=== PATIENT | female | born 1935 | race Caucasian/White ===

== ENCOUNTER → 2017-09-29 09:21 | Outpatient (CLI) | payer OTHER, SELFPAY ==
[2017-09-29 10:24] LABS: Alanine Aminotransferase 29 IU/L (9-52); Albumin Globulin Ratio 1.8 (1.0-2.8); Alkaline Phosphatase 73 U/L (38-126); Aspartate Aminotransferase 24 IU/L (14-36); Bilirubin Total 0.6 mg/dL (0.2-1.3); Blood Urea Nitrogen 20 mg/dL (7-17); Calcium 10.3 mg/dL (8.4-10.2); Carbon Dioxide 31 mmol/L (22-32); Chloride 104 mmol/L (98-107); Estimated Glomerular Filt Rate 53.1 mL/min (>60); Globulin 2.2 g/dL (1.7-4.1); Glucose 95 mg/dL (80-110); HEMOLYSIS < 15 (0-50); Potassium 5.3 mmol/L (3.4-5.1); Sodium 143 mmol/L (137-145); Total Protein 6.2 g/dL (6.3-8.2)
== END ==
PROVIDERS: PCP Family Medicine; Visit Provider Family Medicine
DX: N18.9 Chronic kidney disease, unspecified (principal)
CPT/HCPCS: 36415; 80053

== ENCOUNTER 2017-12-23 09:00 | Oncology outpatient (ONC) | payer OTHER, SELFPAY ==
--- NOTE | 2017-09-24 08:25 | P.PNONC_ITS ---
Assessment and Plan (1) Chronic lymphocytic leukemia of B-cell type not having achieved remission Status: Acute PN -Subjective Interval history: Marietta is a 82 year old female who carries a diagnosis of CLL in clinical remissions currently on maintenance rituximab. She presents today for 3 month clinical eval as well as rituximab infusion. Past Medical History The patient's past medical history is significant for: 1. CLL, normal CLL FISH panel Diagnosis: 11/18/2004. Peripheral flow cytometry. Abnormal B-cell population identified on representing 69% of the total white cells. Positive expression for CD45, CD19, low level CDXX, CD5, and CD23. Low level Of surface light chain restriction. Negative for [facility] 7 or CD10. [place] 70 at 2.8%. CD38 at 0.4%. 10/12/2007. Bone marrow biopsy with aspiration. Microscopically reporting hypercellular at 75%. Numerous mature-appearing lymphocytes scattered diffusely. No increased blasts seen. Moderate 1+ reticulin fibrosis seen. Flow cytometry from the aspirate identifying a mature B-cell population with similar immunophenotype and consistent with CLL/SLL. Abnormal cells represent 83% the total white cells. CLL FISH panel was normal. Karyotype was normal at 46 XX. First-line Treatment: 2007 and 2010. Rituxan Second line therapy: 08/09/2015-10/30/2015. Rituxan bendamustine x 4 cycles. Indication to treat: Increased symptoms of fatigue as well as increasing white cell count . Baseline white blood cell count on 08/01/2015 at 97,000. Absolute lymphocyte count 92,000. Baseline peripheral flow cytometry and 08/06/2015 reporting a abnormal B-cell population representing 87% of the total white blood cell count. Restaging flow cytometry on 11/20/2015 (a reflection of 4 cycles of bendamustine and Rituxan) reporting an abnormal B-cell population representing 0.4% of the total white cells. Clinical staging workup, post Rituxan bendamustine therapy: 03/04/2016. CT abdomen with pelvis. A reflection of 4 cycles of bendamustine rituximab. No adenopathy. Spleen normal in size. Maintenance: 11/13/2015-present. Rituxan. Treatment plan: Rituxan 3 25 mg/m? every 3 months for a total of 3 years. Surveillance: 02/19/2016. Peripheral flow cytometry. Abnormal mature B-cell population low level Of surface light chain restriction. Immunophenotype consistent with the L. Represent 1% of the total lymphocytes and 0.15% of the total viable leukocytes. 2. Depression. 3. Seizures Results - Imaging Additional studies: Procedures Colonoscopy (07/19/13) Esophagogastroduodenoscopy [EGD] with closed biopsy (07/19/13) OTHER APPENDECTOMY (10/18/09) Home Medications and Allergies Home Medications Medication Instructions Recorded Confirmed Type acetaminophen [Tylenol Extra 1,000 mg PO PRN #0 04/15/12 History Strength] omeprazole magnesium [Prilosec OTC] 20 mg PO DAILY #0 04/15/12 History levetiracetam [Keppra] 500 mg PO HS #0 09/25/16 History [LEG CRAMP MED] PRN #0 06/03/17 History levetiracetam [Keppra] 250 mg PO QDAY #0 06/03/17 History prednisolone [Millipred DP] PO BID #0 06/23/17 History Allergies Allergy/AdvReac Type Severity Reaction Status Date / Time albuterol [ALBUTEROL] AdvReac Severe SHAKEY Unverified 07/29/17 12:53 LEGS, JERKY allopurinol [ALLOPURINOL] AdvReac Severe NAUSEA AND Unverified 07/29/17 12:53 GI UPSET Sulfa (Sulfonamide AdvReac Severe HEADACHES Unverified 07/29/17 12:53 Antibiotics) [SULFA (SULFONAMIDE ANTIBIOTICS)] JESSICA Inhibitors AdvReac Mild COUGH Unverified 07/29/17 12:53 [JESSICA INHIBITORS]
[2017-10-01 08:50] LABS: Add Manual Diff / Slide Review NO; Basophils Percent Auto 1.3 % (0-2); Eosinophils Percent Auto 3.5 % (2-4); Hematocrit 38.2 % (36-46); Hemoglobin 12.9 g/dL (12.0-16.0); Lymphocytes Percent Auto 17.7 % (25-40); Mean Corpuscular HGB Conc 33.9 % (30-36); Mean Corpuscular Hemoglobin 29.6 PG (26-34); Mean Corpuscular Volume 87.3 fL (80-100); Monocytes Percent Auto 15.6 % (3-14); Neutrophils Absolute Auto 2800 /uL (3000-5900); Neutrophils Percent Auto 61.9 % (50-75); Platelet Count 207 X10^3/uL (150-400); Red Blood Cell Count 4.37 X10^6/uL (4.0-5.2); Red Cell Distribution Width 14.8 % (11.6-14.8); White Blood Cell Count 4.5 X10^3/uL (4.5-11.0)
[2017-10-01 08:56] LABS: Alanine Aminotransferase 25 IU/L (9-52); Albumin 3.9 g/dL (3.5-5.0); Albumin Globulin Ratio 1.6 (1.0-2.8); Alkaline Phosphatase 66 U/L (38-126); Aspartate Aminotransferase 23 IU/L (14-36); Bilirubin Total 0.5 mg/dL (0.2-1.3); Blood Urea Nitrogen 19 mg/dL (7-17); Calcium 9.7 mg/dL (8.4-10.2); Carbon Dioxide 30 mmol/L (22-32); Chloride 104 mmol/L (98-107); Estimated Glomerular Filt Rate 53.1 mL/min (>60); Globulin 2.5 g/dL (1.7-4.1); Glucose 88 mg/dL (80-110); HEMOLYSIS < 15 (0-50); Potassium 4.3 mmol/L (3.4-5.1); Sodium 145 mmol/L (137-145); Total Protein 6.4 g/dL (6.3-8.2)
--- NOTE | 2017-10-01 08:59 | ONC.APRN.PN ---
Assessment and Plan (1) Chronic lymphocytic leukemia of B-cell type not having achieved remission Current visit: No Status: Acute 10/01/17 09:00 Marietta is a 82 year old female who is being seen in the clinic 10/01/2017 for a dx of CLL in clinical remission, currently on maintenance rituximab Q 3 months which she is tolerating quite well without adverse effects. Marietta looks good on exam today, exam is unremarkable specifically no splenomegaly, lymphadenopathy. CBC and CMP remained unremarkable. She did have CT of abdomen pelvis in May 2017 through the emergency department at which time she was diagnosed with diverticulitis. Reassuringly there was no hepatosplenomegaly or other concerning findings on imaging. We will continue with every 3 month maintenance rituximab. Return to clinic in 3 months for provider visit, CBC, CMP, rituximab. The patient did receive a note from her insurance which is [employer] informing her oncology referral is about to . I have notified the front end java developer who will follow-up. I will check NCCN guidelines to confirm how long she should be on maint rituximab. 10/01/17 09:29 10/01/17 09:34 - Time Spent with Patient 35 mins PN -Subjective Interval history: aMrietta is a 82 year old female who carries a diagnosis of CLL in clinical remissions currently on maintenance rituximab. She presents today for 3 month clinical eval as well as rituximab infusion. On exam today she has no new complaints overall she is feeling quite well. No fatigue. No night sweats. She did have acute diverticulitis in May for which she went to emergency department. This resolved. She is following a low residue diet. No other recent illnesses or infections. No change in appetite specifically no early satiety. Weight is stable. Bladder and bowel habits are stable. She did suffer a right retinal detachment for which she had surgery a few weeks ago. Is recovering quite nicely, vision is improving almost every day. Past Medical History The patient's past medical history is significant for: 1. CLL, normal CLL FISH panel Diagnosis: 11/18/2004. Peripheral flow cytometry. Abnormal B-cell population identified on representing 69% of the total white cells. Positive expression for CD45, CD19, low level CDXX, CD5, and CD23. Low level Of surface light chain restriction. Negative for [facility] 7 or CD10. [place] 70 at 2.8%. CD38 at 0.4%. 10/12/2007. Bone marrow biopsy with aspiration. Microscopically reporting hypercellular at 75%. Numerous mature-appearing lymphocytes scattered diffusely. No increased blasts seen. Moderate 1+ reticulin fibrosis seen. Flow cytometry from the aspirate identifying a mature B-cell population with similar immunophenotype and consistent with CLL/SLL. Abnormal cells represent 83% the total white cells. CLL FISH panel was normal. Karyotype was normal at 46 XX. First-line Treatment: 2007 and 2010. Rituxan Second line therapy: 08/09/2015-10/30/2015. Rituxan bendamustine x 4 cycles. Indication to treat: Increased symptoms of fatigue as well as increasing white cell count . Baseline white blood cell count on 08/01/2015 at 97,000. Absolute lymphocyte count 92,000. Baseline peripheral flow cytometry and 08/06/2015 reporting a abnormal B-cell population representing 87% of the total white blood cell count. Restaging flow cytometry on 11/20/2015 (a reflection of 4 cycles of bendamustine and Rituxan) reporting an abnormal B-cell population representing 0.4% of the total white cells. Clinical staging workup, post Rituxan bendamustine therapy: 03/04/2016. CT abdomen with pelvis. A reflection of 4 cycles of bendamustine rituximab. No adenopathy. Spleen normal in size. Maintenance: 11/13/2015-present. Rituxan. Treatment plan: Rituxan 3 25 mg/m? every 3 months for a total of 3 years. Surveillance: 02/19/2016. Peripheral flow cytometry. Abnormal mature B-cell population low level Of surface light chain restriction. Immunophenotype consistent with the L. Represent 1% of the total lymphocytes and 0.15% of the total viable leukocytes. 2. Depression. 3. Seizures Results - Labs 10/01/17 08:27 10/01/17 08:27 Laboratory Last Values WBC 4.5 X10^3/uL (4.5-11.0) 10/01/17 08:27 RBC 4.37 X10^6/uL (4.0-5.2) 10/01/17 08:27 Hgb 12.9 g/dL (12.0-16.0) 10/01/17 08:27 Hct 38.2 % (36-46) 10/01/17 08:27 MCV 87.3 fL (80-100) 10/01/17 08:27 MCH 29.6 PG (26-34) 10/01/17 08:27 MCHC 33.9 % (30-36) 10/01/17 08:27 RDW 14.8 % (11.6-14.8) 10/01/17 08:27 Plt Count 207 X10^3/uL (150-400) 10/01/17 08:27 Neut % (Auto) 61.9 % (50-75) 10/01/17 08:27 Lymph % (Auto) 17.7 % (25-40) L 10/01/17 08:27 [place] % (Auto) 15.6 % (3-14) H 10/01/17 08:27 Eos % (Auto) 3.5 % (2-4) 10/01/17 08:27 Baso % (Auto) 1.3 % (0-2) 10/01/17 08:27 Neut # (Auto) 2800 /uL (5511-6041) L 10/01/17 08:27 Sodium 145 mmol/L (137-145) 10/01/17 08:27 Potassium 4.3 mmol/L (3.4-5.1) 10/01/17 08:27 Chloride 104 mmol/L (98-107) 10/01/17 08:27 Carbon Dioxide 30 mmol/L (22-32) 10/01/17 08:27 BUN 19 mg/dL (7-17) H 10/01/17 08:27 Creatinine 1.00 mg/dL (0.52-1.04) 10/01/17 08:27 Estimated GFR 53.1 mL/min (>60) L 10/01/17 08:27 BUN/Creatinine Ratio 19.0 (6-22) 10/01/17 08:27 Glucose 88 mg/dL (80-110) 10/01/17 08:27 Calcium 9.7 mg/dL (8.4-10.2) 10/01/17 08:27 Total Bilirubin 0.5 mg/dL (0.2-1.3) 10/01/17 08:27 AST 23 IU/L (14-36) 10/01/17 08:27 ALT 25 IU/L (9-52) 10/01/17 08:27 Alkaline Phosphatase 66 U/L (38-126) 10/01/17 08:27 Total Protein 6.4 g/dL (6.3-8.2) 10/01/17 08:27 Albumin 3.9 g/dL (3.5-5.0) 10/01/17 08:27 Globulin 2.5 g/dL (1.7-4.1) 10/01/17 08:27 Albumin/Globulin Ratio 1.6 (1.0-2.8) 10/01/17 08:27 - Imaging Additional studies: Procedures Colonoscopy (07/19/13) Esophagogastroduodenoscopy [EGD] with closed biopsy (07/19/13) OTHER APPENDECTOMY (10/18/09) Home Medications and Allergies Home Medications Medication Instructions Recorded Confirmed Type acetaminophen [Tylenol Extra 1,000 mg PO PRN #0 04/15/12 09/30/17 History Strength] levetiracetam [Keppra] 500 mg PO HS #0 09/25/16 09/30/17 History [LEG CRAMP MED] PRN #0 06/03/17 History prednisolone [Millipred DP] PO BID #0 06/23/17 09/30/17 History levetiracetam 500 mg tablet See Label Instructions PO .COMPLEX 09/30/17 09/30/17 History ranitidine 300 mg capsule 300 mg PO BEDTIME #30 cap 09/30/17 Rx cholecalciferol (vitamin D3) 2,000 unit PO DAILY 10/01/17 10/01/17 History [Vitamin D3] felodipine 5 mg PO DAILY 10/01/17 10/01/17 History Allergies Allergy/AdvReac Type Severity Reaction Status Date / Time albuterol [ALBUTEROL] AdvReac Severe SHAKEY Verified 09/30/17 15:32 LEGS, JERKY allopurinol [ALLOPURINOL] AdvReac Severe NAUSEA AND Verified 09/30/17 15:32 GI UPSET Sulfa (Sulfonamide AdvReac Severe HEADACHES Verified 09/30/17 15:32 Antibiotics) [SULFA (SULFONAMIDE ANTIBIOTICS)] JESSICA Inhibitors AdvReac Mild COUGH Verified 09/30/17 15:32 [JESSICA INHIBITORS] Exam Narrative: well appearing - Constitutional positive no acute distress - Routine HEENT Exam Head: Present: normocephalic, atraumatic ENT: Present: mucous membranes moist - Routine Neck Exam Present: supple. Absent: lymphadenopathy - Routine Chest/Breast/Axilla Exam Axillae: Absent: lymphadenopathy, mass, tenderness - Routine Respiratory Exam Present: Clear to auscultation bilaterally - Routine Cardiovascular Exam Present: RRR, S1, S2 - Routine Abdominal Exam Present: soft, normoactive bowel sounds. Absent: tenderness, distended, organomegaly, mass Palpation/Percussion: Absent: splenomegaly - Routine Extremities Exam Absent: edema, calf tenderness - Routine Skin Exam Present: intact, normal turgor. Absent: petechiae, rash - Routine Neurological Exam Present: alert, oriented X3 - Routine Psychiatric Exam Present: normal affect
[2017-10-01 09:00] VITALS: BP 137/63; PULSE 71; RESP 18; TEMP 36.8; O2SAT 97
[2017-10-01] MEDS: diphenhydrAMINE 25 MG TABLET PO (10:21)
[2017-10-01] MEDS: ACETAMINOPHEN 325 MG TABLET 650 MG PO (10:22)
[2017-10-01] MEDS: SODIUM CHLORIDE 0.9% 100 ML 21 ML IV (10:22)
[2017-10-01] MEDS: RITUXIMAB IV (10:41)
[2017-10-01] MEDS: NORMAL SALINE IV (10:41)
--- NOTE | 2017-12-23 06:43 | ONC.APRN.PN ---
Assessment and Plan (1) Chronic lymphocytic leukemia of B-cell type not having achieved remission Current visit: No Status: Acute 12/23/17 06:43 Marietta is a 82 year old female who is being seen in the clinic 12/23/2017 for a dx of CLL in clinical remission, currently on maintenance rituximab Q 3 months which she is tolerating quite well without adverse effects. Plan is to continue for a total of 3 years, her final infusion will be October 2018. Marietta looks good on exam today, exam is unremarkable specifically no splenomegaly, lymphadenopathy. CBC and CMP remain unremarkable. She did have CT of abdomen pelvis in May 2017 through the emergency department at which time she was diagnosed with diverticulitis. Reassuringly there was no hepatosplenomegaly or other concerning findings on imaging. We will continue with every 3 month maintenance rituximab. Return to clinic in 3 months for provider visit, CBC, CMP, LDH rituximab. 12/23/17 09:33 - Time Spent with Patient 25 mins PN -Subjective Interval history: Marietta is a 82 year old female who carries a diagnosis of CLL in clinical remissions currently on maintenance rituximab. She presents today for 3 month clinical eval as well as rituximab infusion. First infusion was October 2015 per NCCN guidelines a total of 3 years mait rituximab is the current recommendation. On exam today she has no new complaints overall she is feeling quite well. No fatigue. No night sweats. She did have acute diverticulitis in May for which she went to emergency department. This resolved. She is following a low residue diet. No other recent illnesses or infections. No change in appetite specifically no early satiety. Weight is stable. Bladder and bowel habits are stable. She did suffer a left retinal detachment for which she had surgery a few weeks ago. Slowly recovering, vision out of left eye still skewed, reading is a challenge. Marietta and her will be celebrating their 62nd wedding anniversary later this month. Past Medical History The patient's past medical history is significant for: 1. CLL, normal CLL FISH panel Diagnosis: 11/18/2004. Peripheral flow cytometry. Abnormal B-cell population identified on representing 69% of the total white cells. Positive expression for CD45, CD19, low level CDXX, CD5, and CD23. Low level Of surface light chain restriction. Negative for [facility] 7 or CD10. [place] 70 at 2.8%. CD38 at 0.4%. 10/12/2007. Bone marrow biopsy with aspiration. Microscopically reporting hypercellular at 75%. Numerous mature-appearing lymphocytes scattered diffusely. No increased blasts seen. Moderate 1+ reticulin fibrosis seen. Flow cytometry from the aspirate identifying a mature B-cell population with similar immunophenotype and consistent with CLL/SLL. Abnormal cells represent 83% the total white cells. CLL FISH panel was normal. Karyotype was normal at 46 XX. First-line Treatment: 2007 and 2010. Rituxan Second line therapy: 08/09/2015-10/30/2015. Rituxan bendamustine x 4 cycles. Indication to treat: Increased symptoms of fatigue as well as increasing white cell count . Baseline white blood cell count on 08/01/2015 at 97,000. Absolute lymphocyte count 92,000. Baseline peripheral flow cytometry and 08/06/2015 reporting a abnormal B-cell population representing 87% of the total white blood cell count. Restaging flow cytometry on 11/20/2015 (a reflection of 4 cycles of bendamustine and Rituxan) reporting an abnormal B-cell population representing 0.4% of the total white cells. Clinical staging workup, post Rituxan bendamustine therapy: 03/04/2016. CT abdomen with pelvis. A reflection of 4 cycles of bendamustine rituximab. No adenopathy. Spleen normal in size. Maintenance: 11/13/2015-present. Rituxan. Treatment plan: Rituxan 3 25 mg/m? every 3 months for a total of 3 years. Surveillance: 02/19/2016. Peripheral flow cytometry. Abnormal mature B-cell population low level Of surface light chain restriction. Immunophenotype consistent with the L. Represent 1% of the total lymphocytes and 0.15% of the total viable leukocytes. 2. Depression. 3. Seizures Results - Labs Laboratory Last Values WBC 4.5 X10^3/uL (4.5-11.0) 10/01/17 08:27 RBC 4.37 X10^6/uL (4.0-5.2) 10/01/17 08:27 Hgb 12.9 g/dL (12.0-16.0) 10/01/17 08:27 Hct 38.2 % (36-46) 10/01/17 08:27 MCV 87.3 fL (80-100) 10/01/17 08:27 MCH 29.6 PG (26-34) 10/01/17 08:27 MCHC 33.9 % (30-36) 10/01/17 08:27 RDW 14.8 % (11.6-14.8) 10/01/17 08:27 Plt Count 207 X10^3/uL (150-400) 10/01/17 08:27 Neut % (Auto) 61.9 % (50-75) 10/01/17 08:27 Lymph % (Auto) 17.7 % (25-40) L 10/01/17 08:27 [place] % (Auto) 15.6 % (3-14) H 10/01/17 08:27 Eos % (Auto) 3.5 % (2-4) 10/01/17 08:27 Baso % (Auto) 1.3 % (0-2) 10/01/17 08:27 Neut # (Auto) 2800 /uL (2494-0485) L 10/01/17 08:27 Sodium 145 mmol/L (137-145) 10/01/17 08:27 Potassium 4.3 mmol/L (3.4-5.1) 10/01/17 08:27 Chloride 104 mmol/L (98-107) 10/01/17 08:27 Carbon Dioxide 30 mmol/L (22-32) 10/01/17 08:27 BUN 19 mg/dL (7-17) H 10/01/17 08:27 Creatinine 1.00 mg/dL (0.52-1.04) 10/01/17 08:27 Estimated GFR 53.1 mL/min (>60) L 10/01/17 08:27 BUN/Creatinine Ratio 19.0 (6-22) 10/01/17 08:27 Glucose 88 mg/dL (80-110) 10/01/17 08:27 Calcium 9.7 mg/dL (8.4-10.2) 10/01/17 08:27 Total Bilirubin 0.5 mg/dL (0.2-1.3) 10/01/17 08:27 AST 23 IU/L (14-36) 10/01/17 08:27 ALT 25 IU/L (9-52) 10/01/17 08:27 Alkaline Phosphatase 66 U/L (38-126) 10/01/17 08:27 Total Protein 6.4 g/dL (6.3-8.2) 10/01/17 08:27 Albumin 3.9 g/dL (3.5-5.0) 10/01/17 08:27 Globulin 2.5 g/dL (1.7-4.1) 10/01/17 08:27 Albumin/Globulin Ratio 1.6 (1.0-2.8) 10/01/17 08:27 - Imaging Additional studies: Procedures Colonoscopy (07/19/13) Esophagogastroduodenoscopy [EGD] with closed biopsy (07/19/13) Home Medications and Allergies Home Medications Medication Instructions Recorded Confirmed Type acetaminophen [Tylenol Extra 1,000 mg PO PRN #0 04/15/12 11/13/17 History Strength] levetiracetam [Keppra] 500 mg PO HS #0 09/25/16 11/13/17 History [LEG CRAMP MED] PRN #0 06/03/17 11/13/17 History levetiracetam 500 mg tablet See Label Instructions PO .COMPLEX 09/30/17 11/13/17 History cholecalciferol (vitamin D3) 2,000 unit PO DAILY 10/01/17 11/13/17 History [Vitamin D3] omeprazole 20 mg capsule,delayed 20 mg PO DAILY 11/13/17 11/13/17 History release felodipine ER 5 mg tablet,extended 5 mg PO DAILY #90 tab 12/22/17 Rx release 24 hr Allergies Allergy/AdvReac Type Severity Reaction Status Date / Time albuterol [ALBUTEROL] AdvReac Severe SHAKEY Verified 11/13/17 12:46 LEGS, JERKY allopurinol [ALLOPURINOL] AdvReac Severe NAUSEA AND Verified 11/13/17 12:46 GI UPSET Sulfa (Sulfonamide AdvReac Severe HEADACHES Verified 11/13/17 12:46 Antibiotics) [SULFA (SULFONAMIDE ANTIBIOTICS)] JESSICA Inhibitors AdvReac Mild COUGH Verified 11/13/17 12:46 [JESSICA INHIBITORS] Exam Vital signs: Last Vital Signs Temp 98.2 F 10/01/17 09:00 Pulse 71 10/01/17 09:00 Resp 18 10/01/17 09:00 BP 137/63 H 10/01/17 09:00 Pulse Ox 97 06/14/18 09:00 - Constitutional positive no acute distress, positive average body habitus - Routine HEENT Exam Eye: Present: conjunctivae pink. Absent: conjunctival icterus, scleral injection ENT: Present: mucous membranes moist, oropharynx clear - Routine Neck Exam Present: supple. Absent: lymphadenopathy - Routine Chest/Breast/Axilla Exam Axillae: Absent: lymphadenopathy, mass, tenderness - Routine Respiratory Exam Present: Clear to auscultation bilaterally. Absent: rales, rhonchi, wheezes - Routine Cardiovascular Exam Present: RRR, S1, S2. Absent: murmur, gallop, rubs, JVD - Routine Abdominal Exam Present: soft, normoactive bowel sounds. Absent: tenderness, distended, organomegaly, mass - Routine Extremities Exam Absent: edema, calf tenderness - Routine Skin Exam Present: intact, normal turgor. Absent: petechiae, rash - Routine Neurological Exam Present: alert, oriented X3 - Routine Psychiatric Exam Present: normal affect
[2017-12-23 08:48] LABS: Add Manual Diff / Slide Review NO; Basophils Percent Auto 0.9 % (0-2); Eosinophils Percent Auto 2.7 % (2-4); Hematocrit 37.8 % (36-46); Hemoglobin 12.7 g/dL (12.0-16.0); Lymphocytes Percent Auto 18.2 % (25-40); Mean Corpuscular HGB Conc 33.6 % (30-36); Mean Corpuscular Hemoglobin 29.9 PG (26-34); Mean Corpuscular Volume 88.8 fL (80-100); Monocytes Percent Auto 13.7 % (3-14); Neutrophils Absolute Auto 3300 /uL (3000-5900); Neutrophils Percent Auto 64.5 % (50-75); Platelet Count 213 X10^3/uL (150-400); Red Blood Cell Count 4.26 X10^6/uL (4.0-5.2); Red Cell Distribution Width 14.3 % (11.6-14.8); White Blood Cell Count 5.1 X10^3/uL (4.5-11.0)
[2017-12-23 08:59] LABS: Alanine Aminotransferase 23 IU/L (9-52); Albumin 3.8 g/dL (3.5-5.0); Albumin Globulin Ratio 1.7 (1.0-2.8); Alkaline Phosphatase 64 U/L (38-126); Aspartate Aminotransferase 19 IU/L (14-36); Bilirubin Total 0.4 mg/dL (0.2-1.3); Blood Urea Nitrogen 16 mg/dL (7-17); Calcium 9.8 mg/dL (8.4-10.2); Carbon Dioxide 31 mmol/L (22-32); Chloride 107 mmol/L (98-107); Estimated Glomerular Filt Rate 53.1 mL/min (>60); Globulin 2.2 g/dL (1.7-4.1); Glucose 90 mg/dL (80-110); HEMOLYSIS < 15 (0-50); Potassium 4.3 mmol/L (3.4-5.1); Sodium 144 mmol/L (137-145)
[2017-12-23 09:00] VITALS: BP 138/81; PULSE 71; RESP 18; TEMP 36.8; O2SAT 96
[2017-12-23] MEDS: diphenhydrAMINE 25 MG TABLET PO (09:57)
[2017-12-23] MEDS: ACETAMINOPHEN 325 MG TABLET 650 MG PO (09:57)
[2017-12-23] MEDS: SODIUM CHLORIDE 0.9% 100 ML 21 ML IV (09:58)
[2017-12-23] MEDS: RITUXIMAB IV (10:29)
[2017-12-23] MEDS: NORMAL SALINE IV (10:29)
--- NOTE | 2017-12-24 09:37 | ONC.NAV ---
*Sent patient her Last Chemo Card.
== END 2017-12-24 14:53 | disposition home or self-care (01) ==
PROVIDERS: Family Provider Family Medicine; PCP Family Medicine; Visit Provider Nurse Practitioner Gerontology
DX: Z51.11 Encounter for antineoplastic chemotherapy (principal); C91.10 Chronic lymphocytic leukemia of B-cell type not having achieved remission
CPT/HCPCS: 36415; 36592; 80053; 85025; 96413; 96415; 99214

== ENCOUNTER → 2018-01-11 13:08 | Outpatient (CLI) | payer OTHER, SELFPAY ==
[2018-01-11 13:29] LABS: Add Manual Diff / Slide Review NO; Basophils Percent Auto 1.1 % (0-2); Eosinophils Percent Auto 2.3 % (2-4); Hematocrit 38.5 % (36-46); Hemoglobin 13.1 g/dL (12.0-16.0); Lymphocytes Percent Auto 17.4 % (25-40); Mean Corpuscular Hemoglobin 30.1 PG (26-34); Mean Corpuscular Volume 88.5 fL (80-100); Monocytes Percent Auto 12.1 % (3-14); Neutrophils Absolute Auto 3600 /uL (3000-5900); Neutrophils Percent Auto 67.1 % (50-75); Platelet Count 211 X10^3/uL (150-400); Red Blood Cell Count 4.35 X10^6/uL (4.0-5.2); Red Cell Distribution Width 14.2 % (11.6-14.8); White Blood Cell Count 5.4 X10^3/uL (4.5-11.0)
[2018-01-11 13:59] LABS: Alanine Aminotransferase 24 IU/L (9-52); Albumin 4.2 g/dL (3.5-5.0); Albumin Globulin Ratio 1.8 (1.0-2.8); Alkaline Phosphatase 71 U/L (38-126); Aspartate Aminotransferase 26 IU/L (14-36); BUN Creatinine Ratio 22.2 (6-22); Bilirubin Total 0.7 mg/dL (0.2-1.3); Blood Urea Nitrogen 20 mg/dL (7-17); Calcium 9.9 mg/dL (8.4-10.2); Carbon Dioxide 30 mmol/L (22-32); Chloride 105 mmol/L (98-107); Estimated Glomerular Filt Rate 59.9 mL/min (>60); Globulin 2.3 g/dL (1.7-4.1); Glucose 89 mg/dL (80-110); HEMOLYSIS 17 (0-50); Lactate Dehydrogenase 456 U/L (313-618); Lipase 50 U/L (23-300); Potassium 4.5 mmol/L (3.4-5.1); Sodium 143 mmol/L (137-145); Total Protein 6.5 g/dL (6.3-8.2)
[2018-01-11 14:30] LABS: Thyroid Stimulating Hormone 1.93 uIU/mL (0.47-4.68)
== END ==
PROVIDERS: Family Provider Family Medicine; PCP Family Medicine; Visit Provider Family Medicine
DX: Z51.81 Encounter for therapeutic drug level monitoring (principal)
CPT/HCPCS: 80053; 83615; 83690; 84443; 85025

== ENCOUNTER 2018-03-05 11:58 | Emergency (ER) | payer OTHER, SELFPAY ==
[2018-03-05 12:14] VITALS: BP 156/100; PULSE 85; RESP 16; TEMP 36.4; O2SAT 98
--- NOTE | 2018-03-05 12:54 | DI.CT.S_ITS ---
PROCEDURE: CT HEAD/BRAIN WO CON INDICATIONS: difficulty speaking now resolved hx of aneurysm clip TECHNIQUE: Noncontrast 4.5 mm thick angled axial sections acquired from the foramen magnum to the vertex, with coronal and sagittal reformats. For radiation dose reduction, the following was used: automated exposure control, adjustment of mA and/or kV according to patient size. COMPARISON: [facility], CT, HEAD WITHOUT CONTRAST, 09/25/2016, 12:31. FINDINGS: Image quality: Excellent. CSF spaces: Basal cisterns are patent. No extra-axial fluid collections. The ventricles are symmetric in size and shape. Left frontal interventricular catheter is stable compared to prior examination. Brain: No intracranial bleeds or masses. There is cerebral volume loss for age, with resultant ventricular and sulcal prominence. Left frontal encephalomalacia is stable compared to prior examination. There are periventricular and deep white matter chronic small vessel ischemic changes. 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 There is intracranial internal carotid artery and vertebral artery atherosclerosis. Skull and face: Postsurgical changes compatible with prior left frontal-temporal craniotomy are stable. The visualized facial bones appear intact, without suspicious lesions. Sinuses: Visualized sinuses and mastoids are clear. IMPRESSION: No acute intracranial disease process. If there is continued clinical concern for intracranial pathology, then MRI of the brain should be considered for further evaluation. Dictated by: Rachael Ontiveros MD, PhD on 03/05/2018 at 13:30 Approved by: Rachael Ontiveros MD, PhD on 03/05/2018 at 13:34
[2018-03-05 13:00] VITALS: BP 129/60; PULSE 71; RESP 14; O2SAT 97
[2018-03-05 13:04] LABS: Add Manual Diff / Slide Review NO; Basophils Percent Auto 0.7 % (0-2); Eosinophils Percent Auto 1.7 % (2-4); Hematocrit 38.7 % (36-46); Hemoglobin 13.4 g/dL (12.0-16.0); INR 1.1 (0.9-1.3); Lymphocytes Percent Auto 17.7 % (25-40); Mean Corpuscular HGB Conc 34.6 % (30-36); Mean Corpuscular Hemoglobin 30.2 PG (26-34); Mean Corpuscular Volume 87.3 fL (80-100); Monocytes Percent Auto 12.4 % (3-14); Neutrophils Absolute Auto 4600 /uL (3000-5900); Neutrophils Percent Auto 67.5 % (50-75); Platelet Count 217 X10^3/uL (150-400); Prothrombin Time 11.5 SECONDS (10.1-12.7); Red Blood Cell Count 4.43 X10^6/uL (4.0-5.2); White Blood Cell Count 6.8 X10^3/uL (4.5-11.0)
[2018-03-05 13:07] LABS: PTT Partial Thromboplastin Tim 31 SECONDS (26.4-36.2)
[2018-03-05 13:08] LABS: Alanine Aminotransferase 24 IU/L (9-52); Albumin 4.1 g/dL (3.5-5.0); Albumin Globulin Ratio 1.8 (1.0-2.8); Alkaline Phosphatase 72 U/L (38-126); Aspartate Aminotransferase 23 IU/L (14-36); BUN Creatinine Ratio 22.2 (6-22); Bilirubin Total 0.4 mg/dL (0.2-1.3); Blood Urea Nitrogen 20 mg/dL (7-17); Calcium 9.7 mg/dL (8.4-10.2); Carbon Dioxide 28 mmol/L (22-32); Estimated Glomerular Filt Rate 59.9 mL/min (>60); Globulin 2.3 g/dL (1.7-4.1); Glucose 90 mg/dL (80-110); HEMOLYSIS < 15 (0-50); Total Protein 6.4 g/dL (6.3-8.2)
[2018-03-05 13:12] LABS: Chloride 104 mmol/L (98-107); Potassium 4.3 mmol/L (3.4-5.1); Sodium 141 mmol/L (137-145)
--- NOTE | 2018-03-05 13:28 | ED.NEUROSD ---
HPI - Neuro Symptoms/Deficit General Chief Complaint: Neuro Symptoms/Deficit Stated Complaint: Thinks had mini stroke yesterday Time Seen by Provider: 03/05/18 12:15 Source: patient Mode of arrival: ambulatory Limitations: no limitations History of Present Illness HPI Narrative: Patient is a saurabh 82-year-old female who presents with speech difficulty yesterday. She said she had about 5-10 minutes for she knew she wanted to say but could not get the words out. She and her thought nothing of it now realized that she may have had a TIA. At that time she did not have any facial drooping no extremity weakness. She has never had a TIA in the past. She has had an aneurysm with a clip. She now is feeling better. \she was instructed to come to the emergency department for further evaluation. On Anticoagulants: No Related Data Home Medications Medication Instructions Recorded Confirmed acetaminophen [Tylenol Extra 1,000 mg PO PRN #0 04/15/12 02/09/18 Strength] levetiracetam [Keppra] 500 mg PO HS #0 09/25/16 02/09/18 levetiracetam 500 mg tablet See Label Instructions PO .COMPLEX 09/30/17 02/09/18 cholecalciferol (vitamin D3) 2,000 unit PO DAILY 10/01/17 02/09/18 [Vitamin D3] omeprazole 20 mg capsule,delayed 20 mg PO DAILY 11/13/17 02/09/18 release Previous Rx's Medication Instructions Recorded felodipine ER 5 mg tablet,extended 5 mg PO DAILY #90 tab 12/30/17 release 24 hr Allergies Allergy/AdvReac Type Severity Reaction Status Date / Time albuterol [ALBUTEROL] AdvReac Severe SHAKEY Verified 02/09/18 09:02 LEGS, JERKY allopurinol [ALLOPURINOL] AdvReac Severe NAUSEA AND Verified 02/09/18 09:02 GI UPSET Sulfa (Sulfonamide AdvReac Severe HEADACHES Verified 02/09/18 09:02 Antibiotics) [SULFA (SULFONAMIDE ANTIBIOTICS)] JESSICA Inhibitors AdvReac Mild COUGH Verified 02/09/18 09:02 [JESSICA INHIBITORS] Review of Systems Review of Systems All systems reviewed & are unremarkable except as noted in HPI and below Constitutional Denies chills, Denies fever(s), Denies lethargy and Denies weakness Eyes Denies blurry vision, Denies change in vision, Denies eye discharge, Denies irritation and Denies loss of vision Cardiovascular Denies chest pain, Denies irregular heart rhythm, Denies lightheadedness, Denies palpitations, Denies dyspnea, Denies dyspnea on exertion and Denies orthopnea Respiratory Denies cough, Denies dyspnea, Denies dyspnea on exertion and Denies wheezing Gastrointestinal Gastrointestinal: Denies abdominal pain, Denies change in bowel habits, Denies diarrhea, Denies nausea and Denies vomiting Musculoskeletal Denies back pain, Denies muscle weakness, Denies numbness and Denies tingling Integumentary/Breasts Denies pruritus, Denies erythema, Denies rash and Denies wounds Neurologic Denies loss of vision, Denies numbness, Denies tingling and Denies weakness Endocrine Denies palpitations Allergic/Immunologic Denies wheezing [facility] Medical History Arthritis (Chronic Unknown) CLL (chronic lymphocytic leukemia) (Chronic Unknown) Depression (Chronic Unknown) GERD (gastroesophageal reflux disease) (Chronic Unknown) Hypertension (Chronic Unknown) Seizure disorder (Chronic Unknown) Spinal stenosis (Chronic Unknown) Cataracts, bilateral (Resolved Unknown) Gallbladder disease (Resolved Unknown) Subarachnoid hemorrhage (Resolved 2000) Surgical History History of bilateral cataract extraction (Resolved Unknown) 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 ) Exam Initial Vital Signs Initial Vital Signs: Vital Signs Temperature 97.5 F L 03/05/18 12:14 Pulse Rate 85 03/05/18 12:14 Respiratory Rate 16 03/05/18 12:14 Blood Pressure 156/100 H 03/05/18 12:14 Pulse Oximetry 98 03/05/18 12:14 GENERAL: Alert elderly female no acute distress HEENT: Head atraumatic,EOMI, pupils reactive, face symmetric, CARDIOVASCULAR: Regular rate and rhythm without murmurs, rubs or gallops. RESPIRATORY: Breath sounds equal bilaterally, no wheezes rales or rhonchi. ABDOMEN: Soft, nontender. Normoactive bowel sounds all 4 quadrants. No guarding or rebound. EXTREMITIES: Normal range of motion, no clubbing or edema. Neurovascularly intact NEUROLOGICAL: Alert and oriented x4.Normal gait and speech. Cranial nerves II through XII grossly intact. [Good spgasb-pf-rbbm, good smgy-fh-nxwb, strength equal bilaterally, no dysarthria or aphasia, sensation in tact to soft touch bilaterally, no visual changes, no facial droop] SKIN: Warm, dry, no laceration, no petechiae, no rashes or lesions. Scores ABCD2 Age >= 60 years: yes Initial BP. Either SBP >= 140 or DBP >= 90.: no Clinical features of the TIA: speech disturbance without weakness Duration of symptoms: < 10 minutes History of diabetes: no ABCD2 Score: 2 NIH Stroke Scale Level of Conciousness: Alert, keenly responsive Ask month/age: Answers both questions correctly. Open/close eyes, close hand: Performs both tasks correctly Best gaze horizontal: Normal Visual [place]: No visual loss Facial palsy: Normal symetrical movement Left arm drift: No drift for full 10 sec Right arm drift: No drift for full 10 sec Left leg drift: No drift for full 10 sec Right leg drift: No drift for full 10 sec Limb ataxia: Absent Sensory on face/arms/legs: Normal, no sensory loss Best language: No aphasia, normal Dysarthria: Normal Extinction or inattention: No abnormality Total NIH Stroke scale score: 0 Course Orders Ordered: ED Orders 03/05/18 12:24 Complete Blood Count AUTO DIFF Stat Comprehensive Metabolic Panel Stat Partial Thromboplastin Time Stat Prothrombin Time INR Stat 03/05/18 12:54 CT head/brain wo con Stat Discontinued Medications Aspirin (Aspirin Chew) 324 mg PO NOW ONE Stop: 03/05/18 13:45 Last Admin: 03/05/18 13:48 Dose: 81 mg Vital Signs - 8 hr 03/05/18 12:14 03/05/18 13:00 03/05/18 13:59 Temperature 97.5 F L 97.8 F Pulse Rate 85 71 70 Respiratory Rate 16 14 17 Blood Pressure 156/100 H 136/44 L Blood Pressure [Right Arm] 129/60 Pulse Oximetry 98 97 99 MDM - Neuro Symptoms/Deficit Lab Data Attestation: I reviewed the patient's lab results. Result diagrams: 03/05/18 12:24 03/05/18 12:24 Lab Results 03/05/18 03/05/18 03/05/18 Range/Units 12:24 12:24 12:24 WBC 6.8 (4.5-11.0) X10^3/uL RBC 4.43 (4.0-5.2) X10^6/uL Hgb 13.4 (12.0-16.0) g/dL Hct 38.7 (36-46) % MCV 87.3 (80-100) fL MCH 30.2 (26-34) PG MCHC 34.6 (30-36) % RDW 14.0 (11.6-14.8) % Plt Count 217 (150-400) X10^3/uL Neut % (Auto) 67.5 (50-75) % Lymph % (Auto) 17.7 L (25-40) % [place] % (Auto) 12.4 (3-14) % Eos % (Auto) 1.7 L (2-4) % Baso % (Auto) 0.7 (0-2) % Neut # (Auto) 4600 (8494-0337) /uL PT 11.5 (10.1-12.7) SECONDS INR 1.1 (0.9-1.3) APTT 31 (26.4-36.2) SECONDS Sodium 141 (137-145) mmol/L Potassium 4.3 (3.4-5.1) mmol/L Chloride 104 (98-107) mmol/L Carbon Dioxide 28 (22-32) mmol/L BUN 20 H (7-17) mg/dL Creatinine 0.90 (0.52-1.04) mg/dL Estimated GFR 59.9 L (>60) mL/min BUN/Creatinine Ratio 22.2 H (6-22) Glucose 90 (80-110) mg/dL Calcium 9.7 (8.4-10.2) mg/dL Total Bilirubin 0.4 (0.2-1.3) mg/dL AST 23 (14-36) IU/L ALT 24 (9-52) IU/L Alkaline Phosphatase 72 (38-126) U/L Total Protein 6.4 (6.3-8.2) g/dL Albumin 4.1 (3.5-5.0) g/dL Globulin 2.3 (1.7-4.1) g/dL Albumin/Globulin Ratio 1.8 (1.0-2.8) Urine Opiates Screen Ur Oxycodone Screen Urine Methadone Screen Ur Barbiturates Screen U Tricyclic Antidepress Ur Phencyclidine Scrn Ur Amphetamines Screen U Methamphetamines Scrn Ur MDMA Scrn (Ecstasy) U Benzodiazepines Scrn Urine Cocaine Screen U Marijuana (THC) Screen 03/05/18 Range/Units 12:24 WBC (4.5-11.0) X10^3/uL RBC (4.0-5.2) X10^6/uL Hgb (12.0-16.0) g/dL Hct (36-46) % MCV (80-100) fL MCH (26-34) PG MCHC (30-36) % RDW (11.6-14.8) % Plt Count (150-400) X10^3/uL Neut % (Auto) (50-75) % Lymph % (Auto) (25-40) % [place] % (Auto) (3-14) % Eos % (Auto) (2-4) % Baso % (Auto) (0-2) % Neut # (Auto) (7160-2874) /uL PT (10.1-12.7) SECONDS INR (0.9-1.3) APTT (26.4-36.2) SECONDS Sodium (137-145) mmol/L Potassium (3.4-5.1) mmol/L Chloride (98-107) mmol/L Carbon Dioxide (22-32) mmol/L BUN (7-17) mg/dL Creatinine (0.52-1.04) mg/dL Estimated GFR (>60) mL/min BUN/Creatinine Ratio (6-22) Glucose (80-110) mg/dL Calcium (8.4-10.2) mg/dL Total Bilirubin (0.2-1.3) mg/dL AST (14-36) IU/L ALT (9-52) IU/L Alkaline Phosphatase (38-126) U/L Total Protein (6.3-8.2) g/dL Albumin (3.5-5.0) g/dL Globulin (1.7-4.1) g/dL Albumin/Globulin Ratio (1.0-2.8) Urine Opiates Screen Cancelled Ur Oxycodone Screen Cancelled Urine Methadone Screen Cancelled Ur Barbiturates Screen Cancelled U Tricyclic Antidepress Cancelled Ur Phencyclidine Scrn Cancelled Ur Amphetamines Screen Cancelled U Methamphetamines Scrn Cancelled Ur MDMA Scrn (Ecstasy) Cancelled U Benzodiazepines Scrn Cancelled Urine Cocaine Screen Cancelled U Marijuana (THC) Screen Cancelled Urine Dip Bedside Urine Glucose Negative Bedside Urine Bilirubin - Negative Bedside Urine Ketone - Negative Urine Specific [place] 1.015 Bedside Urine Occult Blood - Negative Bedside Urine pH 6.0 Bedside Urine Protein - Negative Bedside Urine Urobilinogen - Negative Bedside Urine Nitrite - Negative Bedside Urine Leukocytes - Negative Esterase Imaging Data CT scan - head: Radiologist's impression: Patient: Marietta Fernandez MMR#: [id number] : 6Acct:[id number] Age/Sex: 82 / FDate of Service: 03/05/18 Loc: ED Accession Number: [id number] Procedure: CT head/brain wo con Ordering Provider: Kallie Cardozo D.O. PROCEDURE: CT HEAD/BRAIN WO CON INDICATIONS: difficulty speaking now resolved hx of aneurysm clip TECHNIQUE: Noncontrast 4.5 mm thick angled axial sections acquired from the foramen magnum to the vertex, with coronal and sagittal reformats. For radiation dose reduction, the following was used: automated exposure control, adjustment of mA and/or kV according to patient size. COMPARISON: [facility], CT, HEAD WITHOUT CONTRAST, 09/25/2016, 12:31. FINDINGS: Image quality: Excellent. CSF spaces: Basal cisterns are patent. No extra-axial fluid collections. The ventricles are symmetric in size and shape. Left frontal interventricular catheter is stable compared to prior examination. Brain: No intracranial bleeds or masses. There is cerebral volume loss for age, with resultant ventricular and sulcal prominence. Left frontal encephalomalacia is stable compared to prior examination. There are periventricular and deep white matter chronic small vessel ischemic changes. 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 There is intracranial internal carotid artery and vertebral artery atherosclerosis. Skull and face: Postsurgical changes compatible with prior left frontal-temporal craniotomy are stable. The visualized facial bones appear intact, without suspicious lesions. Sinuses: Visualized sinuses and mastoids are clear. IMPRESSION: No acute intracranial disease process. If there is continued clinical concern for intracranial pathology, then MRI of the brain should be considered for further evaluation. Dictated by: Rachael Ontiveros MD, PhD on 03/05/2018 at 13:30 ECG Data Attestation: I personally reviewed and interpreted this ECG as follows: Prior ECG tracings: available for review Interpretation: Normal sinus rhythm rate [address] changes TX interval 148 QRS 98 but similar to previous EKG in 2017 MDM Narrative Medical decision making narrative: I did discuss with both patient and symptoms are concerning for TIA if symptoms should return at they need to return to the ER immediately. I discussed with her about taking aspirin 81 mg daily. She said that she was taken off the aspirin some point has she had bleeding by her retina. We discussed risks versus benefits she agrees that she will take aspirin and discuss further if needed with her primary. I also discussed that she needs carotid Dopplers and echocardiogram. At this time she feels comfortable going home. Discharge Plan Departure Patient Disposition: Home Clinical Impression: Brain TIA Discharge Date/Time: 03/05/18 14:00 Interventions: ED Discharge Assessment Last Done: 03/05/18 13:59 Instructions: DI for Transient Ischemic Attack Activity Restrictions/Additional Instructions: *You have been diagnosed with TIA *What to do: You likely had a mini stroke yesterday. You will need further workup of echocardiogram and carotid Dopplers. Please discuss this with your primary care physician *Continue to take medications as directed Aspirin 81 mg daily *Follow up with your primary care provider in 2-3 days *Return to ER if you should have difficulty speaking, facial drooping, extremity weakness or any new, worsening or concerning symptoms Prescriptions: No Action levetiracetam [Keppra] 500 mg tablet See Patient Comments PO .COMPLEX RF: 0 omeprazole 20 mg capsule,delayed release(DR/EC) 20 mg PO DAILY RF: 0 acetaminophen [Tylenol Extra Strength] 500 MG tablet 1,000 mg PO PRN Qty: 0 RF: 0 levetiracetam [Keppra] 500 MG tablet 500 mg PO HS Qty: 0 RF: 0 felodipine 5 mg tablet extended release 24 hr 5 mg PO DAILY Qty: 90 RF: 1 cholecalciferol (vitamin D3) [Vitamin D3] 2,000 unit Capsule 2,000 unit PO DAILY RF: 0 Referrals: Yana Velásquez DO [Primary Care Provider] -
[2018-03-05] MEDS: ASPIRIN 81 MG TAB 324 MG PO (13:48)
[2018-03-05 13:59] VITALS: BP 136/44; PULSE 70; RESP 17; TEMP 36.6; O2SAT 99
--- NOTE | 2018-03-06 16:27 | PC.NURSE ---
call back, no answer
== END 2018-03-05 14:00 | disposition home or self-care (01) ==
PROVIDERS: Emergency Provider Emergency Medicine; Family Provider Family Medicine; PCP Family Medicine
DX: G45.9 Transient cerebral ischemic attack, unspecified (principal)
CPT/HCPCS: 36591; 70450; 80053; 81003; 85025; 85610; 85730; 93005; 99282; 99285; 99291

== ENCOUNTER → 2018-03-25 14:51 | Outpatient (CLI) | payer OTHER, SELFPAY ==
--- NOTE | 2018-03-25 14:53 | DI.US.S_ITS ---
PROCEDURE: US CAROTID DOPPLER BI INDICATIONS: Hx of aneurysm, TIA TECHNIQUE: Color and pulse Doppler interrogation was performed of both carotid systems, with image documentation and velocity measurements. COMPARISON: [facility], , CAROTID ARTERY DOPPLER BILAT, 02/02/2012, 9:45. FINDINGS: Stenosis calculations are based on SRU (Society of Radiologists in Ultrasound) criteria. Right side: Brachial blood pressure: 186/77 mm Hg. Common carotid artery peak systolic velocity: 74 cm/sec. Internal carotid artery peak systolic velocity: 68 cm/sec. Internal carotid artery end diastolic velocity: 19 cm/sec. External carotid artery peak systolic velocity: 243 cm/sec. ICA/CCA peak systolic ratio: 0.9. Alarcon scale imaging description: Moderate scattered plaque. Percent internal carotid artery stenosis: Less than 50% stenosis. Vertebral artery: Flow direction is antegrade. Left side: Brachial blood pressure: 166/78 mm Hg. Common carotid artery peak systolic velocity: 92 cm/sec. Internal carotid artery peak systolic velocity: 107 cm/sec. Internal carotid artery end diastolic velocity: 27 cm/sec. External carotid artery peak systolic velocity: 105 cm/sec. ICA/CCA peak systolic ratio: 1.2. Alarcon scale imaging description: Moderate scattered plaque Percent internal carotid artery stenosis: Less than 50% stenosis. Vertebral artery: Flow direction is antegrade. IMPRESSION: Less than 50% bilateral internal carotid artery stenosis unchanged from prior. Dictated by: Chester Angel [facility] Interpreted: Gonzalez Uriarte MD on 03/25/2018 at 17:04 Approved by: Gonzalez Uriarte M.D. on 03/26/2018 at 13:06
--- NOTE | 2018-03-25 14:53 | DI.ECHO.S_ITS ---
[facility]---------+ [facility] +---------+ : : [address] : : : : [id number] : : : : Phone: [phone] Echocardiogram Report + + :Name: ROJELIO FERGUSON Study Date: 03/25/2018 Height: 65 in : :[facility] Exam Location: IS Weight: 188 lb : : Gender: Female BSA: 1.9 m2 : :: 1935 Age: 82 yrs BP: 165/80 mmHg: :Reason For Study: TIA : : Performed By: Evan Beal : :Referring: ANGY LEWIS : + + Interpretation Summary The left ventricle is normal in size.The ejection fraction is estimated to be 65-70%. The right ventricle is normal in size and function. There is mild tricuspid regurgitation. The right ventricular systolic pressure is estimated to be at least 24 mmHg based on an estimated right atrial pressure of 3 mm Hg. Procedure: A two-dimensional transthoracic echocardiogram with color flow and Doppler was performed. The study quality was technically adequate. There is no prior echocardiogram noted for this patient. The patient was in normal sinus rhythm during the exam. Left Ventricle: The left ventricle is normal in size. There is no echo evidence for significant left ventricular outflow tract obstruction. Left ventricular wall thickness is mildly increased. Proximal septal thickening is noted. There is no thrombus. The ejection fraction is estimated to be 65-70%. There are no focal wall motion abnormalities. Diastolic parameters suggest a relaxation abnormality of the left ventricle, consistent with probable normal filling pressures. Right Ventricle: The right ventricle is normal in size and function. Atria: The left atrium is mildly dilated. Right atrial size is normal. A prominent eustachian valve is noted. The interatrial septum is intact with no evidence for an atrial septal defect. Mitral Valve: There is systolic anterior motion of the chordal apparatus. There is mild mitral annular calcification. The mitral valve leaflets are slightly calcified. There is trace mitral regurgitation. Aortic Valve: The aortic valve is trileaflet. The aortic valve opens well. There is mild aortic valve sclerosis. There is no aortic valve stenosis. No aortic regurgitation is present. Tricuspid Valve: The tricuspid valve is normal. There is mild tricuspid regurgitation. The right ventricular systolic pressure is estimated to be at least 24 mmHg based on an estimated right atrial pressure of 3 mm Hg. Pulmonic Valve: The pulmonic valve is not well seen, but is grossly normal. There is trace pulmonic regurgitation. Great Vessels: The aortic root is normal size. The dimensions of the ascending aorta are normal. The pulmonary artery is normal size. The IVC is of normal diameter and collapses greater than 50% with a sniff. This suggests a low right atrial pressure of 3 mm Hg. Pericardium/ Pleura There is no pericardial effusion. There is no pleural effusion. MMode/2D Measurements & Calculations LVIDd: 4.6 cm Ao root diam: 3.4 cm LVIDs: 2.6 cm Aortic Jxn: 3.1 cm FS: 43.1 % asc Aorta Diam: 2.9 cm EPSS: 0.34 cm IVSd: 1.1 cm LVPWd: 0.85 cm LV guan. diameter/BSA (cm/m^2): 2.4 LV sys. diameter/BSA (cm/m^2): 1.3 LA dimension: 3.0 cm RA long axis: 4.7 cm LA A2 area: 19.9 cm2 RA area: 17.7 cm2 LA A4 area: 20.5 cm2 RA vol: 56.9 ml LA length (vol): 5.3 cm RA : 29.5 ml/m2 LA vol: 65.8 ml IVC diam: 1.8 cm LA vol index: 34.2 ml/m2 Doppler Measurements & Calculations Ao V2 max: 138.6 cm/sec LVOT Max Santi: 108.5 cm/sec Ao V2 mean: 101.2 cm/sec LV V1 max P.7 mmHg Ao max P.7 mmHg LV V1 VTI: 27.4 cm Ao mean P.4 mmHg sev ratio: 0.89 Ao V2 VTI: 30.9 cm MV E max santi: 62.0 cm/sec TR max santi: 227.5 cm/sec MV A max santi: 101.6 cm/sec TR max P.7 mmHg MV E/A: 0.61 PA V2 max: 96.4 cm/sec Med Peak E' Santi: 4.7 cm/sec PA V2 mean: 65.3 cm/sec E/E' med: 13.1 PA mean P.0 mmHg Lat Peak E' Santi: 7.4 cm/sec PA pr(Accel): 21.6 mmHg E/E' lat: 8.3 PA Accel Time: 0.13 sec E/e' average: 10.7 MV dec time: 0.17 sec Pulm A Revs Santi: 33.8 cm/sec Reading Physician:FERNANDO
== END ==
PROVIDERS: Family Provider Family Medicine; PCP Family Medicine; Visit Provider Family Medicine
DX: I08.2 Rheumatic disorders of both aortic and tricuspid valves (principal); I65.23 Occlusion and stenosis of bilateral carotid arteries; G45.9 Transient cerebral ischemic attack, unspecified; T85.02XA Displacement of ventricular intracranial (communicating) shunt, initial encounter; R07.89 Other chest pain; Z86.79 Personal history of other diseases of the circulatory system
CPT/HCPCS: 93306; 93880

== ENCOUNTER → 2018-04-06 19:16 | Outpatient (CLI) | payer OTHER, SELFPAY | PROVIDERS: Family Provider Family Medicine; PCP Family Medicine; Visit Provider Physician Assistant | DX: N30.00 Acute cystitis without hematuria (principal) | CPT/HCPCS: 87077; 87086 ==

== ENCOUNTER → 2019-03-09 14:21 | Outpatient (CLI) | payer OTHER, SELFPAY ==
--- NOTE | 2019-03-09 14:24 | DI.RAD.S_ITS ---
PROCEDURE: XR CHEST 2V INDICATIONS: persistent cough, sob, recent abx use, r/o pneumonia TECHNIQUE: 2 views of the chest were acquired. COMPARISON: [facility], CT, ABDOMEN/PELVIS WITH CONTRAST, 06/03/2017, 8:27. [facility], CR, CHEST 2 VIEW, 09/25/2016, 12:20. FINDINGS: Surgical changes and devices: Partially visualized [employer] TRAINING SPECIALIST shunt is stable overlies compared to 09/25/2016. Lungs and pleura: Lungs are clear. No pleural effusions or pneumothorax. Mediastinum: Small retrocardiac hiatal hernia. Mediastinal contours are normal. Heart size is normal. Bones and chest wall: No suspicious bony abnormalities. Soft tissues appear unremarkable. IMPRESSION: No acute cardiopulmonary disease process. Dictated by: Rachael Ontiveros MD, PhD on 03/09/2019 at 15:48 Approved by: Rachael Ontiveros MD, PhD on 03/09/2019 at 15:50
== END ==
PROVIDERS: Family Provider Family Medicine; PCP Family Medicine; Visit Provider Physician Assistant
DX: R05 Cough (principal); R06.02 Shortness of breath; K44.9 Diaphragmatic hernia without obstruction or gangrene
CPT/HCPCS: 71046

== ENCOUNTER 2019-03-11 19:58 | Emergency (ER) | payer OTHER, SELFPAY ==
[2019-03-11 20:00] VITALS: BP 135/77; PULSE 83; RESP 16; TEMP 37; O2SAT 96; BMI 32.4
--- NOTE | 2019-03-11 21:06 | ED.URI ---
HPI - URI/Sore Throat General Chief Complaint: Upper Respiratory Symptoms Stated Complaint: Cough, SOB, vomiting Time Seen by Provider: 03/11/19 20:53 Source: patient Mode of arrival: Ambulatory Limitations: no limitations History of Present Illness HPI Narrative: 83-year-old female here for evaluation of approximately 10 days of sinus congestion, sore throat, cough, no fevers. States she is coughing so much that she is vomiting. Is currently on benzoate an steroids given to her by her last visit to the walk-in clinic 2 days ago. She had a chest x-ray at that time which was unremarkable. She was also seen in the walk-in clinic at the start of the symptoms. She was told there is a viral infection. Comes the emergency department today because now she is coughing so much she is vomiting. Related Data Home Medications Medication Instructions Recorded Confirmed acetaminophen [Tylenol Extra 1,000 mg PO PRN #0 04/15/12 03/09/19 Strength] levetiracetam 500 mg tablet See Rx Instructions PO .COMPLEX 09/30/17 03/09/19 cholecalciferol (vitamin D3) 2,000 unit PO DAILY 10/01/17 03/09/19 [Vitamin D3] omeprazole 20 mg capsule,delayed 20 mg PO DAILY 11/13/17 03/09/19 release ranitidine HCl [Zantac] 150 mg PO BEDTIME 09/07/18 03/09/19 Previous Rx's Medication Instructions Recorded citalopram 10 mg tablet 10 mg PO DAILY #90 tab 10/26/18 felodipine 5 mg tablet,extended See Rx Instructions .ROUTE 12/27/18 release 24 hr .COMPLEX #90 tablet tolterodine 4 mg capsule,extended See Rx Instructions .ROUTE 01/17/19 release 24 hr .COMPLEX #30 capsule benzonatate 100 mg capsule 100 mg PO BID PRN #14 cap 03/09/19 prednisone 20 mg tablet 20 mg PO DAILY #5 tab 03/09/19 azithromycin See Rx Instructions .ROUTE 03/11/19 .COMPLEX #6 tab Allergies Allergy/AdvReac Type Severity Reaction Status Date / Time albuterol [ALBUTEROL] AdvReac Severe SHAKEY Verified 03/11/19 20:04 LEGS, JERKY allopurinol [ALLOPURINOL] AdvReac Severe NAUSEA AND Verified 03/11/19 20:04 GI UPSET Sulfa (Sulfonamide AdvReac Severe HEADACHES Verified 03/11/19 20:04 Antibiotics) [SULFA (SULFONAMIDE ANTIBIOTICS)] JESSICA Inhibitors AdvReac Mild COUGH Verified 03/11/19 20:04 [JESSICA INHIBITORS] Review of Systems Constitutional Constitutional: Denies fever(s) Cardiovascular Cardiovascular: Denies chest pain and Denies dyspnea Respiratory Respiratory: Reports chest congestion, Reports cough and Denies dyspnea Gastrointestinal Gastrointestinal: Reports vomiting Integumentary/Breasts Skin/Breast: Denies rash Neurologic Neurologic: Denies behavioral changes Psychiatric Psychiatric: Denies behavioral changes Hematologic/Lymphatic Hematologic/Lymphatic: Denies easy bleeding and Denies easy bruising Patient History Medical History Arthritis (Chronic Unknown) Cataracts, bilateral (Resolved Unknown) CLL (chronic lymphocytic leukemia) (Chronic Unknown) Depression (Chronic Unknown) Gallbladder disease (Resolved Unknown) GERD (gastroesophageal reflux disease) (Chronic Unknown) Hypertension (Chronic Unknown) Seizure disorder (Chronic ) Spinal stenosis (Chronic Unknown) Subarachnoid hemorrhage (Resolved 2000) Social History Smoking Status: Former smoker alcohol intake: current (I have on occasion but don't lately because of the medication I take. ) alcohol intake frequency: 0-2 drinks per day Substance Use Type: does not use Exam Initial Vital Signs Initial Vital Signs: Vital Signs Temperature 98.6 F 03/11/19 20:00 Pulse Rate 83 03/11/19 20:00 Respiratory Rate 16 03/11/19 20:00 Blood Pressure 135/77 03/11/19 20:00 Pulse Oximetry 96 03/11/19 20:00 Const General: cooperative, comfortable and well developed Orientation: alert and awake HENMT Head: normal to inspection and normocephalic Ears: TM's normal bilaterally Throat: posterior oropharynx normal Resp Effort & Inspection: normal respiratory effort Auscultation: clear to auscultation bilaterally Cardio Rate: regular rate Rhythm: regular rhythm Skin Lesions: no lesions Rashes: no rashes Neuro General: alert, awake and oriented x3 Cognition: normal cognition Speech: speech normal Extrem General: normal to inspection and capillary refill normal Psych Appearance: grossly normal and well kempt Course Vital Signs Vital signs: Vital Signs - 8 hr 03/11/19 20:00 03/11/19 21:50 Temperature 98.6 F Pulse Rate 83 80 Respiratory Rate 16 18 Blood Pressure 135/77 140/80 Pulse Oximetry 96 98 MDM - URI/Sore Throat MDM Narrative Medical decision making narrative: Patient had a chest x-ray 2 days ago that was unremarkable. She is afebrile here. She has been on steroids for the past several days and also on Tessalon Perles which have not improved her symptoms. She has had symptoms for 10 days now. She is not on any other antihistamine/decongestants. She has a follow-up appoint with her primary doctor on Thursday. Patient has had symptoms long enough that we would start to consider other etiologies such as atypical pneumonias. Given the fact that she is coughing so much that she is vomiting it is not unreasonable to consider treating her with antibiotics. I talked with her about this. The plan will be is for her to take an antihistamine such as Claritin or Kimmie or Zyrtec for symptoms for the next couple days to see if her symptoms do not improve. She was given a prescription for antibiotics that she will fill if her symptoms do not improve during this time. She was instructed to keep her follow-up appointment on Thursday. She is given return precautions. She expressed understanding and agreement plan. Discharge Plan Departure Patient Disposition: Home Clinical Impression: Bronchitis Discharge Date/Time: 03/11/19 21:50 Instructions: DI for Bronchiolitis Activity Restrictions/Additional Instructions: I recommend you continue all of your medications to include the medications you were given just recently for your current symptoms. I also recommend that you start taking either Claritin or Kimmie or Zyrtec. You can buy 1 of these [id number]. The generic versions are okay. If your symptoms do not improve in the next day or so start taking the antibiotics as directed. Keep her scheduled appointment on Thursday. Return to the emergency department for any new or worsening symptoms Prescriptions: New azithromycin 250 mg tablet See Rx Instructions .ROUTE .COMPLEX Qty: 6 RF: 0 No Action levetiracetam [Keppra] 500 mg tablet See Rx Instructions PO .COMPLEX RF: 0 omeprazole 20 mg capsule,delayed release(DR/EC) 20 mg PO DAILY RF: 0 acetaminophen [Tylenol Extra Strength] 500 MG tablet 1,000 mg PO PRN Qty: 0 RF: 0 felodipine 5 mg tablet extended release 24 hr See Rx Instructions .ROUTE .COMPLEX Qty: 90 RF: 0 tolterodine 4 mg capsule,extended release 24hr See Rx Instructions .ROUTE .COMPLEX Qty: 30 RF: 2 benzonatate [Tessalon Perles] 100 mg capsule 100 mg PO BID PRN (Reason: cough) Qty: 14 RF: 0 prednisone 20 mg tablet 20 mg PO DAILY Qty: 5 RF: 0 citalopram [Celexa] 10 mg tablet 10 mg PO DAILY Qty: 90 RF: 1 cholecalciferol (vitamin D3) [Vitamin D3] 2,000 unit Capsule 2,000 unit PO DAILY RF: 0 ranitidine HCl [Zantac] 150 mg Tablet 150 mg PO BEDTIME RF: 0 Referrals: Yana Velásquez DO [Primary Care Provider] -
[2019-03-11 21:50] VITALS: BP 140/80; PULSE 80; RESP 18; O2SAT 98
== END 2019-03-11 21:50 | disposition home or self-care (01) ==
PROVIDERS: Emergency Provider Emergency Medicine; Family Provider Family Medicine; PCP Family Medicine
DX: J40 Bronchitis, not specified as acute or chronic (principal)
CPT/HCPCS: 99282; 99283

== ENCOUNTER → 2019-03-14 15:38 | Outpatient (CLI) | payer OTHER, SELFPAY | PROVIDERS: Family Provider Family Medicine; PCP Family Medicine; Visit Provider Family Medicine | DX: R05 Cough (principal); R49.0 Dysphonia | CPT/HCPCS: 87798 ==

== ENCOUNTER → 2019-12-23 08:37 | Outpatient (CLI) | payer OTHER, SELFPAY ==
[2019-12-28 16:29] LABS: Levetiracetam Keppra 21.2 ug/mL (10.0-40.0)
== END ==
PROVIDERS: Family Provider Family Medicine; PCP Family Medicine; Referring Provider Psychiatry & Neurology Neurology; Visit Provider Psychiatry & Neurology Neurology
DX: R56.9 Unspecified convulsions (principal)
CPT/HCPCS: 36415; 80177

== ENCOUNTER 2020-01-18 10:22 | Inpatient (IN) | payer OTHER, SELFPAY ==
[2020-01-18] VITALS (30 sets, daily range): BP systolic 99–213; BP diastolic 52–88; PULSE 52–93; RESP 8–33; TEMP 35.9–37.6; O2SAT 87–100; BMI 32.7
--- NOTE | 2020-01-18 10:38 | DI.CT.S_ITS ---
PROCEDURE: CT ANGIO CHEST ABDOMEN PELVIS INDICATIONS: abd pain TECHNIQUE: Precontrast 5 mm thick sections acquired from the lung apices to the iliac crests. After the administration of intravenous contrast, 2.5 mm thick sections again acquired from the lung apices to the iliac crests. Maximum intensity projection (MIP) oblique sagittal and coronal reformats were then acquired. For radiation dose reduction, the following was used: automated exposure control. COMPARISON: [facility], CT, ABDOMEN/PELVIS WITH CONTRAST, 06/03/2017, 8:27. FINDINGS: Image quality: Excellent. AORTA: No acute aortic syndrome. No dissection. No aneurysm. Great vessels are patent. Moderate atherosclerotic plaque at the brachiocephalic artery origin. Otherwise mild calcified atherosclerotic plaque. No central pulmonary embolism. CHEST: Lungs and pleura: No acute airspace opacities. No pleural effusions or pneumothorax. Central and peripheral airways are patent and normal in caliber. Accessory right azygos fissure. Accessory left minor fissure. A few pulmonary cysts. Mediastinum: Heart size is normal. No pericardial effusion. No mediastinal or hilar adenopathy by size criteria. Central pulmonary arteries are normal in size. Esophagus is normal in caliber. Moderate-sized hiatal hernias. Trace fluid in the hernia sac similar to the 2018 exam. Bones and chest wall: No axillary adenopathy by size criteria. Thyroid gland is unremarkable. No suspicious bony lesions. No vertebral body compression fractures. ABDOMEN: Vasculature: Celiac trunk and mesenteric arteries are patent. 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 Moderate plaque at the origin of the SMA. Renal arteries are also patent. No aortic aneurysm. Moderate plaque in the infrarenal abdominal aorta. Solid organs: Liver is normal in size and enhancement. Cyst in the right lobe of the liver measuring 4 cm, decreased in size compared to 2018 where it measured 5.5 cm. Gallbladder is surgically absent. Biliary system is non dilated. Pancreas enhances normally. Spleen is normal in size and enhancement. Longstanding right adrenal nodule measuring 1.9 x 1.8 cm, (), previously 1.9 x 1.7 cm in 2018. This measures less than 10 Hounsfield units on the noncontrast series and is most compatible with a benign adenoma. Both kidneys are normal in size and enhancement, without hydronephrosis. Peritoneum and bowel: Dilated loop of proximal jejunum measuring up to 2.7 cm in diameter. There is a caliber transition just distal to the ligament of Treitz as well as more inferiorly the proximal jejunum, (5/119). The loop of bowel has a twisted appearance. Question of closed loop small bowel obstruction. Sigmoid colon diverticulosis. No diverticulitis demonstrated. The appendix is partially visualized and appears normal caliber, (01/11). No free fluid. No pneumoperitoneum. Nodes and vessels: No retroperitoneal or mesenteric adenopathy by size criteria. Inferior vena cava is normal in morphology. Miscellaneous: No ventral hernias. PELVIS: Genitourinary: Bladder is mostly decompressed. Vertically oriented uterus. Small calcified ovarian fibroid. Miscellaneous: No inguinal hernias or adenopathy. No ventral hernias. Bones: No suspicious bony lesions. Moderate DDD. Mild thoracic spine scoliosis. No vertebral body compression fractures. IMPRESSION: 1. Dilated proximal jejunum with two transition points and a twisted appearance. Findings suspicious for close loop small bowel obstruction. No free fluid. No pneumoperitoneum. 2. No acute aortic syndrome. No aortic dissection or aneurysm. 3. Lungs are clear. Additional findings: Sigmoid colon diverticulosis without diverticulitis. Accessory pulmonary fissures. Interval decrease in the left hepatic cysts. Right adrenal adenoma. Comment: Findings were discussed with Estela Jauregui at the time of dictation. Dictated by: Petr Kaba M.D. on 01/18/2020 at 11:24 Approved by: Petr Kaba M.D. on 01/18/2020 at 11:46
[2020-01-18] MEDS: HYDROMORPHONE 0.5 MG INJ IV (10:43)
[2020-01-18] MEDS: ONDANSETRON 4 MG/2 ML INJ IV (10:44)
[2020-01-18 10:49] LABS: Add Manual Diff / Slide Review NO; Basophils Absolute Auto 100 /uL (0-100); Eosinophils Absolute Auto 100 /uL (0-450); Eosinophils Percent Auto 1.5 % (2-4); Hematocrit 42.7 % (36-46); Hemoglobin 14.3 g/dL (12.0-16.0); Lymphocytes Absolute Auto 1300 /uL (1100-4500); Lymphocytes Percent Auto 19.9 % (25-40); Mean Corpuscular HGB Conc 33.4 % (30-36); Mean Corpuscular Hemoglobin 30.1 PG (26-34); Mean Corpuscular Volume 89.9 fL (80-100); Monocytes Absolute Auto 700 /uL (0-900); Neutrophils Absolute Auto 4400 /uL (1500-7000); Neutrophils Percent Auto 67.6 % (50-75); Platelet Count 215 X10^3/uL (150-400); Red Blood Cell Count 4.75 X10^6/uL (4.0-5.2); Red Cell Distribution Width 13.9 % (11.6-14.8); White Blood Cell Count 6.5 X10^3/uL (4.5-11.0)
[2020-01-18 11:00] LABS: Lipase 44 U/L (23-300); Magnesium 2.1 mg/dL (1.6-2.3)
[2020-01-18 11:01] LABS: Alanine Aminotransferase 13 IU/L (<35); Albumin 4.2 g/dL (3.5-5.0); Albumin Globulin Ratio 1.7 (1.0-2.8); Alkaline Phosphatase 86 U/L (38-126); Aspartate Aminotransferase 24 IU/L (14-36); BUN Creatinine Ratio 20.4 (6-22); Bilirubin Total 0.7 mg/dL (0.2-1.3); Blood Urea Nitrogen 19 mg/dL (7-17); Calcium 9.9 mg/dL (8.4-10.2); Carbon Dioxide 31 mmol/L (22-32); Chloride 103 mmol/L (98-107); Estimated Glomerular Filt Rate 57.4 mL/min (>60); Globulin 2.5 g/dL (1.7-4.1); Glucose 113 mg/dL (80-110); HEMOLYSIS < 15 (0-50); Potassium 4.5 mmol/L (3.4-5.1); Sodium 137 mmol/L (137-145); Total Protein 6.7 g/dL (6.3-8.2)
[2020-01-18 11:02] LABS: Lactate (Lactic Acid) 0.9 mmol/L (0.7-2.1)
[2020-01-18 11:12] LABS: Troponin I < 0.012 ng/mL (0.01-0.034)
[2020-01-18 11:16] LABS: Procalcitonin < 0.05 ng/mL (<0.5)
--- NOTE | 2020-01-18 11:56 | ED.ABDPAIN ---
HPI - Abdominal Pain General Chief Complaint: Abdominal Pain Stated Complaint: abdominal pain Time Seen by Provider: 01/18/20 10:28 Source: patient Mode of arrival: Ambulatory Limitations: no limitations History of Present Illness HPI narrative: With a history of CLL presents with acute abdominal pain. Her pain started last night was not associated with fevers, chills, vomiting, diarrhea. She did have a normal bowel movement this morning that did not relieve her pain in any way. She states that she has not had any similar complaints. Only abdominal surgeries include a cholecystectomy. Related Data Home Medications Medication Instructions Recorded Confirmed acetaminophen [Tylenol Extra 1,000 mg PO PRN #0 04/15/12 12/30/19 Strength] cholecalciferol (vitamin D3) 2,000 unit PO DAILY 10/01/17 12/30/19 [Vitamin D3] omeprazole 20 mg capsule,delayed 20 mg PO DAILY 11/13/17 12/30/19 release Previous Rx's Medication Instructions Recorded felodipine 5 mg tablet,extended See Rx Instructions .ROUTE 08/22/19 release 24 hr .COMPLEX #90 tablet citalopram 10 mg tablet 10 mg PO DAILY #90 tab 09/16/19 levetiracetam 500 mg tablet See Rx Instructions PO .COMPLEX 09/16/19 #90 tab tolterodine 4 mg capsule,extended See Rx Instructions .ROUTE 01/06/20 release 24 hr .COMPLEX #30 capsule Allergies Allergy/AdvReac Type Severity Reaction Status Date / Time albuterol [ALBUTEROL] AdvReac Severe SHAKEY Verified 01/18/20 10:45 LEGS, JERKY allopurinol [ALLOPURINOL] AdvReac Severe NAUSEA AND Verified 01/18/20 10:45 GI UPSET Sulfa (Sulfonamide AdvReac Severe HEADACHES Verified 01/18/20 10:45 Antibiotics) [SULFA (SULFONAMIDE ANTIBIOTICS)] JESSICA Inhibitors AdvReac Mild COUGH Verified 01/18/20 10:45 [JESSICA INHIBITORS] Review of Systems Review of Systems Narrative: Pertinent positive and negative findings as per HPI Remainder of review of systems is otherwise unremarkable for Constitutional: Fevers, chills, weakness ENT: No sore throat, neck pain, ear pain CV: Chest pain, palpitations, dyspnea on exertion Respiratory: Cough, wheeze, dyspnea GI: Nausea, vomiting, diarrhea, change in bowel habits, black or bloody stools : Dysuria, hematuria, flank pain MS: Muscle weakness, numbness, joint swelling or warmth Skin: Rashes, nonhealing lesions Neuro: Syncope, dizziness, tingling Patient History Medical History Arthritis (Chronic Unknown) Cataracts, bilateral (Resolved Unknown) Cervical somatic dysfunction (Acute) Cervicothoracic somatic dysfunction (Acute) Chronic low back pain (Acute) Chronic thoracic back pain (Acute) CLL (chronic lymphocytic leukemia) (Chronic Unknown) Depression (Chronic Unknown) Gallbladder disease (Resolved Unknown) GERD (gastroesophageal reflux disease) (Chronic Unknown) Hypertension (Chronic Unknown) Lightheadedness (Acute) Lumbar region somatic dysfunction (Acute) Segmental and somatic dysfunction of abdomen and other regions (Acute) Segmental and somatic dysfunction of head region (Acute) Segmental and somatic dysfunction of pelvic region (Acute) Segmental and somatic dysfunction of sacral region (Acute) Segmental and somatic dysfunction of thoracic region (Acute) Seizure disorder (Chronic Unknown) Somatic dysfunction of abdominal region (Acute) Somatic dysfunction of sacral spine (Acute) Spinal stenosis (Chronic Unknown) Stiff neck (Acute) Subarachnoid hemorrhage (Resolved 2000) Visual hallucinations (Acute) Surgical History History of bilateral cataract extraction (Resolved Unknown) 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 ) Smoking Status: Former smoker alcohol intake frequency: 0-2 drinks per day Substance Use Type: does not use Exam Narrative Exam Narrative: General: Significant abdominal pain, she is able to cooperate with history and speak in full sentences HEENT: Moist mucous membranes, normal sclera with reactive pupils, Neck: No JVD, supple Respiratory: Lungs are clear to auscultation, no wheezing no rales no rhonchi. Full and symmetrical air movement Cardiac: Regular rate and rhythm no murmurs no bruits Abdomen: Soft, diffusely tender throughout with good bowel tones, no flank pain. Bedside ultrasound to look for expanding abdominal AA order free fluid is obstructive by bowel gas and body habitus. No obvious free fluid is appreciated. Skin: Warm and dry, no rashes Neurologic: Grossly neurologically intact with no obvious asymmetries or abnormalities Extremities: No trauma, well perfused Psych: Cooperative, appropriate insight and affect Initial Vital Signs Initial Vital Signs: Vital Signs Temperature 98.3 F 01/18/20 10:29 Pulse Rate 75 01/18/20 10:29 Respiratory Rate 16 01/18/20 10:29 Blood Pressure 213/88 H 01/18/20 10:29 Pulse Oximetry 99 01/18/20 10:29 Course Orders Ordered: ED Orders 01/18/20 10:38 CT angio chest abdomen pelvis Stat Urinalysis and Microscopic Stat 01/18/20 10:40 Complete Blood Count AUTO DIFF Stat Comprehensive Metabolic Panel Stat Lactate (Lactic Acid) Stat Lipase Stat Magnesium Stat Procalcitonin Stat Troponin I Stat Type and Screen Stat 01/18/20 10:58 EKG-12 Lead Stat 01/18/20 12:00 COVID19 -ED/INPAT/OR/L&D Stat 01/18/20 12:10 Blood Culture Stat Hydromorphone HCl (Dilaudid) 0.5 mg IV Q15MIN PRN PRN Reason: Pain, Last Admin: 01/18/20 10:43 Dose: 0.5 mg Documented by: THADDEUS Lactated Ringer's (Lactated Ringers) 1,000 mls @ 42 mls/hr IV CONT MEL Discontinued Medications Ondansetron HCl (Zofran) 4 mg IV NOW ONE Stop: 01/18/20 10:37 Last Admin: 01/18/20 10:44 Dose: 4 mg Documented by: THADDEUS Vital Signs Vital signs: Vital Signs - 8 hr 01/18/20 10:29 01/18/20 10:38 01/18/20 10:46 Temperature 98.3 F Pulse Rate 75 76 70 Respiratory Rate 16 15 15 Blood Pressure 213/88 H 151/67 H Pulse Oximetry 99 99 99 01/18/20 10:56 01/18/20 11:00 01/18/20 11:19 Temperature Pulse Rate 60 63 64 Respiratory Rate 19 15 14 Blood Pressure 123/56 L 138/61 117/81 Pulse Oximetry 98 97 94 01/18/20 11:30 01/18/20 11:45 01/18/20 12:00 Temperature Pulse Rate 63 60 59 L Respiratory Rate 8 L 15 17 Blood Pressure 122/61 115/58 L 127/60 Pulse Oximetry 87 L 98 100 MDM - Abdominal Pain Medical Records Attestation: I reviewed the patient's medical records. Lab Data Attestation: I reviewed the patient's lab results. Result diagrams: 01/18/20 10:40 01/18/20 10:40 Labs: Lab Results 01/18/20 01/18/20 01/18/20 Range/Units 10:40 10:40 10:40 WBC 6.5 (4.5-11.0) X10^3/uL RBC 4.75 (4.0-5.2) X10^6/uL Hgb 14.3 (12.0-16.0) g/dL Hct 42.7 (36-46) % MCV 89.9 (80-100) fL MCH 30.1 (26-34) PG MCHC 33.4 (30-36) % RDW 13.9 (11.6-14.8) % Plt Count 215 (150-400) X10^3/uL Neut % (Auto) 67.6 (50-75) % Lymph % (Auto) 19.9 L (25-40) % [place] % (Auto) 10.0 (3-14) % Eos % (Auto) 1.5 L (2-4) % Baso % (Auto) 1.0 (0-2) % Neut # (Auto) 4400 (8201-6656) /uL Lymph # (Auto) 1300 (5750-4317) /uL [place] # (Auto) 700 (0-900) /uL Eos # (Auto) 100 (0-450) /uL Baso # (Auto) 100 (0-100) /uL Sodium 137 (137-145) mmol/L Potassium 4.5 (3.4-5.1) mmol/L Chloride 103 (98-107) mmol/L Carbon Dioxide 31 (22-32) mmol/L BUN 19 H (7-17) mg/dL Creatinine 0.93 (0.52-1.04) mg/dL Estimated GFR 57.4 L (>60) mL/min BUN/Creatinine Ratio 20.4 (6-22) Glucose 113 H (80-110) mg/dL Lactate 0.9 (0.7-2.1) mmol/L Calcium 9.9 (8.4-10.2) mg/dL Magnesium (1.6-2.3) mg/dL Total Bilirubin 0.7 (0.2-1.3) mg/dL AST 24 (14-36) IU/L ALT 13 (<35) IU/L Alkaline Phosphatase 86 (38-126) U/L Troponin I (0.01-0.034) ng/mL Total Protein 6.7 (6.3-8.2) g/dL Albumin 4.2 (3.5-5.0) g/dL Globulin 2.5 (1.7-4.1) g/dL Albumin/Globulin Ratio 1.7 (1.0-2.8) Lipase (23-300) U/L Procalcitonin (<0.5) ng/mL COVID-19 PCR (Negative) Blood Type Antibody Screen 01/18/20 01/18/20 01/18/20 Range/Units 10:40 10:40 10:40 WBC (4.5-11.0) X10^3/uL RBC (4.0-5.2) X10^6/uL Hgb (12.0-16.0) g/dL Hct (36-46) % MCV (80-100) fL MCH (26-34) PG MCHC (30-36) % RDW (11.6-14.8) % Plt Count (150-400) X10^3/uL Neut % (Auto) (50-75) % Lymph % (Auto) (25-40) % [place] % (Auto) (3-14) % Eos % (Auto) (2-4) % Baso % (Auto) (0-2) % Neut # (Auto) (1337-0926) /uL Lymph # (Auto) (2045-5617) /uL [place] # (Auto) (0-900) /uL Eos # (Auto) (0-450) /uL Baso # (Auto) (0-100) /uL Sodium (137-145) mmol/L Potassium (3.4-5.1) mmol/L Chloride (98-107) mmol/L Carbon Dioxide (22-32) mmol/L BUN (7-17) mg/dL Creatinine (0.52-1.04) mg/dL Estimated GFR (>60) mL/min BUN/Creatinine Ratio (6-22) Glucose (80-110) mg/dL Lactate (0.7-2.1) mmol/L Calcium (8.4-10.2) mg/dL Magnesium 2.1 (1.6-2.3) mg/dL Total Bilirubin (0.2-1.3) mg/dL AST (14-36) IU/L ALT (<35) IU/L Alkaline Phosphatase (38-126) U/L Troponin I < 0.012 (0.01-0.034) ng/mL Total Protein (6.3-8.2) g/dL Albumin (3.5-5.0) g/dL Globulin (1.7-4.1) g/dL Albumin/Globulin Ratio (1.0-2.8) Lipase 44 (23-300) U/L Procalcitonin < 0.05 (<0.5) ng/mL COVID-19 PCR (Negative) Blood Type A Negative Antibody Screen Negative 01/18/20 Range/Units 12:00 WBC (4.5-11.0) X10^3/uL RBC (4.0-5.2) X10^6/uL Hgb (12.0-16.0) g/dL Hct (36-46) % MCV (80-100) fL MCH (26-34) PG MCHC (30-36) % RDW (11.6-14.8) % Plt Count (150-400) X10^3/uL Neut % (Auto) (50-75) % Lymph % (Auto) (25-40) % [place] % (Auto) (3-14) % Eos % (Auto) (2-4) % Baso % (Auto) (0-2) % Neut # (Auto) (8816-3889) /uL Lymph # (Auto) (3351-4205) /uL [place] # (Auto) (0-900) /uL Eos # (Auto) (0-450) /uL Baso # (Auto) (0-100) /uL Sodium (137-145) mmol/L Potassium (3.4-5.1) mmol/L Chloride (98-107) mmol/L Carbon Dioxide (22-32) mmol/L BUN (7-17) mg/dL Creatinine (0.52-1.04) mg/dL Estimated GFR (>60) mL/min BUN/Creatinine Ratio (6-22) Glucose (80-110) mg/dL Lactate (0.7-2.1) mmol/L Calcium (8.4-10.2) mg/dL Magnesium (1.6-2.3) mg/dL Total Bilirubin (0.2-1.3) mg/dL AST (14-36) IU/L ALT (<35) IU/L Alkaline Phosphatase (38-126) U/L Troponin I (0.01-0.034) ng/mL Total Protein (6.3-8.2) g/dL Albumin (3.5-5.0) g/dL Globulin (1.7-4.1) g/dL Albumin/Globulin Ratio (1.0-2.8) Lipase (23-300) U/L Procalcitonin (<0.5) ng/mL COVID-19 PCR Negative (Negative) Blood Type Antibody Screen Imaging Data CT scan - abdomen/pelvis: Radiologist's Impression: FINDINGS: Image quality: Excellent. AORTA: No acute aortic syndrome. No dissection. No aneurysm. Great vessels are patent. Moderate atherosclerotic plaque at the brachiocephalic artery origin. Otherwise mild calcified atherosclerotic plaque. No central pulmonary embolism. CHEST: Lungs and pleura: No acute airspace opacities. No pleural effusions or pneumothorax. Central and peripheral airways are patent and normal in caliber. Accessory right azygos fissure. Accessory left minor fissure. A few pulmonary cysts. Mediastinum: Heart size is normal. No pericardial effusion. No mediastinal or hilar adenopathy by size criteria. Central pulmonary arteries are normal in size. Esophagus is normal in caliber. Moderate-sized hiatal hernias. Trace fluid in the hernia sac similar to the 2018 exam. Bones and chest wall: No axillary adenopathy by size criteria. Thyroid gland is unremarkable. No suspicious bony lesions. No vertebral body compression fractures. ABDOMEN: Vasculature: Celiac trunk and mesenteric arteries are patent. 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 Moderate plaque at the origin of the SMA. Renal arteries are also patent. No aortic aneurysm. Moderate plaque in the infrarenal abdominal aorta. Solid organs: Liver is normal in size and enhancement. Cyst in the right lobe of the liver measuring 4 cm, decreased in size compared to 2018 where it measured 5.5 cm. Gallbladder is surgically absent. Biliary system is non dilated. Pancreas enhances normally. Spleen is normal in size and enhancement. Longstanding right adrenal nodule measuring 1.9 x 1.8 cm, (), previously 1.9 x 1.7 cm in 2018. This measures less than 10 Hounsfield units on the noncontrast series and is most compatible with a benign adenoma. Both kidneys are normal in size and enhancement, without hydronephrosis. Peritoneum and bowel: Dilated loop of proximal jejunum measuring up to 2.7 cm in diameter. There is a caliber transition just distal to the ligament of Treitz as well as more inferiorly the proximal jejunum, (). The loop of bowel has a twisted appearance. Question of closed loop small bowel obstruction. Sigmoid colon diverticulosis. No diverticulitis demonstrated. The appendix is partially visualized and appears normal caliber, (01/11). No free fluid. No pneumoperitoneum. Nodes and vessels: No retroperitoneal or mesenteric adenopathy by size criteria. Inferior vena cava is normal in morphology. Miscellaneous: No ventral hernias. PELVIS: Genitourinary: Bladder is mostly decompressed. Vertically oriented uterus. Small calcified ovarian fibroid. Miscellaneous: No inguinal hernias or adenopathy. No ventral hernias. Bones: No suspicious bony lesions. Moderate DDD. Mild thoracic spine scoliosis. No vertebral body compression fractures. IMPRESSION: 1. Dilated proximal jejunum with two transition points and a twisted appearance. Findings suspicious for close loop small bowel obstruction. No free fluid. No pneumoperitoneum. 2. No acute aortic syndrome. No aortic dissection or aneurysm. 3. Lungs are clear. Additional findings: Sigmoid colon diverticulosis without diverticulitis. Accessory pulmonary fissures. Interval decrease in the left hepatic cysts. Right adrenal adenoma. Comment: Findings were discussed with Estela Jauregui at the time of dictation. Dictated by: Petr Kaba M.D. on 01/18/2020 at 11:24 MDM Narrative Medical decision making narrative: 84-year-old woman with acute onset severe abdominal pain, no fevers no elevated white blood cell count CT scan suggests closed loop small-bowel obstruction. Surgical consultation has been obtained and Dr. Harrington will see her in the emergency department. Anticipate surgical intervention. Patient will be admitted to Dr. Harrington service for care postoperatively Discharge Plan Departure Patient Disposition: Admitted As Inpatient Clinical Impression: Bowel obstruction Qualifiers: Intestinal obstruction type: other intestinal obstruction Intestinal obstruction extent: complete Qualified Code(s): K56.691 - Other complete intestinal obstruction Admit Date/Time: 01/18/20 13:15 Admit Provider: Cisco Harrington
[2020-01-18 12:19] LABS: COVID19 -Nasal RAPID Negative (Negative)
--- NOTE | 2020-01-18 13:26 | PM.HP.1 ---
History of Present Illness History of Present Illness Date Patient Seen: 01/18/20 Time Patient Seen: 13:00 Chief complaint: abdominal pain Narrative: The patient is a woman here with abdominal pain that began through the night. She has not had this before. It was quite severe. She had water at about 8:09 a.m.. No food since yesterday. She has had a laparoscopic cholecystectomy and an appendectomy in the past. Those are her only abdominal operations. She also had a shunt placed from her brain probably ventricular to her abdomen. 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 She had a seizure disorder developed about a year and half ago and is on medication for same. Patient History Medical History Arthritis (Chronic Unknown) Cataracts, bilateral (Resolved Unknown) Cervical somatic dysfunction (Acute) Cervicothoracic somatic dysfunction (Acute) Chronic low back pain (Acute) Chronic thoracic back pain (Acute) CLL (chronic lymphocytic leukemia) (Chronic Unknown) Depression (Chronic Unknown) Gallbladder disease (Resolved Unknown) GERD (gastroesophageal reflux disease) (Chronic Unknown) Hypertension (Chronic Unknown) Lightheadedness (Acute) Lumbar region somatic dysfunction (Acute) Segmental and somatic dysfunction of abdomen and other regions (Acute) Segmental and somatic dysfunction of head region (Acute) Segmental and somatic dysfunction of pelvic region (Acute) Segmental and somatic dysfunction of sacral region (Acute) Segmental and somatic dysfunction of thoracic region (Acute) Seizure disorder (Chronic Unknown) Somatic dysfunction of abdominal region (Acute) Somatic dysfunction of sacral spine (Acute) Spinal stenosis (Chronic Unknown) Stiff neck (Acute) Subarachnoid hemorrhage (Resolved 2000) Visual hallucinations (Acute) Surgical History History of bilateral cataract extraction (Resolved Unknown) 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) Hx of appendectomy (Resolved Unknown) Hx of cholecystectomy (Resolved Unknown) Hx of detached retina repair (Resolved Unknown) Family & Social History Safety & Behavioral: Feels Safe in Current Yes Environment Been Physically Hurt or No Threatened By a Person Tobacco & Substance use: Smoking Status Former smoker alcohol intake current alcohol intake frequency 0-2 drinks per day Substance Use Type does not use Meds Home Medications and Allergies Home Medications Medication Instructions Recorded Confirmed Type acetaminophen [Tylenol Extra 1,000 mg PO PRN #0 04/15/12 12/30/19 History Strength] cholecalciferol (vitamin D3) 2,000 unit PO DAILY 10/01/17 12/30/19 History [Vitamin D3] omeprazole 20 mg capsule,delayed 20 mg PO DAILY 11/13/17 12/30/19 History release felodipine 5 mg tablet,extended See Rx Instructions .ROUTE 08/22/19 12/30/19 Rx release 24 hr .COMPLEX #90 tablet citalopram 10 mg tablet 10 mg PO DAILY #90 tab 09/16/19 12/30/19 Rx levetiracetam 500 mg tablet See Rx Instructions PO .COMPLEX 09/16/19 12/30/19 Rx #90 tab tolterodine 4 mg capsule,extended See Rx Instructions .ROUTE 01/06/20 Rx release 24 hr .COMPLEX #30 capsule Allergies Allergy/AdvReac Type Severity Reaction Status Date / Time albuterol [ALBUTEROL] AdvReac Severe SHAKEY Verified 01/18/20 10:45 LEGS, JERKY allopurinol [ALLOPURINOL] AdvReac Severe NAUSEA AND Verified 01/18/20 10:45 GI UPSET Sulfa (Sulfonamide AdvReac Severe HEADACHES Verified 01/18/20 10:45 Antibiotics) [SULFA (SULFONAMIDE ANTIBIOTICS)] JESSICA Inhibitors AdvReac Mild COUGH Verified 01/18/20 10:45 [JESSICA INHIBITORS] Review of Systems Review of Systems Narrative: Patient has had eye surgery and her left eye has decreased visual acuity as compared with the right. She sees well out of her right. She wears glasses. Last seizure was about a year and half ago. ROS: Yes All systems reviewed with the patient and are negative except as otherwise documented Exam Vital Signs (past 8 hours): - 01/18/20 10:29 01/18/20 10:38 01/18/20 10:46 Temperature 98.3 F Pulse Rate 75 76 70 Respiratory Rate 16 15 15 Blood Pressure 213/88 H 151/67 H Pulse Oximetry 99 99 99 01/18/20 10:56 01/18/20 11:00 01/18/20 11:19 Temperature Pulse Rate 60 63 64 Respiratory Rate 19 15 14 Blood Pressure 123/56 L 138/61 117/81 Pulse Oximetry 98 97 94 01/18/20 11:30 01/18/20 11:45 01/18/20 12:00 Temperature Pulse Rate 63 60 59 L Respiratory Rate 8 L 15 17 Blood Pressure 122/61 115/58 L 127/60 Pulse Oximetry 87 L 98 100 01/18/20 12:15 01/18/20 12:16 01/18/20 12:30 Temperature Pulse Rate 61 57 L 52 L Respiratory Rate 17 15 17 Blood Pressure 105/55 L 108/55 L Pulse Oximetry 100 100 100 01/18/20 12:45 01/18/20 13:00 01/18/20 13:01 Temperature Pulse Rate 55 L 63 65 Respiratory Rate 27 H 33 H 29 H Blood Pressure 99/54 L 121/62 Pulse Oximetry 100 100 100 01/18/20 13:15 Temperature Pulse Rate 70 Respiratory Rate 28 H Blood Pressure 123/61 Pulse Oximetry 100 Oxygen Delivery Method Nasal Cannula,Blow By Oxygen Flow Rate 2 Narrative Exam Narrative: Patient is cooperative and pleasant no apparent distress laying on the stretcher. Vital signs are noted. Eyes are nonicteric. Pupils equal round reactive to light ears without lesion nasal septum midline no polyps or mucosa is pink moist no open lesions lab no splits in her lips. There are no nodes in the neck or supraclavicular areas. Trachea is midline mobile. Thyroid isn't enlarged. No tenderness about the structures of her neck. Her lungs are clear to auscultation without rales or rhonchi. Equal percussion. Heart regular rate and rhythm no murmur gallop. No bruit in the neck. 2+ pedal dorsalis pedal pulses and. Some abdomen is protuberant soft. She has a right lower quadrant scar and scars from her laparoscopic cholecystectomy. She has tenderness in her lower abdomen. No ventral hernias are appreciated. She is somewhat obese. Patient is alert and oriented x3. Speech rate and content are appropriate. Affect is appropriate. Patient has no bony deformities of her extremities. No open lesions of her skin. No rashes appreciated. Objective Imaging CT scan - abdomen: My impression: Dilated isolated loops of small bowel with collapse and normal size above and below this area. Appears to be some thickening of the material as well in the loops of bowel suggesting a closed loop obstruction. Patient has a cyst on her liver. Gallbladder is absent. Labs Result Diagrams: 01/18/20 10:40 01/18/20 10:40 Labs: Laboratory Results - last 24 hr 01/18/20 01/18/20 01/18/20 10:40 10:40 10:40 WBC 6.5 RBC 4.75 Hgb 14.3 Hct 42.7 MCV 89.9 MCH 30.1 MCHC 33.4 RDW 13.9 Plt Count 215 Neut % (Auto) 67.6 Lymph % (Auto) 19.9 L [place] % (Auto) 10.0 Eos % (Auto) 1.5 L Baso % (Auto) 1.0 Neut # (Auto) 4400 Lymph # (Auto) 1300 [place] # (Auto) 700 Eos # (Auto) 100 Baso # (Auto) 100 Sodium 137 Potassium 4.5 Chloride 103 Carbon Dioxide 31 BUN 19 H Creatinine 0.93 Estimated GFR 57.4 L BUN/Creatinine Ratio 20.4 Glucose 113 H Lactate 0.9 Calcium 9.9 Magnesium Total Bilirubin 0.7 AST 24 ALT 13 Alkaline Phosphatase 86 Troponin I Total Protein 6.7 Albumin 4.2 Globulin 2.5 Albumin/Globulin Ratio 1.7 Lipase Procalcitonin COVID-19 PCR Blood Type Antibody Screen 01/18/20 01/18/20 01/18/20 10:40 10:40 10:40 WBC RBC Hgb Hct MCV MCH MCHC RDW Plt Count Neut % (Auto) Lymph % (Auto) [place] % (Auto) Eos % (Auto) Baso % (Auto) Neut # (Auto) Lymph # (Auto) [place] # (Auto) Eos # (Auto) Baso # (Auto) Sodium Potassium Chloride Carbon Dioxide BUN Creatinine Estimated GFR BUN/Creatinine Ratio Glucose Lactate Calcium Magnesium 2.1 Total Bilirubin AST ALT Alkaline Phosphatase Troponin I < 0.012 Total Protein Albumin Globulin Albumin/Globulin Ratio Lipase 44 Procalcitonin < 0.05 COVID-19 PCR Blood Type A Negative Antibody Screen Negative 01/18/20 12:00 WBC RBC Hgb Hct MCV MCH MCHC RDW Plt Count Neut % (Auto) Lymph % (Auto) [place] % (Auto) Eos % (Auto) Baso % (Auto) Neut # (Auto) Lymph # (Auto) [place] # (Auto) Eos # (Auto) Baso # (Auto) Sodium Potassium Chloride Carbon Dioxide BUN Creatinine Estimated GFR BUN/Creatinine Ratio Glucose Lactate Calcium Magnesium Total Bilirubin AST ALT Alkaline Phosphatase Troponin I Total Protein Albumin Globulin Albumin/Globulin Ratio Lipase Procalcitonin COVID-19 PCR Negative Blood Type Antibody Screen Assessment & Plan Assessment & Plan narrative: Patient is a woman with acute onset of pain last night who has a CT suggesting a closed loop obstruction. Observation is probably not warranted due to risk of ischemia and of the loop of intestine. I am especially concerned about possibly infecting her ventriculoperitoneal shunt. We used broad-spectrum antibiotics in case I need to resect intestine. I discussed the operation my concerns with the patient. Risks of bleeding infection hernia cardiac and pulmonary issues were all discussed with her. She appears to understand wishes to proceed.
[2020-01-18] MEDS: LACTATED RINGERS 1,000 ML 42 ML IV ×2 (13:28→15:05)
[2020-01-18] MEDS: PIPERACILLIN-TAZO 3.375 GM/50 ML FROZ.PIGGY IV (13:31)
--- NOTE | 2020-01-18 13:57 | SUR.OPER ---
Supine on padded OR bed, head on pillow, arms secured on padded arm boards at <90 degrees abduction, legs uncrossed, safety belt at thigh, tape over blanket over lower legs.
--- NOTE | 2020-01-18 15:41 | SUR.PHASEI ---
Report to Molly RN on the floor, will wait 15 minutes to transport pt upstairs for her to wake up a bit more otherwise completely stable
--- NOTE | 2020-01-18 15:45 | PM.OP.1 ---
Operative Date/Time/Diagnoses Date of procedure: 01/18/20 Time of procedure: 15:45 Pre-op diagnosis: small bowel obstructioon secondary to a closed loop Post-op diagnosis: same Procedure & Clinicians Procedure: Exploratory laparotomy Same procedure as scheduled: Yes Indications: Patient with abdominal pain acute onset with evidence on CT scan with closed loop obstruction. She was taken emergently to the operating room to avoid infection of the ANIMAL ATTENDANT shunt. Surgeon: Cisco Harrington Click Yes if Unassisted: Yes Anesthesia Type: General Operative Notes Findings: Patient had evidence of a proximal constricting process on the small bowel. With delivery of the small bowel into the wound it corrected. Closure Type: primary Specimen(s): none sent Prosthetic devices, grafts, tissues, transplants, or devices: None Estimated Blood Loss (mL): 20 Blood products transfused: none Procedure in detail: The patient was placed supine on the operating room table underwent general endotracheal anesthesia. A Osei and NG tube were placed. A vertical midline incision was made in the mid abdomen after prepping and draping the patient. Was carried down in the peritoneal cavity. The patient was noted to have a small umbilical defect/hernia which I decided to close at the time of incisional closure. The fluid within the abdomen is clear. I eviscerated the small bowel in doing so the proximal small bowel appeared to be significantly larger than the remainder and there were 2 points of what appeared to be compression that immediately dilated up when the intestine was delivered into the wound. I was just distal to the ligament Treitz and traced the small bowel to that. I could see no specific adhesions to the small bowel and returned it all to the abdomen after running it to the ileocecal valve. A took adhesions down of omentum to the anterior abdominal wall to make it more mobile. The abdomen was irrigated. There were no other findings. The fascia was closed with a running 1. PDS double stranded suture. Occasional interrupted [id number] 1. Vicryl sutures were placed. The subcu was closed in 2 layers with interrupted 3 0 Vicryl sutures. The umbilicus was tacked down to the fascia. The skin was closed a running 4 0 Vicryl subcuticular stitch in interrupted 4 nylon sutures. Steri-Strips were applied dressing was applied the patient was taken to the recovery room extubated in good condition. Complications: none Post-operative Condition: stable Disposition: PACU Plan for aftercare: Admit
[2020-01-18] MEDS: fentaNYL 100 MCG/2 ML INJ IV (15:50)
--- NOTE | 2020-01-18 16:25 | PC.NURSE ---
Addendum entered by Mabel Kerr R.N. 01/18/20 23:27: Up to commode with UPTWISTER TENDER for void. UA sent as per . HS meds with sips water. Now positioned in bed on right side. 02 on room air 90%. 02 2L per NC replaced. Ice to site. Medicated with 2 mg iv morphine for c/o abdominal/incisional pain 4/10. Pt reports pain is better postop than preop. Addendum entered by Mabel Kerr R.N. 01/18/20 19:15: Follows commands appropriately. Encouraged deep breaths for assessment and pt reports this activity increases surgical pain. Requests pain meds following this activity for pain /10. 2 mg iv morphine administered and will monitor for relief. Declines offer to assist with repositioning at this time. Addendum entered by Mabel Kerr R.N. 01/18/20 17:46: Dr. Harrington in to see patient and pt's spouse. Pt denies pain, admits to some discomfort to abdomen. Prefers left side lying position. Follow commands appropriately. Ice chips prn. Original Note: pt to room 206 from PACU drowsy, but rousable. Pt's spouse is present as pt arrives. 02 2L nc sats 95%. Abdominal dressing is dry and intact. Ice to site. BL calf scd's in place.
--- NOTE | 2020-01-18 16:31 | SUR.PHASEI ---
Pt transferred to room 206 in stable condition and stating pain tolerable. Handoff in room to saran Barnes
[2020-01-18] MEDS: SODIUM CHLORIDE 0.9% 1,000 ML 125 ML IV (16:39)
[2020-01-18] MEDS: MORPHINE 4 MG/ML INJ IV ×2 (18:56→23:16)
[2020-01-18] MEDS: SODIUM CHLORIDE 0.9% FLUSH 10 ML IV (19:03)
[2020-01-18 20:39] LABS: Bacteria Urine None Seen
[2020-01-18 20:40] LABS: Appearance Urine UA CLEAR; Bilirubin Urine UA NEGATIVE (NEGATIVE); Color Urine UA YELLOW; Glucose Urine UA NEGATIVE (Negative); Ketones Urine UA 1+ (NEGATIVE); Leukocyte Esterase Urine UA NEGATIVE (NEGATIVE); Nitrite Urine UA NEGATIVE (Negative); Occult Blood Urine UA 3+ (Negative); Protein Urine UA NEGATIVE (Negative); Specific Gravity Urine UA 1.015 (1.000-1.035); Urobilinogen Urine UA 0.2 E.U./dL (0.2)
[2020-01-18 20:53] LABS: Amorphous Sediment Urine 1+; Culture Indicated Urine Cult Not Indicated; RBC Urine 1-5/HPF (0-5/HPF); Squamous Epithelial Cell Urine 1-5 /HPF (0-5/HPF); Uric Acid Crystals Urine Few; WBC Urine 0-1/HPF (0-5/HPF)
[2020-01-18] MEDS: levETIRAcetam 250 MG TABLET 500 MG PO (21:21)
[2020-01-19] VITALS (10 sets, daily range): BP systolic 111–160; BP diastolic 49–75; PULSE 70–86; RESP 18–21; TEMP 36.9–37.3; O2SAT 91–96
[2020-01-19] MEDS: SODIUM CHLORIDE 0.9% 1,000 ML 125 ML IV ×3 (00:51→17:04)
--- NOTE | 2020-01-19 01:37 | PC.NURSE ---
Patient seen and assessed at 2351. Is alert and oriented. [place] with hearing aid only in right ear. Breath sounds CTA with oxygen at 2L/min (sats dropped when asleep per evening RN) and sat of 96%. HRR. Denies nausea. BT hypoactive; denies flatus. Abdomen is soft but tender. Abdominal dressing is intact with 2 small areas of serosanguinous drainage noted on left side of dressing. Denies dysuria, frequency or urgency with urination; is continent. Able to move herself in bed. Due to weakness/unsteadiness is assisted when getting out of bed and did use walker when going to bathroom. States incisional pain is currently 3/10; was given Morphine at shift change by evening RN and pain has improved. Ice pack applied to abdomen for comfort. Wearing bilateral calf SCD's. Fall risk score is moderate and bed alarm is activated.
[2020-01-19 06:05] LABS: Add Manual Diff / Slide Review NO; Basophils Absolute Auto 0 /uL (0-100); Basophils Percent Auto 0.2 % (0-2); Eosinophils Absolute Auto 0 /uL (0-450); Hematocrit 36.7 % (36-46); Hemoglobin 12.7 g/dL (12.0-16.0); Lymphocytes Absolute Auto 600 /uL (1100-4500); Lymphocytes Percent Auto 4.4 % (25-40); Mean Corpuscular HGB Conc 34.6 % (30-36); Mean Corpuscular Volume 89.7 fL (80-100); Monocytes Absolute Auto 1300 /uL (0-900); Neutrophils Absolute Auto 12000 /uL (1500-7000); Neutrophils Percent Auto 86.4 % (50-75); Platelet Count 205 X10^3/uL (150-400); Red Blood Cell Count 4.09 X10^6/uL (4.0-5.2); Red Cell Distribution Width 14.2 % (11.6-14.8); White Blood Cell Count 13.9 X10^3/uL (4.5-11.0)
[2020-01-19 06:13] LABS: Alanine Aminotransferase 14 IU/L (<35); Albumin 3.2 g/dL (3.5-5.0); Albumin Globulin Ratio 1.4 (1.0-2.8); Alkaline Phosphatase 55 U/L (38-126); Aspartate Aminotransferase 24 IU/L (14-36); BUN Creatinine Ratio 18.8 (6-22); Bilirubin Total 0.7 mg/dL (0.2-1.3); Blood Urea Nitrogen 18 mg/dL (7-17); Calcium 8.9 mg/dL (8.4-10.2); Carbon Dioxide 28 mmol/L (22-32); Chloride 105 mmol/L (98-107); Estimated Glomerular Filt Rate 55.4 mL/min (>60); Globulin 2.3 g/dL (1.7-4.1); Glucose 131 mg/dL (80-110); HEMOLYSIS < 15 (0-50); Potassium 4.7 mmol/L (3.4-5.1); Sodium 136 mmol/L (137-145); Total Protein 5.5 g/dL (6.3-8.2)
[2020-01-19] MEDS: PANTOPRAZOLE 40 MG VIAL IV (08:56)
[2020-01-19] MEDS: SODIUM CHLORIDE 0.9% FLUSH 10 ML IV ×3 (08:57→19:53)
[2020-01-19] MEDS: CITALOPRAM 10 MG TABLET PO (08:57)
[2020-01-19] MEDS: TOLTERODINE LA 4 MG PO (08:57)
[2020-01-19] MEDS: levETIRAcetam 250 MG TABLET 500 MG PO ×2 (08:57→19:49)
[2020-01-19] MEDS: ENOXAPARIN 40 MG/0.4 ML SYRINGE SUBCUT (08:57)
[2020-01-19] MEDS: OXYCODONE/ACETAMINOPHEN 5/325 TABLET 1 TAB PO ×3 (10:26→19:53)
--- NOTE | 2020-01-19 12:35 | P.PN_ITS ---
Subjective Subjective Date Patient Seen: 01/19/20 Time Patient Seen: 12:35 Interval history: Patient having pain. Has declined these of morphine. Which she is getting is in quite covering it. Exam Vital Signs (past 8 hours): - 01/19/20 07:50 01/19/20 08:15 01/19/20 08:27 Temperature 98.5 F Pulse Rate 77 70 Respiratory Rate 18 Blood Pressure 112/58 L Pulse Oximetry 95 94 93 01/19/20 11:33 Temperature Pulse Rate Respiratory Rate Blood Pressure Pulse Oximetry 94 Oxygen Delivery Method Room Air Oxygen Flow Rate 0 Narrative Exam Narrative: Lungs are clear to auscultation. Effort could be better. No rales or rhonchi heart regular rate and rhythm abdomen is protuberant soft. Dressing is dry and intact. Objective Labs Result Diagrams: 01/19/20 05:50 01/19/20 05:50 Labs: Laboratory Results - last 24 hr 01/18/20 01/19/20 01/19/20 20:37 05:50 05:50 WBC 13.9 H D RBC 4.09 Hgb 12.7 Hct 36.7 MCV 89.7 MCH 31.0 MCHC 34.6 RDW 14.2 Plt Count 205 Neut % (Auto) 86.4 H Lymph % (Auto) 4.4 L [place] % (Auto) 9.0 Eos % (Auto) 0.0 L Baso % (Auto) 0.2 Neut # (Auto) 91355 H Lymph # (Auto) 600 L [place] # (Auto) 1300 H Eos # (Auto) 0 Baso # (Auto) 0 Sodium 136 L Potassium 4.7 Chloride 105 Carbon Dioxide 28 BUN 18 H Creatinine 0.96 Estimated GFR 55.4 L BUN/Creatinine Ratio 18.8 Glucose 131 H Calcium 8.9 Total Bilirubin 0.7 AST 24 ALT 14 Alkaline Phosphatase 55 Total Protein 5.5 L Albumin 3.2 L Globulin 2.3 Albumin/Globulin Ratio 1.4 Urine Color Yellow Urine Appearance Clear Urine pH 5.0 Ur Specific [place] 1.015 Urine Protein Negative Urine Glucose (UA) Negative Urine Ketones 1+ H Urine Occult Blood 3+ H Urine Nitrate Negative Urine Bilirubin Negative Urine Urobilinogen 0.2 Ur Leukocyte Esterase Negative Urine RBC 1-5/hpf Urine WBC 0-1/hpf Ur Squamous Epith Cells 1-5 /hpf Uric Acid Crystals Few H Amorphous Sediment 1+ Urine Bacteria None seen Ur Culture Indicated? Cult not indicated Assessment & Plan Post-op Postoperative Procedures: Procedures Operation Date: 01/18/20 13:00 Actual Procedures Side Surgeon p Exploratory Laparotomy GEN Cisco Harrington MD Postoperative status narrative: Doing okay. Work on her breathing. Postoperative plan narrative: Continue IV fluids. Encourage mobility and deep breathing.
--- NOTE | 2020-01-19 13:07 | CM.DANOTE ---
DCP: Case received, EMR reviewed and met with patient. , Reji, was at bedside. Introduced self and role. Was able to obtain information regarding patient's baseline activity prior to hospitalization. DCP assessment completed with information currently available. Patient is an 84 year old female who admitted yesterday afternoon to the care of the hospitalist/surgical team. PCP: Dr. Gee. Payer: confirmed: [facility]. Patient came to the hospital via private vehicle secondary to having abdominal pain. She was diagnosed with small bowel obstruction, and had exploratory laparotomy yesterday. Met with patient. at bedside. She is alert and oriented. She resides here in [place] with her . She is independent at baseline. P: DCP to continue to follow. Patient should be able to go home when medically stable and is able to tolerate diet. Sonia Rodriguez RN/Commercial Relief Driver
--- NOTE | 2020-01-19 16:28 | PT.IIE ---
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) Hx of appendectomy (Resolved Unknown) Hx of cholecystectomy (Resolved Unknown) Hx of detached retina repair (Resolved Unknown) Medical History (Last Reviewed 01/18/20 @ 13:28 by Cisco Harrington MD) Arthritis (Chronic Unknown) Cataracts, bilateral (Resolved Unknown) Cervical somatic dysfunction (Acute) Cervicothoracic somatic dysfunction (Acute) Chronic low back pain (Acute) Chronic thoracic back pain (Acute) CLL (chronic lymphocytic leukemia) (Chronic Unknown) Depression (Chronic Unknown) Gallbladder disease (Resolved Unknown) GERD (gastroesophageal reflux disease) (Chronic Unknown) Hypertension (Chronic Unknown) Lightheadedness (Acute) Lumbar region somatic dysfunction (Acute) Segmental and somatic dysfunction of abdomen and other regions (Acute) Segmental and somatic dysfunction of head region (Acute) Segmental and somatic dysfunction of pelvic region (Acute) Segmental and somatic dysfunction of sacral region (Acute) Segmental and somatic dysfunction of thoracic region (Acute) Seizure disorder (Chronic Unknown) Somatic dysfunction of abdominal region (Acute) Somatic dysfunction of sacral spine (Acute) Spinal stenosis (Chronic Unknown) Stiff neck (Acute) Subarachnoid hemorrhage (Resolved 2000) Visual hallucinations (Acute) Physical Therapy Inpatient Evaluation/Re-Eval M1 PT/OT-IP Prior Functional Status Start: 01/19/20 13:26 Freq: NEEDED Status: Active Protocol: Document 01/19/20 16:07 AW (Rec: 01/19/20 16:28 AW [email or web address]) Medical Review Prior Functional Status Medical History Reviewed Yes Communication WNL. No known deficits. Mobility and Gait Pt is independent without assistive device for all mobility. She has no fall history in the last two years. Activities of Daily Living and IADL's Indpependent with I/ADL's Prior Functional Level (Other details) Pt does not drive. She wears bifocals at all times. Social History Household Members spouse Living Arrangements House Number of Floors (Floors) Two Floors Number of Stairs To Enter/Railing? Level entry to main level with [employer] laundry, living room, dining room, and study. There are thirteen steps (5 + sharp 90-degree turn + 8) with unilateral rail to access second floor with bedroom and bathroom. Home Environment Standard Height Toilet,Walk in Shower Home Equipment Straight Cane,Shower Seat without Backrest Employment Status Retired Additional Social History Comment Pt lives with her spouse, Reji , who will be available and able to assist as needed at discharge. M2 PT-IP Current Condition Start: 01/19/20 13:26 Freq: NEEDED Status: Active Protocol: Document 01/19/20 16:07 AW (Rec: 01/19/20 16:28 AW [email or web address]) Physical Therapy Current Condition Current Condition Evaluation Date 01/19/20 Treatment Diagnosis SBO s/p laparotomy; difficulty in walking Onset Date 01/18/20 Precautions Abdominal Surgery Precautions Log Roll,Lifting Restrictions, Gait Belt above Incisional Area M3 PT-IP Subjective Start: 01/19/20 13:26 Freq: NEEDED Status: Active Protocol: Document 01/19/20 16:07 AW (Rec: 01/19/20 16:28 AW [email or web address]) Subjective Physical Therapy Visit Type Type Initial Evaluation Visit Start Time 15:03 Visit Stop Time 15:41 Total Visit Minutes 38 Number of BAGGAGE SMASHER Visits 0 Physical Therapy Visit Comments Patient Comments Pt is willing to participate with PT Therapy Pain Assessment Pain When Pain Assessed During Mobility Pain Present Pain Present Pain Reported Location abd Scale Used 5/10 at rest; unchanged with mobility Pain Management Techniques Re-positioning,Timing of Activity with Medications M4 PT-IP Mobility and Gait Start: 01/19/20 13:26 Freq: NEEDED Status: Active Protocol: Document 01/19/20 16:07 AW (Rec: 01/19/20 16:28 AW [email or web address]) PT-Bed Mobility Assessment Rolling Type of Rolling Log Rolling,Roll to Left Level of Assist Minimal Assistance,1 Person Assistance Supine to Sit Supine to Sit Minimal Assistance,1 Person Assistance Scooting Scooting to Edge of Bed Standby Assistance PT-Transfer Assessment Sit to and From Stand Sit to and from Stand Contact Guard Assistance Equipment Transfer Assistive Device Gait Belt,Front Wheeled Walker Orthotic/Prosthetic Devices or Brace: No Transfers Transfer Destination Chair Transfer Ability Level of Assist Contact Guard Assistance,1 Person Assistance,Use of Upper Extremities Comments Mobility Comments Pt was sitting up in the bed as PT arrived. With HOB flat, pt required min A x 1 and sequencing cues to complete log roll to her left side and SL to sit transition. Pt was able to sit EOB without complaint SBA. She completed sit to stand CGA and was able to shift weight and march in place with FWW. She ambulated to the sink where she stood to perform hygiene with good standing balance SBA. She ambulated to the chair CGA with FWW and transferred CGA with cues to reach for the chair arms to control descent. Pt was positioned on the chair and agreed to sit up as long as she could tolerate. Call light and all needs were placed within reach and pt agreed to call for all mobility needs. Gait Assessment Gait Gait Assistance Required: Contact Guard Assist Distance (Feet) 10 Assistive Devices Assistive Device Gait Belt,Front Wheeled Walker Gait Deviations General Gait Pattern Antalgic,Decreased Stride Length,Decreased Feet Clearance,Flexed Trunk Factors Limiting Gait Function Factors Limiting Gait Function Decreased Activity Tolerance, Decreased Strength,Pain,Poor Balance,Poor Safety Awareness Comments Gait Comments See mobility comments for details. Stair Climbing Assessment Comments Stair Climbing Comments Not assessed due to decreased activity tolerance. PT-Balance Assessment Sitting Balance and Reactions Static Sitting Balance Ability Good Dynamic Sitting Balance Ability Good Standing Balance and Reactions Static Standing Balance Ability Good Dynamic Standing Balance Ability Fair Device Used FWW M5 PT-IP Objective Assessments Start: 01/19/20 13:26 Freq: NEEDED Status: Active Protocol: Document 01/19/20 16:07 AW (Rec: 01/19/20 16:28 AW [email or web address]) Orientation Orientation/Cognition Level of Alertness Alert Orientation Name,Day of Week,Place, Situation Language Function Ability No Deficits Noted Safety Awareness Decreased Safety Awareness Memory Description No Deficits Noted Gross Range of Motion Lower Extremity ROM Assessment Within Functional Limits Strength Lower Extremity Strength Assessment Bilaterally Impaired Hip 4-/5 Knee 4+/5 Ankle 4+/5 Coordination Assessment Gross Coordination Gross Coordination WNL Sensation Assessment Sensation Gross Sensation WNL Muscle Tone Muscle Tone WNL Yes M6 PT-IP Treatment Start: 01/19/20 13:26 Freq: NEEDED Status: Active Protocol: Document 01/19/20 16:07 AW (Rec: 01/19/20 16:28 AW [email or web address]) Physical Therapy Treatment Education Education Provided Precautions,Safety Other Treatments Other Treatment Performed Provided education on role of PT, plan of care, log roll for bed mobility, and importance of continued mobility and deep breathing exercises M7 PT-IP Assessment and Plan Start: 01/19/20 13:26 Freq: NEEDED Status: Active Protocol: Document 01/19/20 16:07 AW (Rec: 01/19/20 16:28 AW [email or web address]) PT Summary Assessment and Plan Potential Rehabilitation Potential Good Status of Condition at Evaluation Evolving Summary Impairments Pain,Strength,Balance,Bed Mobility,Transfers,Gait, Activity Tolerance Assessment Summary [place] is an 84 yo woman seen for PT evaluation on POD1 following laparotomy for small bowel obstruction. She is independent at baseline but does not drive. On evaluation, pt presents with decreased activity tolerance, requiring CGA to min assist for all mobility with FWW. Pt and her state they may be able to use the downstairs study as a bedroom if pt is unable to manage stairs. PT anticipates this pt will likely be safe to discharge home with assist once medically cleared. She may benefit from home health PT to progress her strength and independence with mobility. Goals Bed Mobility Goal Standby Assistance Transfer Goal Standby Assistance,Front Wheeled Walker Gait Goal Standby Assistance,Front Wheel Walker Gait Distance 150 Other Goals - up/down 13 steps with unilateral rail SBA Days to Meet Goals 5 Frequency of Treatment Frequency Of Treatment Once a Day Treatment Plan Physical Therapy Treatment Plan Bed Mobility Training,Transfer Training,Gait Training, Therapeutic Exercise,Balance Retraining,Post Op Education, Discharge Planning,Hot or Cold Pack Other Recommendations and Next Treatment progress gait distance with Focus FWW; transfers; stairs when able if pt is determined to sleep upstairs at home. Recommendations To Nursing Amount of Assist Needed 1 Person Assist Discharge Recommendations PT Discharge Recommendations Home with Assistance,Home Health Equipment Needed for Home Before FWW Discharge Transportation Needs at Discharge Private Vehicle
--- NOTE | 2020-01-19 17:32 | PC.NURSE ---
Addendum entered by Mabel Kerr R.N. 01/19/20 20:51: Attempting OOB independently. Staff intercedes and reorients pt to call light and requests for pt to use this to summon staff for assistance. One assist OOB to ambulate with walker to bathroom. Reports abdominal/incisional pain with activity. Agreeable to pain med for abdominal/incisional pain 5/10. HS meds with sips water. Bed alarm in place and call light in pt's hand. No change in dressing to surgical site. Ice to abdomen. Addendum entered by Mabel Kerr R.N. 01/19/20 19:14: Refuses offer for pain meds. Taught to splint abdomen to perform I.S. Able to perform to 1000. Educated pt and pt's spouse on rationale and use of this device. Original Note: Pt OOB to recliner @ beginning of shift with P.T. Spouse is present. Pt toileted by INFORMATICS NURSE SPECIALIST and returned to bed after being up for > 1 hour. Denies nausea. Admits to abdominal surgical pain 4/10 after movement. BL knees supported with pillows while in bed and ice to surgical site to abdomen placed over pt's gown. Pt does report good pain relief with ice. Very scant scattered drainage to surgical dressing to abdomen. Bowel tones are quiet. Soft abdomen. Pt denies passage of flatus. BL scd's in place while in bed. Easily drifts to sleep with eyes closed without signs of distress or discomfort.
[2020-01-20] VITALS (10 sets, daily range): BP systolic 134–151; BP diastolic 59–65; PULSE 74–90; RESP 16–19; TEMP 36.5–37; O2SAT 91–97
[2020-01-20] MEDS: SODIUM CHLORIDE 0.9% 1,000 ML 125 ML IV ×3 (00:59→16:43)
--- NOTE | 2020-01-20 02:54 | PC.NURSE ---
Patient is alert and oriented but has short term memory loss and forgetful. Audible expiratory wheezing heard when attempting to get out of bed but breath sounds CTA. Seemed SOB with activity, but when asked states I don't know, I could be. Oximetry checked after being up to bathroom and is 94% on RA. HRR. BP intermittently elevated with last reading of 146/60. Denies nausea. No BT auscultated tonight although patient states she has passed flatus. Abdomen is distended, soft and tender to palpation. Abdominal dressing intact with no new drainage noted. Denies dysuria, frequency or urgency with urination. Able to move self in bed. Due to LE weakness is using walker and 1 assist when up to bathroom. States abdominal pain is currently 3/10 and declines pain medication; ice pack applied for comfort. Remains NPO except for sips/chips. Wearing bilateral calf SCD's. Fall risk score is high and bed alarm is activated.
[2020-01-20] MEDS: OXYCODONE/ACETAMINOPHEN 5/325 TABLET 1 TAB PO ×4 (03:49→20:36)
--- NOTE | 2020-01-20 03:55 | PC.NURSE ---
Patient moaning, reports pain 6/10 all over. Medicated with Percocet 1 tab. Assist with repositioning.
[2020-01-20] MEDS: PANTOPRAZOLE 40 MG VIAL IV (09:04)
[2020-01-20] MEDS: TOLTERODINE LA 4 MG PO (09:04)
[2020-01-20] MEDS: SODIUM CHLORIDE 0.9% FLUSH 10 ML IV ×2 (09:04→20:36)
[2020-01-20] MEDS: ENOXAPARIN 40 MG/0.4 ML SYRINGE SUBCUT (09:04)
[2020-01-20] MEDS: CITALOPRAM 10 MG TABLET PO (09:04)
[2020-01-20] MEDS: levETIRAcetam 250 MG TABLET 500 MG PO ×2 (09:04→20:36)
--- NOTE | 2020-01-20 10:35 | PT.IPTN ---
Current Diagnoses Unspecified intestinal obstruction, unspecified as to partial versus complete obstruction (01/18/20) Surgery Performed Operation Date: 01/18/20 13:00 Actual Procedures p Exploratory Laparotomy GEN Sarah Harrington MD Physical Therapy Treatment Note M2 PT-IP Current Condition Start: 01/19/20 13:26 Freq: NEEDED Status: Active Protocol: Document 01/19/20 16:07 AW (Rec: 01/19/20 16:28 AW [email or web address]) Physical Therapy Current Condition Current Condition Evaluation Date 01/19/20 Treatment Diagnosis SBO s/p laparotomy; difficulty in walking Onset Date 01/18/20 Precautions Abdominal Surgery Precautions Log Roll,Lifting Restrictions, Gait Belt above Incisional Area M3 PT-IP Subjective Start: 01/19/20 13:26 Freq: NEEDED Status: Active Protocol: Document 01/20/20 10:35 AB (Rec: 01/20/20 12:13 AB [email or web address]) Subjective Physical Therapy Visit Type Type Treatment Note Visit Start Time 10:35 Visit Stop Time 10:54 Total Visit Minutes 19 Number of GENERAL PRACTITIONER Visits 0 Physical Therapy Visit Comments Patient Comments pt is agreeable to do PT M4 PT-IP Mobility and Gait Start: 01/19/20 13:26 Freq: NEEDED Status: Active Protocol: Document 01/20/20 10:35 AB (Rec: 01/20/20 12:13 AB [email or web address]) PT-Bed Mobility Assessment Sit to Supine Sit to Supine Maximum Assistance,1 Person Assistance PT-Transfer Assessment Sit to and From Stand Sit to and from Stand Moderate Assistance,Maximum Assistance,1 Person Assistance ,Use of Upper Extremities Equipment Transfer Assistive Device Gait Belt,Front Wheeled Walker Orthotic/Prosthetic Devices or Brace: No Transfers Transfer Destination Bed Transfer Technique ambulated using FWW Transfer Ability Level of Assist Moderate Assistance,Maximum Assistance,1 Person Assistance ,Use of Upper Extremities Comments Mobility Comments pt is lethargic but requires constant cues to participate. completed sit to stand from chair mod to max A and max cues. ambulated in room using FWW mod to max A ~ 25 ft. pt requested to go back to bed and refused furthr ambulation afterwards. pt completed sit to supine max A and max cues. required max A for positioning in bed. call light and table placed within reach. Gait Assessment Gait Gait Assistance Required: Moderate Assistance,Maximum Assistance Distance (Feet) 25 Able to Maintain Weight Bearing Status Yes During Gait Assistive Devices Assistive Device Gait Belt,Front Wheeled Walker Orthotic/Prosthetic Devices or Brace: No Gait Deviations General Gait Pattern Antalgic,Decreased Stride Length,Decreased Feet Clearance,Flexed Trunk,Lateral Trunk Lean,Step-to Gait Factors Limiting Gait Function Factors Limiting Gait Function Decreased Activity Tolerance, Decreased Strength,Difficulty Following Directions,Pain,Poor Balance,Poor Safety Awareness Comments Gait Comments pls refer to mobility section for details M5 PT-IP Objective Assessments Start: 01/19/20 13:26 Freq: NEEDED Status: Active Protocol: Document 01/19/20 16:07 AW (Rec: 01/19/20 16:28 AW [email or web address]) Orientation Orientation/Cognition Level of Alertness Alert Orientation Name,Day of Week,Place, Situation Language Function Ability No Deficits Noted Safety Awareness Decreased Safety Awareness Memory Description No Deficits Noted Gross Range of Motion Lower Extremity ROM Assessment Within Functional Limits Strength Lower Extremity Strength Assessment Bilaterally Impaired Hip 4-/5 Knee 4+/5 Ankle 4+/5 Coordination Assessment Gross Coordination Gross Coordination WNL Sensation Assessment Sensation Gross Sensation WNL Muscle Tone Muscle Tone WNL Yes M6 PT-IP Treatment Start: 01/19/20 13:26 Freq: NEEDED Status: Active Protocol: Document 01/20/20 10:35 AB (Rec: 01/20/20 12:13 AB [email or web address]) Physical Therapy Treatment Education Education Provided Precautions,Safety Other Treatments Other Treatment Performed educated on abdominal precautions and log roll bed mobility M7 PT-IP Assessment and Plan Start: 01/19/20 13:26 Freq: NEEDED Status: Active Protocol: Document 01/20/20 10:35 AB (Rec: 01/20/20 12:13 AB [email or web address]) PT Summary Assessment and Plan Potential Rehabilitation Potential Good Summary Impairments Pain,ROM,Strength,Balance, Coordination,Sensation,Tone, Cognition,Bed Mobility, Transfers,Gait,Activity Tolerance Progress Towards Goals Slow Progress due to Pain,Slow Progress due to Activity Tolerance Assessment Summary pt requiring mod to max A for mobility and has decrease activity tolerance. d/c plan depending on progress but at this time will require SNF rehab. If pt goes home, she will have her spouse to assist her but ryan require caregiver training when appropriate. will continue to assess progress. Goals Bed Mobility Goal Standby Assistance Transfer Goal Standby Assistance,Front Wheeled Walker Gait Goal Standby Assistance,Front Wheel Walker Gait Distance 150 Other Goals - up/down 13 steps with unilateral rail SBA Days to Meet Goals 5 Frequency of Treatment Frequency Of Treatment Once a Day Treatment Plan Physical Therapy Treatment Plan Bed Mobility Training,Transfer Training,Gait Training, Therapeutic Exercise,Balance Retraining,Post Op Education, Discharge Planning,Hot or Cold Pack Other Recommendations and Next Treatment ambulation, caregiver training Focus Recommendations To Nursing Amount of Assist Needed 1 Person Assist Discharge Recommendations PT Discharge Recommendations SNF Rehab Equipment Needed for Home Before FWW if pt goes home Discharge Transportation Needs at Discharge Private Vehicle
--- NOTE | 2020-01-20 13:03 | CM.DPC ---
DCP: continued: case received and discussed in Team Rounds. OT order is obtained after discussion with the PT rep in the meeting. Note that pt has exploratory laparotomy,urgent to treat small bowel closed loop obstruction in setting of pt with chronic medical comorbidities and a ventricular peritoneal shunt. PT today is recommending snf vs home with spouse and caregiver training. Do anticipate that pt will continue to progress as she recovers from the surgery and will not discuss this with her today. Will await OT eval and hope to also have a sense from Dr. Harrington of how long pt will likely need recovery in the acute care setting. Payer: [employer]. Will follow as POC unfolds and expect to check in with pt tomorrow as more is known. (DCP assessment completed by colleague yesterday stated that pt was independent at baseline and hoped to d/c home when stable for same.)
--- NOTE | 2020-01-20 13:06 | PC.NURSE ---
Day Shift- Pt OOB this AM to recliner chair around 0915 with 1PA and walker. Pt has difficulty transferring OOB to a sitting position, needs prompting and hands on assist. Upon resting in bed, pt reported 2/10 aching to abd incision. After movement OOb to chair, pt instructed to use incentive spirometer, deep breath and cough and had a coughing and clearing throat episode. Moaning, abd pain increased. PRn Percocet given at that time. Pain settled once pt settled in recliner chair. Pt remains NPO, ice chips given for comfort. Pt took her pills with water without issue. Abd BSX4 hypoactive, pt denies passing any flatus after surgery. Denies nausea. Abd slightly distended, soft, tender around incision. Abd midline incision covered with telfa and tegaderm, serous drainage noted to mid left of dressing. Pt back to bed with PT assist at 1050. Pt's Reji visiting in room throughout shift. Dr. Spencer in to see pt after lunch, verbal order rec'd for pt to have clear liquid diet. Pt and her aware to intake slowly and have small sips, bites. Foods offered, pt given, coffee, water, juice, and jello.
--- NOTE | 2020-01-20 14:00 | PM.PN.1 ---
Subjective Subjective Date Patient Seen: 01/20/20 Time Patient Seen: 12:30 Interval history: No acute events overnight. The patient denies nausea/vomiting. She is not sure she has passed any gas or not. Exam Vital Signs (past 8 hours): - 01/20/20 07:55 01/20/20 09:36 01/20/20 12:05 Temperature 98.2 F 98.5 F Pulse Rate 89 79 Respiratory Rate 16 16 Blood Pressure 151/59 H 135/65 Pulse Oximetry 91 92 92 01/20/20 12:56 Temperature Pulse Rate Respiratory Rate Blood Pressure Pulse Oximetry 92 Oxygen Delivery Method Room Air Oxygen Flow Rate 0 Narrative Exam Narrative: GENERAL: Alert, comfortable. Appears stated age. Answers questions promptly and appropriately. Vital signs noted. HENT: Normocephalic, atraumatic. Hearing intact. EYES: Conjunctiva pink, sclera white, no periorbital swelling. CARDIOVASCULAR: Regular rate. No pedal edema. RESPIRATORY: Non-tachypneic, breathing comfortably on room air. GASTROINTESTINAL: Abdomen soft; appropriately tender to palpation for postop day 2, incision intact with bloody drainage on the Steri-Strips. Dressing changed during exam MUSCULOSKELETAL: Equal tone and mass bilaterally. SKIN: Warm, dry, soft, appropriate color for ethnicity. No other lesions, rashes, or wounds. NEURO: Alert and Oriented X 3. No gross sensory deficits, or cognitive issues. PSYCH: Appropriate affect and mood. Objective Labs Result Diagrams: 01/19/20 05:50 01/19/20 05:50 Assessment & Plan Assessment and plan (1) Bowel obstruction: Qualifiers: Intestinal obstruction extent: complete Intestinal obstruction type: other intestinal obstruction Qualified Code(s): K56.691 - Other complete intestinal obstruction Status: Acute Assessment & Plan narrative: This is an 84-year-old woman who is postop day 2 from laparotomy and un torsed thing of her small bowel. She has been tolerating well without an NG tube. She is not sure she is passing gas or stool. She has been attempting to ambulate. Plan: Advanced to clear Continue IV fluids until tolerating clear liquid diet Pain med as needed Home meds Daily labs Replete electrolytes COVID-19 COVID-19 status: Negative Result date/Date tested (Pos, Neg/Pending): 01/25/20 Time Spent With Patient Time with patient: 25 - 35 minutes
--- NOTE | 2020-01-20 14:18 | OT.IP.EVAL ---
Current Diagnoses Unspecified intestinal obstruction, unspecified as to partial versus complete obstruction (01/18/20) Surgery Performed Operation Date: 01/18/20 13:00 Actual Procedures p Exploratory Laparotomy GEN - Cisco Harrington MD Past Medical History (Last Reviewed 01/18/20 @ 13:28 by Cisco Harrington MD) Arthritis (Chronic Unknown) Cataracts, bilateral (Resolved Unknown) Cervical somatic dysfunction (Acute) Cervicothoracic somatic dysfunction (Acute) Chronic low back pain (Acute) Chronic thoracic back pain (Acute) CLL (chronic lymphocytic leukemia) (Chronic Unknown) Depression (Chronic Unknown) Gallbladder disease (Resolved Unknown) GERD (gastroesophageal reflux disease) (Chronic Unknown) Hypertension (Chronic Unknown) Lightheadedness (Acute) Lumbar region somatic dysfunction (Acute) Segmental and somatic dysfunction of abdomen and other regions (Acute) Segmental and somatic dysfunction of head region (Acute) Segmental and somatic dysfunction of pelvic region (Acute) Segmental and somatic dysfunction of sacral region (Acute) Segmental and somatic dysfunction of thoracic region (Acute) Seizure disorder (Chronic Unknown) Somatic dysfunction of abdominal region (Acute) Somatic dysfunction of sacral spine (Acute) Spinal stenosis (Chronic Unknown) Stiff neck (Acute) Subarachnoid hemorrhage (Resolved 2000) Visual hallucinations (Acute) Surgical History (Last Reviewed 01/18/20 @ 13:28 by Cisco Harrington MD) History of bilateral cataract extraction (Resolved Unknown) 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) Hx of appendectomy (Resolved Unknown) Hx of cholecystectomy (Resolved Unknown) Hx of detached retina repair (Resolved Unknown) Occupational Therapy Inpatient Evaluation/Re-Eval M1 PT/OT-IP Prior Functional Status Start: 01/19/20 13:26 Freq: NEEDED Status: Active Protocol: Document 01/20/20 14:38 CGR (Rec: 01/20/20 14:48 CGR [email or web address]) Medical Review Prior Functional Status Medical History Reviewed Yes Communication WNL. No known deficits. Mobility and Gait Pt is independent without assistive device for all mobility. She has no fall history in the last two years. Activities of Daily Living and IADL's Indpependent with I/ADL's Prior Functional Level (Other details) Pt does not drive. She wears bifocals at all times. Social History Household Members spouse Living Arrangements House Number of Floors (Floors) Two Floors Number of Stairs To Enter/Railing? Level entry to main level with [employer] laundry, living room, dining room, and study. There are thirteen steps (5 + sharp 90-degree turn + 8) with unilateral rail to access second floor with bedroom and bathroom. Home Environment Standard Height Toilet,Walk in Shower Home Equipment Straight Cane,Shower Seat without Backrest Employment Status Retired Additional Social History Comment Pt lives with her spouse, Reji , who will be available and able to assist as needed at discharge. M2 OT-IP Current Condition Start: 01/20/20 14:38 Freq: Status: Active Protocol: Document 01/20/20 14:38 CGR (Rec: 01/20/20 14:48 CGR [email or web address]) Occupational Therapy Current Condition Current Condition Evaluation Date 01/20/20 Treatment Diagnosis 01/17 ex lap for SBO Diagnosis Onset Date 01/18/20 Post Operative Precautions Abdominal Surgery Precautions Log Roll,Lifting Restrictions, Gait Belt above Incisional Area M3 OT- IP Subjective and Pain Start: 01/20/20 14:38 Freq: Status: Active Protocol: Document 01/20/20 14:38 CGR (Rec: 01/20/20 14:48 CGR [email or web address]) OT- Subjective Occupational Therapy Visit Type Type Initial Evaluation Visit Start Time 13:50 Visit Stop Time 14:18 Total Visit Minutes 28 Notes Pt's Reji present throughout session. OT Pain Assessment Pain When Pain Assessed At Rest Pain Present Pain Present Denied Pain M4 OT- IP ADL's Start: 01/20/20 14:38 Freq: Status: Active Protocol: Document 01/20/20 14:38 CGR (Rec: 01/20/20 14:48 CGR [email or web address]) OT OCG-Ptze-Ykzvpvs General Evaluation Self-Feeding Ability Independent Comments OT Self-Feeding Comments for drinking coffee OT ADL-Grooming General Evaluation Grooming Ability Standby Assistance Areas Needing Assistance Retrieving/Set-up of Grooming Items,Face Washing Comments OT Grooming Comments standing at sink OT ADL-Oral Care General Eval Oral Care Ability Standby Assistance Areas of Assistance Brushing Teeth Comments Oral Care Comments standing at sink OT ADL-Dressing Comments OT Dressing Comments not performed but pt is interested in learning LB dressing equipment tomorrow. OT ADL-Toileting General Evaluation Toileting Ability Standby Assistance Devices Toileting Assistive Devices Grab Bars Comments OT Toileting Comments urinated seated on toilet OT ADL-Bathing Comments OT Bathing Comments not performed, requested that nurse get an ok to shower order from MD. [place] OT- IP IADL's Start: 01/20/20 14:38 Freq: Status: Active Protocol: Document 01/20/20 14:38 CGR (Rec: 01/20/20 14:48 CGR [email or web address]) OT-Instrumental Activities of Daily Living Deficits IADL Deficits Identified No Deficits Home Safety Awareness Awareness of Need for Assistance at Home Good Awareness Ability to Problem Solve Emergency Able to Problem Solve Situations Medication Management Medication Management No Deficits Identified Money Management Money Management No Deficits Identified Meal Preparation Meal Preparation Caregiver Provides Assist Home Care Companion Home Care Companion Caregiver Provides Assist Driving Driving Caregiver Provides Assist M6 OT- IP Functional Cognition Start: 01/20/20 14:38 Freq: Status: Active Protocol: Document 01/20/20 14:38 CGR (Rec: 01/20/20 14:48 CGR [email or web address]) Cognitive Factors Limiting Selfcare Function Cognitive Ability Level of Alertness Alert Patient Orientation Name,Age,Birthday,Month,Date, Year,Day of Week,Place, Situation Attention Span Ability Capable of Focused Attention, Capable of Sustained Attention Memory Description Immediate Impaired,Short Term Impaired,Working Intact Safety Awareness No Deficits Noted Problem Solving Ability No deficits Noted Cognitive Comments Cognitive Assessment Comments Noted small memory deficits, forgetful of leaving items during session. OT- Vision and Hearing OT- Hearing Assessment OT- Hearing Assessment Use of Hearing Aids OT- Vision Assessment Visual Acuity Glasses All The Time Visual Attentiveness WFL Occular Pursuits WFL Visual Convergence WFL M7 OT- IP Mobility and Balance Start: 01/20/20 14:38 Freq: Status: Active Protocol: Document 01/20/20 14:38 CGR (Rec: 01/20/20 14:48 CGR [email or web address]) OT- Bed Mobility Assessment Rolling Type of Rolling Log Rolling,Roll to Left Level of Assistance Minimal Assistance Supine to Sit Supine to Sit Assist Minimal Assistance Scooting Scooting to Edge of Bed Standby Assistance OT-Transfer Assessment Sit to and From Stand Sit to and from Stand Standby Assistance Transfers Transfer Ability Standby Assistance Technique Transfer Destination Bed,Chair,Toilet Transfer Technique Stand Step Pivot Devices Transfer Assistive Devices Gait Belt,Front Wheeled Walker Comments Mobility Comments mobility around the room. OT- Gait Assessment Gait Gait Assistance Required: Standby Assistance Assistive Devices Assistive Device Gait Belt,Front Wheeled Walker OT- Balance Assessment Sitting Balance and Reactions Static Sitting Balance Ability Good Dynamic Sitting Balance Ability Fair M8 OT- IP Objective Assessments Start: 01/20/20 14:38 Freq: Status: Active Protocol: Document 01/20/20 14:38 CGR (Rec: 01/20/20 14:48 CGR [email or web address]) OT Gross Range of Motion Upper Extremity Range of Motion Assessment Within Functional Limits OT Strength Upper Extremity Strength Assessment Within Functional Limits OT- Coordination Assessment Upper Extremity Finger to Nose Test Within Functional Limits Finger Tapping Test Within Functional Limits OT-Muscle Tone Assessment Muscle Tone WNL Yes OT Sensation Assessment Edema Edema Absent M9 OT- IP Assessment and Plan Start: 01/20/20 14:38 Freq: Status: Active Protocol: Document 01/20/20 14:38 CGR (Rec: 01/20/20 14:48 CGR [email or web address]) OT Summary Assessment and Plan Potential Rehabilitation Potential Excellent Analytic Complexity at Evaluation Low Summary OT Impairments Functional Cognition, Functional Mobility,Grooming, Dressing,Toileting,Bathing, Toilet Transfers,Shower Transfers,Activity Tolerance Progress Towards Goals Progressing Toward Goals Assessment Summary Pt presents as a low complexity evaluation s/p SBO with 01/18/20 ex lap. Pt is progressing well and will benefit from LB dressing training and shower training. Pt is likely to progress for safe d/c to home with her . Goals Grooming Goal Independent Dressing Goal Independent,[employer] Net Developer,Sock Aid Toileting Goal Independent Bathing Goal Independent Toilet Transfer Goal Independent Shower Transfer Goal Independent Days to Meet Goals 5 Frequency of Treatment Frequency Of Treatment Once a Day Treatment Plan OT Treatment Plan ADL Training,Functional Mobility,Patient/Family Education,Discharge Planning Discharge Recommendations OT Discharge Recommendations Home with Assistance Home Equipment Needs TBD Transportation Needs at Discharge Private Vehicle
--- NOTE | 2020-01-20 16:13 | PC.NURSE ---
Addendum entered by Mabel Kerr R.N. 01/20/20 23:25: Reports headache resolved. No further complaints verbalized. Addendum entered by Mabel Kerr R.N. 01/20/20 22:46: C/o posterior headache pain and was provided with cool washcloth to back of head as pt requests. Addendum entered by Mabel Kerr R.N. 01/20/20 22:33: Has demonstrated appropriate use of call light this evening shift. Denies surgical pain @ rest and c/o pain with movement only. States using I.S. to 1000. Ice to abdominal surgical site as pt desires. Currently off. BL calf scd's in place. Percocet for pain associated with activity/coughing. Slight dyspnea noted with activity and pt reports this does occur @ home. States has cough r/t specific home med. No change in surgical dressing this evening shift. Original Note: Pt awake, alert sitting upright in recliner. Spouse is present in pt's room. Pt admits to abdominal pain 4/10 and has ice to site. Dressing to central abdomen is gauze with paper tape and is dry and intact. Pt states size of abdomen is at baseline. Soft and puffy. Admits to passing small amounts of flatus and belching. Chair alarm in place and encouraged to call for needs. Taking oral fluids well.
[2020-01-21] VITALS (7 sets, daily range): BP systolic 143–183; BP diastolic 63–85; PULSE 77–92; RESP 16–19; TEMP 36.9–37.3; O2SAT 95–97
--- NOTE | 2020-01-21 01:12 | PC.NURSE ---
Pt became restless and walked into room to find pt had removed IV thinking it was a bandaid that itched. RN informed.
--- NOTE | 2020-01-21 02:16 | PC.NURSE ---
Addendum entered by Sabrina Braswell R.N. 01/21/20 03:52: States abdominal pain is 4/10 with movement; medicated with Percocet. Assisted to chair with alarm on. Original Note: 0045 heard noises from patient's room and found patient trying to crawl out of bed and had already pulled IV out. Assisted to bathroom with walker and 1 assist and then back to bed. Is alert and oriented but very forgetful. Breath sounds with late expiratory wheezes in bilateral middle lobes; RA sat 95%. HRR. BP elevated at 156/63 and runs consistently high. Denies nausea. BT hypoactive; patient thinks she has passed flatus. Dressing to abdomen is CDI. Is able to move self in bed. Wearing bilateral calf SCD's. Denies pain. Fall risk score is high and bed alarm is activated.
[2020-01-21] MEDS: OXYCODONE/ACETAMINOPHEN 5/325 TABLET 1 TAB PO (03:50)
[2020-01-21] MEDS: SODIUM CHLORIDE 0.9% 1,000 ML 80 ML IV (05:08)
[2020-01-21 05:44] LABS: Add Manual Diff / Slide Review NO; Basophils Absolute Auto 100 /uL (0-100); Basophils Percent Auto 0.8 % (0-2); Eosinophils Absolute Auto 200 /uL (0-450); Eosinophils Percent Auto 3.2 % (2-4); Hematocrit 34.2 % (36-46); Hemoglobin 11.7 g/dL (12.0-16.0); Lymphocytes Absolute Auto 500 /uL (1100-4500); Lymphocytes Percent Auto 7.7 % (25-40); Mean Corpuscular HGB Conc 34.2 % (30-36); Mean Corpuscular Hemoglobin 30.7 PG (26-34); Mean Corpuscular Volume 89.7 fL (80-100); Monocytes Absolute Auto 900 /uL (0-900); Monocytes Percent Auto 12.6 % (3-14); Neutrophils Absolute Auto 5400 /uL (1500-7000); Neutrophils Percent Auto 75.7 % (50-75); Platelet Count 167 X10^3/uL (150-400); Red Blood Cell Count 3.81 X10^6/uL (4.0-5.2); Red Cell Distribution Width 14.1 % (11.6-14.8); White Blood Cell Count 7.1 X10^3/uL (4.5-11.0)
[2020-01-21 05:57] LABS: BUN Creatinine Ratio 12.8 (6-22); Blood Urea Nitrogen 10 mg/dL (7-17); Calcium 8.7 mg/dL (8.4-10.2); Carbon Dioxide 27 mmol/L (22-32); Chloride 108 mmol/L (98-107); Estimated Glomerular Filt Rate > 60.0 mL/min (>60); Glucose 97 mg/dL (80-110); HEMOLYSIS < 15 (0-50); Magnesium 1.6 mg/dL (1.6-2.3); Potassium 3.7 mmol/L (3.4-5.1); Sodium 137 mmol/L (137-145)
[2020-01-21] MEDS: MAGNESIUM SULFATE 2 GM/50 ML PIGGYBACK IV (08:32)
[2020-01-21] MEDS: SODIUM CHLORIDE 0.9% FLUSH 10 ML IV ×2 (08:36→20:37)
[2020-01-21] MEDS: PANTOPRAZOLE 40 MG VIAL IV (08:36)
[2020-01-21] MEDS: levETIRAcetam 250 MG TABLET 500 MG PO ×2 (08:41→20:35)
[2020-01-21] MEDS: ENOXAPARIN 40 MG/0.4 ML SYRINGE SUBCUT (08:41)
[2020-01-21] MEDS: CITALOPRAM 10 MG TABLET PO (08:41)
[2020-01-21] MEDS: TOLTERODINE LA 4 MG PO (08:41)
--- NOTE | 2020-01-21 09:57 | PC.NURSE ---
Day Shift- pt sleeping in recliner chair at bedside during shift change. Pt Alert for breakfast, oriented to her full name. This sign writer letterer or painter had to ask pt her birthday 3 times asking in different ways. Pt then able to state her birthday. Unsure why she is here, stating I wasn't feeling well. When this sign writer letterer or painter asked then what happened, anything major. Pt was unsure. When this sign writer letterer or painter stated she had abd surgery, pt appeared surprised oh i did?. When asked where pt was, she stated [place], no this can't be [facility]...[place], is this [place]. 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 Then this sign writer letterer or painter asked what type of building she was in and pt said she was unsure, after a few minutes, pt stated a hospital. Pt denies any abd pain with rest, stating her abd hurts 3/10 with movement. Abd dressing of folded gauze and paper tape CDI. BSX4, pt unsure if she is passing flatus. States she feels like she has to have a bowel movement. No burping or belching noted, pt denies nausea. Pt's [place] in to visit with pt. Chair alarm on.
[2020-01-21] MEDS: POTASSIUM PHOSPHATE 15 MMOL in DEXTROSE 5% IN WATER 250 ML 63.75 ML IV (10:10)
--- NOTE | 2020-01-21 12:12 | PM.PNPO.1 ---
Subjective Subjective Date Patient Seen: 01/21/20 Time Patient Seen: 12:12 Interval history: Episodes of confusion overnight. Unsure whether she has had any flatus or bowel movement. She is tolerating the liquids without nausea or vomiting. Exam Vital Signs (past 8 hours): - 01/21/20 08:05 01/21/20 08:10 Temperature 98.4 F Pulse Rate 77 Respiratory Rate 19 Blood Pressure 143/85 H Pulse Oximetry 96 96 Oxygen Delivery Method Room Air Oxygen Flow Rate 0 Narrative Exam Narrative: General adult female alert currently oriented Abdomen mildly distended incision clean dry intact appropriately tender to palpation Objective Labs Result Diagrams: 01/21/20 05:27 01/21/20 05:27 Labs: Laboratory Results - last 24 hr 01/21/20 01/21/20 05:27 05:27 WBC 7.1 RBC 3.81 L Hgb 11.7 L Hct 34.2 L MCV 89.7 MCH 30.7 MCHC 34.2 RDW 14.1 Plt Count 167 Neut % (Auto) 75.7 H Lymph % (Auto) 7.7 L [place] % (Auto) 12.6 Eos % (Auto) 3.2 Baso % (Auto) 0.8 Neut # (Auto) 5400 Lymph # (Auto) 500 L [place] # (Auto) 900 Eos # (Auto) 200 Baso # (Auto) 100 Sodium 137 Potassium 3.7 Chloride 108 H Carbon Dioxide 27 BUN 10 Creatinine 0.78 Estimated GFR > 60.0 BUN/Creatinine Ratio 12.8 Glucose 97 Calcium 8.7 Phosphorus 2.0 L Magnesium 1.6 Assessment & Plan Post-op Postoperative Procedures: Procedures Operation Date: 01/18/20 13:00 Actual Procedures Side Surgeon p Exploratory Laparotomy GEN Cisco Harrington MD Postoperative plan narrative: 84-year-old female postoperative day 3 following an exploratory laparotomy for a small-bowel obstruction. She is recovering from the operation. Plan -continue clear liquid diet until return of bowel function -DC IV fluids -VT prophylaxis Out of bed physical therapy
--- NOTE | 2020-01-21 12:19 | CM.DPC ---
DCP: continued: case discussed in Team Rounds and EMR reviewed. DRAKE Akbar will see pt today and OT note from CJ, yesterday afternoon shows that pt is progressing will for home with Reji's supportive assist. Dr. Nagy was here today for the [facility]. He does not indicate how much longer pt might need to be in the hospital but noted she is recovering appropriately and that therapy would continue. Will check in with pt and Reji and follow accordingly.
--- NOTE | 2020-01-21 12:20 | PT.IPTN ---
Current Diagnoses Unspecified intestinal obstruction, unspecified as to partial versus complete obstruction (01/18/20) Other complete intestinal obstruction (01/18/20) Surgery Performed Operation Date: 01/18/20 13:00 Actual Procedures p Exploratory Laparotomy GEN Sarah Harrington MD Physical Therapy Treatment Note M2 PT-IP Current Condition Start: 01/19/20 13:26 Freq: NEEDED Status: Active Protocol: Document 01/19/20 16:07 AW (Rec: 01/19/20 16:28 AW [email or web address]) Physical Therapy Current Condition Current Condition Evaluation Date 01/19/20 Treatment Diagnosis SBO s/p laparotomy; difficulty in walking Onset Date 01/18/20 Precautions Abdominal Surgery Precautions Log Roll,Lifting Restrictions, Gait Belt above Incisional Area M3 PT-IP Subjective Start: 01/19/20 13:26 Freq: NEEDED Status: Active Protocol: Document 01/21/20 12:08 KS (Rec: 01/21/20 14:09 KS [email or web address]) Subjective Physical Therapy Visit Type Type Treatment Note Visit Start Time 12:08 Visit Stop Time 12:20 Total Visit Minutes 12 Number of PLASTIC TECHNICIAN Visits 1 Physical Therapy Visit Comments Patient Comments pt is agreeable to do PT Therapy Pain Assessment Pain When Pain Assessed At Rest Pain Present Pain Present Pain Reported Location abd Scale Used 5/10 at rest; unchanged with mobility Pain Management Techniques Modification of Treatment,Re- positioning,Timing of Activity with Medications M4 PT-IP Mobility and Gait Start: 01/19/20 13:26 Freq: NEEDED Status: Active Protocol: Document 01/21/20 12:08 KS (Rec: 01/21/20 14:09 KS [id number]) PT-Bed Mobility Assessment Scooting Scooting to Edge of Bed Contact Guard Assistance PT-Transfer Assessment Sit to and From Stand Sit to and from Stand Moderate Assistance,Maximum Assistance,1 Person Assistance ,Use of Upper Extremities Equipment Transfer Assistive Device Gait Belt,Front Wheeled Walker Orthotic/Prosthetic Devices or Brace: No Transfers Transfer Destination Chair Transfer Ability Level of Assist Moderate Assistance,Maximum Assistance,1 Person Assistance ,Use of Upper Extremities Comments Mobility Comments Pt in chair upon arrival from therapy and reported some abdominal pain. Pt CGA for scooting to EOC, Mod to Max and cues for hand placement and sequencing for sit<>stand w/ FWW. Pt completed [address] followed by 2 min weight shifting and then requested to sit down d/t slight dizziness. Min A for stand<>sit. Unable to get BP reading, nursing notified and pt left in room w/ all needs in reach. Gait Assessment Comments Gait Comments Unable d/t fatigue and dizzness. Stair Climbing Assessment Comments Stair Climbing Comments Not assessed due to decreased activity tolerance. PT-Balance Assessment Sitting Balance and Reactions Static Sitting Balance Ability Good Dynamic Sitting Balance Ability Good Standing Balance and Reactions Static Standing Balance Ability Good Dynamic Standing Balance Ability Fair Device Used FWW M5 PT-IP Objective Assessments Start: 01/19/20 13:26 Freq: NEEDED Status: Active Protocol: Document 01/19/20 16:07 AW (Rec: 01/19/20 16:28 AW [email or web address]) Orientation Orientation/Cognition Level of Alertness Alert Orientation Name,Day of Week,Place, Situation Language Function Ability No Deficits Noted Safety Awareness Decreased Safety Awareness Memory Description No Deficits Noted Gross Range of Motion Lower Extremity ROM Assessment Within Functional Limits Strength Lower Extremity Strength Assessment Bilaterally Impaired Hip 4-/5 Knee 4+/5 Ankle 4+/5 Coordination Assessment Gross Coordination Gross Coordination WNL Sensation Assessment Sensation Gross Sensation WNL Muscle Tone Muscle Tone WNL Yes M6 PT-IP Treatment Start: 01/19/20 13:26 Freq: NEEDED Status: Active Protocol: Document 01/21/20 12:08 KS (Rec: 01/21/20 14:09 KS [id number]) Physical Therapy Treatment Education Education Provided Precautions,Safety M7 PT-IP Assessment and Plan Start: 01/19/20 13:26 Freq: NEEDED Status: Active Protocol: Document 01/21/20 12:08 KS (Rec: 01/21/20 14:09 KS [id number]) PT Summary Assessment and Plan Potential Rehabilitation Potential Good Summary Impairments Pain,ROM,Strength,Balance, Coordination,Sensation,Tone, Cognition,Bed Mobility, Transfers,Gait,Activity Tolerance Progress Towards Goals Slow Progress due to Pain,Slow Progress due to Activity Tolerance Assessment Summary Pt was limited by pain, weakness, and slight dizziness today. CGA for scooting, Mod to Max A and cues for sit<> stand w/ FWW. Pt able to tolerate marching in place and weight shifting but unable to tolerate ambulation today and requested to sit after >5min standing. Pt is far from baseline and will benefit from SNF to improve frunctional mobility and tolerance for activity. Goals Bed Mobility Goal Standby Assistance Transfer Goal Standby Assistance,Front Wheeled Walker Gait Goal Standby Assistance,Front Wheel Walker Gait Distance 150 Other Goals - up/down 13 steps with unilateral rail SBA Days to Meet Goals 5 Frequency of Treatment Frequency Of Treatment Once a Day Treatment Plan Physical Therapy Treatment Plan Bed Mobility Training,Transfer Training,Gait Training, Therapeutic Exercise,Balance Retraining,Post Op Education, Discharge Planning,Hot or Cold Pack Other Recommendations and Next Treatment ambulation, caregiver training Focus Recommendations To Nursing Amount of Assist Needed 1 Person Assist Discharge Recommendations PT Discharge Recommendations SNF Rehab Equipment Needed for Home Before FWW if pt goes home Discharge Transportation Needs at Discharge Private Vehicle,Wheelchair/ Cabulance
--- NOTE | 2020-01-21 14:35 | OT.IP.TRT ---
Current Diagnoses Unspecified intestinal obstruction, unspecified as to partial versus complete obstruction (01/18/20) Other complete intestinal obstruction (01/18/20) Surgery Performed Operation Date: 01/18/20 13:00 Actual Procedures p Exploratory Laparotomy GEN Sarah Harrington MD Occupational Therapy Treatment Note M2 OT-IP Current Condition Start: 01/20/20 14:38 Freq: Status: Active Protocol: Document 01/20/20 14:38 CGR (Rec: 01/20/20 14:48 CGR [email or web address]) Occupational Therapy Current Condition Current Condition Evaluation Date 01/20/20 Treatment Diagnosis 01/17 ex lap for SBO Diagnosis Onset Date 01/18/20 Post Operative Precautions Abdominal Surgery Precautions Log Roll,Lifting Restrictions, Gait Belt above Incisional Area M3 OT- IP Subjective and Pain Start: 01/20/20 14:38 Freq: Status: Active Protocol: Document 01/21/20 14:39 CGR (Rec: 01/21/20 14:49 CGR [email or web address]) OT- Subjective Occupational Therapy Visit Type Type Progress Note Visit Start Time 14:05 Visit Stop Time 14:35 Total Visit Minutes 30 Notes Pt requesting shower. Nursing got ok from surgeon for shower . OT Pain Assessment Pain When Pain Assessed During Mobility Pain Present Pain Present Denied Pain M4 OT- IP ADL's Start: 01/20/20 14:38 Freq: Status: Active Protocol: Document 01/21/20 14:39 CGR (Rec: 01/21/20 14:49 CGR [email or web address]) OT [id number] Comments OT Self-Feeding Comments Not meal time OT ADL-Grooming General Evaluation Grooming Ability Standby Assistance Areas Needing Assistance Combing/Brushing Hair,Face Washing Comments OT Grooming Comments set up seated in chair after shower OT ADL-Oral Care Comments Oral Care Comments not performed OT ADL-Dressing General Eval Upper Body Dressing Ability Standby Assistance Lower Body Dressing Ability Total Assistance Areas Needing Assistance Underpants/Brief,Socks Comments OT Dressing Comments Pt donned hospital gown with SBA but pt's assisted with socks and brief. Pt declined LB DME training d/t fatigue. OT ADL-Toileting Comments OT Toileting Comments not performed OT ADL-Bathing Bathing Type Bathing Type Shower General Evaluation Bathing Ability Minimal Assistance Areas Needing Assistance Retrieving/Setting Up Items, Wash/Dry Back Devices Bathing Equipment Hand Held Shower Sprayer, Shower Chair with Arms,Grab Bars Comments OT Bathing Comments Pt assisted with use of sprayer throughout shower but otherwise was able to wash her hair and body without assist. M5 OT- IP IADL's Start: 01/20/20 14:38 Freq: Status: Active Protocol: Document 01/21/20 14:39 CGR (Rec: 01/21/20 14:49 CGR [email or web address]) OT-Instrumental Activities of Daily Living Deficits IADL Deficits Identified No Deficits Home Safety Awareness Awareness of Need for Assistance at Home Good Awareness Ability to Problem Solve Emergency Able to Problem Solve Situations Medication Management Medication Management Caregiver Administers Money Management Money Management Caregiver Provides Assistance Meal Preparation Meal Preparation Caregiver Provides Assist Acoustical Material Worker Acoustical Material Worker Caregiver Provides Assist Driving Driving Caregiver Provides Assist M6 OT- IP Functional Cognition Start: 01/20/20 14:38 Freq: Status: Active Protocol: Document 01/20/20 14:38 CGR (Rec: 01/20/20 14:48 CGR [email or web address]) Cognitive Factors Limiting Selfcare Function Cognitive Ability Level of Alertness Alert Patient Orientation Name,Age,Birthday,Month,Date, Year,Day of Week,Place, Situation Attention Span Ability Capable of Focused Attention, Capable of Sustained Attention Memory Description Immediate Impaired,Short Term Impaired,Working Intact Safety Awareness No Deficits Noted Problem Solving Ability No deficits Noted Cognitive Comments Cognitive Assessment Comments Noted small memory deficits, forgetful of leaving items during session. OT- Vision and Hearing OT- Hearing Assessment OT- Hearing Assessment Use of Hearing Aids OT- Vision Assessment Visual Acuity Glasses All The Time Visual Attentiveness WFL Occular Pursuits WFL Visual Convergence WFL M7 OT- IP Mobility and Balance Start: 01/20/20 14:38 Freq: Status: Active Protocol: Document 01/21/20 14:39 CGR (Rec: 01/21/20 14:49 CGR [email or web address]) OT-Transfer Assessment Sit to and From Stand Sit to and from Stand Standby Assistance Transfers Transfer Ability Standby Assistance Technique Transfer Destination Bedside Commode,Chair Transfer Technique Stand Step Pivot Devices Transfer Assistive Devices Gait Belt,Front Wheeled Walker Comments Mobility Comments mobility around room and into bathroom. OT- Balance Assessment Sitting Balance and Reactions Static Sitting Balance Ability Good Dynamic Sitting Balance Ability Good M8 OT- IP Objective Assessments Start: 01/20/20 14:38 Freq: Status: Active Protocol: Document 01/20/20 14:38 CGR (Rec: 01/20/20 14:48 CGR [email or web address]) OT Gross Range of Motion Upper Extremity Range of Motion Assessment Within Functional Limits OT Strength Upper Extremity Strength Assessment Within Functional Limits OT- Coordination Assessment Upper Extremity Finger to Nose Test Within Functional Limits Finger Tapping Test Within Functional Limits OT-Muscle Tone Assessment Muscle Tone WNL Yes OT Sensation Assessment Edema Edema Absent M9 OT- IP Assessment and Plan Start: 01/20/20 14:38 Freq: Status: Active Protocol: Document 01/21/20 14:39 CGR (Rec: 01/21/20 14:49 CGR [email or web address]) OT Summary Assessment and Plan Potential Rehabilitation Potential Excellent Analytic Complexity at Evaluation Low Summary OT Impairments Functional Cognition, Functional Mobility,Grooming, Dressing,Toileting,Bathing, Toilet Transfers,Shower Transfers,Activity Tolerance Progress Towards Goals Progressing Toward Goals Assessment Summary Pt presents as a low complexity evaluation s/p SBO with 01/18/20 ex lap. Pt is progressing well and will benefit from LB dressing although pt was too fatigued to perform today. Pt's assisted pt with dressing. Pt appears fatigued with moderate SOB with activity but states that she feels good at the end of the session. Goals Grooming Goal Independent Dressing Goal Independent,Wide Piece Goods Inspector,Sock Aid Toileting Goal Independent Bathing Goal Independent Toilet Transfer Goal Independent Shower Transfer Goal Independent Days to Meet Goals 4 Frequency of Treatment Frequency Of Treatment Once a Day Treatment Plan OT Treatment Plan ADL Training,Functional Mobility,Patient/Family Education,Discharge Planning Discharge Recommendations OT Discharge Recommendations Home with Assistance Other Discharge Recommendations Home health OT Home Equipment Needs TBD Transportation Needs at Discharge Private Vehicle
[2020-01-22] VITALS (9 sets, daily range): BP systolic 118–177; BP diastolic 67–88; PULSE 78–92; RESP 14–19; TEMP 36.6–37.3; O2SAT 93–98
--- NOTE | 2020-01-22 00:27 | PC.NURSE ---
Patient is alert and oriented but tends to be forgetful and impulsive with increased confusion during night time. Audible expiratory wheezes with activity and seems to get SOB. Breath sounds with expiratory wheezes in bilateral upper/middle lobes; RA sat 94%. HRR. BP trending high and currently is 177/74; noted patient is not on her normal med of Felodipine so will have day RN check with MD regarding restarting. Denies nausea. BT hypoactive but patient states she is passing flatus. Has not had BM x 4 days following abdominal surgery. Abdomen is soft, tender with mild distention. Dressing to abdomen is CDI. Able to move self in bed and gets up with walker and SBA; denies feeling weak and seems steady on feet. Denies pain at present time. Agreeable to having bilateral calf SCD's put on. Fall risk score is high and bed alarm is activated.
[2020-01-22 05:37] LABS: Add Manual Diff / Slide Review NO; Basophils Absolute Auto 0 /uL (0-100); Basophils Percent Auto 0.5 % (0-2); Eosinophils Absolute Auto 200 /uL (0-450); Eosinophils Percent Auto 3.6 % (2-4); Hematocrit 35.6 % (36-46); Hemoglobin 12.1 g/dL (12.0-16.0); Lymphocytes Absolute Auto 700 /uL (1100-4500); Lymphocytes Percent Auto 10.9 % (25-40); Mean Corpuscular Hemoglobin 30.2 PG (26-34); Mean Corpuscular Volume 88.7 fL (80-100); Monocytes Absolute Auto 800 /uL (0-900); Neutrophils Absolute Auto 4300 /uL (1500-7000); Platelet Count 191 X10^3/uL (150-400); Red Blood Cell Count 4.01 X10^6/uL (4.0-5.2); Red Cell Distribution Width 13.8 % (11.6-14.8); White Blood Cell Count 6.1 X10^3/uL (4.5-11.0)
[2020-01-22 05:45] LABS: BUN Creatinine Ratio 8.6 (6-22); Blood Urea Nitrogen 6 mg/dL (7-17); Carbon Dioxide 30 mmol/L (22-32); Chloride 105 mmol/L (98-107); Estimated Glomerular Filt Rate > 60.0 mL/min (>60); Glucose 110 mg/dL (80-110); HEMOLYSIS < 15 (0-50); Magnesium 1.8 mg/dL (1.6-2.3); Phosphorous 2.6 mg/dL (2.8-4.1); Potassium 3.5 mmol/L (3.4-5.1); Sodium 136 mmol/L (137-145)
[2020-01-22] MEDS: TOLTERODINE LA 4 MG PO (08:09)
[2020-01-22] MEDS: levETIRAcetam 250 MG TABLET 500 MG PO ×2 (08:09→22:35)
[2020-01-22] MEDS: ENOXAPARIN 40 MG/0.4 ML SYRINGE SUBCUT (08:09)
[2020-01-22] MEDS: SODIUM CHLORIDE 0.9% FLUSH 10 ML IV ×2 (08:09→11:32)
[2020-01-22] MEDS: CITALOPRAM 10 MG TABLET PO (08:09)
--- NOTE | 2020-01-22 08:54 | PC.NURSE ---
Day Shift- Pt A&OX4 today, pt stated sleeping well, the best sleep since she has been here. Denies pain to abd with rest, states tenderness to upper abd with palpation, pain increases to mid and upper abd with movement then decreases with rest. No PRN med at this time. Denies nausea. BSX4 hypoactive, and faintly tympanic upon auscultation pt states she is passing flatus, I know I'm passing gas today. Abd slightly distended. Encouraged abd splinting. Pt tolerating her clear liquid diet without issue. No BM post op yet. OOB with SBA using walker to recliner chair just prior to shift change this morning. Pt's Reji now visiting in pt's room. No further voiced concerns, call light within reach.
--- NOTE | 2020-01-22 10:34 | P.PN_ITS ---
Subjective Subjective Date Patient Seen: 01/22/20 Time Patient Seen: 10:34 Interval history: Feeling much better than yesterday slept no longer confused. Passing flatus no nausea no vomiting. Exam Vital Signs (past 8 hours): - 01/22/20 03:15 01/22/20 07:05 Temperature 98.7 F 98.2 F Pulse Rate 92 H 78 Respiratory Rate 16 19 Blood Pressure 162/75 H 167/79 H Pulse Oximetry 98 93 Oxygen Delivery Method Room Air Oxygen Flow Rate 0 Narrative Exam Narrative: General elderly female alert oriented no acute distress Abdomen soft appropriately tender to palpation midline incision clean dry intact small amount of bruising around the midline incision Steri-Strips in place Objective Labs Result Diagrams: 01/22/20 05:20 01/22/20 05:20 Labs: Laboratory Results - last 24 hr 01/22/20 01/22/20 05:20 05:20 WBC 6.1 RBC 4.01 Hgb 12.1 Hct 35.6 L MCV 88.7 MCH 30.2 MCHC 34.0 RDW 13.8 Plt Count 191 Neut % (Auto) 71.0 Lymph % (Auto) 10.9 L [place] % (Auto) 14.0 Eos % (Auto) 3.6 Baso % (Auto) 0.5 Neut # (Auto) 4300 Lymph # (Auto) 700 L [place] # (Auto) 800 Eos # (Auto) 200 Baso # (Auto) 0 Sodium 136 L Potassium 3.5 Chloride 105 Carbon Dioxide 30 BUN 6 L Creatinine 0.70 Estimated GFR > 60.0 BUN/Creatinine Ratio 8.6 Glucose 110 Calcium 9.0 Phosphorus 2.6 L Magnesium 1.8 Assessment & Plan Post-op Postoperative Procedures: Procedures Operation Date: 01/18/20 13:00 Actual Procedures Side Surgeon p Exploratory Laparotomy GEN Cisco Harrington MD Postoperative plan narrative: 84-year-old female postoperative day 4 after a exploratory laparotomy for a small-bowel obstruction. She is doing well and progressing. Plan -advanced to regular diet -resume all home medications -VT prophylaxis -anticipate discharge home tomorrow
--- NOTE | 2020-01-22 11:14 | PT.IPTN ---
Current Diagnoses Unspecified intestinal obstruction, unspecified as to partial versus complete obstruction (01/18/20) Other complete intestinal obstruction (01/18/20) Surgery Performed Operation Date: 01/18/20 13:00 Actual Procedures p Exploratory Laparotomy GEN Sarah Harrington MD Physical Therapy Treatment Note M2 PT-IP Current Condition Start: 01/19/20 13:26 Freq: NEEDED Status: Active Protocol: Document 01/19/20 16:07 AW (Rec: 01/19/20 16:28 AW [email or web address]) Physical Therapy Current Condition Current Condition Evaluation Date 01/19/20 Treatment Diagnosis SBO s/p laparotomy; difficulty in walking Onset Date 01/18/20 Precautions Abdominal Surgery Precautions Log Roll,Lifting Restrictions, Gait Belt above Incisional Area M3 PT-IP Subjective Start: 01/19/20 13:26 Freq: NEEDED Status: Active Protocol: Document 01/22/20 10:57 AW (Rec: 01/22/20 11:14 AW [id number]) Subjective Physical Therapy Visit Type Type Treatment Note Visit Start Time 09:53 Visit Stop Time 10:12 Total Visit Minutes 19 Notes Pt's arrives at end of treatment Number of ELECTRIC REFRIGERATOR SERVICER Visits 0 Physical Therapy Visit Comments Patient Comments pt is agreeable to do PT Therapy Pain Assessment Pain When Pain Assessed During Mobility Pain Present Pain Present Denied Pain Location abd Scale Used 3/10 at rest; unchanged with mobility Pain Management Techniques Modification of Treatment,Re- positioning,Timing of Activity with Medications M4 PT-IP Mobility and Gait Start: 01/19/20 13:26 Freq: NEEDED Status: Active Protocol: Document 01/22/20 10:57 AW (Rec: 01/22/20 11:14 AW [id number]) PT-Bed Mobility Assessment Scooting Scooting to Edge of Bed Standby Assistance PT-Transfer Assessment Sit to and From Stand Sit to and from Stand Standby Assistance,1 Person Assistance,Use of Upper Extremities Equipment Transfer Assistive Device Gait Belt,Front Wheeled Walker Orthotic/Prosthetic Devices or Brace: No Transfers Transfer Destination Chair Transfer Technique pt ambulated using FWW Transfer Ability Level of Assist Standby Assistance,Contact Guard Assistance,1 Person Assistance,Use of Upper Extremities Comments Mobility Comments Pt was sitting in chair as PT arrived. BP was 136/77 and HR 77. She agreed to walk and trial stairs today. She scooted to EOC and stood using hands on the chair arms SBA. Standing balance was good and pt had minimal pain compaint. She ambulated with FWW SBA in the halls for a total of 230 feet. Mechanics with the walker were good as pt was able to maintain appropriate distance from trunk to walker frame. Pt returned to the room and transferred to the chair CGA due to slight increase in fatigue. Call light and all needs were placed within reach . Gait Assessment Gait Gait Assistance Required: Standby Assistance Distance (Feet) 230 Assistive Devices Assistive Device Gait Belt,Front Wheeled Walker Orthotic/Prosthetic Devices or Brace: No Gait Deviations General Gait Pattern Antalgic,Decreased Stride Length,Decreased Feet Clearance,Flexed Trunk,Lateral Trunk Lean Factors Limiting Gait Function Factors Limiting Gait Function Decreased Activity Tolerance, Decreased Strength, Incoordination,Pain,Poor Balance,Poor Safety Awareness Comments Gait Comments Pt required multiple cues to counteract tendency to veer toward her left side in gait. Pt states this is a typical pattern for her. Stair Climbing Assessment Evaluation Level of Assist On Stairs Contact Guard Assistance,1 Person Assistance Devices Stair Climbing Assistive Devices Left Railing,Right Railing Technique/Endurance Stair Climbing Direction Ascend and Descend Stair Climbing Technique Step to Step Number of Steps Climbed 3 Stair Climbing Set # Repetitions (reps) 2 Comments Stair Climbing Comments Pt climbed one set with L rail and one set with R rail requiring SBA to CGA. PT-Balance Assessment Sitting Balance and Reactions Static Sitting Balance Ability Good Dynamic Sitting Balance Ability Good Standing Balance and Reactions Static Standing Balance Ability Good Dynamic Standing Balance Ability Good Device Used FWW M5 PT-IP Objective Assessments Start: 01/19/20 13:26 Freq: NEEDED Status: Active Protocol: Document 01/19/20 16:07 AW (Rec: 01/19/20 16:28 AW [email or web address]) Orientation Orientation/Cognition Level of Alertness Alert Orientation Name,Day of Week,Place, Situation Language Function Ability No Deficits Noted Safety Awareness Decreased Safety Awareness Memory Description No Deficits Noted Gross Range of Motion Lower Extremity ROM Assessment Within Functional Limits Strength Lower Extremity Strength Assessment Bilaterally Impaired Hip 4-/5 Knee 4+/5 Ankle 4+/5 Coordination Assessment Gross Coordination Gross Coordination WNL Sensation Assessment Sensation Gross Sensation WNL Muscle Tone Muscle Tone WNL Yes M6 PT-IP Treatment Start: 01/19/20 13:26 Freq: NEEDED Status: Active Protocol: Document 01/22/20 10:57 AW (Rec: 01/22/20 11:14 AW [id number]) Physical Therapy Treatment Education Education Provided Precautions,Safety Other Treatments Other Treatment Performed Educated on need for assistive device M7 PT-IP Assessment and Plan Start: 01/19/20 13:26 Freq: NEEDED Status: Active Protocol: Document 01/22/20 10:57 AW (Rec: 01/22/20 11:14 AW [id number]) PT Summary Assessment and Plan Potential Rehabilitation Potential Good Summary Impairments Pain,ROM,Strength,Balance, Coordination,Sensation,Tone, Cognition,Bed Mobility, Transfers,Gait,Activity Tolerance Progress Towards Goals Progressing Toward Goals Assessment Summary Pt is asymptomatic today other than 3/10 pain and shows improved activity tolerance requiring less assist for mobility. Pt's states they are converting the downstairs study into a bedroom today in preparation for pt to discharge home and stay on the medical equipment sales where she will not need to manage stairs until ready. PT anticipates pt will be safe to discharge home with recommendation for FWW and PT. Goals Bed Mobility Goal Standby Assistance Transfer Goal Standby Assistance,Front Wheeled Walker Gait Goal Standby Assistance,Front Wheel Walker Gait Distance 150 Other Goals - up/down 13 steps with unilateral rail SBA Days to Meet Goals 4 Frequency of Treatment Frequency Of Treatment Once a Day Treatment Plan Physical Therapy Treatment Plan Bed Mobility Training,Transfer Training,Gait Training, Therapeutic Exercise,Balance Retraining,Post Op Education, Discharge Planning,Hot or Cold Pack Other Recommendations and Next Treatment ambulation, caregiver training Focus Recommendations To Nursing Amount of Assist Needed Standby Assistance Discharge Recommendations PT Discharge Recommendations Home with Assistance,Home with 24/ Assist,Home Health Equipment Needed for Home Before FWW if pt goes home Discharge Transportation Needs at Discharge Private Vehicle
--- NOTE | 2020-01-22 11:19 | CM.DPC ---
Addendum entered by Alessandra Douglas LPN 01/22/20 11:25: FWW order obtained and left with PT Eloise for issue to pt on day of d/c. Original Note: DCP: continued: Spoke with PT Eloise who worked with pt today and confirmed she did very well and was cleared for home with and FWW when medically stable for same. Dr. Nagy was here this morning, advanced her diet to regular and anticipates she will be ready for d/c home tomorrow. Met now with pt and her to check in. They are found sitting in the room, chatting. Pt reports she feels great and in part due to a phone/face time conversation with her daughter and family. Discussed FWW recommended by PT and ability to obain this from the [facility] with billing to her insuranance. Both readily agrees this would be very helpful, one less thing for us to worry about and are pleased that PT will make sure it is set for her specific ht etc when they issue it to her. P: home tomorrow. Clinic followup.
[2020-01-22] MEDS: PANTOPRAZOLE 40 MG TABLET PO (11:32)
[2020-01-22] MEDS: FELODIPINE ER 5 MG TAB PO ×2 (11:32→11:42)
[2020-01-22] MEDS: POTASSIUM PHOSPHATE 15 MMOL in DEXTROSE 5% IN WATER 250 ML 63.75 ML IV (11:32)
[2020-01-23 00:02] VITALS: O2SAT 97
[2020-01-23 04:18] VITALS: O2SAT 99
[2020-01-23 06:02] VITALS: BP 143/69; PULSE 84; RESP 16; TEMP 36.4; O2SAT 94
[2020-01-23] MEDS: PANTOPRAZOLE 40 MG TABLET PO (06:16)
[2020-01-23 06:21] LABS: Add Manual Diff / Slide Review NO; Basophils Absolute Auto 0 /uL (0-100); Basophils Percent Auto 0.8 % (0-2); Eosinophils Absolute Auto 200 /uL (0-450); Eosinophils Percent Auto 4.2 % (2-4); Hematocrit 33.9 % (36-46); Hemoglobin 11.7 g/dL (12.0-16.0); Lymphocytes Absolute Auto 800 /uL (1100-4500); Mean Corpuscular HGB Conc 34.3 % (30-36); Mean Corpuscular Hemoglobin 30.6 PG (26-34); Mean Corpuscular Volume 89.2 fL (80-100); Monocytes Absolute Auto 900 /uL (0-900); Monocytes Percent Auto 15.4 % (3-14); Neutrophils Absolute Auto 3900 /uL (1500-7000); Neutrophils Percent Auto 66.6 % (50-75); Platelet Count 194 X10^3/uL (150-400); Red Cell Distribution Width 13.9 % (11.6-14.8); White Blood Cell Count 5.8 X10^3/uL (4.5-11.0)
[2020-01-23 06:27] LABS: Blood Urea Nitrogen 6 mg/dL (7-17); Carbon Dioxide 30 mmol/L (22-32); Chloride 104 mmol/L (98-107); Estimated Glomerular Filt Rate > 60.0 mL/min (>60); Glucose 119 mg/dL (80-110); HEMOLYSIS < 15 (0-50); Magnesium 1.7 mg/dL (1.6-2.3); Phosphorous 3.1 mg/dL (2.8-4.1); Potassium 3.5 mmol/L (3.4-5.1); Sodium 137 mmol/L (137-145)
[2020-01-23] MEDS: levETIRAcetam 250 MG TABLET 500 MG PO (08:38)
[2020-01-23 08:39] VITALS: BP 141/87; PULSE 87; RESP 18; TEMP 36.7; O2SAT 93
[2020-01-23] MEDS: ENOXAPARIN 40 MG/0.4 ML SYRINGE SUBCUT (08:39)
[2020-01-23] MEDS: FELODIPINE ER 5 MG TAB PO (08:39)
[2020-01-23] MEDS: TOLTERODINE LA 4 MG PO (08:39)
[2020-01-23] MEDS: CITALOPRAM 10 MG TABLET PO (08:39)
--- NOTE | 2020-01-23 10:07 | PC.NURSE ---
Addendum entered by Shama Be R.N. 01/23/20 13:39: Discharge: IV dc'd earlier in her stay. Reviewed d/c info thoroughly with patient and . Instructed re: no swimming/tubs, ok to shower, lifting restrictions, walking only for activity (issued FWW at d/c). Informed of f/u appt 02/08 w/ Dr Harrington at 1 pm. Reviewed s/sx of concern that would warrant a call to MD, given info re: answering service for concerns/issues after clinic hours. Encouraged to call clinic should any questions arise prior to f/u. Patient and verbalized understanding of d/c instructions and stated no further questions. All personal belongings sent with patient at discharge. Wheeled out to private vehicle by nursing staff. Original Note: Shift summary: Awake and alert, oriented X3. Tolerating general diet without N/V or abd pain/discomfort. Reports feeling full quickly w/ PO intake, but is trying her best to eat. Reports abd discomfort, but denies pain. Denied need for pain meds. Abdomen soft, tender to palpation. Flatus+, BT+ X4 quadrants. Had her first BM (large, formed) since surgery this morning. No IV access (ok per MD order). Lungs CTA, HRR. VSS. Able to make needs known and has been calling appropriately. Sitting up in chair with alarm on. Call light and belongings within reach.
--- NOTE | 2020-01-23 10:56 | PT.IPTN ---
Current Diagnoses Unspecified intestinal obstruction, unspecified as to partial versus complete obstruction (01/18/20) Other complete intestinal obstruction (01/18/20) Surgery Performed Operation Date: 01/18/20 13:00 Actual Procedures p Exploratory Laparotomy GEN Sarah Harrington MD Physical Therapy Treatment Note M2 PT-IP Current Condition Start: 01/19/20 13:26 Freq: NEEDED Status: Active Protocol: Document 01/19/20 16:07 AW (Rec: 01/19/20 16:28 AW [email or web address]) Physical Therapy Current Condition Current Condition Evaluation Date 01/19/20 Treatment Diagnosis SBO s/p laparotomy; difficulty in walking Onset Date 01/18/20 Precautions Abdominal Surgery Precautions Log Roll,Lifting Restrictions, Gait Belt above Incisional Area M3 PT-IP Subjective Start: 01/19/20 13:26 Freq: NEEDED Status: Active Protocol: Document 01/23/20 10:34 CLB (Rec: 01/23/20 11:23 CLB [id number]) Subjective Physical Therapy Visit Type Type Treatment Note Visit Start Time 10:34 Visit Stop Time 10:56 Total Visit Minutes 22 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 Physical Therapy Visit Comments Patient Comments pt is agreeable to do PT Therapy Pain Assessment Pain When Pain Assessed During Mobility Pain Present Pain Present Denied Pain M4 PT-IP Mobility and Gait Start: 01/19/20 13:26 Freq: NEEDED Status: Active Protocol: Document 01/23/20 10:34 CLB (Rec: 01/23/20 11:23 CLB [id number]) PT-Transfer Assessment Sit to and From Stand Sit to and from Stand Standby Assistance,1 Person Assistance,Use of Upper Extremities Equipment Transfer Assistive Device Gait Belt,Front Wheeled Walker Orthotic/Prosthetic Devices or Brace: No Transfers Transfer Destination Chair Transfer Technique pt ambulated using FWW Transfer Ability Level of Assist Standby Assistance,1 Person Assistance,Use of Upper Extremities Comments Mobility Comments Pt in chair upon arrival, pt stood SBA and ambulated in m[place]on ~600ft w/FWW/SBA. Pt took several standing rest breaks to admire artwork. Pt with SOB towards end of ambulation, SpO2 on RA 95%, HR 90. Pt returned to room sitting in chair SBA. Left pt in chair with alarm on and all needs within reach. Gait Assessment Gait Gait Assistance Required: Standby Assistance Distance (Feet) 600 Assistive Devices Assistive Device Gait Belt,Front Wheeled Walker Orthotic/Prosthetic Devices or Brace: No Gait Deviations General Gait Pattern Antalgic,Decreased Stride Length,Decreased Feet Clearance,Flexed Trunk,Lateral Trunk Lean Factors Limiting Gait Function Factors Limiting Gait Function Decreased Activity Tolerance, Decreased Strength, Incoordination,Pain,Poor Balance,Poor Safety Awareness Comments Gait Comments Please see mobility comments. PT-Balance Assessment Sitting Balance and Reactions Static Sitting Balance Ability Good Dynamic Sitting Balance Ability Good Standing Balance and Reactions Static Standing Balance Ability Good Dynamic Standing Balance Ability Good Device Used FWW M5 PT-IP Objective Assessments Start: 01/19/20 13:26 Freq: NEEDED Status: Active Protocol: Document 01/19/20 16:07 AW (Rec: 01/19/20 16:28 AW [email or web address]) Orientation Orientation/Cognition Level of Alertness Alert Orientation Name,Day of Week,Place, Situation Language Function Ability No Deficits Noted Safety Awareness Decreased Safety Awareness Memory Description No Deficits Noted Gross Range of Motion Lower Extremity ROM Assessment Within Functional Limits Strength Lower Extremity Strength Assessment Bilaterally Impaired Hip 4-/5 Knee 4+/5 Ankle 4+/5 Coordination Assessment Gross Coordination Gross Coordination WNL Sensation Assessment Sensation Gross Sensation WNL Muscle Tone Muscle Tone WNL Yes M6 PT-IP Treatment Start: 01/19/20 13:26 Freq: NEEDED Status: Active Protocol: Document 01/22/20 10:57 AW (Rec: 01/22/20 11:14 AW [id number]) Physical Therapy Treatment Education Education Provided Precautions,Safety Other Treatments Other Treatment Performed Educated on need for assistive device M7 PT-IP Assessment and Plan Start: 01/19/20 13:26 Freq: NEEDED Status: Active Protocol: Document 01/23/20 10:34 CLB (Rec: 01/23/20 11:23 CLB [email or web address]) PT Summary Assessment and Plan Potential Rehabilitation Potential Good Summary Impairments Pain,ROM,Strength,Balance, Coordination,Sensation,Tone, Cognition,Bed Mobility, Transfers,Gait,Activity Tolerance Assessment Summary Pt w/o pain today during mobility, pt ambulated ~600ft with FWW/SBA. Pt took standing breaks to admire artwork. Pt SpO2 on RA at end of gait 95%, HR 90 bpm. Goals Bed Mobility Goal Standby Assistance Transfer Goal Standby Assistance,Front Wheeled Walker Gait Goal Standby Assistance,Front Wheel Walker Gait Distance 150 Other Goals - up/down 13 steps with unilateral rail SBA Days to Meet Goals 4 Frequency of Treatment Frequency Of Treatment Once a Day Treatment Plan Physical Therapy Treatment Plan Bed Mobility Training,Transfer Training,Gait Training, Therapeutic Exercise,Balance Retraining,Post Op Education, Discharge Planning,Hot or Cold Pack Other Recommendations and Next Treatment ambulation, caregiver training Focus Recommendations To Nursing Amount of Assist Needed Standby Assistance Discharge Recommendations PT Discharge Recommendations Home with Assistance,Home Health Equipment Needed for Home Before FWW if pt goes home Discharge Transportation Needs at Discharge Private Vehicle
[2020-01-23 11:09] VITALS: BP 112/59; PULSE 75; RESP 20; TEMP 36.9; O2SAT 94
[2020-01-23 12:02] VITALS: O2SAT 94
--- NOTE | 2020-01-23 12:40 | PM.DS.1 ---
History of Present Illness History of Present Illness Date Patient Seen: 01/23/20 Chief complaint: abdominal pain Narrative: 84-year-old woman who presented with a small-bowel obstruction and a closed loop obstruction CT. 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 01/19/20 12:37 Consult to Physical Therapy Evaluate & Treat Comment: Patient post exploration of her abdomen Physician Instructions: Evaluate and Treat 01/20/20 09:54 Consult to Occupational Therapy Evaluate & Treat Comment: Physician Instructions: Evaluate and treat 01/22/20 11:04 Consult to Discharge Planning Routine Comment: Per PT recommedation: FWW at d/c Discharge provider: Kenrick Nagy MD Summary Hospital Course Discharge Diagnosis: Small-bowel obstruction Hospital Course: Patient was taken to the operating room underwent exploratory laparotomy. No bowel resection was required. Postoperatively she had a ileus this resolved spontaneously. The date of discharge she is tolerant of a regular diet she is having flatus having bowel movements her pain is well controlled on oral medication. Exam Vital Signs (past 8 hours): - 01/23/20 06:02 01/23/20 08:39 01/23/20 11:09 Temperature 97.6 F 98.0 F 98.4 F Pulse Rate 84 87 75 Respiratory Rate 16 18 20 Blood Pressure 143/69 H 141/87 H 112/59 L Pulse Oximetry 94 93 94 01/23/20 12:02 Temperature Pulse Rate Respiratory Rate Blood Pressure Pulse Oximetry 94 Oxygen Delivery Method Room Air Oxygen Flow Rate 0 Narrative Exam Narrative: General adult woman alert oriented no acute distress Chest nonlabored respirations Abdomen soft appropriately tender to palpation midline incision clean dry intact Steri-Strips. Objective Labs Result Diagrams: 01/23/20 06:00 01/23/20 06:00 Labs: Laboratory Results - last 24 hr 01/23/20 01/23/20 06:00 06:00 WBC 5.8 RBC 3.80 L Hgb 11.7 L Hct 33.9 L MCV 89.2 MCH 30.6 MCHC 34.3 RDW 13.9 Plt Count 194 Neut % (Auto) 66.6 Lymph % (Auto) 13.0 L Mcintosh % (Auto) 15.4 H Eos % (Auto) 4.2 H Baso % (Auto) 0.8 Neut # (Auto) 3900 Lymph # (Auto) 800 L Mcintosh # (Auto) 900 Eos # (Auto) 200 Baso # (Auto) 0 Sodium 137 Potassium 3.5 Chloride 104 Carbon Dioxide 30 BUN 6 L Creatinine 0.75 Estimated GFR > 60.0 BUN/Creatinine Ratio 8.0 Glucose 119 H Calcium 9.0 Phosphorus 3.1 Magnesium 1.7 Discharge Plan Discharge Plan Patient Disposition: Home Discharge orders & Medications Prescriptions: Continued omeprazole 20 mg capsule,delayed release(DR/EC) 20 mg PO DAILY RF: 0 acetaminophen [Tylenol Extra Strength] 500 MG tablet 1,000 mg PO PRN Qty: 0 RF: 0 felodipine 5 mg tablet extended release 24 hr See Rx Instructions .ROUTE .COMPLEX Qty: 90 RF: 1 citalopram 10 mg tablet 10 mg PO DAILY Qty: 90 RF: 1 levetiracetam [Keppra] 500 mg tablet See Rx Instructions PO .COMPLEX Qty: 90 RF: 0 tolterodine 4 mg capsule,extended release 24hr See Rx Instructions .ROUTE .COMPLEX Qty: 30 RF: 2 cholecalciferol (vitamin D3) [Vitamin D3] 2,000 unit Capsule 2,000 unit PO DAILY RF: 0 Follow up/Referrals: Cisco Harrington MD [Physician] - 2 Weeks (Follow up appt. scheduled with Dr Harrington , 02/08 at 1 p.m. ) Gavin Gee DO [Primary Care Provider] - Diet/Activity/Treatments Diet: Regular Activity: No lifting >20 lbs for 6 weeks. Walking only for exercise until follow up. Skin/Wound/Dressing Care Report to your healthcare provider any signs of infection, such as:: chills, fever, increased pain, unusual drainage and unusual redness Visit Report/Discharge Packet Instructions: DI for Exploratory Laparotomy, How to Prevent Falls, DI for Postoperative Pain Stand Alone Forms: Surgery Discharge Visit Report Forms: Patient Portal/API, Stroke Signs & Symptoms Discharge Data Primary Care Provider: Gavin Gee
--- NOTE | 2020-01-23 14:10 | OT.IP.TRT ---
Current Diagnoses Unspecified intestinal obstruction, unspecified as to partial versus complete obstruction (01/18/20) Other complete intestinal obstruction (01/18/20) Surgery Performed Operation Date: 01/18/20 13:00 Actual Procedures p Exploratory Laparotomy GEN Sarah Harrington MD Occupational Therapy Treatment Note M2 OT-IP Current Condition Start: 01/20/20 14:38 Freq: Status: Active Protocol: Document 01/20/20 14:38 CGR (Rec: 01/20/20 14:48 CGR [email or web address]) Occupational Therapy Current Condition Current Condition Evaluation Date 01/20/20 Treatment Diagnosis 01/17 ex lap for SBO Diagnosis Onset Date 01/18/20 Post Operative Precautions Abdominal Surgery Precautions Log Roll,Lifting Restrictions, Gait Belt above Incisional Area M3 OT- IP Subjective and Pain Start: 01/20/20 14:38 Freq: Status: Active Protocol: Document 01/23/20 14:01 RM (Rec: 01/23/20 14:10 RM [id number]) OT- Subjective Occupational Therapy Visit Type Type Treatment Note Visit Start Time 12:30 Visit Stop Time 13:10 Total Visit Minutes 40 Occupational Therapy Visit Comments Patient Comments That's really handy when trying sock-aid. Patient/Caregiver Goals Return home OT Pain Assessment Pain When Pain Assessed At Rest Pain Present Pain Present Denied Pain M4 OT- IP ADL's Start: 01/20/20 14:38 Freq: Status: Active Protocol: Document 01/23/20 14:01 RM (Rec: 01/23/20 14:10 RM [id number]) OT ADL-Dressing General Eval Upper Body Dressing Ability Standby Assistance Lower Body Dressing Ability Standby Assistance Areas Needing Assistance Retrieving/Set-up of Clothing Assistive Devices Dressing Assistive Devices Inspector Wire Rope,Sock Aid Comments OT Dressing Comments Provided education and training for use of AE. Able to provide return demo to don brief, pants, socks, and shoes . M5 OT- IP IADL's Start: 01/20/20 14:38 Freq: Status: Active Protocol: Document 01/21/20 14:39 CGR (Rec: 01/21/20 14:49 CGR [email or web address]) OT-Instrumental Activities of Daily Living Deficits IADL Deficits Identified No Deficits Home Safety Awareness Awareness of Need for Assistance at Home Good Awareness Ability to Problem Solve Emergency Able to Problem Solve Situations Medication Management Medication Management Caregiver Administers Money Management Money Management Caregiver Provides Assistance Meal Preparation Meal Preparation Caregiver Provides Assist Crab Catcher Crab Catcher Caregiver Provides Assist Driving Driving Caregiver Provides Assist M6 OT- IP Functional Cognition Start: 01/20/20 14:38 Freq: Status: Active Protocol: Document 01/23/20 14:01 RM (Rec: 01/23/20 14:10 RM [id number]) Cognitive Factors Limiting Selfcare Function Cognitive Ability Level of Alertness Alert Attention Span Ability Capable of Focused Attention, Capable of Sustained Attention Ability to Follow Commands Able to Follow Multi-Step Commands Memory Description Short Term Impaired Cognitive Comments Cognitive Assessment Comments Patient required some repetition for safety recommendations and carryover with use of AE. May be related to PAUMA. OT- Vision and Hearing OT- Hearing Assessment OT- Hearing Assessment Hearing Impaired OT- Vision Assessment Visual Acuity Glasses All The Time M7 OT- IP Mobility and Balance Start: 01/20/20 14:38 Freq: Status: Active Protocol: Document 01/23/20 14:01 RM (Rec: 01/23/20 14:10 RM [id number]) OT-Transfer Assessment Sit to and From Stand Sit to and from Stand Standby Assistance Transfers Transfer Ability Independent Technique Transfer Destination Chair,Toilet Devices Transfer Assistive Devices Front Wheeled Walker OT- Gait Assessment Gait Gait Assistance Required: Standby Assistance Assistive Devices Assistive Device Front Wheeled Walker OT- Balance Assessment Standing Balance and Reactions Static Standing Balance Ability Good Dynamic Standing Balance Ability Fair M8 OT- IP Objective Assessments Start: 01/20/20 14:38 Freq: Status: Active Protocol: Document 01/23/20 14:01 RM (Rec: 01/23/20 14:10 RM [id number]) OT Gross Range of Motion Upper Extremity Range of Motion Assessment Within Functional Limits OT Strength Upper Extremity Strength Assessment Within Functional Limits M9 OT- IP Assessment and Plan Start: 01/20/20 14:38 Freq: Status: Active Protocol: Document 01/23/20 14:01 RM (Rec: 01/23/20 14:10 RM [id number]) OT Summary Assessment and Plan Potential Rehabilitation Potential Excellent Analytic Complexity at Evaluation Low Summary OT Impairments Balance Progress Towards Goals Safe For Discharge Assessment Summary Patient able to complete basic self-care with some LOB with transitions from sit to stand. Also requires some repetition of directions for safety and carryover of use of AE, but may be due to difficulty with hearing instructions. Frequency of Treatment Frequency Of Treatment Discharge Discharge Recommendations OT Discharge Recommendations Home with Assistance
== END 2020-01-23 13:44 | disposition home or self-care (01) | DRG 337 ==
LOC: ED 12:15 → AC 13:16
PROVIDERS: Surgery; Admitting Provider Specialist; Emergency Provider Emergency Medicine; Family Provider Family Medicine; PCP Family Medicine; Referring Provider Emergency Medicine; Visit Provider Specialist
PROC: 0DN80ZZ Release Small Intestine, Open Approach (ICD-10-PCS; CPT 49000; principal; 2020-01-18 13:00)
DX: K56.601 Complete intestinal obstruction, unspecified as to cause (principal); K42.9 Umbilical hernia without obstruction or gangrene; G40.909 Epilepsy, unspecified, not intractable, without status epilepticus; R41.0 Disorientation, unspecified; K21.9 Gastro-esophageal reflux disease without esophagitis; Z85.6 Personal history of leukemia; Z98.2 Presence of cerebrospinal fluid drainage device; Z11.59 Encounter for screening for other viral diseases; Z87.891 Personal history of nicotine dependence; F32.9 Major depressive disorder, single episode, unspecified
CPT/HCPCS: 36415; 49000; 71275; 74174; 80048; 80053; 81001; 83605; 83690; 83735; 84100; 84145; 84484; 85025; 86850; 86900; 86901; 87040; 87635; 93005; 96374; 96375; 97116; 97161; 97165; 97530; 97535; 99222; 99285; C9113; J0330; J1100; J1170; J1650; J2270; J2405; J2543; J2704; J3010

== ENCOUNTER → 2020-06-07 11:31 | Outpatient (CLI) | payer OTHER, SELFPAY ==
[2020-01-23 12:07] VITALS: BMI 32.7
--- NOTE | 2020-06-07 | DI.MG.S_ITS ---
BILATERAL DIGITAL SCREENING MAMMOGRAM 3D/2D WITH CAD: 06/07/2020 CLINICAL: Routine screening. Comparison is made to exams dated: 06/01/2012 mammogram and 05/29/2011 mammogram - [facility]. The tissue of both breasts is predominantly fatty. Current study was also evaluated with a Computer Aided Detection (CAD) system. No significant masses, calcifications, or other findings are seen in either breast. There has been no significant interval change. IMPRESSION: NEGATIVE There is no mammographic evidence of malignancy. A 1 year screening mammogram is recommended. This exam was interpreted at Station ID: [id number]. NOTE: For mammograms, a report in lay terms will be sent to the patient. Approximately 15% of breast malignancies will not be visualized mammographically. In the management of a palpable breast mass, a negative mammogram must not discourage biopsy of a clinically suspicious lesion. Electronically Signed By: Charles lezama/cheri:06/07/2020 14:10:25 letter sent: Normal Exam ACR BI-RADS Category 1: Negative [id number]
== END ==
PROVIDERS: Family Provider Family Medicine; PCP Family Medicine; Referring Provider Family Medicine; Visit Provider Family Medicine
DX: Z12.31 Encounter for screening mammogram for malignant neoplasm of breast (principal)
CPT/HCPCS: 77063; 77067

== ENCOUNTER 2021-04-06 19:30 | Observation (INO) | payer OTHER, SELFPAY ==
[2020-01-23 12:07] VITALS: BMI 32.7
[2021-04-06] VITALS (10 sets, daily range): BP systolic 181–228; BP diastolic 76–93; PULSE 63–76; RESP 16–27; TEMP 36.6–36.7; O2SAT 98–99; BMI 30.1; BMI 31.7
--- NOTE | 2021-04-06 19:45 | DI.CT.S_ITS ---
PROCEDURE: CT STROKE INDICATIONS: transient difficulty with speech, forgot kids names TECHNIQUE: Noncontrast 4.5 mm thick angled axial sections acquired from the foramen magnum to the vertex, with coronal reformats. For radiation dose reduction, the following was used: automated exposure control, adjustment of mA and/or kV according to patient size. COMPARISON: [facility], CT, CT ANGIO HEAD, 02/07/2020, 15:24. FINDINGS: Image quality: Excellent. CSF spaces: Interventricular shunt catheter with tip projecting to the right lateral ventricle via a right frontal approach is stable. Basal cisterns are patent. No extra-axial fluid collections. The ventricles are symmetric in size and shape. 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 Left frontal encephalomalacia is stable compared to the prior exam. No intracranial bleeds or masses. There is cerebral volume loss for age, with resultant ventricular and sulcal prominence. There are periventricular and deep white matter chronic small vessel ischemic changes. There is intracranial internal carotid artery and vertebral artery atherosclerosis. Skull and face: Postsurgical changes compatible with prior left frontal-temporal craniotomy are stable. The visualized facial bones appear intact, without suspicious lesions. Sinuses: Visualized sinuses and mastoids are clear. IMPRESSION: No acute intracranial disease process. Findings telephoned to Dr. Villanueva on April 06, 2021 at 8:19 p.m.. This study fulfills neurological imaging criteria for inclusion or exclusion of acute stroke therapies based on available published neurological guidelines. Dictated by: Rachael Ontiveros MD, PhD on 04/06/2021 at 20:19 Approved by: Rachael Ontiveros MD, PhD on 04/06/2021 at 20:24
--- NOTE | 2021-04-06 19:54 | DI.CT.S_ITS ---
PROCEDURE: CT ANGIO HEAD AND NECK INDICATIONS: speech difficulties TECHNIQUE: After the administration of intravenous contrast, 1 mm thick sections acquired from the aortic arch through the [place] of [place]. Post-contrast 4.5 mm thick sections then re-acquired from the foramen magnum to the vertex. 3-dimensional gbgidfi-iwoitkymp-zycpfuecer (MIP) and/or volume rendering reformats were acquired of the central intracranial vasculature and neck separately. COMPARISON: CT, CT HEAD/BRAIN WO CON, 03/05/2018, 13:05. [facility], CT, CT ANGIO HEAD, 02/07/2020, 15:24. FINDINGS: Image quality: Degraded by patient motion artifact. The BRAIN: CSF spaces: Ventricles are normal in size and shape. Basal cisterns are patent. No extra-axial fluid collections. 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 Left frontal encephalomalacia is stable. No midline shift. No intracranial bleeds or masses. Alarcon-white matter interface appears intact. Skull and face: Status post prior left frontal-temporal craniotomy. facial bones appear intact, without suspicious lesions. Orbits appear normal. Sinuses: Sinuses and mastoids are clear. HEAD CT ANGIOGRAPHY: Anterior circulation: Intracranial internal carotid arteries are normal in flow. Atherosclerotic calcifications noted in the cavernous and clinoid segments of the internal carotid arteries bilaterally which causes mild stenosis of the vessels. The flow within the paired anterior cerebral arteries is normal and symmetric. The flow within the middle cerebral arteries is normal. Atherosclerotic irregularity noted in the M1 segment of right middle cerebral artery which is not significantly changed compared to the prior examination. The anterior communicating artery is seen. No aneurysms are seen. Posterior circulation: Mild atherosclerotic plaque noted in the proximal V4 segments of the vertebral arteries bilaterally which does not cause measurable stenosis. Normal flow noted in the mass lower artery. Flow within the posterior cerebral arteries is normal. Posterior cerebral arteries have origins bilaterally. Mild atherosclerotic irregularity noted in the P1 segment of the right posterior cerebral artery. No aneurysms are seen. Dural sinuses demonstrate normal postcontrast enhancement. NECK CT ANGIOGRAPHY: Carotid system: The great vessels demonstrate a conventional anatomy as they arise from the aortic arch. The origins of the common carotid arteries appear patent. The common carotid arteries demonstrate normal caliber and courses. Atherosclerotic calcifications noted the origins of the internal carotid arteries bilaterally which causes less than 50% stenosis of the vessels. Posterior circulation: The origins of the vertebral arteries both appear widely patent. The more superior extracranial portions of both vertebral arteries also demonstrate normal courses and calibers. They join to form a normal appearing basilar artery. Soft tissues: Visualized neck soft tissues demonstrate no suspicious abnormalities. Bones: No suspicious bony lesions. Spine degenerative disc disease and facet arthropathy. Visualized cervical spine appears normally aligned. IMPRESSION: 1. No acute intracranial disease process. 2. Stable postsurgical changes compatible prior aneurysm clipping. 3. Stable intraventricular shunt. 4. No large vessel occlusion, hemodynamically significant vascular stenosis, vascular dissection or aneurysm. Any quantitative measurements of stenosis were performed using NASCET criteria. Dictated by: Rachael Ontiveros MD, PhD on 04/06/2021 at 20:27 Approved by: Rachael Ontiveros MD, PhD on 04/06/2021 at 20:38
--- NOTE | 2021-04-06 19:54 | ED.NEUROSD ---
HPI - Neuro Symptoms/Deficit General Chief Complaint: Neuro Symptoms/Deficit Stated Complaint: NOT ABLE TO THINK STRAIGHT/CLEAR HEADED Time Seen by Provider: 04/06/21 19:38 Source: patient and family Mode of arrival: Ambulatory Limitations: no limitations History of Present Illness HPI Narrative: This is an 85-year-old female who woke with according to her family her words not coming out properly and having hard time remembering the names of her children. Patient states she did not appreciated initially but her did. She is alert and appropriate. She answers questions appropriately. Patient denies any numbness, weakness or difficulty with ambulation. She believes her speech has improved. She denies headache, vision changes, no numbness, tingling difficulty with use of extremities. She denies any anticoagulation. Patient denies any headache, no new numbness, tingling or weakness in her extremities. She states she knew she wanted to say but could not get her words out. She denies any chest pain, shortness of breath, no nausea or vomiting, no fevers, no vision changes, no cough cold or congestion and no issues with bowel movements or urination or incontinence. 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 Patient is on felodipine for hypertension, she is on levetiracetam for prior seizure she believes she only had 1 episode several years ago. Her neurologist has since retired and her primary care physician continues to right this medication. She takes citalopram for mental health and tolterodine and omeprazole. Besides the clips of her brain aneurysm she had a volvulus which she was going to have surgery for but improved before they actually repaired it. She denies tobacco, alcohol or illicit. She lives independently with her . Her primary care physician is Dr. Gee. On Anticoagulants: No Related Data Home Medications Medication Instructions Recorded Confirmed acetaminophen 500 mg tablet 1,000 mg PO PRN #0 04/15/12 04/06/21 (Tylenol Extra Strength) cholecalciferol (vitamin D3) 50 2,000 unit PO DAILY 10/01/17 04/06/21 mcg (2,000 unit) capsule (Vitamin D3) omeprazole 20 mg capsule,delayed 20 mg PO DAILY 11/13/17 04/06/21 release Previous Rx's Medication Instructions Recorded levetiracetam 500 mg tablet See Rx Instructions PO .COMPLEX 09/16/19 (Keppra) #90 tab Disabled Parking Permit #1 ea 01/24/20 tolterodine 4 mg capsule,extended See Rx Instructions .ROUTE 08/29/20 release 24 hr .COMPLEX #90 cap citalopram 10 mg tablet See Rx Instructions .ROUTE 02/18/21 .COMPLEX #90 tab felodipine 5 mg tablet,extended See Rx Instructions .ROUTE 04/03/21 release 24 hr .COMPLEX #90 tab Allergies Allergy/AdvReac Type Severity Reaction Status Date / Time albuterol [ALBUTEROL] AdvReac Severe SHAKEY Verified 06/21/20 10:26 LEGS, JERKY allopurinol [ALLOPURINOL] AdvReac Severe NAUSEA AND Verified 06/21/20 10:26 GI UPSET Sulfa (Sulfonamide AdvReac Severe HEADACHES Verified 06/21/20 10:26 Antibiotics) [SULFA (SULFONAMIDE ANTIBIOTICS)] JESSICA Inhibitors AdvReac Mild COUGH Verified 06/21/20 10:26 [JESSICA INHIBITORS] Review of Systems Review of Systems ROS Unobtainable: All systems reviewed & are unremarkable except as noted in HPI and below Hematologic/Lymphatic On Anticoagulants: No Patient History Medical History Arthritis (Unknown) Cataracts, bilateral (Unknown) Cervical somatic dysfunction Cervicothoracic somatic dysfunction Chronic low back pain Chronic thoracic back pain CLL (chronic lymphocytic leukemia) (Unknown) Corns and callus Depression (Unknown) Fatigue Gallbladder disease (Unknown) GERD (gastroesophageal reflux disease) (Unknown) Hypertension (Unknown) Lightheadedness Lumbar region somatic dysfunction Segmental and somatic dysfunction of abdomen and other regions Segmental and somatic dysfunction of head region Segmental and somatic dysfunction of pelvic region Segmental and somatic dysfunction of sacral region Segmental and somatic dysfunction of thoracic region Seizure disorder (Unknown) Somatic dysfunction of abdominal region Somatic dysfunction of lower extremity Somatic dysfunction of sacral spine Spinal stenosis (Unknown) Stiff neck Subarachnoid hemorrhage (2000) Toe pain, bilateral Visual hallucinations Surgical History History of bilateral cataract extraction (Unknown) History of ventriculoperitoneal shunting (12/2000) Hx of appendectomy (Unknown) Hx of cholecystectomy (Unknown) Hx of detached retina repair (Unknown) Social History household members: spouse Smoking Status: Former smoker alcohol intake: current Smoking Status: Former smoker alcohol intake frequency: holidays/special occasions only Substance Use Type: does not use Exam Narrative Exam Narrative: GEN: well nourished, well appearing female, alert and oriented x 3, patient appears to be in mild distress. HEENT: Atraumatic, pupils are equal round reactive to light, extraocular movements are intact, nares are clear, TMs are clear with no fluid, there is no conjunctival pallor. Throat is clear without any exudates, erythema, tonsillar enlargement or uvular deviation, no facial droop. HEART: Regular rate and rhythm without murmur, clicks, rubs. No carotid bruits, pulses are equal in upper and lower extremities LUNGS:Lungs clear to auscultation, no wheezes, rales, crackles, chest moves symmetrically ABD:bowel sounds normal, soft, non-tender, no guarding, rebound, rigidity, no masses noted, no hepatosplenomegaly :No CVA tenderness MSCL: Non-tender, no muscle atrophy, muscles strength 5/5 upper and lower extremities, full range of motion NEURO:CN 2-12 intact, sensation normal except the patient notes slight difference to touch on the right upper extremity in comparison to the left. No other changes noted by the patient. Finger nose finger test normal, heel jimenez test normal, romberg normal Initial Vital Signs Initial Vital Signs: Vital Signs Temperature 97.8 F 04/06/21 19:31 Pulse Rate 69 04/06/21 19:31 Respiratory Rate 18 04/06/21 19:31 Blood Pressure 187/82 H 04/06/21 19:31 Pulse Oximetry 98 04/06/21 19:31 Scores NIH Stroke Scale Level of Conciousness: Alert, keenly responsive Ask month/age: Answers both questions correctly. Open/close eyes, close hand: Performs both tasks correctly Best gaze horizontal: Normal Visual huntley: No visual loss Facial palsy: Normal symetrical movement Left arm drift: No drift for full 10 sec Right arm drift: No drift for full 10 sec Left leg drift: No drift for full 5 sec Right leg drift: No drift for full 5 sec Limb ataxia: Absent Sensory on face/arms/legs: Mild to moderate sensory loss, can tell touch Best language: No aphasia, normal Dysarthria: Normal Extinction or inattention: No abnormality Total NIH Stroke scale score: 1 Course Orders Ordered: ED Orders 04/06/21 21:10 COVID19 - ADMIT ([employer]ISH[employer] HAND swab/PCR) Stat 04/06/21 22:45 Urine Drug Screen, Rapid Stat Acetaminophen (Acetaminophen 325 Mg Tablet) 650 mg PO Q6HR PRN PRN Reason: Fever/Mild Pain (1-3) Amlodipine Besylate (Amlodipine 5 Mg Tablet) 5 mg PO DAILY [facility] Last Admin: 04/06/21 22:55 Dose: 5 mg Documented by: KRISTEN Aspirin (Aspirin Ec 81 Mg Tablet) 81 mg PO DAILY MEL Atorvastatin Calcium (Atorvastatin 20 Mg Tablet) 40 mg PO BEDTIME MEL Citalopram Hydrobromide (Citalopram 10 Mg Tablet) 10 mg PO DAILY MEL Enoxaparin Sodium (Enoxaparin 40 Mg/0.4 Ml Syringe) 40 mg SUBCUT DAILY [facility] Sodium Chloride (Normal Saline 0.9%) 1,000 mls @ 150 mls/hr IV CONT MEL Last Infusion: 04/06/21 21:44 Dose: 150 mls/hr Documented by: Admin: 04/06/21 20:42 Dose: 150 mls/hr Documented by: VANGIE Levetiracetam (Levetiracetam 250 Mg Tablet) 250 mg PO DAILY MEL Levetiracetam (Levetiracetam 250 Mg Tablet) 500 mg PO BEDTIME MEL Discontinued Medications Amlodipine Besylate (Amlodipine 5 Mg Tablet) 5 mg PO DAILY [facility] Aspirin (Aspirin 81 Mg Chew Tab) 324 mg PO NOW ONE Stop: 04/06/21 20:34 Last Admin: 04/06/21 20:42 Dose: 324 mg Documented by: VANGIE Labetalol HCl (Labetalol 20 Mg/4 Ml Syringe) 10 mg IV NOW ONE Stop: 04/06/21 21:05 Last Admin: 04/06/21 21:07 Dose: 10 mg Documented by: VANGIE Reevaluation(s) Reevaluation #1: Patient continues to be asymptomatic here in the department except for a slight change to sensation in her right arm. Vital Signs Vital signs: Vital Signs - 8 hr 04/06/21 19:31 Temperature 97.8 F Pulse Rate 69 Respiratory Rate 18 Blood Pressure 187/82 H Pulse Oximetry 98 MDM - Neuro Symptoms/Deficit Lab Data Result diagrams: 04/07/21 04:25 04/07/21 04:25 Labs: Lab Results 04/06/21 04/06/21 04/06/21 Range/Units 19:50 19:50 19:50 WBC 6.4 (4.5-11.0) X10^3/uL RBC 4.47 (4.0-5.2) X10^6/uL Hgb 13.7 (12.0-16.0) g/dL Hct 39.8 (36-46) % MCV 89.0 (80-100) fL MCH 30.6 (26-34) PG MCHC 34.4 (30-36) % RDW 14.0 (11.6-14.8) % Plt Count 222 (150-400) X10^3/uL Neut % (Auto) 58.4 (50-75) % Lymph % (Auto) 25.9 (25-40) % Winston % (Auto) 12.0 (3-14) % Eos % (Auto) 2.8 (2-4) % Baso % (Auto) 0.9 (0-2) % Neut # (Auto) 3700 (8669-4923) /uL Lymph # (Auto) 1700 (5740-6160) /uL Winston # (Auto) 800 (0-900) /uL Eos # (Auto) 200 (0-450) /uL Baso # (Auto) 100 (0-100) /uL PT 11.1 (10.1-12.7) SECONDS INR 1.0 (0.9-1.3) APTT 32 (26.4-36.2) SECONDS Sodium (137-145) mmol/L Potassium (3.4-5.1) mmol/L Chloride (98-107) mmol/L Carbon Dioxide (22-32) mmol/L BUN (7-17) mg/dL Creatinine (0.52-1.04) mg/dL Estimated GFR (>60) mL/min BUN/Creatinine Ratio (6-22) Glucose (80-110) mg/dL Calcium (8.4-10.2) mg/dL Total Creatine Kinase 44 (30-135) U/L CK-MB (CK-2) TNP CK-MB (CK-2) Rel Index TNP Troponin I < 0.012 (0.01-0.034) ng/mL Ethyl Alcohol < 10 ( - 10) mg/dL SARS-CoV-2 (PCR) (Negative) 04/06/21 04/06/21 Range/Units 19:50 21:10 WBC (4.5-11.0) X10^3/uL RBC (4.0-5.2) X10^6/uL Hgb (12.0-16.0) g/dL Hct (36-46) % MCV (80-100) fL MCH (26-34) PG MCHC (30-36) % RDW (11.6-14.8) % Plt Count (150-400) X10^3/uL Neut % (Auto) (50-75) % Lymph % (Auto) (25-40) % Winston % (Auto) (3-14) % Eos % (Auto) (2-4) % Baso % (Auto) (0-2) % Neut # (Auto) (3894-7366) /uL Lymph # (Auto) (8825-6507) /uL Winston # (Auto) (0-900) /uL Eos # (Auto) (0-450) /uL Baso # (Auto) (0-100) /uL PT (10.1-12.7) SECONDS INR (0.9-1.3) APTT (26.4-36.2) SECONDS Sodium 137 (137-145) mmol/L Potassium 4.1 (3.4-5.1) mmol/L Chloride 104 (98-107) mmol/L Carbon Dioxide 29 (22-32) mmol/L BUN 21 H (7-17) mg/dL Creatinine 0.95 (0.52-1.04) mg/dL Estimated GFR 55.9 L (>60) mL/min BUN/Creatinine Ratio 22.1 H (6-22) Glucose 110 (80-110) mg/dL Calcium 10.0 (8.4-10.2) mg/dL Total Creatine Kinase (30-135) U/L CK-MB (CK-2) CK-MB (CK-2) Rel Index Troponin I (0.01-0.034) ng/mL Ethyl Alcohol ( - 10) mg/dL SARS-CoV-2 (PCR) Negative (Negative) Point of Care Testing Glucose POC [address] scan - head: Radiologist's Impression: [address] [address] [address] Scan Report Signed Patient: Marietta Fernandez MR#: [id number] : 1935 Acct:[id number] Age/Sex: 85 / F Date of Service: 04/06/21 Loc: ED Accession Number: [id number] ?? Procedure: CT head/brain wo con Ordering Provider: Shannon Villanueva D.O. PROCEDURE:? CT STROKE ? INDICATIONS:? transient difficulty with speech, forgot kids names ? TECHNIQUE:? Noncontrast 4.5 mm thick angled axial sections acquired from the foramen magnum to the vertex, with coronal reformats.? For radiation dose reduction, the following was used:? automated exposure control, adjustment of mA and/or kV according to patient size.? ? COMPARISON:? [facility], CT, CT ANGIO HEAD, 02/07/2020, 15:24. ? FINDINGS:? Image quality:? Excellent.? ? CSF spaces:? Interventricular shunt catheter with tip projecting to the right lateral ventricle via a right frontal approach is stable.? Basal cisterns are patent.? No extra-axial fluid collections.? The ventricles are symmetric in size and shape.? ? Brain:? Postsurgical changes compatible with prior cerebral aneurysm clipping noted.? Left frontal encephalomalacia is stable compared to the prior exam.? No intracranial bleeds or masses.? There is cerebral volume loss for age, with resultant ventricular and sulcal prominence.? There are periventricular and deep white matter chronic small vessel ischemic changes.? There is intracranial internal carotid artery and vertebral artery atherosclerosis.? ? Skull and face:? Postsurgical changes compatible with prior left frontal-temporal craniotomy are stable.? The visualized facial bones appear intact, without suspicious lesions.? ? Sinuses:? Visualized sinuses and mastoids are clear.? ? ? IMPRESSION:? ? No acute intracranial disease process. ? Findings telephoned to Dr. Villanueva on April 06, 2021 at 8:19 p.m.. ? This study fulfills neurological imaging criteria for inclusion or exclusion of acute stroke therapies based on available published neurological guidelines.? ? ? Dictated by: Rachael Ontiveros MD, PhD on 04/06/2021 at 20:19 ? ? Approved by: Rachael Ontiveros MD, PhD on 04/06/2021 at 20:24?? CTA - brain/neck: Radiologist's Impression: [address] [address] [address] Scan Report Signed Patient: Marietta Fernandez MR#: [id number] : 1935 Acct:[id number] Age/Sex: 85 / F Date of Service: 04/06/21 Loc: ED Accession Number: [id number] ?? Procedure: CT head/brain wo con Ordering Provider: Shannon Villanueva D.O. PROCEDURE:? CT STROKE ? INDICATIONS:? transient difficulty with speech, forgot kids names ? TECHNIQUE:? Noncontrast 4.5 mm thick angled axial sections acquired from the foramen magnum to the vertex, with coronal reformats.? For radiation dose reduction, the following was used:? automated exposure control, adjustment of mA and/or kV according to patient size.? ? COMPARISON:? [facility], CT, CT ANGIO HEAD, 02/07/2020, 15:24. ? FINDINGS:? Image quality:? Excellent.? ? CSF spaces:? Interventricular shunt catheter with tip projecting to the right lateral ventricle via a right frontal approach is stable.? Basal cisterns are patent.? No extra-axial fluid collections.? The ventricles are symmetric in size and shape.? ? Brain:? Postsurgical changes compatible with prior cerebral aneurysm clipping noted.? Left frontal encephalomalacia is stable compared to the prior exam.? No intracranial bleeds or masses.? There is cerebral volume loss for age, with resultant ventricular and sulcal prominence.? There are periventricular and deep white matter chronic small vessel ischemic changes.? There is intracranial internal carotid artery and vertebral artery atherosclerosis.? ? Skull and face:? Postsurgical changes compatible with prior left frontal-temporal craniotomy are stable.? The visualized facial bones appear intact, without suspicious lesions.? ? Sinuses:? Visualized sinuses and mastoids are clear.? ? ? IMPRESSION:? ? No acute intracranial disease process. ? Findings telephoned to Dr. Villanueva on April 06, 2021 at 8:19 p.m.. ? This study fulfills neurological imaging criteria for inclusion or exclusion of acute stroke therapies based on available published neurological guidelines.? ? ? Dictated by: Rachael Ontiveros MD, PhD on 04/06/2021 at 20:19 ? ? Approved by: Rachael Ontiveros MD, PhD on 04/06/2021 at 20:24?? ECG Data Attestation: I personally reviewed and interpreted this ECG as follows: Interpretation: Sinus rhythm nonspecific change. Rate of 70 [place] 160 QRS of 94 and QTC 384. No acute ST elevation or depression. MDM Narrative Medical decision making narrative: This is an 85-year-old female comes in with concern for stroke. Patient had expressive aphasia which has resolved. Patient flushed room with 4:00 p.m. coma she is at the 3-1/2 hour demetrio upon arrival in her symptoms have resolved. On her NIH her only positive is for a slight change in sensation of her right upper extremity which she did not appreciate until actually examining her. Patient was given aspirin after negative head CT, CT angio does not show any acute occlusion or stenosis. Patient's initial blood pressure was 187 but she had several highs the 200 range and was given a dose of labetalol. Labs do not show major abnormalities. Patient admitted for stroke workup. TPA was not given secondary time frame, resolution of her expressive aphasia with very mild sensory changes. She does have a history of aneurysm with clip on prior bleed. Patient did produce a prescription that states that she can have an MRI from her neurosurgeon Dr. Hairston Stroke Core Measures Exclusion Criteria TPA in CVA: Symptom Onset >3 or 4.5 Hours Discharge Plan Departure Patient Disposition: Admitted As Inpatient Clinical Impression: TIA (transient ischemic attack) Admit Date/Time: 04/06/21 21:11 Admit Provider: Shravan Cochran
[2021-04-06 20:24] LABS: Prothrombin Time 11.1 SECONDS (10.1-12.7)
[2021-04-06 20:26] LABS: PTT Partial Thromboplastin Tim 32 SECONDS (26.4-36.2)
[2021-04-06 20:27] LABS: Add Manual Diff / Slide Review NO; Basophils Absolute Auto 100 /uL (0-100); Basophils Percent Auto 0.9 % (0-2); Eosinophils Absolute Auto 200 /uL (0-450); Eosinophils Percent Auto 2.8 % (2-4); Hematocrit 39.8 % (36-46); Hemoglobin 13.7 g/dL (12.0-16.0); Lymphocytes Absolute Auto 1700 /uL (1100-4500); Lymphocytes Percent Auto 25.9 % (25-40); Mean Corpuscular HGB Conc 34.4 % (30-36); Mean Corpuscular Hemoglobin 30.6 PG (26-34); Monocytes Absolute Auto 800 /uL (0-900); Neutrophils Absolute Auto 3700 /uL (1500-7000); Neutrophils Percent Auto 58.4 % (50-75); Platelet Count 222 X10^3/uL (150-400); Red Blood Cell Count 4.47 X10^6/uL (4.0-5.2); White Blood Cell Count 6.4 X10^3/uL (4.5-11.0)
[2021-04-06 20:28] LABS: BUN Creatinine Ratio 22.1 (6-22); Blood Urea Nitrogen 21 mg/dL (7-17); Carbon Dioxide 29 mmol/L (22-32); Chloride 104 mmol/L (98-107); Creatine Kinase 44 U/L (30-135); Estimated Glomerular Filt Rate 55.9 mL/min (>60); Ethanol (ETOH) < 10 mg/dL; Glucose 110 mg/dL (80-110); HEMOLYSIS 17 (0-50); Potassium 4.1 mmol/L (3.4-5.1); Sodium 137 mmol/L (137-145)
--- NOTE | 2021-04-06 20:35 | PC.NURSE ---
Pt reports unable to speak, states she knew what she wanted to say but unable to get the words out. Pt alert and oriented now with clear speech.
[2021-04-06 20:40] LABS: Troponin I < 0.012 ng/mL (0.01-0.034)
[2021-04-06] MEDS: ASPIRIN 81 MG CHEW TAB 324 MG PO (20:42)
[2021-04-06] MEDS: SODIUM CHLORIDE 0.9% 1,000 ML 150 ML IV (20:42)
[2021-04-06] MEDS: LABETALOL 20 MG/4 ML SYRINGE 10 MG IV (21:07)
--- NOTE | 2021-04-06 21:53 | DI.MRI.S_ITS ---
PROCEDURE: MR HEAD/BRAIN WO CON INDICATIONS: tia vs cva TECHNIQUE: Noncontrast axial T1 spin echo, axial T2 fast spin echo, sagittal and axial FLAIR, coronal T2 fast spin echo, axial gradient echo, axial diffusion and ADC through the brain. COMPARISON: [facility], CT, CT ANGIO HEAD AND NECK, 04/06/2021, 19:53. FINDINGS: Image quality: Excellent. CSF Spaces: Basal cisterns are patent. No extra-axial fluid collections. Ventricles are normal in size and shape. Brain: A right frontal approach ventriculostomy tube is present with the tip in the right anterior horn. Aneurysm clips in the left terminal ICA, unchanged compared to prior CT. No intracranial masses or hemorrhage. 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 Brainstem appears normal. Diffusion-weighted images demonstrate no acute ischemic insult. No chronic ischemic insults. Normal intravascular flow voids are present. Confluent subcortical and periventricular T2/FLAIR signal is consistent with microvascular ischemic disease. Skull and face: Calvarium has normal marrow signal. Orbits appear normal. Sinuses: Sinuses and mastoids are clear. IMPRESSION: 1. No acute intracranial abnormality. No acute ischemia. 2. Aneurysmal clips in the left anterior temporal fossa and right frontal approach ventriculostomy tube are in unchanged position. 3. Confluent microvascular ischemic disease. Dictated by: Zion Mayne M.D. on 04/07/2021 at 8:45 Approved by: Zion Mayen M.D. on 04/07/2021 at 9:00
--- NOTE | 2021-04-06 21:55 | DI.ECHO.S_ITS ---
[place] +---------+ Hospital +---------+ : : [address] : : : : [id number] : : : : Phone: [phone]+ Echocardiogram Report + + :Name: ROJELIO FERGUSON Study Date: 04/07/2021 Height: 65 in : :[facility] ReadingLocation: Weight: 181 lb : : Gender: Female BSA: 1.9 m2 : :: 1935 Age: 85 yrs BP: 165/67 mmHg: :Reason For Study: TIA : :Ordering Physician: JULIO, : :NADINE Performed By: Camila Billy : :Referring: NADINE KIM : + + Interpretation Summary 1) Normal left ventricular size, thickness, wall motion, and systolic function (EF 60-65%). 2) Normal right ventricular size and function. 3) No significant valvular abnormalities. 4) Compared to the Echo done 03/25/2018, no significant change. Procedure: A two-dimensional transthoracic echocardiogram with color flow and Doppler was performed. The study quality was technically adequate. Comparison is made with the echocardiogram of 03/25/2018. The patient was in sinus rhythm with heart rates between 66-70 bpm during the exam. Left Ventricle: The left ventricle is normal in size and wall thickness. The ejection fraction is estimated to be 60-65%. Left ventricular systolic function appears normal without focal wall motion abnormalities. Right Ventricle: The right ventricle is normal in size and function. Atria: The left atrial size is normal. Right atrial size is normal. There is no Doppler evidence for an interatrial shunt. Mitral Valve: The mitral valve leaflets appear mildly thickened, but open well. There is trace mitral regurgitation. Aortic Valve: The aortic valve is trileaflet. There is mild aortic valve sclerosis. There is no aortic valve stenosis. No aortic regurgitation is present. Tricuspid Valve: The tricuspid valve is normal in structure and function. There is mild tricuspid regurgitation. The right ventricular systolic pressure is estimated to be at least 31 mmHg based on an estimated right atrial pressure of 3 mm Hg. Pulmonic Valve: The pulmonic valve leaflets are thin and pliable; valve motion is normal. There is mild pulmonic regurgitation. Great Vessels: The aortic root is normal size. The dimensions of the ascending aorta are normal. The IVC is of normal diameter and collapses greater than 50% with a sniff. This suggests a low right atrial pressure of 3 mm Hg. Pericardium/ Pleura There is no pericardial effusion. There is no pleural effusion. MMode/2D Measurements & Calculations LVIDd: 3.7 cm LVOT diam: 1.9 cm LVIDs: 2.4 cm Ao root diam: 3.3 cm FS: 36.5 % asc Aorta Diam: 3.1 cm IVSd: 1.0 cm LVPWd: 1.0 cm LV guan. diameter/BSA (cm/m^2): 2.0 LV sys. diameter/BSA (cm/m^2): 1.2 LA A2 area: 16.9 cm2 RA long axis: 4.6 cm LA A4 area: 15.8 cm2 RA area: 14.9 cm2 LA length (vol): 5.0 cm RA vol: 40.9 ml LA vol: 45.0 ml RA : 21.6 ml/m2 LA vol index: 23.7 ml/m2 IVC diam: 1.4 cm RVD1 (basal): 3.1 cm TAPSE: 2.2 cm Doppler Measurements & Calculations Ao V2 max: 128.2 cm/sec LVOT Max Santi: 91.1 cm/sec Ao V2 mean: 94.5 cm/sec LV V1 max P.3 mmHg Ao max P.6 mmHg LV V1 VTI: 21.0 cm Ao mean P.8 mmHg KAVEH(I,D): 2.3 cm2 Ao V2 VTI: 26.4 cm KAVEH(V,D): 2.1 cm2 sev ratio: 0.79 KAVEH indexed to BSA (cm^2/m^2): 1.2 MV E max santi: 66.1 cm/sec TR max santi: 268.4 cm/sec MV A max santi: 83.5 cm/sec TR max P.8 mmHg MV E/A: 0.79 PA V2 max: 113.2 cm/sec Med Peak E' Santi: 5.0 cm/sec PA V2 mean: 71.3 cm/sec E/E' med: 13.3 PA mean P.4 mmHg Lat Peak E' Santi: 7.2 cm/sec PA pr(Accel): 22.5 mmHg E/E' lat: 9.2 E/e' average: 11.3 MV dec time: 0.33 sec SV(LVOT): 61.4 ml Reading Physician:11:30 AM
--- NOTE | 2021-04-06 22:05 | PM.HP.1 ---
History of Present Illness History of Present Illness Date Patient Seen: 04/06/21 Time Patient Seen: 22:30 Chief complaint: NOT ABLE TO THINK STRAIGHT/CLEAR HEADED Narrative: Ms. Fernandez is an 85W with PMH HTN, brain aneurysm s/p bleed s/p clip who presents with difficulty with speech. Patient did not notice any abnormality but her noticed speech and memory abnormality. Her main symptoms was she was unable to get speak the words she was trying to speak correctly. She denies numbness, weakness, vision changes. She denies any chest pain, shortness of breath, no nausea or vomiting, no fevers, no chills.?She had a brain bleed in 2000 from a brain aneurysm and is s/p clip. In the ED her symptoms improved, she was primarily only noticed mild right upper extremity numbness. In the ED workup was done, vitals notable for blood pressure 187/82. Labs notable for WBC 6.4, hgb 13.7, creatinine 0.95. CT head showed no acute process. CTA head/neck showed no acute process. She was given aspirin and admitted for further treatment. When I spoke to her and her they both state she was completely back to normal. Family history: no significant history per patient Patient History Medical History Arthritis (Unknown) Cataracts, bilateral (Unknown) Cervical somatic dysfunction Cervicothoracic somatic dysfunction Chronic low back pain Chronic thoracic back pain CLL (chronic lymphocytic leukemia) (Unknown) Corns and callus Depression (Unknown) Fatigue Gallbladder disease (Unknown) GERD (gastroesophageal reflux disease) (Unknown) Hypertension (Unknown) Lightheadedness Lumbar region somatic dysfunction Segmental and somatic dysfunction of abdomen and other regions Segmental and somatic dysfunction of head region Segmental and somatic dysfunction of pelvic region Segmental and somatic dysfunction of sacral region Segmental and somatic dysfunction of thoracic region Seizure disorder (Unknown) Somatic dysfunction of abdominal region Somatic dysfunction of lower extremity Somatic dysfunction of sacral spine Spinal stenosis (Unknown) Stiff neck Subarachnoid hemorrhage (2000) Toe pain, bilateral Visual hallucinations Surgical History History of bilateral cataract extraction (Unknown) History of ventriculoperitoneal shunting (12/2000) Hx of appendectomy (Unknown) Hx of cholecystectomy (Unknown) Hx of detached retina repair (Unknown) Family & Social History Social History: household members spouse Prior Living Arrangements House Safety & Behavioral: Feels Safe in Current Yes Environment Been Physically Hurt or No Threatened By a Person Suicidal Ideation Description Vague Suicide Plan Description Vague Tobacco & Substance use: Smoking Status Former smoker alcohol intake current alcohol intake frequency holiday/special occasion Substance Use Type does not use Meds Home Medications and Allergies Home Medications Medication Instructions Recorded Confirmed Type acetaminophen 500 mg tablet 1,000 mg PO PRN #0 04/15/12 04/06/21 History (Tylenol Extra Strength) cholecalciferol (vitamin D3) 50 2,000 unit PO DAILY 10/01/17 04/06/21 History mcg (2,000 unit) capsule (Vitamin D3) omeprazole 20 mg capsule,delayed 20 mg PO DAILY 11/13/17 04/06/21 History release levetiracetam 500 mg tablet See Rx Instructions PO .COMPLEX 09/16/19 04/06/21 Rx (Keppra) #90 tab Disabled Parking Permit #1 ea 01/24/20 04/06/21 Rx tolterodine 4 mg capsule,extended See Rx Instructions .ROUTE 08/29/20 04/06/21 Rx release 24 hr .COMPLEX #90 cap citalopram 10 mg tablet See Rx Instructions .ROUTE 02/18/21 04/06/21 Rx .COMPLEX #90 tab felodipine 5 mg tablet,extended See Rx Instructions .ROUTE 04/03/21 04/06/21 Rx release 24 hr .COMPLEX #90 tab Allergies Allergy/AdvReac Type Severity Reaction Status Date / Time albuterol [ALBUTEROL] AdvReac Severe SHAKEY Verified 06/21/20 10:26 LEGS, JERKY allopurinol [ALLOPURINOL] AdvReac Severe NAUSEA AND Verified 06/21/20 10:26 GI UPSET Sulfa (Sulfonamide AdvReac Severe HEADACHES Verified 06/21/20 10:26 Antibiotics) [SULFA (SULFONAMIDE ANTIBIOTICS)] JESSICA Inhibitors AdvReac Mild COUGH Verified 06/21/20 10:26 [JESSICA INHIBITORS] Review of Systems Review of Systems Narrative: 14 systems reviewed and negative aside from what is noted in HPI Exam Vital Signs (past 8 hours): - 04/06/21 19:31 04/06/21 19:43 04/06/21 20:09 Temperature 97.8 F Pulse Rate 69 69 70 Respiratory Rate 18 Blood Pressure 187/82 H Pulse Oximetry 98 98 04/06/21 20:30 04/06/21 20:31 04/06/21 20:45 Temperature Pulse Rate 74 76 75 Respiratory Rate 23 21 27 H Blood Pressure 223/88 H 200/91 H Pulse Oximetry 99 98 98 04/06/21 21:00 04/06/21 21:01 04/06/21 21:16 Temperature Pulse Rate 70 70 63 Respiratory Rate 27 H 27 H 21 Blood Pressure 228/93 H 181/76 H Pulse Oximetry 98 98 98 Oxygen Delivery Method Room Air Narrative Exam Narrative: GEN: no acute distress HEENT: PERRL, moist mucous membranes NECK: no JVD, trachea midline CV: regular rate and rhythm, no murmurs PULM: clear bilaterally, no wheezes, rhonchi, rales ABD: soft, nontender, nondistended, no organomegaly, normal bowel sounds EXT: warm and well perfused with no edema NEURO: awake, alert, oriented, no speech difficulties, no facial droop, cn2-12 intact, upper and lower extremities with normal strength PSYCH: pleasant, cooperative Objective Labs Result Diagrams: 04/06/21 19:50 04/06/21 19:50 Labs: Laboratory Results - last 24 hr 04/06/21 04/06/21 04/06/21 19:50 19:50 19:50 WBC 6.4 RBC 4.47 Hgb 13.7 Hct 39.8 MCV 89.0 MCH 30.6 MCHC 34.4 RDW 14.0 Plt Count 222 Neut % (Auto) 58.4 Lymph % (Auto) 25.9 [place] % (Auto) 12.0 Eos % (Auto) 2.8 Baso % (Auto) 0.9 Neut # (Auto) 3700 Lymph # (Auto) 1700 [place] # (Auto) 800 Eos # (Auto) 200 Baso # (Auto) 100 PT 11.1 INR 1.0 APTT 32 Sodium Potassium Chloride Carbon Dioxide BUN Creatinine Estimated GFR BUN/Creatinine Ratio Glucose Calcium Total Creatine Kinase 44 CK-MB (CK-2) TNP CK-MB (CK-2) Rel Index TNP Troponin I < 0.012 Ethyl Alcohol < 10 04/06/21 19:50 WBC RBC Hgb Hct MCV MCH MCHC RDW Plt Count Neut % (Auto) Lymph % (Auto) [place] % (Auto) Eos % (Auto) Baso % (Auto) Neut # (Auto) Lymph # (Auto) [place] # (Auto) Eos # (Auto) Baso # (Auto) PT INR APTT Sodium 137 Potassium 4.1 Chloride 104 Carbon Dioxide 29 BUN 21 H Creatinine 0.95 Estimated GFR 55.9 L BUN/Creatinine Ratio 22.1 H Glucose 110 Calcium 10.0 Total Creatine Kinase CK-MB (CK-2) CK-MB (CK-2) Rel Index Troponin I Ethyl Alcohol Assessment & Plan Assessment & Plan narrative: Ms. Fernandez is an 85W with PMH of brain aneurysm s/p bleed s/p clip, seizure history, HTN who presents with aphasia. 1. TIA vs CVA -ordered for aspirin, statin -patient with NIH of 1 -CT head and CTA head/neck showed no acute process -NIH qshift -MRI head and ECHO ordered, will need to make sure aneurysm clips are permissible in MRI -check a1c, lipids -permissive hypertension for now, treat if sbp >220 or dbp >120 -order PT/OT and speech 2. HTN -continue felodipine 3. History of seizure with previous bleeding brain aneurysm -continue keppra 4. Depression -continue citalopram Code: Full Proxy: Reji Fernandez, I have utilized all available resources to reconcile patient's home medications. Time Spent With Patient Critical Care time: I spent a total of [] minutes of critical care time on this patient's care today; this time is exclusive of procedural time. Quality MIPS - Admit I confirm the patient?s Advance Care Plan is present, Code status is documented, Surrogate decision maker is in patient?s record [If Yes, STOP here]: Yes
[2021-04-06 22:10] LABS: COVID19 - ADMIT (NP swab/PCR) Negative (Negative)
[2021-04-06] MEDS: AMLODIPINE 5 MG TABLET PO (22:55)
[2021-04-06 23:04] LABS: UR Morphine/Opiate cutoff 300 Negative (Negative); Ur Creatinine 20 (Normal); Ur Specific Gravity 1.015 (Normal); Urine Amphetamines Negative (Negative); Urine Barbiturates Negative (Negative); Urine Benzodiazepines Negative (Negative); Urine Cocaine Negative (Negative); Urine MDMA Negative (Negative); Urine Methadone Negative (Negative); Urine Methamphetamines Negative (Negative); Urine Oxycodone Negative (Negative); Urine Phencyclidine Negative (Negative); Urine Tetrahydrocannabinol Negative (Negative); Urine Tricyclic Antidepressant Negative (Negative); Urine pH 5 (Normal)
--- NOTE | 2021-04-06 23:17 | PC.NURSE ---
Admission/Shift: Report received from ED HEATH Aldridge. Pt received at 213. Ambulatory from stretcher to bed. at bedside. A&Ox4. Bedside tele monitoring and continuous pulse ox. Hypertensive, otherwise VSS. Dr. Cochran informed; will start PO BP medication tonight. Neurological assessment WNL; NIH score 0. When asked, pt verbalizes that she has had thoughts of harming self. Has no active ideation or specific plan. SS consult placed and pt encouraged to talk with a professional on a regular basis. Oriented to bed, room, call light. Verbalizes understanding to call for assistance.
[2021-04-07] VITALS (7 sets, daily range): BP systolic 144–178; BP diastolic 67–76; PULSE 63–70; RESP 13–23; TEMP 36.3–37.1; O2SAT 94–96
[2021-04-07 05:33] LABS: Add Manual Diff / Slide Review NO; Basophils Absolute Auto 0 /uL (0-100); Basophils Percent Auto 0.7 % (0-2); Eosinophils Absolute Auto 200 /uL (0-450); Eosinophils Percent Auto 3.8 % (2-4); Hematocrit 37.3 % (36-46); Hemoglobin 12.8 g/dL (12.0-16.0); Lymphocytes Absolute Auto 1300 /uL (1100-4500); Lymphocytes Percent Auto 26.1 % (25-40); Mean Corpuscular HGB Conc 34.2 % (30-36); Mean Corpuscular Hemoglobin 30.2 PG (26-34); Mean Corpuscular Volume 88.2 fL (80-100); Monocytes Absolute Auto 700 /uL (0-900); Monocytes Percent Auto 13.6 % (3-14); Neutrophils Absolute Auto 2800 /uL (1500-7000); Neutrophils Percent Auto 55.8 % (50-75); Platelet Count 189 X10^3/uL (150-400); Red Blood Cell Count 4.24 X10^6/uL (4.0-5.2); Red Cell Distribution Width 13.9 % (11.6-14.8); White Blood Cell Count 5.1 X10^3/uL (4.5-11.0)
[2021-04-07 05:48] LABS: BUN Creatinine Ratio 17.9 (6-22); Blood Urea Nitrogen 15 mg/dL (7-17); Calcium 9.9 mg/dL (8.4-10.2); Carbon Dioxide 29 mmol/L (22-32); Chloride 106 mmol/L (98-107); Cholesterol 209 mg/dL (140-199); Estimated Glomerular Filt Rate > 60.0 mL/min (>60); Glucose 105 mg/dL (80-110); HDL Cholesterol 53 mg/dL (40-60); HEMOLYSIS < 15 (0-50); LDL Cholesterol Calculated 135 mg/dL (<100); Potassium 3.7 mmol/L (3.4-5.1); Sodium 137 mmol/L (137-145); Triglycerides 107 mg/dL (35-150)
[2021-04-07 07:39] LABS: Hemoglobin A1C% w Est Avg Glu 5.2 % (4.0-6.0)
[2021-04-07] MEDS: CITALOPRAM 10 MG TABLET PO (09:53)
[2021-04-07] MEDS: ASPIRIN EC 81 MG TABLET PO (09:53)
[2021-04-07] MEDS: NIFEdipine 30 MG TAB ER PO (09:53)
[2021-04-07] MEDS: levETIRAcetam 250 MG TABLET PO (09:53)
--- NOTE | 2021-04-07 10:17 | PT.IIE ---
Medical History (Last Reviewed 04/06/21 @ 22:05 by Shravan Cochran MD) Arthritis (Unknown) Cataracts, bilateral (Unknown) Cervical somatic dysfunction Cervicothoracic somatic dysfunction Chronic low back pain Chronic thoracic back pain CLL (chronic lymphocytic leukemia) (Unknown) Corns and callus Depression (Unknown) Fatigue Gallbladder disease (Unknown) GERD (gastroesophageal reflux disease) (Unknown) Hypertension (Unknown) Lightheadedness Lumbar region somatic dysfunction Segmental and somatic dysfunction of abdomen and other regions Segmental and somatic dysfunction of head region Segmental and somatic dysfunction of pelvic region Segmental and somatic dysfunction of sacral region Segmental and somatic dysfunction of thoracic region Seizure disorder (Unknown) Somatic dysfunction of abdominal region Somatic dysfunction of lower extremity Somatic dysfunction of sacral spine Spinal stenosis (Unknown) Stiff neck Subarachnoid hemorrhage (2000) Toe pain, bilateral Visual hallucinations Physical Therapy Inpatient Evaluation/Re-Eval M1 PT/OT-IP Prior Functional Status Start: 04/07/21 08:47 Freq: NEEDED Status: Discharge Protocol: Document 04/07/21 10:17 Ching (Rec: 04/07/21 12:41 Ching [id number]) Medical Review Prior Functional Status Medical History Reviewed Yes Communication Pt was able to provide history and communicate fully. Mobility and Gait Pt can walk around the grocery store w/support from the shopping cart, but that is the limit w/amb. Pt has bilat foot numbness primarily in her toes and corns btw toes which cause pain during amb. Activities of Daily Living and IADL's takes laundry down the stairs. Indep in all other ADLs. Social History Household Members spouse Living Arrangements House Number of Floors (Floors) Two Floors Number of Stairs To Enter/Railing? No HEYDI. 13 steps to access bedroom on second floor w/ bilat railing that can be used simutaneously. Home Environment Standard Height Toilet,Walk in Shower,Tub/Shower Home Equipment Front Wheel Walker,Straight Cane,Shower Seat with Backrest ,Hand Held Shower,Grab Bars Near Toilet Employment Status Retired Additional Social History Comment Pt lives w/ Reji. Children are in [place]. Reji was school treasurer in [place] and they moved to [place] upon skilled nursing. They have friends locally who can help w/tasks if needed. There is a futon in the main floor study if needed for sleeping. Pt primarily uses upstairs bathroom which is walk-in, no hand held shower and she brings her FWW into the shower for support. Downstairs bath is tub/shower with hand-held shower. No hired caregivers for household support. M2 PT-IP Current Condition Start: 04/07/21 08:47 Freq: NEEDED Status: Discharge Protocol: Document 04/07/21 10:17 JG (Rec: 04/07/21 12:41 Ching [id number]) Physical Therapy Current Condition Current Condition Evaluation Date 04/07/21 Treatment Diagnosis Possible TIA, resolved expressive aphasia Onset Date 04/07/21 M3 PT-IP Subjective Start: 04/07/21 08:47 Freq: NEEDED Status: Discharge Protocol: Document 04/07/21 10:17 JG (Rec: 04/07/21 12:41 Ching [id number]) Subjective Physical Therapy Visit Type Type Initial Evaluation Visit Start Time 09:45 Visit Stop Time 10:17 Total Visit Minutes 32 Notes SPT Renita was directly supervised by REHAN Navas Number of MORTGAGE PROCESSING CLERK Visits 0 Physical Therapy Visit Comments Patient Comments Pt is thankful TIA symptoms have resolved. Pt is looking forward to returning home. Patient Goals Return home M4 PT-IP Mobility and Gait Start: 04/07/21 08:47 Freq: NEEDED Status: Discharge Protocol: Document 04/07/21 10:17 JG (Rec: 04/07/21 12:41 J [id number]) PT-Bed Mobility Assessment Rolling Type of Rolling Log Rolling,Roll to Right,Roll to Left,Bilateral Level of Assist Standby Assistance Supine to Sit Supine to Sit Standby Assistance,1 Person Assistance,Bedrails Sit to Supine Sit to Supine Standby Assistance,1 Person Assistance Scooting Scooting to Edge of Bed Standby Assistance Scooting Up and Down in Bed Standby Assistance PT-Transfer Assessment Sit to and From Stand Sit to and from Stand Contact Guard Assistance,1 Person Assistance Equipment Transfer Assistive Device Gait Belt,Front Wheeled Walker Orthotic/Prosthetic Devices or Brace: No Transfers Transfer Destination Bed Transfer Technique amb w/gait belt Transfer Ability Level of Assist Independent Comments Mobility Comments Pt completed bed mob w/SBA and sit>stand w/CGA. After amb, pt stand>sit and bed mob SBA. Pt did use bed rail minimially to assist w/supine>sit. Pt appears to be indep w/bed mob and transfers. Gait Assessment Gait Gait Assistance Required: Standby Assistance Distance (Feet) 188 Able to Maintain Weight Bearing Status Yes During Gait Assistive Devices Assistive Device Gait Belt Orthotic/Prosthetic Devices or Brace: No Gait Deviations General Gait Pattern Antalgic,Ataxic,Decreased Feet Clearance Factors Limiting Gait Function Factors Limiting Gait Function Decreased Activity Tolerance, Decreased Sensation,Pain,Poor Balance Comments Gait Comments Pt initially amb around room w/ FWW and then requested to sit EOB for a rest. Pt denied fatigue, dizziness, or nausea. After 30 seconds, pt was ready to amb w/o FWW in hallway for DGI. Pt completed DGI w/o need to rest, but did steady herself w/window sill and railing several times. Pt scored 13/24 on DGI which could be improved w/OP PT for balance and gait training. Stair Climbing Assessment Evaluation Level of Assist On Stairs Contact Guard Assistance,1 Person Assistance Devices Stair Climbing Assistive Devices Right Railing Technique/Endurance Stair Climbing Direction Ascend and Descend Stair Climbing Technique Step Over Step,Step to Step Number of Steps Climbed 12 Query Text: Stair Climbing Set # Repetitions (reps) 1 Comments Stair Climbing Comments Pt descending leading only w/R foot and R railing. Pt ascending w/R railing and step -through gait. Pt amb on stairs w/significant bilat ER and bilat knee flex throughout gait. PT-Balance Assessment Sitting Balance and Reactions Static Sitting Balance Ability Good Standing Balance and Reactions Static Standing Balance Ability Good Dynamic Standing Balance Ability Poor Device Used FWW, gait belt Functional Assessments Functional Tests Dynamic Gait Index DGI: which signals pt has a fall risk* Other Functional Tests Performed * on DGI is predictive of fall risk in community dwelling elderly M5 PT-IP Objective Assessments Start: 04/07/21 08:47 Freq: NEEDED Status: Discharge Protocol: Document 04/07/21 10:17 JG (Rec: 04/07/21 12:41 J [id number]) Orientation Orientation/Cognition Level of Alertness Alert Orientation Name,Place,Situation Language Function Ability No Deficits Noted Safety Awareness Understands Safety Issues Memory Description No Deficits Noted Coordination Assessment Gross Coordination Gross Coordination WNL Sensation Assessment Sensation Gross Sensation Right LE Impaired,Left LE Impaired Sensation Description Numbness Comments Sensation Comments Pt reports having long- standing numbness in her feet specifically her toes. Pt also has corns btw several toes which cause pain during amb. M7 PT-IP Assessment and Plan Start: 04/07/21 08:47 Freq: NEEDED Status: Discharge Protocol: Document 04/07/21 10:17 J (Rec: 04/07/21 12:41 J [id number]) PT Summary Assessment and Plan Potential Rehabilitation Potential Good Status of Condition at Evaluation Stable Summary Impairments Pain,Balance,Gait,Activity Tolerance Progress Towards Goals Safe For Discharge Assessment Summary Pt is 85 year old female who dwells in the community w/her spouse in a two-story home w/ 13 steps to access bedroom and no steps to enter home. Pt is limited in amb due to decreased foot sensation and foot pain. Pt typically does no uses AD to amb or transfer, but does walk at a slower pace with moderate fall risk assessed by Dynamic Gait Index (). While pt is at baseline and safe to discharge home, pt would benefit from OP PT for balance and gait training to increase her DGI score and decrease her risk of falling. Frequency of Treatment Frequency Of Treatment Discharge Weight Bearing Status Weight Bearing Status Full Weight Bearing Recommendations To Nursing Amount of Assist Needed Standby Assistance Discharge Recommendations PT Discharge Recommendations Home,Outpatient PT Transportation Needs at Discharge Private Vehicle Treatment was provided by Renita Antoine, ERNIE and supervised by Eloise Niño, PT. I personally reviewed this note and agree with its contents.
--- NOTE | 2021-04-07 11:09 | CM.DANOTE ---
Patient is an 85 yo female who was admitted on 04/06/21 for Fuzzy thoughts/confusion. Pt has [facility] for insurance and her PCP is Dr. Gavin Gee. EMR was reviewed. Per MD, pt admitted for TIA vs CVA r/o and pt Full Code and to have MRI and Echo and PT to assess. MRI and Echo results normal and PT eval cleared pt for safe home with spouse. Per admitting RN, when assessment questions asked pt admitted to having thoughts of but no suicidal plan or ideation. SW met bedside with pt, who states her hearing aids currently not working and [place], and spouse and explained role and pt confirms she can hear SW. Pt confirms that she is feeling back to normal and spouse in agreement and they are independent at baseline without any current services in place. Both still drive and pt was last admitted to [facility] in Jan 2020 last year for SBO and was able to progress and d/c home with spouse assist. Pt states they have 2 adult sons and 2 adult daughters and all four live in [facility] and pt and spouse are the only family in [place]. SW began to inquire with pt about suicidal ideation and pt denies any and states that with her chronic medical conditions and age she has thought about and life but not depressed or wishing to . MD then arrived bedside. Pt and spouse do not anticipate any needs at d/c and are pleased that pt may be medically stable to d/c home today and spouse will transport and MD added some increased dose for bp issues and some over the counter vitamins/etc to assist. Plan: SW to follow for confirming safe d/c plan to home today via spouse POV and any further identified discharge planning needs. CARLOS Madsen Discharge Planning/Care Management Advanced directive, confirm from FAMILY Start: 04/06/21 22:04 Freq: Q24H Status: Active Protocol: Document 04/06/21 22:04 KJ (Rec: 04/06/21 22:57 KJ [id number]) Advance Directive, confirm on record Time 22:57 Person contacted [place] Copy received No CM Discharge Assessment Start: 04/07/21 11:08 Freq: Status: Active Protocol: Document 04/07/21 11:08 BF (Rec: 04/07/21 11:09 BF [id number]) Discharge Planning Assessment Assigned Design Cell Engineer CARLOS Randle DPOA/Assigned Designee Name spouse and then 4 adult children Contact Information [phone] Advance Directives? Yes Advance Directives on File No History Provided By Patient,Significant Other, Medical Record Has Patient been admitted in last 30 No days? Prior Living Arrangements House Household Members spouse Type of transporation used prior to Drives own vehicle admit Independent with ADL's Yes Is patient alert and oriented? Yes Needs Assistance With Home Chores / Shopping Caregiver for Another No Barriers to Discharge No Discharge Plan Home Transportation Arrangement Spouse Referrals Initiated None needed Whiteboard Updated in Patient Room with Yes name and ext. # of Design Cell Engineer Review Status In Process Please Provide Date Initial DC 04/07/21 Assessment Was Performed Next Review Type Continued Stay Review
--- NOTE | 2021-04-07 11:14 | P.DS_ITS ---
History of Present Illness History of Present Illness Date Patient Seen: 04/07/21 Chief complaint: NOT ABLE TO THINK STRAIGHT/CLEAR HEADED Narrative: History of Present Illness History of Present Illness Date Patient Seen:?04/06/21 Time Patient Seen:?22:30 Narrative: Ms. Fernandez is an 85W with PMH HTN, brain aneurysm s/p bleed s/p clip who presents with difficulty with speech. Patient did not notice any abnormality but her noticed speech and memory abnormality.? Her main symptoms was she was unable to get speak the words she was trying to speak correctly. She denies numbness, weakness, vision changes. She denies any chest pain, shortness of breath, no nausea or vomiting, no fevers, no chills.?She had a brain bleed in 2000 from a brain aneurysm and is s/p clip. In the ED her symptoms improved, she was primarily only noticed mild right upper extremity numbness. In the ED workup was done, vitals notable for blood pressure 187/82. Labs notable for WBC 6.4, hgb 13.7, creatinine 0.95. CT head showed no acute process. CTA head/neck showed no acute process. She was given aspirin and admitted for further treatment. When I spoke to her and her they both state she was completely back to normal. Family history: no significant history per patient Discharge Providers Provider Date of admission: 04/06/21 21:11 Discharge Date: 04/07/21 Primary care physician: Gavin Gee DO Consults: 04/06/21 21:53 Consult to Occupational Therapy Evaluate & Treat Comment: Physician Instructions: Evaluate and treat Consult to Physical Therapy Evaluate & Treat Comment: Physician Instructions: Evaluate and Treat Consult to Speech Therapy Evaluate & Treat Comment: Physician Instructions: Evaluate and treat 04/06/21 22:03 Consult to Dietitian, Adult Routine Comment: Reason For Exam: weight changes, appetite changes 04/06/21 22:29 [place] [facility] [place] [facility] Routine Comment: Thoughts of harming self; no specific plan Discharge provider: Zohaib Aguila DO Summary Hospital Course Discharge Diagnosis: POSSIBLE TIA. STROKE RULED OUT. NO RESIDUAL DEFICIT HYPERLIPIDEMIA. DISCHARGE ON STATIN THERAPY ACCELERATED HYPERTENSION. DISCHARGED ON CARVEDILOL AND NIFEDIPINE AGE ASSOCIATED PHYSICAL DECONDITIONING/DEBILITY. DISCHARGE WITH HOME HEALTH POSSIBLE SEIZURE DISORDER PER HISTORY. CONTINUE HOME MEDS ACID REFLUX DISEASE. DISCHARGE ON PEPCID Hospital Course: THIS IS A VERY PLEASANT BUT HARD OF HEARING 85 YEAR OLD FEMALE WHO WAS ADMITTED TO THE HOSPITAL WITH DIFFICULTY WITH SPEECH. STROKE WAS SUSPECTED HOWEVER RULED OUT TO IMAGING. HER SYMPTOMS COULD HAVE BEEN ASSOCIATED WITH HER SIGNIFICANTLY ELEVATED BLOOD PRESSURE NOTED ON ADMISSION. IN ANY CASE SHE BE DISCHARGED ON ASPIRIN, STATIN THERAPY WILL MAKE CHANGES TO HER BLOOD PRESSURE MEDICATION BY DISCONTINUING FELODIPINE PATIENT WILL BE STARTED ON NIFEDIPINE AND CARVEDILOL. OTHERWISE PATIENT APPEARED TO BE BACK TO HER BASELINE. CLINICALLY SHE APPEARED TO BE STABLE FOR DISCHARGE SHE WILL BE DISCHARGED TO HOME WITH HOME HEALTH ADDITIONAL MANAGEMENT WILL BE DEFERRED TO OUTPATIENT PROVIDERS Status at Discharge Cognitive/behavioral status at discharge: oriented Functional status at discharge: independent ambulation Overall status at discharge: patient is back to baseline Time Spent with Patient Time spent: Greater than 30 minutes Exam Vital Signs (past 8 hours): - 04/07/21 04:00 04/07/21 04:05 04/07/21 08:00 Temperature 97.4 F L 98.8 F Pulse Rate 63 70 Respiratory Rate 14 23 Blood Pressure 165/67 H 144/67 H Pulse Oximetry 95 95 04/07/21 08:18 Temperature Pulse Rate Respiratory Rate Blood Pressure Pulse Oximetry 95 Oxygen Delivery Method Room Air Oxygen Flow Rate 0 Narrative Exam Narrative: NO ACUTE DISTRESS. PATIENT IS ALERT ORIENTED X3. HARD OF HEARING VITAL SIGNS STABLE HEAD ATRAUMATIC NORMOCEPHALIC NECK : SUPPLE WITHOUT ADENOPATHY NO CAROTID BRUITS EYE: EOMI, PERRLA, NORMAL CONJUNCTIVA; NO JAUNDICE CHEST: REGULAR RATE. NO RUBS. PMI IS NON DISPLACED. NO MURMURS; NORMAL S1- S2 PULMONARY: DECREASED BS OVER THE BASES. MILD BIBASILAR CRACKLES NOTED; NO WHEEZING. NO RALES. NO CRACKLES ABDOMEN: OBESE BUTSOFT. NONTENDER. NONDISTENDED. BOWEL SOUNDS ARE PRESENT IN ALL 4 QUADRANTS. NO MASS. EXTREMITIES: NO EDEMA.. NO CYANOSIS CLUBBING NOTED. NEURO: CRANIAL NERVES 2-12 GROSSLY INTACT. NO FOCAL NEUROLOGICAL DEFICIT NOTED. MSK: NORMAL RANGE OF MOTION FOR AGE. NO JOINT EFFUSION. SKIN: NORMAL FOR ETHNICITY; NO ECCHYMOSIS. NO LESION. GOOD TURGOR.; NO RASHES : NORMAL EXTERNAL GENITALIA. PSYCH : APPROPRIATE MOOD AND AFFECT. ALERT AWAKE ORIENTED X3 Objective Labs Result Diagrams: 04/07/21 04:25 04/07/21 04:25 Labs: Laboratory Results - last 24 hr 04/06/21 04/06/21 04/06/21 19:50 19:50 19:50 WBC 6.4 RBC 4.47 Hgb 13.7 Hct 39.8 MCV 89.0 MCH 30.6 MCHC 34.4 RDW 14.0 Plt Count 222 Neut % (Auto) 58.4 Lymph % (Auto) 25.9 [place] % (Auto) 12.0 Eos % (Auto) 2.8 Baso % (Auto) 0.9 Neut # (Auto) 3700 Lymph # (Auto) 1700 [place] # (Auto) 800 Eos # (Auto) 200 Baso # (Auto) 100 PT 11.1 INR 1.0 APTT 32 Sodium Potassium Chloride Carbon Dioxide BUN Creatinine Estimated GFR BUN/Creatinine Ratio Glucose Hemoglobin A1c Calcium Total Creatine Kinase 44 CK-MB (CK-2) TNP CK-MB (CK-2) Rel Index TNP Troponin I < 0.012 Triglycerides Cholesterol LDL Cholesterol, Calc HDL Cholesterol Nasal Screen MRSA (PCR) U Opiates 300ng/mL cut Ur Oxycodone Screen Urine Methadone Screen Ur Barbiturates Screen U Tricyclic Antidepress Ur Phencyclidine Scrn Ur Amphetamines Screen U Methamphetamines Scrn Ur MDMA Scrn (Ecstasy) U Benzodiazepines Scrn Urine Cocaine Screen U Marijuana (THC) Screen Ethyl Alcohol < 10 SARS-CoV-2 (PCR) 04/06/21 04/06/21 04/06/21 19:50 21:10 22:00 WBC RBC Hgb Hct MCV MCH MCHC RDW Plt Count Neut % (Auto) Lymph % (Auto) [place] % (Auto) Eos % (Auto) Baso % (Auto) Neut # (Auto) Lymph # (Auto) [place] # (Auto) Eos # (Auto) Baso # (Auto) PT INR APTT Sodium 137 Potassium 4.1 Chloride 104 Carbon Dioxide 29 BUN 21 H Creatinine 0.95 Estimated GFR 55.9 L BUN/Creatinine Ratio 22.1 H Glucose 110 Hemoglobin A1c Calcium 10.0 Total Creatine Kinase CK-MB (CK-2) CK-MB (CK-2) Rel Index Troponin I Triglycerides Cholesterol LDL Cholesterol, Calc HDL Cholesterol Nasal Screen MRSA (PCR) Negative for mrsa U Opiates 300ng/mL cut Ur Oxycodone Screen Urine Methadone Screen Ur Barbiturates Screen U Tricyclic Antidepress Ur Phencyclidine Scrn Ur Amphetamines Screen U Methamphetamines Scrn Ur MDMA Scrn (Ecstasy) U Benzodiazepines Scrn Urine Cocaine Screen U Marijuana (THC) Screen Ethyl Alcohol SARS-CoV-2 (PCR) Negative 04/06/21 04/07/21 04/07/21 22:45 04:25 04:25 WBC 5.1 RBC 4.24 Hgb 12.8 Hct 37.3 MCV 88.2 MCH 30.2 MCHC 34.2 RDW 13.9 Plt Count 189 Neut % (Auto) 55.8 Lymph % (Auto) 26.1 [place] % (Auto) 13.6 Eos % (Auto) 3.8 Baso % (Auto) 0.7 Neut # (Auto) 2800 Lymph # (Auto) 1300 [place] # (Auto) 700 Eos # (Auto) 200 Baso # (Auto) 0 PT INR APTT Sodium 137 Potassium 3.7 Chloride 106 Carbon Dioxide 29 BUN 15 Creatinine 0.84 Estimated GFR > 60.0 BUN/Creatinine Ratio 17.9 Glucose 105 Hemoglobin A1c Calcium 9.9 Total Creatine Kinase CK-MB (CK-2) CK-MB (CK-2) Rel Index Troponin I Triglycerides 107 Cholesterol 209 H LDL Cholesterol, Calc 135 H HDL Cholesterol 53 Nasal Screen MRSA (PCR) U Opiates 300ng/mL cut Negative Ur Oxycodone Screen Negative Urine Methadone Screen Negative Ur Barbiturates Screen Negative U Tricyclic Antidepress Negative Ur Phencyclidine Scrn Negative Ur Amphetamines Screen Negative U Methamphetamines Scrn Negative Ur MDMA Scrn (Ecstasy) Negative U Benzodiazepines Scrn Negative Urine Cocaine Screen Negative U Marijuana (THC) Screen Negative Ethyl Alcohol SARS-CoV-2 (PCR) 04/07/21 04:25 WBC RBC Hgb Hct MCV MCH MCHC RDW Plt Count Neut % (Auto) Lymph % (Auto) [place] % (Auto) Eos % (Auto) Baso % (Auto) Neut # (Auto) Lymph # (Auto) [place] # (Auto) Eos # (Auto) Baso # (Auto) PT INR APTT Sodium Potassium Chloride Carbon Dioxide BUN Creatinine Estimated GFR BUN/Creatinine Ratio Glucose Hemoglobin A1c 5.2 Calcium Total Creatine Kinase CK-MB (CK-2) CK-MB (CK-2) Rel Index Troponin I Triglycerides Cholesterol LDL Cholesterol, Calc HDL Cholesterol Nasal Screen MRSA (PCR) U Opiates 300ng/mL cut Ur Oxycodone Screen Urine Methadone Screen Ur Barbiturates Screen U Tricyclic Antidepress Ur Phencyclidine Scrn Ur Amphetamines Screen U Methamphetamines Scrn Ur MDMA Scrn (Ecstasy) U Benzodiazepines Scrn Urine Cocaine Screen U Marijuana (THC) Screen Ethyl Alcohol SARS-CoV-2 (PCR) [facility] Medical History Arthritis (Unknown) Cataracts, bilateral (Unknown) Cervical somatic dysfunction Cervicothoracic somatic dysfunction Chronic low back pain Chronic thoracic back pain CLL (chronic lymphocytic leukemia) (Unknown) Corns and callus Depression (Unknown) Fatigue Gallbladder disease (Unknown) GERD (gastroesophageal reflux disease) (Unknown) Hypertension (Unknown) Lightheadedness Lumbar region somatic dysfunction Segmental and somatic dysfunction of abdomen and other regions Segmental and somatic dysfunction of head region Segmental and somatic dysfunction of pelvic region Segmental and somatic dysfunction of sacral region Segmental and somatic dysfunction of thoracic region Seizure disorder (Unknown) Somatic dysfunction of abdominal region Somatic dysfunction of lower extremity Somatic dysfunction of sacral spine Spinal stenosis (Unknown) Stiff neck Subarachnoid hemorrhage (2000) Toe pain, bilateral Visual hallucinations Surgical History History of bilateral cataract extraction (Unknown) History of ventriculoperitoneal shunting (12/2000) Hx of appendectomy (Unknown) Hx of cholecystectomy (Unknown) Hx of detached retina repair (Unknown) Social History household members: spouse Smoking Status: Former smoker alcohol intake: current Discharge Plan Discharge Plan Patient Disposition: Home Health Service Discharge orders & Medications Prescriptions: New aspirin 81 mg Tablet,Delayed Release (Dr/Ec) 81 mg PO DAILY Qty: 60 0RF nifedipine 30 mg Tablet Extended Release 24hr 30 mg PO DAILY Qty: 30 2RF atorvastatin [Lipitor] 20 mg Tablet 40 mg PO BEDTIME Qty: 60 0RF carvedilol [Coreg] 3.125 mg tablet 3.125 mg PO BID Qty: 60 0RF Rx Instructions: must administer with a meal/food famotidine [Pepcid] 20 mg tablet 20 mg PO BID Qty: 60 0RF omega 1-uup-vke-fish oil [Fish Oil] 1,000 mg (120 mg-180 mg) capsule 1 cap PO BID Qty: 60 0RF multivit [id number] 1-dha 18 mg iron- 1 mg-300 mg capsule 1 cap PO DAILY Qty: 60 0RF ascorbic acid (vitamin C) 500 mg capsule 500 mg PO DAILY Qty: 60 0RF Continued acetaminophen [Tylenol Extra Strength] 500 MG tablet 1,000 mg PO PRN Qty: 0 0RF levetiracetam [Keppra] 500 mg tablet See Rx Instructions PO .COMPLEX Qty: 90 0RF Rx Instructions: Take 1/2 tablet in the morning, and 1 tablet in the evening. PO tolterodine 4 mg capsule,extended release 24hr See Rx Instructions .ROUTE .COMPLEX Qty: 90 3RF Dose Instruction: TAKE 1 CAPSULE BY MOUTH DAILY Rx Instructions: TAKE 1 CAPSULE BY MOUTH every evening citalopram 10 mg tablet See Rx Instructions .ROUTE .COMPLEX Qty: 90 1RF Dose Instruction: TAKE 1 TABLET BY MOUTH DAILY Rx Instructions: TAKE 1 TABLET BY MOUTH DAILY cholecalciferol (vitamin D3) [Vitamin D3] 2,000 unit Capsule 2,000 unit PO DAILY 0RF Discontinued omeprazole 20 mg capsule,delayed release(DR/EC) 20 mg PO DAILY 0RF felodipine 5 mg tablet extended release 24 hr See Rx Instructions .ROUTE .COMPLEX Qty: 90 0RF Dose Instruction: TAKE 1 TABLET BY MOUTH EVERY DAY Rx Instructions: TAKE 1 TABLET BY MOUTH every evening No Action (DME) Disabled Parking Permit Qty: 1 0RF Rx Instructions: As directed Follow up/Referrals: Gavin Gee DO [Primary Care Provider] - Diet/Activity/Treatments Diet: Regular Diet comment: GI SOFT Activity: RODRIGO Skin/Wound/Dressing Care Report to your healthcare provider any signs of infection, such as:: chills, fever, night sweats and increased pain Discharge Data Primary Care Provider: Gavin Gee
[2021-04-09 09:39] LABS: RPR Screen Non Reactive (Non Reactive)
== END 2021-04-07 11:59 | disposition home health service (06) ==
LOC: ED 21:09 → ICU 04-07 08:34 → AC 04-07 11:42 → ICU 04-07 11:42
PROVIDERS: Hospitalist; Admitting Provider Internal Medicine; Emergency Provider Emergency Medicine; Family Provider Family Medicine; PCP Family Medicine; Referring Provider Emergency Medicine; Visit Provider Internal Medicine
DX: R29.818 Other symptoms and signs involving the nervous system (principal); R47.1 Dysarthria and anarthria; I10 Essential (primary) hypertension; R29.701 NIHSS score 1; F32.9 Major depressive disorder, single episode, unspecified; K21.9 Gastro-esophageal reflux disease without esophagitis; E78.5 Hyperlipidemia, unspecified; Z20.822 Contact with and (suspected) exposure to COVID-19
CPT/HCPCS: 36415; 70450; 70496; 70498; 70551; 80048; 80061; 80305; 80320; 82550; 82962; 83036; 83090; 84484; 85025; 85610; 85730; 86592; 87635; 87797; 93005; 93010; 93306; 96361; 96374; 97162; 99285; C9803; G0378; J1650; Q9967

== ENCOUNTER → 2021-06-24 13:14 | Outpatient (CLI) | payer OTHER, SELFPAY ==
[2021-04-06 21:30] VITALS: BMI 31.7
[2021-06-24 14:49] LABS: Add Manual Diff / Slide Review NO; Basophils Absolute Auto 100 /uL (0-100); Basophils Percent Auto 1.1 % (0-2); Eosinophils Absolute Auto 200 /uL (0-450); Eosinophils Percent Auto 3.8 % (2-4); Hematocrit 38.9 % (36-46); Hemoglobin 12.9 g/dL (12.0-16.0); Lymphocytes Absolute Auto 1600 /uL (1100-4500); Mean Corpuscular HGB Conc 33.2 % (30-36); Mean Corpuscular Hemoglobin 30.5 PG (26-34); Mean Corpuscular Volume 91.8 fL (80-100); Monocytes Absolute Auto 1000 /uL (0-900); Monocytes Percent Auto 15.5 % (3-14); Neutrophils Absolute Auto 3400 /uL (1500-7000); Neutrophils Percent Auto 54.6 % (50-75); Platelet Count 209 X10^3/uL (150-400); Red Blood Cell Count 4.23 X10^6/uL (4.0-5.2); Red Cell Distribution Width 14.8 % (11.6-14.8); White Blood Cell Count 6.2 X10^3/uL (4.5-11.0)
[2021-06-24 15:29] LABS: Alanine Aminotransferase 20 IU/L (<35); Albumin Globulin Ratio 1.7 (1.0-2.8); Alkaline Phosphatase 71 U/L (38-126); Aspartate Aminotransferase 31 IU/L (14-36); BUN Creatinine Ratio 17.5 (6-22); Bilirubin Total 0.5 mg/dL (0.2-1.3); Blood Urea Nitrogen 17 mg/dL (7-17); Calcium 9.7 mg/dL (8.4-10.2); Carbon Dioxide 34 mmol/L (22-32); Chloride 101 mmol/L (98-107); Estimated Glomerular Filt Rate 54.6 mL/min (>60); Globulin 2.4 g/dL (1.7-4.1); Glucose 86 mg/dL (80-110); HEMOLYSIS < 15 (0-50); Potassium 4.6 mmol/L (3.4-5.1); Sodium 138 mmol/L (137-145); Total Protein 6.4 g/dL (6.3-8.2)
[2021-06-24 15:43] LABS: Free T3, Triiodothyronine Free 3.03 pg/mL (2.77-5.27); Free T4, Direct Thyroxine 1.39 ng/dL (0.78-2.19)
[2021-06-24 15:57] LABS: Thyroid Stimulating Hormone 3.06 uIU/mL (0.47-4.68)
[2021-06-24 16:16] LABS: Vitamin B12 917 pg/mL (239-931)
== END ==
PROVIDERS: Family Provider Family Medicine; PCP Family Medicine; Referring Provider Family Medicine; Visit Provider Family Medicine
DX: R44.1 Visual hallucinations (principal); R53.81 Other malaise; R53.83 Other fatigue; F34.1 Dysthymic disorder
CPT/HCPCS: 36415; 80053; 82607; 84439; 84443; 84481; 85025

== ENCOUNTER 2022-02-21 15:20 | Emergency (ER) | payer OTHER, SELFPAY ==
[2021-04-06 21:30] VITALS: BMI 31.7
[2022-02-21] VITALS (8 sets, daily range): BP systolic 148–195; BP diastolic 71–78; PULSE 65–73; RESP 20; TEMP 36.8; O2SAT 93–97; BMI 30.7
--- NOTE | 2022-02-21 15:48 | DI.CT.S_ITS ---
PROCEDURE: CT ABDOMEN PELVIS W CON INDICATIONS: r/o bowel obstruction, RLQ tenderness TECHNIQUE: After the administration of intravenous contrast, axial sections acquired from the lung bases to the pubic symphysis. Coronal and sagittal reformats were performed. For radiation dose reduction, the following was used: automated exposure control, adjustment of mA and/or kV according to patient size. COMPARISON: [facility], CT, ABDOMEN/PELVIS WITH CONTRAST, 06/03/2017, 8:27. FINDINGS: Image quality: Excellent Lower chest: Moderate hiatal hernia, increased from previous CT. Solid organs: Cyst in the right inferior portion of the liver appears slightly larger now with some septations. This measures about 5.2 cm, previously about 4 cm. Subcentimeter lesions are too small to characterize. Cholecystectomy. Prominent biliary tree post cholecystectomy as before. Atrophic appearance of the pancreas as before. No pancreatic ductal dilation. No splenomegaly. Stable right adrenal nodule measuring 17 mm, most commonly an adenoma. No hydronephrosis. Vessels and lymph nodes: No abdominal aortic aneurysm. No pathologic adenopathy by size criteria. Bowel and peritoneum: Bowel is nonobstructed. There are colonic diverticula. No convincing inflammation is identified. No pathologic ascites or free air. Is Body wall: Anterior abdominal wall postsurgical changes with a tiny fluid containing hernia as before. Pelvis: Bladder is under distended and unremarkable. Uterine calcification again seen. Bones: Scattered degenerative changes without acute or suspicious osseous abnormality. IMPRESSION: No bowel obstruction. No other acute pathology identified. Interval increase in size and mild complexity of the right inferior liver cyst. Given long time course, this is probably still benign. Interval hemorrhage or infection could cause this appearance. If symptoms are attributable to the right upper quadrant, consider further evaluation with MRI. Moderate hiatal hernia. Other findings as above. Dictated by: Dontae Oneil M.D. on 02/21/2022 at 16:50 Approved by: Dontae Oneil M.D. on 02/21/2022 at 16:59
--- NOTE | 2022-02-21 16:02 | ED.ABDPAIN ---
HPI - Abdominal Pain <SWATHI Torrez - Last Filed: 02/21/22 18:00> General Chief Complaint: Abdominal Pain Stated Complaint: Pain in Rt Abd Time Seen by Provider: 02/21/22 15:47 Source: patient Mode of arrival: Ambulatory History of Present Illness HPI narrative: This is an 86-year-old female with history of CLL, appendectomy, cholecystectomy with history of intracranial aneurysm with rupture and hemorrhage, a TIA, abdominal volvulus with exploratory laparotomy with suspected bowel obstruction in the past and who sees Dr. Gee for primary care who presents to the emergency department today for right flank pain, urinary frequency and urgency, right-sided lower pelvic/abdominal pain with symptoms starting last night. Patient states that she had a bowel movement today and it was normal. She sees Dr. Haywood for Oncology, has a history of seizure 1 time after her intracranial aneurysm rupture and takes Keppra, tolterodine, carvedilol, famotidine, nifedipine, baby aspirin and atorvastatin daily. Patient denies any nausea, fever, chills. Denies any mental status changes, denies any abnormal vaginal discharge, states that her urine is dark in color. She denies cough, runny nose or sore throat. Related Data Home Medications Medication Instructions Recorded Confirmed cholecalciferol (vitamin D3) 50 2,000 unit PO DAILY 10/01/17 10/22/21 mcg (2,000 unit) capsule (Vitamin D3) [id number]-SP-lycopen-lutein PO 10/22/21 10/22/21 [[employer] Senior] Previous Rx's Medication Instructions Recorded Disabled Parking Permit #1 ea 01/24/20 ascorbic acid (vitamin C) 500 mg 500 mg PO DAILY #60 caps 04/07/21 capsule multivit no.40-iron 18 mg-folate 1 cap PO DAILY #60 caps 04/07/21 comb no.1 1 mg-dha 300 mg capsule omega 3-ecn-kxs-fish oil 1,000 mg 1 cap PO BID #60 caps 04/07/21 (120 mg-180 mg) capsule (Fish Oil) aspirin 81 mg tablet,delayed 81 mg PO DAILY #90 tabs 06/10/21 release atorvastatin 20 mg tablet (Lipitor) 40 mg PO BEDTIME #180 tabs 06/10/21 carvedilol 3.125 mg tablet See Rx Instructions .Route 06/10/21 .COMPLEX #180 tabs citalopram 10 mg tablet See Rx Instructions .Route 06/10/21 .COMPLEX #90 tabs levetiracetam 500 mg tablet See Rx Instructions .Route 06/10/21 .COMPLEX #135 tabs nifedipine 30 mg tablet,extended See Rx Instructions .Route 06/10/21 release .COMPLEX #180 tabs tolterodine 4 mg capsule,extended See Rx Instructions .Route 06/10/21 release 24 hr .COMPLEX #90 caps famotidine 20 mg tablet See Rx Instructions .Route 02/18/22 .COMPLEX #180 tabs Allergies Allergy/AdvReac Type Severity Reaction Status Date / Time albuterol [ALBUTEROL] AdvReac Severe SHAKEY Verified 10/22/21 11:41 LEGS, JERKY allopurinol [ALLOPURINOL] AdvReac Severe NAUSEA AND Verified 10/22/21 11:41 GI UPSET Sulfa (Sulfonamide AdvReac Severe HEADACHES Verified 10/22/21 11:41 Antibiotics) [SULFA (SULFONAMIDE ANTIBIOTICS)] JESSICA Inhibitors AdvReac Mild COUGH Verified 10/22/21 11:41 [JESSICA INHIBITORS] Review of Systems <SWATHI Torrez - Last Filed: 02/21/22 18:00> Review of Systems Narrative: Review of systems is negative for acute abnormalities unless otherwise noted in HPI Patient History <SWATHI Torrez - Last Filed: 02/21/22 18:00> Medical History Arthritis (Unknown) Cataracts, bilateral (Unknown) Cervical somatic dysfunction Cervicothoracic somatic dysfunction Chronic low back pain Chronic thoracic back pain CLL (chronic lymphocytic leukemia) (Unknown) Corns and callus Depression (Unknown) Excessive daytime sleepiness Fatigue Gallbladder disease (Unknown) GERD (gastroesophageal reflux disease) (Unknown) Hypertension (Unknown) Lightheadedness Lumbar region somatic dysfunction Physical deconditioning Pure hypercholesterolemia Segmental and somatic dysfunction of abdomen and other regions Segmental and somatic dysfunction of head region Segmental and somatic dysfunction of pelvic region Segmental and somatic dysfunction of sacral region Segmental and somatic dysfunction of thoracic region Seizure disorder (Unknown) Somatic dysfunction of abdominal region Somatic dysfunction of lower extremity Somatic dysfunction of sacral spine Spinal stenosis (Unknown) Stiff neck Subarachnoid hemorrhage (2000) Toe pain, bilateral Visual hallucinations Surgical History History of bilateral cataract extraction (Unknown) History of ventriculoperitoneal shunting (12/2000) Hx of appendectomy (Unknown) Hx of cholecystectomy (Unknown) Hx of detached retina repair (Unknown) Social History household members: spouse Smoking Status: Former smoker alcohol intake: current Smoking Status: Former smoker alcohol intake frequency: holidays/special occasions only Substance Use Type: does not use Exam <SWATHI Torrez - Last Filed: 02/21/22 18:00> Narrative Exam Narrative: Reviewed vitals signs and nursing notes. General: cooperative, comfortable, in no acute distress, well groomed HEENT: symmetrical facial expressions, moist mucous membranes Cardiovascular: regular rate and rhythm, no peripheral edema, warm extremities, hypertensive, systolic of 195, patient took her medications today, without peripheral edema, shortness of breath, tachycardia Respiratory: normal effort, able to speak in complete sentences, without wheezing, stridor, or abnormal breath sounds. No retractions or tachypnea. GI: abdomen soft, right CVA tenderness, mild tenderness to the right inguinal, pelvic and right lower quadrant region, nondistended, without masses, rebound tenderness or exquisite tenderness with exam. MSK: moves all extremities, neurovascularly intact, no weakness, normal tone Skin: brisk capillary refill, without pallor or erythema Neuro: normal speech and cognition, A&O x3, ambulatory, clear speech Psych: mental status is grossly normal, congruent mood, normal affect, pleasant and cooperative Initial Vital Signs Initial Vital Signs: Vital Signs Temperature 98.3 F 02/21/22 15:39 Pulse Rate 73 02/21/22 15:39 Respiratory Rate 20 02/21/22 15:39 Blood Pressure 148/76 H 02/21/22 15:39 Pulse Oximetry 96 02/21/22 15:39 Oxygen Delivery Method 02/21/22 15:39 <Kallie Cardozo DO - Last Filed: 02/22/22 09:56> Initial Vital Signs Initial Vital Signs: Vital Signs Temperature 98.3 F 02/21/22 15:39 Pulse Rate 73 02/21/22 15:39 Respiratory Rate 20 02/21/22 15:39 Blood Pressure 148/76 H 02/21/22 15:39 Pulse Oximetry 96 02/21/22 15:39 Oxygen Delivery Method 02/21/22 15:39 Course <SWATHI Torrez - Last Filed: 02/21/22 18:00> Orders Ordered: Discontinued Medications Acetaminophen (Acetaminophen 325 Mg Tablet) 650 mg PO NOW ONE Stop: 02/21/22 16:00 Last Admin: 02/21/22 16:55 Dose: 650 mg Documented By: NR Sodium Chloride (Normal Saline 0.9%) 1,000 mls @ 1,000 mls/hr IV BOLUS ONE Stop: 02/21/22 16:46 Last Infusion: 02/21/22 17:55 Dose: 0 mls/hr Documented By: Admin: 02/21/22 16:55 Dose: 1,000 mls/hr Documented By: NR Ketorolac Tromethamine (Ketorolac 30 Mg/Ml Vial) 15 mg IV NOW ONE Stop: 02/21/22 16:00 Last Admin: 02/21/22 16:54 Dose: 15 mg Documented By: JERICA Ondansetron HCl (Ondansetron 4 Mg/2 Ml Inj) 4 mg IV NOW ONE Stop: 02/21/22 15:48 Last Admin: 02/21/22 16:55 Dose: 4 mg Documented By: JERICA Vital Signs Vital signs: Vital Signs - 8 hr 02/21/22 15:39 02/21/22 15:52 02/21/22 15:53 Temperature 98.3 F Pulse Rate 73 Respiratory Rate 20 Blood Pressure 148/76 H 195/78 H Pulse Oximetry 96 95 Oxygen Delivery Method Room Air 02/21/22 15:53 02/21/22 16:50 02/21/22 16:52 Temperature Pulse Rate 71 68 Respiratory Rate Blood Pressure 180/75 H Pulse Oximetry 96 93 Oxygen Delivery Method 02/21/22 16:52 02/21/22 17:00 02/21/22 17:00 Temperature Pulse Rate 70 72 Respiratory Rate Blood Pressure 164/71 H Pulse Oximetry 96 95 Oxygen Delivery Method 02/21/22 17:30 02/21/22 17:31 02/21/22 17:31 Temperature Pulse Rate 65 65 Respiratory Rate Blood Pressure 178/76 H Pulse Oximetry 97 97 Oxygen Delivery Method <Kallie Cardozo DO - Last Filed: 02/22/22 09:56> Orders Ordered: Discontinued Medications Acetaminophen (Acetaminophen 325 Mg Tablet) 650 mg PO NOW ONE Stop: 02/21/22 16:00 Last Admin: 02/21/22 16:55 Dose: 650 mg Documented By: NR Sodium Chloride (Normal Saline 0.9%) 1,000 mls @ 1,000 mls/hr IV BOLUS ONE Stop: 02/21/22 16:46 Last Infusion: 02/21/22 17:55 Dose: 0 mls/hr Documented By: Admin: 02/21/22 16:55 Dose: 1,000 mls/hr Documented By: NR Ketorolac Tromethamine (Ketorolac 30 Mg/Ml Vial) 15 mg IV NOW ONE Stop: 02/21/22 16:00 Last Admin: 02/21/22 16:54 Dose: 15 mg Documented By: NR Ondansetron HCl (Ondansetron 4 Mg/2 Ml Inj) 4 mg IV NOW ONE Stop: 02/21/22 15:48 Last Admin: 02/21/22 16:55 Dose: 4 mg Documented By: NR Vital Signs Vital signs: Vital Signs - 8 hr 02/21/22 15:39 02/21/22 15:52 02/21/22 15:53 Temperature 98.3 F Pulse Rate 73 Respiratory Rate 20 Blood Pressure 148/76 H 195/78 H Pulse Oximetry 96 95 Oxygen Delivery Method Room Air 02/21/22 15:53 02/21/22 16:50 02/21/22 16:52 Temperature Pulse Rate 71 68 Respiratory Rate Blood Pressure 180/75 H Pulse Oximetry 96 93 Oxygen Delivery Method 02/21/22 16:52 02/21/22 17:00 02/21/22 17:00 Temperature Pulse Rate 70 72 Respiratory Rate Blood Pressure 164/71 H Pulse Oximetry 96 95 Oxygen Delivery Method 02/21/22 17:30 02/21/22 17:31 02/21/22 17:31 Temperature Pulse Rate 65 65 Respiratory Rate Blood Pressure 178/76 H Pulse Oximetry 97 97 Oxygen Delivery Method MDM - Abdominal Pain <SWATHI Torrez - Last Filed: 02/21/22 18:00> Lab Data Result diagrams: 02/21/22 16:05 02/21/22 16:05 Labs: Lab Results 02/21/22 02/21/22 02/21/22 Range/Units 15:58 16:05 16:05 WBC 7.8 (4.5-11.0) X10^3/uL RBC 4.02 (4.0-5.2) X10^6/uL Hgb 12.8 (12.0-16.0) g/dL Hct 36.7 (36-46) % MCV 91.3 (80-100) fL MCH 31.9 (26-34) PG MCHC 35.0 (30-36) % RDW 13.7 (11.6-14.8) % Plt Count 199 (150-400) X10^3/uL Neut % (Auto) 59.7 (50-75) % Lymph % (Auto) 22.8 L (25-40) % Warren % (Auto) 14.0 (3-14) % Eos % (Auto) 2.8 (2-4) % Baso % (Auto) 0.7 (0-2) % Neut # (Auto) 4700 (2689-9979) /uL Lymph # (Auto) 1800 (6168-1814) /uL Warren # (Auto) 1100 H (0-900) /uL Eos # (Auto) 200 (0-450) /uL Baso # (Auto) 100 (0-100) /uL Sodium 136 L (137-145) mmol/L Potassium 4.4 (3.4-5.1) mmol/L Chloride 99 (98-107) mmol/L Carbon Dioxide 29 (22-32) mmol/L BUN 14 (7-17) mg/dL Creatinine 0.85 (0.52-1.04) mg/dL Estimated GFR > 60 (>60) mL/min BUN/Creatinine Ratio 16.5 (6-22) Glucose 114 H (80-110) mg/dL Lactate (0.7-2.1) mmol/L Calcium 9.3 (8.4-10.2) mg/dL Total Bilirubin 0.7 (0.2-1.3) mg/dL AST 28 (14-36) IU/L ALT 20 (<35) IU/L Alkaline Phosphatase 69 (38-126) U/L C-Reactive Protein (<1.0) mg/dL Total Protein 6.2 L (6.3-8.2) g/dL Albumin 3.7 (3.5-5.0) g/dL Globulin 2.5 (1.7-4.1) g/dL Albumin/Globulin Ratio 1.5 (1.0-2.8) Lipase 43 (23-300) U/L Procalcitonin (<0.5) ng/mL Urine RBC 0-1/hpf (0-5/HPF) Urine WBC None seen (0-5/HPF) Urine Bacteria None seen (None) Hyaline Casts 1-5/lpf (None) Ur Culture Indicated? Cult not indicated SARS-CoV-2 (PCR) (Negative) Influenza A (RT-PCR) (NEGATIVE) Influenza B (RT-PCR) (NEGATIVE) RSV (PCR) (Negative) 02/21/22 02/21/22 02/21/22 Range/Units 16:05 16:05 17:25 WBC (4.5-11.0) X10^3/uL RBC (4.0-5.2) X10^6/uL Hgb (12.0-16.0) g/dL Hct (36-46) % MCV (80-100) fL MCH (26-34) PG MCHC (30-36) % RDW (11.6-14.8) % Plt Count (150-400) X10^3/uL Neut % (Auto) (50-75) % Lymph % (Auto) (25-40) % Warren % (Auto) (3-14) % Eos % (Auto) (2-4) % Baso % (Auto) (0-2) % Neut # (Auto) (0225-2717) /uL Lymph # (Auto) (2796-0921) /uL Warren # (Auto) (0-900) /uL Eos # (Auto) (0-450) /uL Baso # (Auto) (0-100) /uL Sodium (137-145) mmol/L Potassium (3.4-5.1) mmol/L Chloride (98-107) mmol/L Carbon Dioxide (22-32) mmol/L BUN (7-17) mg/dL Creatinine (0.52-1.04) mg/dL Estimated GFR (>60) mL/min BUN/Creatinine Ratio (6-22) Glucose (80-110) mg/dL Lactate 0.8 (0.7-2.1) mmol/L Calcium (8.4-10.2) mg/dL Total Bilirubin (0.2-1.3) mg/dL AST (14-36) IU/L ALT (<35) IU/L Alkaline Phosphatase (38-126) U/L C-Reactive Protein < 0.5 (<1.0) mg/dL Total Protein (6.3-8.2) g/dL Albumin (3.5-5.0) g/dL Globulin (1.7-4.1) g/dL Albumin/Globulin Ratio (1.0-2.8) Lipase (23-300) U/L Procalcitonin 0.05 (<0.5) ng/mL Urine RBC (0-5/HPF) Urine WBC (0-5/HPF) Urine Bacteria (None) Hyaline Casts (None) Ur Culture Indicated? SARS-CoV-2 (PCR) Negative (Negative) Influenza A (RT-PCR) Flu a negative (NEGATIVE) Influenza B (RT-PCR) Flu b negative (NEGATIVE) RSV (PCR) Negative (Negative) Point of care testing: Urine Dip Bedside Urine Glucose Negative Bedside Urine Bilirubin - Negative Bedside Urine Ketone - Negative Urine Specific [place] 1.010 Bedside Urine Occult Blood - Negative Bedside Urine pH 6.0 Bedside Urine Protein - Negative Bedside Urine Urobilinogen - Negative Bedside Urine Nitrite - Negative Bedside Urine Leukocytes - Negative Esterase Imaging Data CT scan - abdomen/pelvis: Radiologist's Impression: PROCEDURE:? CT ABDOMEN PELVIS W CON ? INDICATIONS:? r/o bowel obstruction, RLQ tenderness ? TECHNIQUE:? After the administration of intravenous contrast, axial sections acquired from the lung bases to the pubic symphysis.? Coronal and sagittal reformats were performed.? For radiation dose reduction, the following was used:? automated exposure control, adjustment of mA and/or kV according to patient size.? ? COMPARISON:? [facility], CT, ABDOMEN/PELVIS WITH CONTRAST, 06/03/2017, 8:27. ? FINDINGS:? Image quality:? Excellent ? Lower chest:? Moderate hiatal hernia, increased from previous CT. ? Solid organs:? Cyst in the right inferior portion of the liver appears slightly larger now with some septations.? This measures about 5.2 cm, previously about 4 cm.? Subcentimeter lesions are too small to characterize. Cholecystectomy.? Prominent biliary tree post cholecystectomy as before.? Atrophic appearance of the pancreas as before.? No pancreatic ductal dilation.? No splenomegaly.? Stable right adrenal nodule measuring 17 mm, most commonly an adenoma.? No hydronephrosis.? ? Vessels and lymph nodes:? No abdominal aortic aneurysm.? No pathologic adenopathy by size criteria. ? Bowel and peritoneum:? Bowel is nonobstructed.? There are colonic diverticula.? No convincing inflammation is identified.? No pathologic ascites or free air.? Is ? Body wall:? Anterior abdominal wall postsurgical changes with a tiny fluid containing hernia as before. ? Pelvis:? Bladder is under distended and unremarkable.? Uterine calcification again seen. ? Bones:? Scattered degenerative changes without acute or suspicious osseous abnormality. ? ? IMPRESSION:? No bowel obstruction.? No other acute pathology identified.? Interval increase in size and mild complexity of the right inferior liver cyst.? Given long time course, this is probably still benign.? Interval hemorrhage or infection could cause this appearance.? If symptoms are attributable to the right upper quadrant, consider further evaluation with MRI.? Moderate hiatal hernia.? Other findings as above.? ? ? Dictated by: Dontae Oneil M.D. on 02/21/2022 at 16:50 ? ? Approved by: Dontae Oneil M.D. on 02/21/2022 at 16:59 ? [facility] Narrative Medical decision making narrative: This is a pleasant 86-year-old female with history of CLL who presents to the emergency department with right upper quadrant/right flank pain, history of cholecystectomy, appendectomy, and recent COVID, influenza and pneumonia vaccines 3 days ago. Patient also endorses runny nose, sore throat, muscle aches but endorses normal stool. Patient UA was negative for infection, lab work overall is grossly unremarkable, no leukocytosis or anemia, no electrolyte abnormalities, renal dysfunction, without an elevated lactate, liver enzymes, or lactate dehydrogenase. CRP is not elevated, lipase is 43, procalcitonin 0.05. Patient's respiratory panel is pending but she had her vaccines all in 1 day 3 days ago and I believe her symptoms are most consistent with activation of her immune system from her vaccinations. CT abdomen pelvis was obtained for her history of malignancy and abdominal surgeries. CT was negative for bowel obstruction, or any other acute pathology, interval increase in size and complexity of the right inferior liver cyst without of the elevation of her LFTs, are moderate hiatal hernia, other findings as above. Patient's symptoms improved with ketorolac, 1 L of IV fluids, and Tylenol. Encouraged her to have strict return precautions for worsening of her symptoms, her neck is supple and she is afebrile without significant tenderness or abdomen. She had right-sided flank pain on palpation but after reassessment I think this is muscle aches more so. No peritoneal signs on abdominal exam. Patient remains p.o. tolerant. Serial abdominal exam without increase in abdominal pain. Given history and exam, low suspicion for acute abdominal process, such as acute cholecystitis, pancreatitis, perforated viscus, atypical appendicitis, colitis, diverticulitis or torsion. Extensive conversation about ER return precautions and need for close follow-up. Patient is appropriate and amenable to discharge home. Vital signs are stable on repeat examination is unremarkable. Patient has been informed of results. Patient has been given strict return to ER precautions for any new or worsening symptoms. Patient understands to follow up closely with outpatient providers as instructed. Patient understands plan and agrees to discharge home. All questions and concerns answered at this time. <Kallie Cardozo, DO - Last Filed: 02/22/22 09:56> Lab Data Labs: Lab Results 02/21/22 02/21/22 02/21/22 Range/Units 15:58 16:05 16:05 WBC 7.8 (4.5-11.0) X10^3/uL RBC 4.02 (4.0-5.2) X10^6/uL Hgb 12.8 (12.0-16.0) g/dL Hct 36.7 (36-46) % MCV 91.3 (80-100) fL MCH 31.9 (26-34) PG MCHC 35.0 (30-36) % RDW 13.7 (11.6-14.8) % Plt Count 199 (150-400) X10^3/uL Neut % (Auto) 59.7 (50-75) % Lymph % (Auto) 22.8 L (25-40) % Warren % (Auto) 14.0 (3-14) % Eos % (Auto) 2.8 (2-4) % Baso % (Auto) 0.7 (0-2) % Neut # (Auto) 4700 (0332-5440) /uL Lymph # (Auto) 1800 (6340-9331) /uL Warren # (Auto) 1100 H (0-900) /uL Eos # (Auto) 200 (0-450) /uL Baso # (Auto) 100 (0-100) /uL Sodium 136 L (137-145) mmol/L Potassium 4.4 (3.4-5.1) mmol/L Chloride 99 (98-107) mmol/L Carbon Dioxide 29 (22-32) mmol/L BUN 14 (7-17) mg/dL Creatinine 0.85 (0.52-1.04) mg/dL Estimated GFR > 60 (>60) mL/min BUN/Creatinine Ratio 16.5 (6-22) Glucose 114 H (80-110) mg/dL Lactate (0.7-2.1) mmol/L Calcium 9.3 (8.4-10.2) mg/dL Total Bilirubin 0.7 (0.2-1.3) mg/dL AST 28 (14-36) IU/L ALT 20 (<35) IU/L Alkaline Phosphatase 69 (38-126) U/L C-Reactive Protein (<1.0) mg/dL Total Protein 6.2 L (6.3-8.2) g/dL Albumin 3.7 (3.5-5.0) g/dL Globulin 2.5 (1.7-4.1) g/dL Albumin/Globulin Ratio 1.5 (1.0-2.8) Lipase 43 (23-300) U/L Procalcitonin (<0.5) ng/mL Urine RBC 0-1/hpf (0-5/HPF) Urine WBC None seen (0-5/HPF) Urine Bacteria None seen (None) Hyaline Casts 1-5/lpf (None) Ur Culture Indicated? Cult not indicated SARS-CoV-2 (PCR) (Negative) Influenza A (RT-PCR) (NEGATIVE) Influenza B (RT-PCR) (NEGATIVE) RSV (PCR) (Negative) 02/21/22 02/21/22 02/21/22 Range/Units 16:05 16:05 17:25 WBC (4.5-11.0) X10^3/uL RBC (4.0-5.2) X10^6/uL Hgb (12.0-16.0) g/dL Hct (36-46) % MCV (80-100) fL MCH (26-34) PG MCHC (30-36) % RDW (11.6-14.8) % Plt Count (150-400) X10^3/uL Neut % (Auto) (50-75) % Lymph % (Auto) (25-40) % Warren % (Auto) (3-14) % Eos % (Auto) (2-4) % Baso % (Auto) (0-2) % Neut # (Auto) (4203-1639) /uL Lymph # (Auto) (8806-7913) /uL Warren # (Auto) (0-900) /uL Eos # (Auto) (0-450) /uL Baso # (Auto) (0-100) /uL Sodium (137-145) mmol/L Potassium (3.4-5.1) mmol/L Chloride (98-107) mmol/L Carbon Dioxide (22-32) mmol/L BUN (7-17) mg/dL Creatinine (0.52-1.04) mg/dL Estimated GFR (>60) mL/min BUN/Creatinine Ratio (6-22) Glucose (80-110) mg/dL Lactate 0.8 (0.7-2.1) mmol/L Calcium (8.4-10.2) mg/dL Total Bilirubin (0.2-1.3) mg/dL AST (14-36) IU/L ALT (<35) IU/L Alkaline Phosphatase (38-126) U/L C-Reactive Protein < 0.5 (<1.0) mg/dL Total Protein (6.3-8.2) g/dL Albumin (3.5-5.0) g/dL Globulin (1.7-4.1) g/dL Albumin/Globulin Ratio (1.0-2.8) Lipase (23-300) U/L Procalcitonin 0.05 (<0.5) ng/mL Urine RBC (0-5/HPF) Urine WBC (0-5/HPF) Urine Bacteria (None) Hyaline Casts (None) Ur Culture Indicated? SARS-CoV-2 (PCR) Negative (Negative) Influenza A (RT-PCR) Flu a negative (NEGATIVE) Influenza B (RT-PCR) Flu b negative (NEGATIVE) RSV (PCR) Negative (Negative) Point of care testing: Urine Dip Bedside Urine Glucose Negative Bedside Urine Bilirubin - Negative Bedside Urine Ketone - Negative Urine Specific [place] 1.010 Bedside Urine Occult Blood - Negative Bedside Urine pH 6.0 Bedside Urine Protein - Negative Bedside Urine Urobilinogen - Negative Bedside Urine Nitrite - Negative Bedside Urine Leukocytes - Negative Esterase Discharge Plan Departure Patient Disposition: Home Clinical Impression: Hx of aneurysm, Acute flank pain, Hepatic cyst, Adenoma, Benign liver cyst Instructions: Dehydration, Influenza Vaccine Activity Restrictions/Additional Instructions: *You have been diagnosed with abdominal pain and right flank pain which I presume are muscle aches. The CT of your abdomen does not show any acute abnormalities, infections, kidney stones, or other problems that are new. Incidentally, there is a cyst on your liver which is slightly larger in size than it used to be, as well as a stable right adrenal nodule. There is nothing inflammatory or obstructed in your abdomen, I suspect since you had your vaccinations earlier this week that your symptoms are consistent with the activation of your immune system from those vaccines. It can cause symptoms similar to the flu like muscle aches, inflammation, dehydration if you are not drinking enough water. Please schedule follow-up with your primary care provider as needed, return to the emergency department if you have any worsening of your abdominal pain, if this pain is not manageable at home with Tylenol and occasional Aleve or ibuprofen. I hope you feel better soon. Thank you for trusting us with your care. *What to do: *Please continue to take your regular medications as directed. [ ] New medication prescriptions sent to your pharmacy: [ ] [ ] New medication written as a paper prescription [x ] No new medications given *Please follow up with your primary care provider in 2-3 days, call for an appointment. Let them know you were seen in the Emergency Department and that we asked that you be seen for follow-up. We will electronically transmit a record of today's note if your PCP is in our system *If you do not have a primary care provider please contact [phone] to establish care with one of the [facility] primary care providers. *Return to Emergency Department if you should have any new, worsening, or concerning symptoms, such as [fever greater than 101F, chills, worsening pain, persistent vomiting or other bothersome symptoms]. Prescriptions: No Action (DME) Disabled Parking Permit Qty: 1 0RF Rx Instructions: As directed famotidine 20 mg tablet See Rx Instructions .ROUTE .COMPLEX Qty: 180 3RF Dose Instruction: TAKE 1 TABLET BY MOUTH TWICE DAILY Rx Instructions: TAKE 1 TABLET BY MOUTH TWICE DAILY aspirin 81 mg tablet,delayed release (DR/EC) 81 mg PO DAILY Qty: 90 3RF atorvastatin [Lipitor] 20 mg tablet 40 mg PO BEDTIME Qty: 180 3RF carvedilol 3.125 mg tablet See Rx Instructions .ROUTE .COMPLEX Qty: 180 3RF Dose Instruction: TAKE 1 TABLET BY MOUTH TWICE DAILY Rx Instructions: TAKE 1 TABLET BY MOUTH TWICE DAILY citalopram 10 mg tablet See Rx Instructions .ROUTE .COMPLEX Qty: 90 3RF Dose Instruction: TAKE 1 TABLET BY MOUTH DAILY Rx Instructions: TAKE 1 TABLET BY MOUTH DAILY levetiracetam 500 mg tablet See Rx Instructions .ROUTE .COMPLEX Qty: 135 3RF Dose Instruction: TAKE 1/2 TABLET BY MOUTH EVERY MORNING AND TAKE 1 TABLET BY MOUTH WITH SUPPER. NEED APPOINTMENT FOR FURTHER REFILLS. Rx Instructions: TAKE 1/2 TABLET BY MOUTH EVERY MORNING AND TAKE 1 TABLET BY MOUTH WITH SUPPER. NEED APPOINTMENT FOR FURTHER REFILLS. nifedipine 30 mg tablet extended release See Rx Instructions .ROUTE .COMPLEX Qty: 180 3RF Dose Instruction: TAKE 1 TABLET BY MOUTH EVERY DAY Rx Instructions: TAKE 1 TABLET BY MOUTH EVERY DAY tolterodine 4 mg capsule,extended release 24hr See Rx Instructions .ROUTE .COMPLEX Qty: 90 3RF Dose Instruction: TAKE 1 CAPSULE BY MOUTH DAILY Rx Instructions: TAKE 1 CAPSULE BY MOUTH every evening cholecalciferol (vitamin D3) [Vitamin D3] 2,000 unit Capsule 2,000 unit PO DAILY omega 4-hqi-rcf-fish oil [Fish Oil] 1,000 mg (120 mg-180 mg) capsule 1 cap PO BID Qty: 60 0RF multivit 51-tvzk-oulkpi 1-dha 18 mg iron- 1 mg-300 mg capsule 1 cap PO DAILY Qty: 60 0RF ascorbic acid (vitamin C) 500 mg capsule 500 mg PO DAILY Qty: 60 0RF qyhwgxqi-kox-SF-lycopen-lutein [CertaVite Senior] PO Referrals: Timothy Gee DO [Primary Care Provider] - Visit Report Forms: Patient Portal/API <Kallie Cardozo DO - Last Filed: 02/22/22 09:56> Cosign ED Attending Shaun Attestation: I was immediately available in the department for consultation. Documentation has been reviewed. I agree with assessment and plan.
[2022-02-21 16:25] LABS: Add Manual Diff / Slide Review NO; Basophils Absolute Auto 100 /uL (0-100); Basophils Percent Auto 0.7 % (0-2); Eosinophils Absolute Auto 200 /uL (0-450); Eosinophils Percent Auto 2.8 % (2-4); Hematocrit 36.7 % (36-46); Hemoglobin 12.8 g/dL (12.0-16.0); Lymphocytes Absolute Auto 1800 /uL (1100-4500); Lymphocytes Percent Auto 22.8 % (25-40); Mean Corpuscular Hemoglobin 31.9 PG (26-34); Mean Corpuscular Volume 91.3 fL (80-100); Monocytes Absolute Auto 1100 /uL (0-900); Neutrophils Absolute Auto 4700 /uL (1500-7000); Neutrophils Percent Auto 59.7 % (50-75); Platelet Count 199 X10^3/uL (150-400); Red Blood Cell Count 4.02 X10^6/uL (4.0-5.2); Red Cell Distribution Width 13.7 % (11.6-14.8); White Blood Cell Count 7.8 X10^3/uL (4.5-11.0)
[2022-02-21 16:26] LABS: Bacteria Urine None Seen; Culture Indicated Urine Cult Not Indicated; Hyaline Casts Urine 1-5/LPF; RBC Urine 0-1/HPF (0-5/HPF); WBC Urine None Seen (0-5/HPF)
[2022-02-21 16:31] LABS: Lactate (Lactic Acid) 0.8 mmol/L (0.7-2.1)
[2022-02-21 16:32] LABS: Alanine Aminotransferase 20 IU/L (<35); Albumin 3.7 g/dL (3.5-5.0); Albumin Globulin Ratio 1.5 (1.0-2.8); Alkaline Phosphatase 69 U/L (38-126); Aspartate Aminotransferase 28 IU/L (14-36); BUN Creatinine Ratio 16.5 (6-22); Bilirubin Total 0.7 mg/dL (0.2-1.3); Blood Urea Nitrogen 14 mg/dL (7-17); Calcium 9.3 mg/dL (8.4-10.2); Carbon Dioxide 29 mmol/L (22-32); Chloride 99 mmol/L (98-107); Estimated Glomerular Filt Rate > 60 mL/min (>60); Globulin 2.5 g/dL (1.7-4.1); Glucose 114 mg/dL (80-110); HEMOLYSIS 22 (0-50); Lipase 43 U/L (23-300); Potassium 4.4 mmol/L (3.4-5.1); Sodium 136 mmol/L (137-145); Total Protein 6.2 g/dL (6.3-8.2)
[2022-02-21 16:36] LABS: C-Reactive Protein Quant < 0.5 mg/dL (<1.0)
[2022-02-21 16:48] LABS: Procalcitonin 0.05 ng/mL (<0.5)
[2022-02-21] MEDS: KETOROLAC 30 MG/ML VIAL 15 MG IV (16:54)
[2022-02-21] MEDS: ACETAMINOPHEN 325 MG TABLET 650 MG PO (16:55)
[2022-02-21] MEDS: SODIUM CHLORIDE 0.9% 1,000 ML 1000 ML IV (16:55)
[2022-02-21] MEDS: ONDANSETRON 4 MG/2 ML INJ IV (16:55)
--- NOTE | 2022-02-21 20:39 | PC.NURSE ---
Received call from lab stating they had respiratory swab but no order. Looked at order and saw it was canceled when pt was discharged. Discussed with Dr. Villanueva who reviewed and gave verbal order. Ordered and collected.
[2022-02-21 21:30] LABS: Influenza A - CEPHEID Flu A NEGATIVE (NEGATIVE); Influenza B - CEPHEID Flu B NEGATIVE (NEGATIVE); Respiratory Syncytial Virus Negative (Negative)
[2022-02-21 21:45] LABS: COVID-19 CEPHEID 4-PLEX PCR Negative (Negative)
== END 2022-02-21 18:01 | disposition home or self-care (01) ==
PROVIDERS: Emergency Medicine; Emergency Provider Nurse Practitioner Critical Care Medicine; Family Provider Family Medicine; PCP Family Medicine
DX: R10.31 Right lower quadrant pain (principal); K76.89 Other specified diseases of liver; Z86.79 Personal history of other diseases of the circulatory system; C91.10 Chronic lymphocytic leukemia of B-cell type not having achieved remission
CPT/HCPCS: 0241U; 36415; 74177; 80053; 81003; 81015; 82232; 83605; 83615; 83690; 84145; 85025; 86140; 96374; 96375; 99284; J1885; J2405; Q9967

== ENCOUNTER → 2022-08-25 16:26 | Outpatient (ROUT) | payer OTHER, SELFPAY ==
[2021-04-06 21:30] VITALS: BMI 31.7
[2022-08-25 16:38] LABS: Add Manual Diff / Slide Review NO; Basophils Absolute Auto 100 /uL (0-100); Basophils Percent Auto 0.9 % (0-2); Eosinophils Absolute Auto 200 /uL (0-450); Eosinophils Percent Auto 3.4 % (2-4); Hematocrit 40.3 % (36-46); Hemoglobin 13.6 g/dL (12.0-16.0); Lymphocytes Absolute Auto 1600 /uL (1100-4500); Lymphocytes Percent Auto 25.9 % (25-40); Mean Corpuscular HGB Conc 33.8 % (30-36); Mean Corpuscular Hemoglobin 31.2 PG (26-34); Mean Corpuscular Volume 92.2 fL (80-100); Monocytes Absolute Auto 800 /uL (0-900); Neutrophils Absolute Auto 3500 /uL (1500-7000); Neutrophils Percent Auto 56.8 % (50-75); Platelet Count 198 X10^3/uL (150-400); Red Blood Cell Count 4.36 X10^6/uL (4.0-5.2); Red Cell Distribution Width 14.2 % (11.6-14.8); White Blood Cell Count 6.1 X10^3/uL (4.5-11.0)
[2022-08-25 16:50] LABS: Alanine Aminotransferase 18 IU/L (<35); Albumin Globulin Ratio 1.6 (1.0-2.8); Alkaline Phosphatase 66 U/L (38-126); Aspartate Aminotransferase 26 IU/L (14-36); BUN Creatinine Ratio 24.1 (6-22); Bilirubin Total 0.6 mg/dL (0.2-1.3); Blood Urea Nitrogen 20 mg/dL (7-17); Calcium 9.7 mg/dL (8.4-10.2); Carbon Dioxide 29 mmol/L (22-32); Chloride 103 mmol/L (98-107); Estimated Glomerular Filt Rate > 60 mL/min (>60); Globulin 2.5 g/dL (1.7-4.1); Glucose 94 mg/dL (80-110); HEMOLYSIS < 15 (0-50); Lactate Dehydrogenase 157 U/L (120-246); Potassium 4.4 mmol/L (3.4-5.1); Sodium 137 mmol/L (137-145); Total Protein 6.5 g/dL (6.3-8.2)
== END ==
PROVIDERS: Family Provider Family Medicine; PCP Family Medicine; Visit Provider Internal Medicine Hematology & Oncology
DX: C91.90 Lymphoid leukemia, unspecified not having achieved remission (principal)
CPT/HCPCS: 36415; 80053; 83615; 85025

== ENCOUNTER 2022-11-13 00:12 | Emergency (ER) | payer OTHER, SELFPAY ==
[2021-04-06 21:30] VITALS: BMI 31.7
[2022-11-13 00:23] VITALS: BP 147/73; PULSE 81; RESP 18; TEMP 36.6; O2SAT 97; BMI 29.9
--- NOTE | 2022-11-13 00:28 | DI.US.S_ITS ---
PROCEDURE: US PERIPH VENOUS LOW EXTREM LT INDICATIONS: PAIN TECHNIQUE: Real-time imaging, as well as color and pulse Doppler interrogation, were performed of the lower extremity deep veins from the inguinal ligament to the popliteal fossa. COMPARISON: None. FINDINGS: The common femoral, femoral and popliteal veins are normally compressible, and free of intraluminal thrombus. Color and pulse Doppler demonstrate normal phasic intraluminal flow. There is normal augmentation response to distal compression maneuver. IMPRESSION: 1. No evidence of deep venous thrombosis in the left lower extremity. Dictated by: Ifeanyi Espinal M.D. on 11/13/2022 at 1:25 Approved by: Ifeanyi Espinal M.D. on 11/13/2022 at 1:35
--- NOTE | 2022-11-13 03:14 | ED_ITS ---
HPI - Extremity Problem General Chief complaint: Extremity Problem,Nontraumatic Stated complaint: pain in lt leg Time Seen by Provider: 11/13/22 03:13 Source: patient Mode of arrival: Ambulatory History of Present Illness HPI Narrative: Patient is an 87-year-old saurabh female history of CLL, low back pain, hypertension, hyper lipidemia presenting today with left leg pain. She reports that she and her drove from [place] in the following day she had some sharp shooting pain radiating down her left leg. She reports that the pain moves all around is on her knee. She is able to ambulate. She actually was seen and evaluated by her PCP on the she was given methocarbamol which did not help. She says she is not been able to sleep. She has no calf pain or swelling. No prior history of DVT. Related Data Home Medications Medication Instructions Recorded Confirmed cholecalciferol (vitamin D3) 50 2,000 unit PO DAILY 10/01/17 09/17/22 mcg (2,000 unit) capsule (Vitamin D3) yagkuhuj-djr-CF-lycopen-lutein 1 tab PO DAILY 10/22/21 09/17/22 [CertaVite Senior] Previous Rx's Medication Instructions Recorded Disabled Parking Permit #1 ea 01/24/20 ascorbic acid (vitamin C) 500 mg 500 mg PO DAILY #60 caps 04/07/21 capsule omega 9-eny-pax-fish oil 1,000 mg 1 cap PO BID #60 caps 04/07/21 (120 mg-180 mg) capsule (Fish Oil) famotidine 20 mg tablet See Rx Instructions .Route 02/18/22 .COMPLEX #180 tabs carvedilol 3.125 mg tablet See Rx Instructions .Route 05/07/22 .COMPLEX #180 tabs atorvastatin 20 mg tablet (Lipitor) 40 mg PO BEDTIME #180 tabs 06/11/22 aspirin 81 mg tablet,delayed See Rx Instructions .Route 07/30/22 release .COMPLEX #90 tabs tolterodine 4 mg capsule,extended See Rx Instructions .Route 07/30/22 release 24 hr .COMPLEX #90 caps ondansetron 4 mg disintegrating 4 mg PO Q8H PRN nausea and 09/17/22 tablet vomiting #90 tabs levetiracetam 500 mg tablet See Rx Instructions .Route 10/06/22 .COMPLEX #135 tabs nifedipine 30 mg tablet,extended See Rx Instructions .Route 10/28/22 release .COMPLEX #90 tabs methocarbamol 500 mg tablet 500 mg PO BEDTIME #14 tabs 11/11/22 hydrocodone 5 mg-acetaminophen 325 1 tab PO Q6H PRN pain #10 tabs 11/13/22 mg tablet Allergies Allergy/AdvReac Type Severity Reaction Status Date / Time albuterol [ALBUTEROL] AdvReac Severe SHAKEY Verified 09/17/22 09:15 LEGS, JERKY allopurinol [ALLOPURINOL] AdvReac Severe NAUSEA AND Verified 09/17/22 09:15 GI UPSET Sulfa (Sulfonamide AdvReac Severe HEADACHES Verified 09/17/22 09:15 Antibiotics) [SULFA (SULFONAMIDE ANTIBIOTICS)] JESSICA Inhibitors AdvReac Mild COUGH Verified 09/17/22 09:15 [JESSICA INHIBITORS] Review of Systems Review of Systems ROS Unobtainable: All systems reviewed & are unremarkable except as noted in HPI and below Patient History Medical History (Updated 11/13/22 @ 03:28 by Kallie Cardozo DO) Arthritis (Unknown) Cataracts, bilateral (Unknown) Cervical somatic dysfunction Cervicothoracic somatic dysfunction Chronic low back pain Chronic nausea Chronic thoracic back pain CLL (chronic lymphocytic leukemia) (Unknown) Corns and callus Depression (Unknown) Excessive daytime sleepiness Fatigue Gallbladder disease (Unknown) GERD (gastroesophageal reflux disease) (Unknown) Hypertension (Unknown) Left-sided low back pain with left-sided sciatica Lightheadedness Lumbar region somatic dysfunction Physical deconditioning Pure hypercholesterolemia Segmental and somatic dysfunction of abdomen and other regions Segmental and somatic dysfunction of head region Segmental and somatic dysfunction of pelvic region Segmental and somatic dysfunction of sacral region Segmental and somatic dysfunction of thoracic region Seizure disorder (Unknown) Somatic dysfunction of abdominal region Somatic dysfunction of lower extremity Spinal stenosis (Unknown) Stiff neck Subarachnoid hemorrhage (2000) Toe pain, bilateral Visual hallucinations Surgical History History of bilateral cataract extraction (Unknown) History of ventriculoperitoneal shunting (12/2000) Hx of appendectomy (Unknown) Hx of cholecystectomy (Unknown) Hx of detached retina repair (Unknown) Social History household members: spouse Smoking Status: Former smoker alcohol intake: current Smoking Status: Former smoker alcohol intake frequency: holidays/special occasions only Substance Use Type: does not use Exam Initial Vital Signs Initial Vital Signs: Vital Signs Temperature 97.9 F 11/13/22 00:23 Pulse Rate 81 11/13/22 00:23 Respiratory Rate 18 11/13/22 00:23 Blood Pressure 147/73 H 11/13/22 00:23 Pulse Oximetry 97 11/13/22 00:23 Oxygen Delivery Method Room Air 11/13/22 00:23 GENERAL: Alert pleasant well-appearing 87-year-old female HEENT: Head atraumatic,EOMI, pupils reactive, face symmetric, moist mucous membranes CARDIOVASCULAR: Regular rate and rhythm without murmurs, rubs or gallops. RESPIRATORY: Breath sounds equal bilaterally, no wheezes rales or rhonchi. EXTREMITIES: Normal range of motion, no clubbing or edema. Neurovascularly in tact No significant calf pain or swelling no hip pain with internal external rotation knee is stable NEUROLOGICAL: Alert and oriented x4.Normal gait and speech. SKIN: Warm, dry, no laceration, no petechiae, no rashes or lesions. Course Orders Ordered: ED Orders 11/13/22 00:28 US periph venous low extrem lt Stat Discontinued Medications Hydrocodone Bitart/Acetaminophen (Hydrocodone/Acet 5/325 Prepack) 1 bottle MISC SEEINSTR ONE Stop: 11/13/22 03:22 Last Admin: 11/13/22 03:27 Dose: 1 bottle Documented By: CHEPE Vital Signs Vital signs: Vital Signs - 8 hr 11/13/22 00:23 11/13/22 03:28 Temperature 97.9 F Pulse Rate 81 79 Respiratory Rate 18 18 Blood Pressure 147/73 H 151/67 H Pulse Oximetry 97 95 Oxygen Delivery Method Room Air Room Air MDM - Extremity (Nontraumatic) Imaging Data US - DVT: Radiologist's Impression: PROCEDURE:? US PERIPH VENOUS LOW EXTREM LT ? INDICATIONS:? PAIN ? TECHNIQUE:? Real-time imaging, as well as color and pulse Doppler interrogation, were performed of the lower extremity deep veins from the inguinal ligament to the popliteal fossa.? ? COMPARISON:? None. ? FINDINGS:? The common femoral, femoral and popliteal veins are normally compressible, and free of intraluminal thrombus.? Color and pulse Doppler demonstrate normal phasic intraluminal flow.? There is normal augmentation response to distal compression maneuver. ? ? IMPRESSION:? ? 1. No evidence of deep venous thrombosis in the left lower extremity.? ? ? Dictated by: Ifeanyi Espinal M.D. on 11/13/2022 at 1:25? [facility] Narrative Medical decision making narrative: Patient is a saurabh 87-year-old female who presents with left leg pain that started after a car ride. She is actually had some discomfort ongoing for about the last 5-7 days. She was already seen evaluated by PCP given methocarbamol which is not helping. Ultrasound today is negative for DVT. She is not having signs or symptoms consistent with a DVT no calf pain or swelling. Complaining of sharp shooting pain that continues to move which is consistent with a neuropathy and sciatic like pain. According to PCP records she has multiple somatic dysfunctions and has chronic ongoing back pain. This clinically correlates with symptoms today. Discharge Plan Departure Patient Disposition: Home Clinical Impression: Sciatica Instructions: DI for Back Pain With Sciatica Activity Restrictions/Additional Instructions: *You have been diagnosed with back pain with sciatica *What to do: At this time this is likely sciatic nerve pain. Try heating pad. Light walking light mild activity *Continue to take medications as directed Wendel 1/2 tablet to 1 full tablet every 6 hours if needed for pain *Follow up with your primary care provider in 2-3 days or call [phone] *Return to ER if you should have increasing leg weakness loss of urine or bowel or any new, worsening or concerning symptoms CONTROLLED SUBSTANCE DISCHARGE (Narcotoic/benzodiazepine/Flexeril/Phenergan) 1. You have been prescribed narcotic medications, it does have acetaminophen/Tylenol/paracetamol in it, DO NOT TAKE MORE THAN 4,00mg in 24 hours of Tylenol. TRAMADOL DOES NOT CONTAIN TYLENOL 2. Please understand that we cannot provide further refills of narcotics, benzodiazepines or controlled substances through the ED and her pain management will need to be through your provider. 3. While on these medications you cannot drive or operate heavy machinery. 4. You cannot sign legal documents or perform any duties such as this. 5. As long as you're taking opiate pain medications he should also be taking a stool softener such as Colace, Dulcolax, MiraLAX or prune juice, to help avoid constipation. Prescriptions: New hydrocodone-acetaminophen 5-325 mg tablet 1 tab PO Q6H PRN (Reason: pain) Qty: 10 0RF No Action (DME) Disabled Parking Permit Qty: 1 0RF Rx Instructions: As directed famotidine 20 mg tablet See Rx Instructions .ROUTE .COMPLEX Qty: 180 3RF Dose Instruction: TAKE 1 TABLET BY MOUTH TWICE DAILY Rx Instructions: TAKE 1 TABLET BY MOUTH TWICE DAILY carvedilol 3.125 mg tablet See Rx Instructions .ROUTE .COMPLEX Qty: 180 2RF Dose Instruction: TAKE 1 TABLET BY MOUTH TWICE DAILY Rx Instructions: TAKE 1 TABLET BY MOUTH TWICE DAILY atorvastatin [Lipitor] 20 mg tablet 40 mg PO BEDTIME Qty: 180 0RF tolterodine 4 mg capsule,extended release 24hr See Rx Instructions .ROUTE .COMPLEX Qty: 90 2RF Dose Instruction: TAKE 1 CAPSULE BY MOUTH EVERY EVENING Rx Instructions: TAKE 1 CAPSULE BY MOUTH EVERY EVENING aspirin 81 mg tablet,delayed release (DR/EC) See Rx Instructions .ROUTE .COMPLEX Qty: 90 2RF Dose Instruction: TAKE 1 TABLET BY MOUTH DAILY Rx Instructions: TAKE 1 TABLET BY MOUTH DAILY levetiracetam 500 mg tablet See Rx Instructions .ROUTE .COMPLEX Qty: 135 0RF Dose Instruction: TAKE 1/2 TABLET BY MOUTH EVERY MORNING AND TAKE 1 TABLET BY MOUTH WITH SUPPER. NEED APPOINTMENT FOR FURTHER REFILLS. Rx Instructions: TAKE 1/2 TABLET BY MOUTH EVERY MORNING AND TAKE 1 TABLET BY MOUTH WITH SUPPER. nifedipine 30 mg tablet extended release See Rx Instructions .ROUTE .COMPLEX Qty: 90 3RF Dose Instruction: TAKE 1 TABLET BY MOUTH EVERY DAY Rx Instructions: TAKE 1 TABLET BY MOUTH EVERY DAY methocarbamol 500 mg tablet 500 mg PO BEDTIME Qty: 14 0RF ondansetron 4 mg tablet,disintegrating 4 mg PO Q8H PRN (Reason: nausea and vomiting) Qty: 90 3RF Rx Instructions: Start this medication only after stopping Citalopram cholecalciferol (vitamin D3) [Vitamin D3] 2,000 unit Capsule 2,000 unit PO DAILY omega 0-vwx-hpp-fish oil [Fish Oil] 1,000 mg (120 mg-180 mg) capsule 1 cap PO BID Qty: 60 0RF ascorbic acid (vitamin C) 500 mg capsule 500 mg PO DAILY Qty: 60 0RF nsmudtmb-ilp-GV-lycopen-lutein [CertaVite Senior] 1 tab PO DAILY Referrals: Timothy Gee DO [Primary Care Provider] - Stand Alone Forms: Patient Portal/API
[2022-11-13] MEDS: HYDROCODONE/ACET 5/325 PREPACK 1 BOTTLE MISC (03:27)
[2022-11-13 03:28] VITALS: BP 151/67; PULSE 79; RESP 18; O2SAT 95
--- NOTE | 2022-11-13 03:41 | PC.NURSE ---
Assessment per Dr. Cardozo, this nurse in agreement
== END 2022-11-13 03:44 | disposition home or self-care (01) ==
PROVIDERS: Emergency Provider Emergency Medicine; Family Provider Family Medicine; PCP Family Medicine
DX: M54.32 Sciatica, left side (principal)
CPT/HCPCS: 93971; 99283

== ENCOUNTER 2022-11-30 20:18 | Emergency (ER) | payer OTHER, SELFPAY ==
[2021-04-06 21:30] VITALS: BMI 31.7
[2022-11-30] VITALS (10 sets, daily range): BP systolic 105–189; BP diastolic 54–87; PULSE 78–103; RESP 16–20; TEMP 36.8–37; O2SAT 93–98; BMI 29.1
--- NOTE | 2022-11-30 20:50 | DI.CT.S_ITS ---
PROCEDURE: CT ABDOMEN PELVIS W CON INDICATIONS: abdominal pain, prior SBO TECHNIQUE: After the administration of IV contrast, axial sections were acquired from the lung bases to the pubic symphysis. Coronal and sagittal reformats were performed. For radiation dose reduction, the following was used: automated exposure control, adjustment of mA and/or kV according to patient size. COMPARISON: [facility], CT, ABDOMEN/PELVIS WITH CONTRAST, 06/03/2017, 8:27. FINDINGS: Image quality: Excellent. Lung bases: There is mild scarring in the lung bases. Heart: Heart is normal in size. There is a moderate-sized hiatal hernia. ABDOMEN: Liver: A cyst is redemonstrated posteriorly in the right hepatic lobe. Gallbladder: Surgically absent. Biliary ducts: There is mild biliary ductal dilatation redemonstrated likely representing sequelae of prior cholecystectomy. Pancreas: There is moderate fatty atrophy of the pancreas. No pancreatic duct dilatation or discrete pancreatic mass. Spleen: Normal in size. Adrenal Glands: No adrenal nodules. Kidneys and Ureters: No hydronephrosis. Stomach and Bowel: Stomach and small bowel loops are normal in caliber and wall thickness. Appendix is surgically absent. There is colonic diverticulosis with associated diverticular and segmental colonic wall thickening in the sigmoid colon as well as pericolonic fat stranding consistent with acute diverticulitis. No associated diverticular abscess or macroscopic free air. Peritoneum: There is a small amount of free fluid in the pelvis. No free air. Ventral Wall: No hernia. Abdominal Nodes: No retroperitoneal or mesenteric adenopathy by size criteria. Vessels: Aorta and inferior vena cava are normal in size. PELVIS: Pelvic Organs: Unremarkable. Bladder: Unremarkable. Pelvic Nodes: No enlarged lymph nodes. Miscellaneous: No inguinal hernias are seen. Bones: Visualized osseous structures demonstrate no suspicious focal lesions. IMPRESSION: 1. Acute diverticulitis in the sigmoid colon without evidence of diverticular abscess or macroscopic free air. Dictated by: Ifeanyi Espinal M.D. on 11/30/2022 at 22:56 Approved by: Ifeanyi Espinal M.D. on 11/30/2022 at 22:59
[2022-11-30 21:11] LABS: Add Manual Diff / Slide Review NO; Basophils Absolute Auto 100 /uL (0-100); Basophils Percent Auto 0.5 % (0-2); Eosinophils Absolute Auto 200 /uL (0-450); Eosinophils Percent Auto 1.5 % (2-4); Hemoglobin 13.1 g/dL (12.0-16.0); Lymphocytes Absolute Auto 2000 /uL (1100-4500); Lymphocytes Percent Auto 15.8 % (25-40); Mean Corpuscular HGB Conc 34.5 % (30-36); Mean Corpuscular Hemoglobin 31.4 PG (26-34); Mean Corpuscular Volume 90.9 fL (80-100); Monocytes Absolute Auto 1800 /uL (0-900); Monocytes Percent Auto 13.9 % (3-14); Neutrophils Absolute Auto 8600 /uL (1500-7000); Neutrophils Percent Auto 68.3 % (50-75); Platelet Count 234 X10^3/uL (150-400); Red Blood Cell Count 4.18 X10^6/uL (4.0-5.2); Red Cell Distribution Width 14.3 % (11.6-14.8); White Blood Cell Count 12.6 X10^3/uL (4.5-11.0)
[2022-11-30 21:14] LABS: Alanine Aminotransferase 18 IU/L (<35); Albumin 3.8 g/dL (3.5-5.0); Albumin Globulin Ratio 1.4 (1.0-2.8); Alkaline Phosphatase 71 U/L (38-126); Aspartate Aminotransferase 23 IU/L (14-36); BUN Creatinine Ratio 16.7 (6-22); Blood Urea Nitrogen 16 mg/dL (7-17); Calcium 9.5 mg/dL (8.4-10.2); Carbon Dioxide 28 mmol/L (22-32); Chloride 97 mmol/L (98-107); Estimated Glomerular Filt Rate 57 mL/min (>60); Globulin 2.7 g/dL (1.7-4.1); Glucose 100 mg/dL (80-110); HEMOLYSIS < 15 (0-50); Lipase 41 U/L (23-300); Potassium 4.2 mmol/L (3.4-5.1); Sodium 131 mmol/L (137-145); Total Protein 6.5 g/dL (6.3-8.2)
--- NOTE | 2022-11-30 22:49 | ED_ITS ---
HPI - Abdominal Pain General Chief Complaint: Abdominal Pain Stated Complaint: ABD pain Time Seen by Provider: 11/30/22 20:20 Source: patient Mode of arrival: Family Vehicle History of Present Illness HPI narrative: 87-year-old female former smoker with history of an aneurysm, adenoma, hepatic cyst, sciatica, prior bowel obstructions presents with a chief complaint of constipation for the past 4-5 days. She had a very hard bowel movement this morning but continues to have ongoing intense pain. She is no longer passing gas. She denies fever, chills or vomiting but has become increasingly nauseated. Her pain often comes in waves but at times has made worse when she moves and improves with rest. It does remind her of prior bowel obstructions. She denies urinary complaint. Related Data Home Medications Medication Instructions Recorded Confirmed cholecalciferol (vitamin D3) 50 2,000 unit PO DAILY 10/01/17 11/19/22 mcg (2,000 unit) capsule (Vitamin D3) wxuhjear-fxi-LC-lycopen-lutein 1 tab PO DAILY 10/22/21 11/19/22 [CertaVite Senior] Previous Rx's Medication Instructions Recorded Disabled Parking Permit #1 ea 01/24/20 ascorbic acid (vitamin C) 500 mg 500 mg PO DAILY #60 caps 04/07/21 capsule omega 5-idh-qzo-fish oil 1,000 mg 1 cap PO BID #60 caps 04/07/21 (120 mg-180 mg) capsule (Fish Oil) famotidine 20 mg tablet See Rx Instructions .Route 02/18/22 .COMPLEX #180 tabs carvedilol 3.125 mg tablet See Rx Instructions .Route 05/07/22 .COMPLEX #180 tabs aspirin 81 mg tablet,delayed See Rx Instructions .Route 07/30/22 release .COMPLEX #90 tabs tolterodine 4 mg capsule,extended See Rx Instructions .Route 07/30/22 release 24 hr .COMPLEX #90 caps ondansetron 4 mg disintegrating 4 mg PO Q8H PRN nausea and 09/17/22 tablet vomiting #90 tabs levetiracetam 500 mg tablet See Rx Instructions .Route 10/06/22 .COMPLEX #135 tabs nifedipine 30 mg tablet,extended See Rx Instructions .Route 10/28/22 release .COMPLEX #90 tabs methocarbamol 500 mg tablet 500 mg PO BEDTIME #14 tabs 11/11/22 hydrocodone 5 mg-acetaminophen 325 1 tab PO Q6H PRN pain #10 tabs 11/13/22 mg tablet atorvastatin 20 mg tablet (Lipitor) 40 mg PO BEDTIME #180 tabs 11/19/22 amoxicillin 875 mg-potassium 1 tab PO Q12H #20 tabs 11/30/22 clavulanate 125 mg tablet Allergies Allergy/AdvReac Type Severity Reaction Status Date / Time albuterol [ALBUTEROL] AdvReac Severe SHAKEY Verified 11/30/22 20:28 LEGS, JERKY allopurinol [ALLOPURINOL] AdvReac Severe NAUSEA AND Verified 11/30/22 20:28 GI UPSET Sulfa (Sulfonamide AdvReac Severe HEADACHES Verified 11/30/22 20:28 Antibiotics) [SULFA (SULFONAMIDE ANTIBIOTICS)] JESSICA Inhibitors AdvReac Mild COUGH Verified 11/30/22 20:28 [JESSICA INHIBITORS] Review of Systems Review of Systems Narrative: GENERAL: Denies chills, fatigue, malaise, fever, sweats. HEENT: Denies sinus pain, ear pain, sore throat, difficulty swallowing, dizziness. RESPIRATORY: Denies dyspnea, cough, wheezing, hemoptysis, sputum. CARDIOVASCULAR: Denies chest pain, palpitations, orthopnea, edema, GASTROINTESTINAL: See HPI : Denies dysuria, frequency, incontinence, hematuria, urinary retention. MUSCULOSKELETAL: denies weakness, joint pain, or bony pain SKIN: Denies rash, skin lesions, or other NEUROLOGIC: Denies weakness, headache, numbness, change in speech, confusion, seizures, incoordination. PSYCHIATRIC: No concerning psychosocial issues. 12 point review of systems is negative except for those stated above Patient History Medical History Arthritis (Unknown) Cataracts, bilateral (Unknown) Cervical somatic dysfunction Cervicothoracic somatic dysfunction Chronic low back pain Chronic nausea Chronic thoracic back pain CLL (chronic lymphocytic leukemia) (Unknown) Corns and callus Depression (Unknown) Excessive daytime sleepiness Fatigue Gallbladder disease (Unknown) GERD (gastroesophageal reflux disease) (Unknown) Hypertension (Unknown) Left-sided low back pain with left-sided sciatica Lightheadedness Lumbar region somatic dysfunction Physical deconditioning Pure hypercholesterolemia Segmental and somatic dysfunction of abdomen and other regions Segmental and somatic dysfunction of head region Segmental and somatic dysfunction of pelvic region Segmental and somatic dysfunction of sacral region Segmental and somatic dysfunction of thoracic region Seizure disorder (Unknown) Somatic dysfunction of abdominal region Somatic dysfunction of lower extremity Spinal stenosis (Unknown) Stiff neck Subarachnoid hemorrhage (2000) Toe pain, bilateral Visual hallucinations Surgical History History of bilateral cataract extraction (Unknown) History of ventriculoperitoneal shunting (12/2000) Hx of appendectomy (Unknown) Hx of cholecystectomy (Unknown) Hx of detached retina repair (Unknown) Social History household members: spouse Smoking Status: Former smoker alcohol intake: current Smoking Status: Former smoker alcohol intake frequency: holidays/special occasions only Substance Use Type: does not use Exam Narrative Exam Narrative: GENERAL: [87] year old patient appears stated age. Well-developed patient, in mild distress. Appears uncomfortable HEAD: Atraumatic. Normocephalic. EYES: Pupils equal round and reactive. Extraocular motions intact. No scleral icterus. No injection or drainage. ENT: Nose without bleeding, purulent drainage. Throat without erythema, tonsillar hypertrophy or exudate. Airway patent. NECK: Trachea midline. Non tender CARDIOVASCULAR: Regular rate and rhythm without murmurs, gallops, or rubs. RESPIRATORY: Clear to auscultation. Breath sounds equal bilaterally. No wheezes, rales, or rhonchi. GASTROINTESTINAL: Abdomen soft, tender in the lower abdomen, nondistended. B owel sounds decreased EXTREMITIES: No edema or joint tenderness. BACK: Nontender without deformity or crepitance. No flank tenderness. NEURO: AOx3. SKIN: No rash or erythema of visible areas Initial Vital Signs Initial Vital Signs: Vital Signs Temperature 98.6 F 11/30/22 20:26 Pulse Rate 78 11/30/22 20:26 Respiratory Rate 16 11/30/22 20:26 Blood Pressure 146/63 H 11/30/22 20:26 Pulse Oximetry 98 11/30/22 20:26 Oxygen Delivery Method Room Air 11/30/22 20:26 Course Orders Ordered: ED Orders 11/30/22 20:50 CT abdomen pelvis w con Stat 11/30/22 20:52 Complete Blood Count AUTO DIFF Stat Comprehensive Metabolic Panel Stat Lactate (Lactic Acid) Stat Lipase Stat 11/30/22 23:00 Urine Culture Stat Urine Microscopic Stat Discontinued Medications Amoxicillin/Clavulanate Potassium (Amoxicillin/Clav 875/125 Mg) 1 tab PO NOW ONE Stop: 11/30/22 23:12 Last Admin: 11/30/22 23:17 Dose: 1 tab Documented By: TIFFANY Ondansetron HCl (Ondansetron 4 Mg Odt) 4 mg PO NOW PRN PRN Reason: Nausea And Vomiting Ondansetron HCl (Ondansetron 4 Mg/2 Ml Inj) 4 mg IV NOW PRN PRN Reason: Nausea And Vomiting Vital Signs Vital signs: Vital Signs - 8 hr 11/30/22 21:45 11/30/22 22:00 11/30/22 22:30 Temperature Pulse Rate 85 81 Respiratory Rate Blood Pressure 189/77 H 165/65 H 105/54 L Pulse Oximetry 97 95 Oxygen Delivery Method Room Air Room Air 11/30/22 23:09 11/30/22 23:10 11/30/22 23:10 Temperature Pulse Rate 103 H 101 H Respiratory Rate Blood Pressure 160/87 H Pulse Oximetry 93 Oxygen Delivery Method 11/30/22 23:16 Temperature 98.4 F Pulse Rate 87 Respiratory Rate 18 Blood Pressure 160/87 H Pulse Oximetry Oxygen Delivery Method Room Air MDM - Abdominal Pain Lab Data 11/30/22 20:52 11/30/22 20:52 Labs: Lab Results 11/30/22 11/30/22 11/30/22 Range/Units 20:52 20:52 20:52 WBC 12.6 H (4.5-11.0) X10^3/uL RBC 4.18 (4.0-5.2) X10^6/uL Hgb 13.1 (12.0-16.0) g/dL Hct 38.0 (36-46) % MCV 90.9 (80-100) fL MCH 31.4 (26-34) PG MCHC 34.5 (30-36) % RDW 14.3 (11.6-14.8) % Plt Count 234 (150-400) X10^3/uL Neut % (Auto) 68.3 (50-75) % Lymph % (Auto) 15.8 L (25-40) % [place] % (Auto) 13.9 (3-14) % Eos % (Auto) 1.5 L (2-4) % Baso % (Auto) 0.5 (0-2) % Neut # (Auto) 8600 H (5508-4721) /uL Lymph # (Auto) 2000 (1879-1209) /uL [place] # (Auto) 1800 H (0-900) /uL Eos # (Auto) 200 (0-450) /uL Baso # (Auto) 100 (0-100) /uL Sodium 131 L (137-145) mmol/L Potassium 4.2 (3.4-5.1) mmol/L Chloride 97 L (98-107) mmol/L Carbon Dioxide 28 (22-32) mmol/L BUN 16 (7-17) mg/dL Creatinine 0.96 (0.52-1.04) mg/dL Estimated GFR 57 L (>60) mL/min BUN/Creatinine Ratio 16.7 (6-22) Glucose 100 (80-110) mg/dL Lactate 1.0 (0.7-2.1) mmol/L Calcium 9.5 (8.4-10.2) mg/dL Total Bilirubin 1.0 (0.2-1.3) mg/dL AST 23 (14-36) IU/L ALT 18 (<35) IU/L Alkaline Phosphatase 71 (38-126) U/L Total Protein 6.5 (6.3-8.2) g/dL Albumin 3.8 (3.5-5.0) g/dL Globulin 2.7 (1.7-4.1) g/dL Albumin/Globulin Ratio 1.4 (1.0-2.8) Lipase 41 (23-300) U/L Urine RBC (0-5/HPF) Urine WBC (0-5/HPF) Ur Squamous Epith Cells (0-5/HPF) Urine Bacteria (None) Ur Culture Indicated? 11/30/22 Range/Units 23:00 WBC (4.5-11.0) X10^3/uL RBC (4.0-5.2) X10^6/uL Hgb (12.0-16.0) g/dL Hct (36-46) % MCV (80-100) fL MCH (26-34) PG MCHC (30-36) % RDW (11.6-14.8) % Plt Count (150-400) X10^3/uL Neut % (Auto) (50-75) % Lymph % (Auto) (25-40) % [place] % (Auto) (3-14) % Eos % (Auto) (2-4) % Baso % (Auto) (0-2) % Neut # (Auto) (8343-1100) /uL Lymph # (Auto) (4676-6433) /uL [place] # (Auto) (0-900) /uL Eos # (Auto) (0-450) /uL Baso # (Auto) (0-100) /uL Sodium (137-145) mmol/L Potassium (3.4-5.1) mmol/L Chloride (98-107) mmol/L Carbon Dioxide (22-32) mmol/L BUN (7-17) mg/dL Creatinine (0.52-1.04) mg/dL Estimated GFR (>60) mL/min BUN/Creatinine Ratio (6-22) Glucose (80-110) mg/dL Lactate (0.7-2.1) mmol/L Calcium (8.4-10.2) mg/dL Total Bilirubin (0.2-1.3) mg/dL AST (14-36) IU/L ALT (<35) IU/L Alkaline Phosphatase (38-126) U/L Total Protein (6.3-8.2) g/dL Albumin (3.5-5.0) g/dL Globulin (1.7-4.1) g/dL Albumin/Globulin Ratio (1.0-2.8) Lipase (23-300) U/L Urine RBC None seen (0-5/HPF) Urine WBC 0-1/hpf (0-5/HPF) Ur Squamous Epith Cells None seen (0-5/HPF) Urine Bacteria None seen (None) Ur Culture Indicated? Specimen cultured Point of care testing: Urine Dip Bedside Urine Glucose Negative Bedside Urine Bilirubin - Negative Bedside Urine Ketone - Negative Urine Specific [place] 1.010 Bedside Urine Occult Blood +/- Bedside Urine pH 6.5 Bedside Urine Protein - Negative Bedside Urine Urobilinogen - Negative Bedside Urine Nitrite - Negative Bedside Urine Leukocytes ++ 125 Esterase MDM Narrative Medical decision making narrative: CC: 87-year-old female with abdominal pain Complicating co-morbidities: Age, prior bowel obstruction Data collected from: Patient Medical records reviewed: Prior notes reviewed in our EMR Differential considered, but not limited to: Bowel obstruction versus constipation versus infectious process versus AAA versus other Exam documented above, pertinent findings include: Heart rate regular, lungs clear, abdomen soft but tender in the lower portions with decreased bowel sounds Lab Test results independently reviewed as above. Pertinent findings: Elevated white blood cell count at 12.6 with relative left shift, sodium 131, chloride 97, potassium 4.2, creatinine 0.96, lactate 1.0 Independently reviewed EKG as above Imaging studies independently reviewed: CT of abdomen and pelvis demonstrates diverticulitis, no abscess or perf Treatments: Fluids and Augmentin Discussion: 87 year female presents with abdominal pain concern for possible bowel obstruction. Exam is reassuring, labs do show a slight increase in white blood cells but this is consistent with the CT imaging confirming diverticulitis. Her pain is well controlled, there is no indication for hospitalization, no abscess or perforation. Patient given 1st dose of antibiotics, remainder prescription sent to her pharmacy Disposition: see below, along with detailed discharge instructions that have been reviewed with patient as well as indications for ED re-evaluation and additional outpatient follow up Discharge Plan Departure Patient Disposition: Home Clinical Impression: Diverticulitis Instructions: Diverticulitis Activity Restrictions/Additional Instructions: *You have been diagnosed with [abdominal pain due to diverticulitis] * *What to do: *Please continue to take your regular medications as directed. [x ] New medication prescriptions sent to your pharmacy: [[facility] ] *Please follow up with your primary care provider in 2-3 days, call for an appointment. Let them know you were seen in the Emergency Department and that we ask that you be seen in follow up. We will electronically transmit a record of today's note if your PCP is in our system *Please consider a clear liquid diet for the next 24-48 hours and then slowly advance to regular as tolerated. Also, try to avoid alcohol, nicotine, caffeine, spicy, acidic or fatty foods as this may worsen your symptoms *If you do not have a primary care provider please contact the [facility] Resource line at [phone]. They will ask some questions about your medical history and help get you set up with a doctor in the community. *Return to Emergency Department if you should have any new, worsening or concerning symptoms, such as [fever greater than 101 F, shaking chills, worsening pain, persistent vomiting or other bothersome symptoms] Prescriptions: New amoxicillin-pot clavulanate 875-125 mg tablet 1 tab PO Q12H Qty: 20 0RF No Action (DME) Disabled Parking Permit Qty: 1 0RF Rx Instructions: As directed famotidine 20 mg tablet See Rx Instructions .ROUTE .COMPLEX Qty: 180 3RF Dose Instruction: TAKE 1 TABLET BY MOUTH TWICE DAILY Rx Instructions: TAKE 1 TABLET BY MOUTH TWICE DAILY carvedilol 3.125 mg tablet See Rx Instructions .ROUTE .COMPLEX Qty: 180 2RF Dose Instruction: TAKE 1 TABLET BY MOUTH TWICE DAILY Rx Instructions: TAKE 1 TABLET BY MOUTH TWICE DAILY tolterodine 4 mg capsule,extended release 24hr See Rx Instructions .ROUTE .COMPLEX Qty: 90 2RF Dose Instruction: TAKE 1 CAPSULE BY MOUTH EVERY EVENING Rx Instructions: TAKE 1 CAPSULE BY MOUTH EVERY EVENING aspirin 81 mg tablet,delayed release (DR/EC) See Rx Instructions .ROUTE .COMPLEX Qty: 90 2RF Dose Instruction: TAKE 1 TABLET BY MOUTH DAILY Rx Instructions: TAKE 1 TABLET BY MOUTH DAILY levetiracetam 500 mg tablet See Rx Instructions .ROUTE .COMPLEX Qty: 135 0RF Dose Instruction: TAKE 1/2 TABLET BY MOUTH EVERY MORNING AND TAKE 1 TABLET BY MOUTH WITH SUPPER. NEED APPOINTMENT FOR FURTHER REFILLS. Rx Instructions: TAKE 1/2 TABLET BY MOUTH EVERY MORNING AND TAKE 1 TABLET BY MOUTH WITH SUPPER. nifedipine 30 mg tablet extended release See Rx Instructions .ROUTE .COMPLEX Qty: 90 3RF Dose Instruction: TAKE 1 TABLET BY MOUTH EVERY DAY Rx Instructions: TAKE 1 TABLET BY MOUTH EVERY DAY atorvastatin [Lipitor] 20 mg tablet 40 mg PO BEDTIME Qty: 180 0RF methocarbamol 500 mg tablet 500 mg PO BEDTIME Qty: 14 0RF ondansetron 4 mg tablet,disintegrating 4 mg PO Q8H PRN (Reason: nausea and vomiting) Qty: 90 3RF Rx Instructions: Start this medication only after stopping Citalopram cholecalciferol (vitamin D3) [Vitamin D3] 2,000 unit Capsule 2,000 unit PO DAILY hydrocodone-acetaminophen 5-325 mg tablet 1 tab PO Q6H PRN (Reason: pain) Qty: 10 0RF omega 2-mym-ots-fish oil [Fish Oil] 1,000 mg (120 mg-180 mg) capsule 1 cap PO BID Qty: 60 0RF ascorbic acid (vitamin C) 500 mg capsule 500 mg PO DAILY Qty: 60 0RF ccuruyug-esx-FE-lycopen-lutein [CertaVite Senior] 1 tab PO DAILY Referrals: Timothy Gee DO [Primary Care Provider] - Stand Alone Forms: Patient Portal/API
[2022-11-30] MEDS: AMOXICILLIN/CLAV 875/125 MG 1 TAB PO (23:17)
[2022-11-30 23:34] LABS: Bacteria Urine None Seen; Culture Indicated Urine Specimen Cultured; RBC Urine None Seen (0-5/HPF); Squamous Epithelial Cell Urine None Seen (0-5/HPF); WBC Urine 0-1/HPF (0-5/HPF)
== END 2022-11-30 23:25 | disposition home or self-care (01) ==
PROVIDERS: Emergency Provider Emergency Medicine; Family Provider Family Medicine; PCP Family Medicine
DX: K57.92 Diverticulitis of intestine, part unspecified, without perforation or abscess without bleeding (principal); R10.9 Unspecified abdominal pain; R79.89 Other specified abnormal findings of blood chemistry
CPT/HCPCS: 36415; 74177; 80053; 81003; 81015; 83605; 83690; 85025; 87086; 93005; 99283; 99284; Q9967

== ENCOUNTER 2023-01-19 00:13 | Observation (INO) | payer OTHER, SELFPAY ==
[2021-04-06 21:30] VITALS: BMI 31.7
[2023-01-19] VITALS (24 sets, daily range): BP systolic 117–193; BP diastolic 55–79; PULSE 66–87; RESP 12–29; TEMP 35.5–36.6; O2SAT 94–98; BMI 29.9; BMI 28.8
--- NOTE | 2023-01-19 00:31 | PC.NURSE ---
pt states she was lying in bed when she became dizzy, dizziness eased by keeping her eyes closed and being still, c/o nausea but not vomiting
--- NOTE | 2023-01-19 00:38 | ED.DIZZY ---
HPI - Dizziness General Chief Complaint: Dizziness Stated Complaint: Dizzy/Nausea Time Seen by Provider: 01/19/23 00:22 Source: patient and EMS Mode of arrival: EMS History of Present Illness HPI Narrative: Patient is an 87-year-old female history of CVA TIA aneurysm with coil presenting today with sudden onset of dizziness. She reports that she was lying in bed when she felt suddenly dizzy. She is a hard time keeping her eyes open. She feels nauseous but no vomiting. The blood pressure cuff is causing quite a bit of pain. She is no chest pain palpitations numbness tingling or weakness. She is no prior history of vertigo. Patient reports to nursing staff that she can only she have her 's face. She reports that it lasted only a 2nd she thinks and then it went away. She denies any demarcated line. Related Data Home Medications Medication Instructions Recorded Confirmed cholecalciferol (vitamin D3) 50 2,000 unit PO DAILY 10/01/17 12/11/22 mcg (2,000 unit) capsule (Vitamin D3) hgfxfsnh-pwe-DZ-lycopen-lutein 1 tab PO DAILY 10/22/21 12/11/22 [CertaVite Senior] Previous Rx's Medication Instructions Recorded Disabled Parking Permit #1 ea 01/24/20 ascorbic acid (vitamin C) 500 mg 500 mg PO DAILY #60 caps 04/07/21 capsule omega 6-prq-aja-fish oil 1,000 mg 1 cap PO BID #60 caps 04/07/21 (120 mg-180 mg) capsule (Fish Oil) famotidine 20 mg tablet See Rx Instructions .Route 02/18/22 .COMPLEX #180 tabs carvedilol 3.125 mg tablet See Rx Instructions .Route 05/07/22 .COMPLEX #180 tabs aspirin 81 mg tablet,delayed See Rx Instructions .Route 07/30/22 release .COMPLEX #90 tabs ondansetron 4 mg disintegrating 4 mg PO Q8H PRN nausea and 09/17/22 tablet vomiting #90 tabs nifedipine 30 mg tablet,extended See Rx Instructions .Route 10/28/22 release .COMPLEX #90 tabs methocarbamol 500 mg tablet 500 mg PO BEDTIME #14 tabs 11/11/22 atorvastatin 20 mg tablet (Lipitor) 40 mg PO BEDTIME #180 tabs 11/19/22 tolterodine 4 mg capsule,extended See Rx Instructions .Route 12/11/22 release 24 hr .COMPLEX #90 caps levetiracetam 500 mg tablet See Rx Instructions .Route 12/24/22 .COMPLEX #135 tabs Allergies Allergy/AdvReac Type Severity Reaction Status Date / Time albuterol [ALBUTEROL] AdvReac Severe SHAKEY Verified 12/11/22 10:38 LEGS, JERKY allopurinol [ALLOPURINOL] AdvReac Severe NAUSEA AND Verified 12/11/22 10:38 GI UPSET Sulfa (Sulfonamide AdvReac Severe HEADACHES Verified 12/11/22 10:38 Antibiotics) [SULFA (SULFONAMIDE ANTIBIOTICS)] JESSICA Inhibitors AdvReac Mild COUGH Verified 12/11/22 10:38 [JESSICA INHIBITORS] Review of Systems Review of Systems ROS Unobtainable: All systems reviewed & are unremarkable except as noted in HPI and below Patient History Medical History Arthritis (Unknown) Cataracts, bilateral (Unknown) Cervical somatic dysfunction Cervicothoracic somatic dysfunction Chronic low back pain Chronic nausea Chronic thoracic back pain CLL (chronic lymphocytic leukemia) (Unknown) Corns and callus Depression (Unknown) Excessive daytime sleepiness Fatigue Gallbladder disease (Unknown) GERD (gastroesophageal reflux disease) (Unknown) Hypertension (Unknown) Left-sided low back pain with left-sided sciatica Lightheadedness Lumbar region somatic dysfunction Physical deconditioning Pure hypercholesterolemia Segmental and somatic dysfunction of abdomen and other regions Segmental and somatic dysfunction of head region Segmental and somatic dysfunction of pelvic region Segmental and somatic dysfunction of sacral region Segmental and somatic dysfunction of thoracic region Seizure disorder (Unknown) Somatic dysfunction of abdominal region Somatic dysfunction of lower extremity Spinal stenosis (Unknown) Stiff neck Subarachnoid hemorrhage (2000) Toe pain, bilateral Visual hallucinations Surgical History History of bilateral cataract extraction (Unknown) History of ventriculoperitoneal shunting (12/2000) Hx of appendectomy (Unknown) Hx of cholecystectomy (Unknown) Hx of detached retina repair (Unknown) Social History household members: spouse Smoking Status: Former smoker alcohol intake: current Smoking Status: Former smoker alcohol intake frequency: holidays/special occasions only Substance Use Type: does not use Exam Initial Vital Signs Initial Vital Signs: Vital Signs Temperature 97.8 F 01/19/23 00:23 Pulse Rate 69 01/19/23 00:23 Respiratory Rate 20 01/19/23 00:23 Blood Pressure 187/79 H 01/19/23 00:23 Pulse Oximetry 96 01/19/23 00:23 Oxygen Delivery Method Room Air 01/19/23 00:23 GENERAL: Alert pleasant well-appearing female and in no acute distress. HEENT: Head atraumatic,EOMI, pupils reactive, nystagmus when looking to left dizziness induced on looking to the right, face symmetric, moist mucous membranes CARDIOVASCULAR: Regular rate and rhythm without murmurs, rubs or gallops. RESPIRATORY: Breath sounds equal bilaterally, no wheezes rales or rhonchi. ABDOMEN: Soft, nontender. Normoactive bowel sounds all 4 quadrants. No guarding or rebound. EXTREMITIES: Normal range of motion, no clubbing or edema. Neurovascularly intact NEUROLOGICAL: Alert and oriented x4.Normal gait and speech. Good cskpyc-wi-relu good pxbu-io-waed no facial droop no dysarthria or dysphagia sensation intact SKIN: Warm, dry, no laceration, no petechiae, no rashes or lesions. Scores NIH Stroke Scale Level of Conciousness: Alert, keenly responsive Ask month/age: Answers both questions correctly. Open/close eyes, close hand: Performs both tasks correctly Best gaze horizontal: Normal Visual huntley: Partial hemianopia Facial palsy: Normal symetrical movement Left arm drift: No drift for full 10 sec Right arm drift: No drift for full 10 sec Left leg drift: No drift for full 5 sec Right leg drift: No drift for full 5 sec Limb ataxia: Absent Sensory on face/arms/legs: Normal, no sensory loss Best language: No aphasia, normal Dysarthria: Normal Extinction or inattention: No abnormality Total NIH Stroke scale score: 1 Course Orders Ordered: ED Orders 01/19/23 00:22 Complete Blood Count AUTO DIFF Stat Comprehensive Metabolic Panel Stat Ethanol (ETOH) Stat PTT Partial Thromboplastin [place] Stat Prothrombin Time INR Stat Troponin & CK Cardiac Panel Stat 01/19/23 00:39 CT angio head and neck Stat CT head/brain wo con Stat EKG-12 Lead Stat 01/19/23 01:05 COVID19 -Nasal RAPID Stat 01/19/23 02:12 Urinalysis and Microscopic Stat Urine Culture Stat Urine Drug Screen, Rapid Stat Acetaminophen (Acetaminophen 325 Mg Tablet) 650 mg PO Q6H PRN PRN Reason: Fever/Mild Pain (1-3) Aspirin (Aspirin Ec 81 Mg Tablet) 0 mg PO .COMPLEX MEL Atorvastatin Calcium (Atorvastatin 20 Mg Tablet) 40 mg PO BEDTIME MEL Carvedilol (Carvedilol 3.125 Mg Tablet) 0 mg PO .COMPLEX MEL Famotidine (Famotidine 20 Mg Tablet) 0 mg PO .COMPLEX MEL Fish Oil (Fish Oil 1,000 Mg Capsule) mg PO BID MEL Sodium Chloride (Normal Saline 0.9%) 1,000 mls @ 150 mls/hr IV CONT MEL Last Admin: 01/19/23 00:45 Dose: 150 mls/hr Documented By: NENA Levetiracetam (Levetiracetam 250 Mg Tablet) 0 mg PO .COMPLEX MEL Naloxone HCl (Naloxone 0.4 Mg/Ml Vial) 0.2 mg IV Q2MIN PRN PRN Reason: Opiate Reversal Nifedipine (Nifedipine 30 Mg Tab Er) 0 mg PO .COMPLEX MEL Ondansetron HCl (Ondansetron 4 Mg Odt) 4 mg PO Q8HR PRN PRN Reason: Nausea And Vomiting Discontinued Medications Meclizine HCl (Meclizine Hcl 12.5 Mg Tablet) 25 mg PO NOW ONE Stop: 01/19/23 00:41 Last Admin: 01/19/23 00:44 Dose: 25 mg Documented By: NENA Vital Signs Vital signs: Vital Signs - 8 hr 01/19/23 00:23 01/19/23 00:24 01/19/23 00:29 Temperature 97.8 F Pulse Rate 69 70 Respiratory Rate 20 17 Blood Pressure 187/79 H 193/78 H Pulse Oximetry 96 96 Oxygen Delivery Method Room Air 01/19/23 00:29 01/19/23 00:30 01/19/23 01:17 Temperature Pulse Rate 75 70 72 Respiratory Rate 24 28 H Blood Pressure Pulse Oximetry 97 97 95 Oxygen Delivery Method 01/19/23 01:20 01/19/23 01:20 01/19/23 01:30 Temperature Pulse Rate 71 71 Respiratory Rate 19 13 Blood Pressure 169/67 H Pulse Oximetry 98 97 Oxygen Delivery Method 01/19/23 01:31 01/19/23 01:31 01/19/23 02:00 Temperature Pulse Rate 73 73 Respiratory Rate 13 14 Blood Pressure 169/67 H Pulse Oximetry 97 98 Oxygen Delivery Method 01/19/23 02:01 01/19/23 02:01 01/19/23 02:14 Temperature Pulse Rate 74 87 Respiratory Rate 18 20 Blood Pressure 149/66 H Pulse Oximetry 97 94 Oxygen Delivery Method 01/19/23 02:14 01/19/23 02:30 01/19/23 02:31 Temperature Pulse Rate 71 Respiratory Rate 12 Blood Pressure 154/77 H 136/63 Pulse Oximetry 96 Oxygen Delivery Method 01/19/23 02:31 01/19/23 03:00 01/19/23 03:00 Temperature Pulse Rate 70 73 Respiratory Rate 14 19 Blood Pressure 140/63 Pulse Oximetry 97 95 Oxygen Delivery Method MDM - Dizziness Lab Data 01/19/23 00:22 01/19/23 00:22 Labs: Lab Results 01/19/23 01/19/23 01/19/23 Range/Units 00:22 00:22 00:22 WBC 7.7 (4.5-11.0) X10^3/uL RBC 4.19 (4.0-5.2) X10^6/uL Hgb 13.3 (12.0-16.0) g/dL Hct 38.3 (36-46) % MCV 91.4 (80-100) fL MCH 31.9 (26-34) PG MCHC 34.9 (30-36) % RDW 13.9 (11.6-14.8) % Plt Count 199 (150-400) X10^3/uL Neut % (Auto) 57.3 (50-75) % Lymph % (Auto) 25.5 (25-40) % [place] % (Auto) 12.7 (3-14) % Eos % (Auto) 3.7 (2-4) % Baso % (Auto) 0.8 (0-2) % Neut # (Auto) 4400 (2836-5235) /uL Lymph # (Auto) 2000 (6586-6898) /uL [place] # (Auto) 1000 H (0-900) /uL Eos # (Auto) 300 (0-450) /uL Baso # (Auto) 100 (0-100) /uL PT 12.6 (10.1-12.7) SECONDS INR 1.1 (0.9-1.3) APTT 31 (26-36) SECONDS Sodium 135 L (137-145) mmol/L Potassium 3.8 (3.4-5.1) mmol/L Chloride 103 (98-107) mmol/L Carbon Dioxide 27 (22-32) mmol/L BUN 13 (7-17) mg/dL Creatinine 0.79 (0.52-1.04) mg/dL Estimated GFR > 60 (>60) mL/min BUN/Creatinine Ratio 16.5 (6-22) Glucose 112 H (80-110) mg/dL Calcium 10.2 (8.4-10.2) mg/dL Total Bilirubin 0.7 (0.2-1.3) mg/dL AST 28 (14-36) IU/L ALT 22 (<35) IU/L Alkaline Phosphatase 79 (38-126) U/L Total Creatine Kinase 30 (30-135) U/L Troponin I < 0.012 (0.01-0.034) ng/mL Total Protein 6.3 (6.3-8.2) g/dL Albumin 3.8 (3.5-5.0) g/dL Globulin 2.5 (1.7-4.1) g/dL Albumin/Globulin Ratio 1.5 (1.0-2.8) Urine Color Urine Appearance Urine pH (4.5-8.0) Ur Specific [place] (1.000-1.035) Urine Protein (Negative) Urine Glucose (UA) (Negative) g/dL Urine Ketones (NEGATIVE) Urine Occult Blood (Negative) Urine Nitrate (Negative) Urine Bilirubin (NEGATIVE) Urine Urobilinogen (0.2) E.U./dL Ur Leukocyte Esterase (NEGATIVE) Urine RBC (0-5/HPF) Urine WBC (0-5/HPF) Ur Squamous Epith Cells (0-5/HPF) Ur Transition Epith Cell (0-5/HPF) Urine Bacteria (None) Hyaline Casts (None) Ur Culture Indicated? U Opiates 300ng/mL cut (Negative) Ur Oxycodone Screen (Negative) Urine Methadone Screen (Negative) Ur Barbiturates Screen (Negative) U Tricyclic Antidepress (Negative) Ur Phencyclidine Scrn (Negative) Ur Amphetamines Screen (Negative) U Methamphetamines Scrn (Negative) Ur MDMA Scrn (Ecstasy) (Negative) U Benzodiazepines Scrn (Negative) Urine Cocaine Screen (Negative) U Marijuana (THC) Screen (Negative) Ethyl Alcohol < 10 ( - 10) mg/dL SARS-CoV-2 (PCR) (Negative) 01/19/23 01/19/23 01/19/23 Range/Units 01:05 02:12 02:12 WBC (4.5-11.0) X10^3/uL RBC (4.0-5.2) X10^6/uL Hgb (12.0-16.0) g/dL Hct (36-46) % MCV (80-100) fL MCH (26-34) PG MCHC (30-36) % RDW (11.6-14.8) % Plt Count (150-400) X10^3/uL Neut % (Auto) (50-75) % Lymph % (Auto) (25-40) % [place] % (Auto) (3-14) % Eos % (Auto) (2-4) % Baso % (Auto) (0-2) % Neut # (Auto) (7047-8281) /uL Lymph # (Auto) (2963-5145) /uL [place] # (Auto) (0-900) /uL Eos # (Auto) (0-450) /uL Baso # (Auto) (0-100) /uL PT (10.1-12.7) SECONDS INR (0.9-1.3) APTT (26-36) SECONDS Sodium (137-145) mmol/L Potassium (3.4-5.1) mmol/L Chloride (98-107) mmol/L Carbon Dioxide (22-32) mmol/L BUN (7-17) mg/dL Creatinine (0.52-1.04) mg/dL Estimated GFR (>60) mL/min BUN/Creatinine Ratio (6-22) Glucose (80-110) mg/dL Calcium (8.4-10.2) mg/dL Total Bilirubin (0.2-1.3) mg/dL AST (14-36) IU/L ALT (<35) IU/L Alkaline Phosphatase (38-126) U/L Total Creatine Kinase (30-135) U/L Troponin I (0.01-0.034) ng/mL Total Protein (6.3-8.2) g/dL Albumin (3.5-5.0) g/dL Globulin (1.7-4.1) g/dL Albumin/Globulin Ratio (1.0-2.8) Urine Color Yellow Urine Appearance Clear Urine pH 7.0 (4.5-8.0) Ur Specific [place] 1.010 (1.000-1.035) Urine Protein Negative (Negative) Urine Glucose (UA) Negative (Negative) g/dL Urine Ketones Negative (NEGATIVE) Urine Occult Blood Negative (Negative) Urine Nitrate Negative (Negative) Urine Bilirubin Negative (NEGATIVE) Urine Urobilinogen 0.2 (0.2) E.U./dL Ur Leukocyte Esterase 1+ H (NEGATIVE) Urine RBC 1-5/hpf (0-5/HPF) Urine WBC 10-30/hpf H (0-5/HPF) Ur Squamous Epith Cells 1-5 /hpf (0-5/HPF) Ur Transition Epith Cell 1-5/hpf (0-5/HPF) Urine Bacteria Few (2-10) H (None) Hyaline Casts 5-10/lpf (None) Ur Culture Indicated? Specimen cultured U Opiates 300ng/mL cut Negative (Negative) Ur Oxycodone Screen Negative (Negative) Urine Methadone Screen Negative (Negative) Ur Barbiturates Screen Negative (Negative) U Tricyclic Antidepress Negative (Negative) Ur Phencyclidine Scrn Negative (Negative) Ur Amphetamines Screen Negative (Negative) U Methamphetamines Scrn Negative (Negative) Ur MDMA Scrn (Ecstasy) Negative (Negative) U Benzodiazepines Scrn Negative (Negative) Urine Cocaine Screen Negative (Negative) U Marijuana (THC) Screen Negative (Negative) Ethyl Alcohol ( - 10) mg/dL SARS-CoV-2 (PCR) Negative (Negative) Urine Dip Bedside Urine Glucose Negative Bedside Urine Bilirubin - Negative Bedside Urine Ketone - Negative Urine Specific [place] 1.01 Bedside Urine Occult Blood - Negative Bedside Urine pH 6.5 Bedside Urine Protein - Negative Bedside Urine Urobilinogen - Negative Bedside Urine Nitrite - Negative Bedside Urine Leukocytes + [address] scan - head: Radiologist's Impression: PROCEDURE: XR FOREARM RT 2V INDICATIONS: injury, fall TECHNIQUE: 2 views of the forearm were acquired. COMPARISON: None. FINDINGS: Bones: No fractures or dislocations. No suspicious bony lesions. Soft tissues: No suspicious soft tissue calcifications or masses. IMPRESSION: No acute osseous abnormality. If pain persists with conservative management, consider repeat x-ray in 10-14 days or cross-sectional imaging. Dictated by: Rajan Eric M.D. on 01/18/2023 at 18:59 CTA - brain/neck: Radiologist's Impression: PROCEDURE:? CT ANGIO HEAD AND NECK ? INDICATIONS:? Dizzy; history of CVA and aneurysm. ? TECHNIQUE:? After the administration of intravenous contrast, 1 mm thick sections acquired from the aortic arch through the [place] of [place].? 3-dimensional bhbrfod-oczttckqe-isrfkqifom (MIP) and/or volume rendering reformats were acquired of the central intracranial vasculature and neck separately. For radiation dose reduction, the following was used:? automated exposure control, adjustment of mA and/or kV according to patient size.? ? COMPARISON:? [facility], CT, CT ANGIO HEAD AND NECK, 04/06/2021, 19:53. ? FINDINGS:? Image quality:? Good Anterior circulation: ICAs:? Juca-st-emjquqlv cavernous carotid calcifications.? Left aneurysm clips limit evaluation.? There are also calcifications in the supraclinoid ICAs. ACAs: Normal and symmetric MCAs: Normal and symmetric AComm: No aneurysm Venous sinuses: patent ? Posterior circulation: Dominance: Equal Vertebral arteries:? Mild atherosclerotic irregularity Basilar artery:? Diminutive distally, as before PComms:? Large bilaterally, primarily origin of the bilateral pretzel packer. pretzel packer: Unremarkable ? Intracranial irregularity, for example in the right SENIOR IT ASSISTANT, likely intracranial atherosclerotic disease ? NECK ANGIOGRAPHY Aortic arch and subclavian arteries: Normal flow, no aneurysm. CCAs: No stenosis, occlusion, or aneurysm. ICA origins (by NASCET criteria):? Mild calcifications on the right.? Moderate calcifications on the left.? 50 percent or less narrowing bilaterally. ICAs: No stenosis, occlusion or aneurysm. ECAs:? Patent origins, but with atherosclerotic disease Vertebral arteries:? Mild narrowing at the origins bilaterally. ? Soft tissues: No significant mass, aneurysm, or lymphadenopathy Lung apices:? No apical pneumothorax.? There is emphysema. Bones:? Degenerative changes. ? ? IMPRESSION:? No large vessel occlusion or high-grade stenosis.? Suspected atherosclerotic disease in the intracranial arteries, and other locations described above. ? Postsurgical changes of right ventriculostomy and left aneurysm clipping.? Noncontrast head CT findings are separately dictated.? Consider MRI if there is high concern for infarct. ? Any quantitative measurements of stenosis were performed using NASCET criteria.? ? ? Dictated by: Dontae Oneil M.D. on 01/19/2023 at 1:23 ? ? Approved by: Dontae Oneil M.D. on 01/19/2023 at 1:31 ? ECG Data Interpretation: Normal sinus rhythm rate 71 HI interval 156 QRS [address] changes similar to previous MDM Narrative Medical decision making narrative: Patient 87-year-old female history of CVA/TIA, aneurysm with coil presenting today with sudden onset of dizziness. It is definitely reproducible she has nystagmus. However she also does have some left partial hemianopsia this. This was not made clear until later. She reported that she could not see half 's face and reported it lasted only seconds. However on exam I do have to move my left finger further in front of her face than the right. Patient received meclizine for her dizziness she slept her blood pressure went down. She is reexamined vision is completely normal. She had improvement in her vision. Not a tPA candidate. Patient has mixed picture of definite partial left hemianopsia in dizziness. Could be posterior stroke. She did have some nystagmus dizziness was reproducible with changes. She has no other numbness tingling or weakness. She definitely was dizzy whenever she open her eyes. Meclizine seemed to help the most. MDM CC: Dizziness Complicating co-morbidities: CVA aneurysm with coil Corroborating data: From Data collected from: Chart Medical records reviewed: Differential considered: Posterior cva, CVA, vertigo vestibular neuritis Exam documented above, pertinent findings include: Nystagmus with left partial hemianopsia Lab Test results independently reviewed as above. Pertinent findings: Reviewed no leukocytosis anemia electrolyte abnormality or RENEE, no infection Independently reviewed EKG as above Imaging studies independently reviewed: Head CT and CT angio Consultations: Hospitalist Treatments: Meclizine Re-evaluations: Patient sleeping after meclizine blood pressure improve. Vision is reassessed normal have improved patient is feeling significantly better. Discussion: Patient has mixed symptoms significant history of TIA and CVA. Difficult to tell if this is vertigo versus posterior stroke versus TIA. Unlikely that partial hemianopsia is associated with BPPV that is more consistent with TIA and CVA. Discussion with hospitalist agrees for observation. Patient has previously had an MRI so I suspect she can have another MRI for further evaluation. Diagnosis: [ ] Disposition: see below, along with detailed discharge instructions that have been reviewed with patient as well as indications for ED re-evaluation and additional outpatient follow up Discharge Plan Departure Patient Disposition: Admitted as Observation Clinical Impression: Brain TIA Admit Date/Time: 01/19/23 04:29 Admit Provider: Jack Alcazar
--- NOTE | 2023-01-19 00:39 | DI.CT.S_ITS ---
PROCEDURE: CT ANGIO HEAD AND NECK INDICATIONS: Dizzy; history of CVA and aneurysm. TECHNIQUE: After the administration of intravenous contrast, 1 mm thick sections acquired from the aortic arch through the [place] of [place]. 3-dimensional thwfxlt-vstirjguf-nkvtbiztvk (MIP) and/or volume rendering reformats were acquired of the central intracranial vasculature and neck separately. For radiation dose reduction, the following was used: automated exposure control, adjustment of mA and/or kV according to patient size. COMPARISON: [facility], CT, CT ANGIO HEAD AND NECK, 04/06/2021, 19:53. FINDINGS: Image quality: Good Anterior circulation: ICAs: Nnxr-nq-lpgaxima cavernous carotid calcifications. Left aneurysm clips limit evaluation. There are also calcifications in the supraclinoid ICAs. ACAs: Normal and symmetric MCAs: Normal and symmetric AComm: No aneurysm Venous sinuses: patent Posterior circulation: Dominance: Equal Vertebral arteries: Mild atherosclerotic irregularity Basilar artery: Diminutive distally, as before PComms: Large bilaterally, primarily origin of the bilateral stationary engineer. stationary engineer: Unremarkable Intracranial irregularity, for example in the right METER/RELAY TECHNICIAN, likely intracranial atherosclerotic disease NECK ANGIOGRAPHY Aortic arch and subclavian arteries: Normal flow, no aneurysm. CCAs: No stenosis, occlusion, or aneurysm. ICA origins (by NASCET criteria): Mild calcifications on the right. Moderate calcifications on the left. 50 percent or less narrowing bilaterally. ICAs: No stenosis, occlusion or aneurysm. ECAs: Patent origins, but with atherosclerotic disease Vertebral arteries: Mild narrowing at the origins bilaterally. Soft tissues: No significant mass, aneurysm, or lymphadenopathy Lung apices: No apical pneumothorax. There is emphysema. Bones: Degenerative changes. IMPRESSION: No large vessel occlusion or high-grade stenosis. Suspected atherosclerotic disease in the intracranial arteries, and other locations described above. Postsurgical changes of right ventriculostomy and left aneurysm clipping. Noncontrast head CT findings are separately dictated. Consider MRI if there is high concern for infarct. Any quantitative measurements of stenosis were performed using NASCET criteria. Dictated by: Dontae Oneil M.D. on 01/19/2023 at 1:23 Approved by: Dontae Oneil M.D. on 01/19/2023 at 1:31
--- NOTE | 2023-01-19 00:39 | DI.CT.S_ITS ---
PROCEDURE: CT HEAD/BRAIN WO CON INDICATIONS: Dizzy; history of CVA and aneurysm TECHNIQUE: Noncontrast 4.5 mm thick angled axial sections acquired from the foramen magnum to the vertex, with coronal and sagittal reformats. For radiation dose reduction, the following was used: automated exposure control, adjustment of mA and/or kV according to patient size. COMPARISON: [facility], CT, CT HEAD/BRAIN WO CON, 04/06/2021, 19:53. FINDINGS: Image quality: Good CSF spaces: A right frontal ventriculostomy catheter is in place. This terminates in similar position, near the 3rd ventricle. Mild pericatheter encephalomalacia as before. Ventricular size is similar to prior, with minimal ectasia of the temporal horns. Basal cisterns are patent. Volume: Vascular calcifications. Periventricular white matter disease is commonly seen with chronic microangiopathy. Volume loss is present. These findings are erdg-bp-jrreilnz Brain: Similar cephalo malacia in the left frontal region. No new gross loss of tomlinson-white differentiation or acute intracranial hemorrhage. Craniofacial structures: Postsurgical changes. IMPRESSION: No acute intracranial abnormality. No acute hemorrhage or gross loss of tomlinson-white differentiation that is new. Right frontal ventriculostomy with similar ventricular configuration compared to 2020. Old left frontal encephalomalacia. Consider MRI to further evaluate for infarct. Dictated by: Dontae Oneil M.D. on 01/19/2023 at 1:08 Approved by: Dontae Oneil M.D. on 01/19/2023 at 1:12
[2023-01-19] MEDS: MECLIZINE HCL 12.5 MG TABLET 25 MG PO (00:44)
[2023-01-19] MEDS: SODIUM CHLORIDE 0.9% 1,000 ML 150 ML IV (00:45)
[2023-01-19 00:49] LABS: Add Manual Diff / Slide Review NO; Basophils Absolute Auto 100 /uL (0-100); Basophils Percent Auto 0.8 % (0-2); Eosinophils Absolute Auto 300 /uL (0-450); Eosinophils Percent Auto 3.7 % (2-4); Hematocrit 38.3 % (36-46); Hemoglobin 13.3 g/dL (12.0-16.0); INR 1.1 (0.9-1.3); Lymphocytes Absolute Auto 2000 /uL (1100-4500); Lymphocytes Percent Auto 25.5 % (25-40); Mean Corpuscular HGB Conc 34.9 % (30-36); Mean Corpuscular Hemoglobin 31.9 PG (26-34); Mean Corpuscular Volume 91.4 fL (80-100); Monocytes Absolute Auto 1000 /uL (0-900); Monocytes Percent Auto 12.7 % (3-14); Neutrophils Absolute Auto 4400 /uL (1500-7000); Neutrophils Percent Auto 57.3 % (50-75); Platelet Count 199 X10^3/uL (150-400); Prothrombin Time 12.6 SECONDS (10.1-12.7); Red Blood Cell Count 4.19 X10^6/uL (4.0-5.2); Red Cell Distribution Width 13.9 % (11.6-14.8); White Blood Cell Count 7.7 X10^3/uL (4.5-11.0)
[2023-01-19 00:52] LABS: PTT Partial Thromboplastin Tim 31 SECONDS (26-36)
[2023-01-19 00:56] LABS: Alanine Aminotransferase 22 IU/L (<35); Albumin 3.8 g/dL (3.5-5.0); Albumin Globulin Ratio 1.5 (1.0-2.8); Alkaline Phosphatase 79 U/L (38-126); Aspartate Aminotransferase 28 IU/L (14-36); BUN Creatinine Ratio 16.5 (6-22); Bilirubin Total 0.7 mg/dL (0.2-1.3); Blood Urea Nitrogen 13 mg/dL (7-17); Calcium 10.2 mg/dL (8.4-10.2); Carbon Dioxide 27 mmol/L (22-32); Chloride 103 mmol/L (98-107); Creatine Kinase 30 U/L (30-135); Estimated Glomerular Filt Rate > 60 mL/min (>60); Ethanol (ETOH) < 10 mg/dL; Globulin 2.5 g/dL (1.7-4.1); Glucose 112 mg/dL (80-110); HEMOLYSIS < 15 (0-50); Potassium 3.8 mmol/L (3.4-5.1); Sodium 135 mmol/L (137-145); Total Protein 6.3 g/dL (6.3-8.2)
--- NOTE | 2023-01-19 01:04 | PC.NURSE ---
0051: Medicating patient per MAR when she stated, I can only see half of my husbands face at times. Provider made aware and patient taken to CT immediately.
[2023-01-19 01:06] LABS: Troponin I < 0.012 ng/mL (0.01-0.034)
[2023-01-19 01:22] LABS: COVID19 -Nasal RAPID Negative (Negative)
[2023-01-19 02:22] LABS: Appearance Urine UA CLEAR; Bilirubin Urine UA NEGATIVE (NEGATIVE); Color Urine UA YELLOW; Glucose Urine UA NEGATIVE (Negative); Ketones Urine UA NEGATIVE (NEGATIVE); Leukocyte Esterase Urine UA 1+ (NEGATIVE); Nitrite Urine UA NEGATIVE (Negative); Occult Blood Urine UA NEGATIVE (Negative); Protein Urine UA NEGATIVE (Negative); Urobilinogen Urine UA 0.2 E.U./dL (0.2)
[2023-01-19 02:24] LABS: UR Morphine/Opiate cutoff 300 Negative (Negative); Ur Creatinine Normal (Normal); Ur Specific Gravity Normal (Normal); Urine Amphetamines Negative (Negative); Urine Barbiturates Negative (Negative); Urine Benzodiazepines Negative (Negative); Urine Cocaine Negative (Negative); Urine MDMA Negative (Negative); Urine Methadone Negative (Negative); Urine Methamphetamines Negative (Negative); Urine Phencyclidine Negative (Negative); Urine Tetrahydrocannabinol Negative (Negative); Urine pH Normal (Normal)
[2023-01-19 02:25] LABS: Urine Oxycodone Negative (Negative); Urine Tricyclic Antidepressant Negative (Negative)
[2023-01-19 02:28] LABS: Squamous Epithelial Cell Urine 1-5 /HPF (0-5/HPF); Transitional Epi Cells Urine 1-5/HPF (0-5/HPF)
[2023-01-19 02:29] LABS: RBC Urine 1-5/HPF (0-5/HPF); WBC Urine 10-30/HPF (0-5/HPF)
[2023-01-19 02:30] LABS: Bacteria Urine Few (2-10); Culture Indicated Urine Specimen Cultured; Hyaline Casts Urine 5-10/LPF
--- NOTE | 2023-01-19 07:54 | P.HP_ITS ---
History of Present Illness History of Present Illness Date Patient Seen: 01/19/23 Chief complaint: Dizzy/Nausea Narrative: 87 y/o with PMH of aneurysmal coil for bleed, BUFFING WHEEL RAKER shunt, encephalomalatia and epilepsy, felt sudden dizziness while laying in bed. That was followed by nausea and lastly visual field deficits. All of these were episodic. In the ED CT and CTA non-revealing as is the rest of workup. [facility] Medical History (Updated 01/19/23 @ 08:13 by Jack Alcazar MD) Arthritis (Unknown) Cataracts, bilateral (Unknown) Cervical somatic dysfunction Cervicothoracic somatic dysfunction Chronic low back pain Chronic nausea Chronic thoracic back pain CLL (chronic lymphocytic leukemia) (Unknown) Corns and callus Depression (Unknown) Epilepsy Excessive daytime sleepiness Fatigue Gallbladder disease (Unknown) GERD (gastroesophageal reflux disease) (Unknown) Hypertension (Unknown) Left-sided low back pain with left-sided sciatica Lightheadedness Lumbar region somatic dysfunction Mixed hyperlipidemia Physical deconditioning Pure hypercholesterolemia Segmental and somatic dysfunction of abdomen and other regions Segmental and somatic dysfunction of head region Segmental and somatic dysfunction of pelvic region Segmental and somatic dysfunction of sacral region Segmental and somatic dysfunction of thoracic region Seizure disorder (Unknown) Somatic dysfunction of abdominal region Somatic dysfunction of lower extremity Spinal stenosis (Unknown) Stiff neck Subarachnoid hemorrhage (2000) Toe pain, bilateral Visual hallucinations Surgical History History of bilateral cataract extraction (Unknown) History of ventriculoperitoneal shunting (12/2000) Hx of appendectomy (Unknown) Hx of cholecystectomy (Unknown) Hx of detached retina repair (Unknown) Social History household members: spouse Smoking Status: Former smoker alcohol intake: current Meds Home Medications and Allergies Home Medications Medication Instructions Recorded Confirmed Type cholecalciferol (vitamin D3) 50 2,000 unit PO DAILY 10/01/17 12/11/22 History mcg (2,000 unit) capsule (Vitamin D3) Disabled Parking Permit #1 ea 01/24/20 12/11/22 Rx ascorbic acid (vitamin C) 500 mg 500 mg PO DAILY #60 caps 04/07/21 12/11/22 Rx capsule omega 0-gee-qov-fish oil 1,000 mg 1 cap PO BID #60 caps 04/07/21 12/11/22 Rx (120 mg-180 mg) capsule (Fish Oil) clkzgsng-fst-OR-lycopen-lutein 1 tab PO DAILY 10/22/21 12/11/22 History [[employer] [facility]] famotidine 20 mg tablet See Rx Instructions .Route 02/18/22 12/11/22 Rx .COMPLEX #180 tabs carvedilol 3.125 mg tablet See Rx Instructions .Route 05/07/22 12/11/22 Rx .COMPLEX #180 tabs aspirin 81 mg tablet,delayed See Rx Instructions .Route 07/30/22 12/11/22 Rx release .COMPLEX #90 tabs ondansetron 4 mg disintegrating 4 mg PO Q8H PRN nausea and 09/17/22 12/11/22 Rx tablet vomiting #90 tabs nifedipine 30 mg tablet,extended See Rx Instructions .Route 10/28/22 12/11/22 Rx release .COMPLEX #90 tabs methocarbamol 500 mg tablet 500 mg PO BEDTIME #14 tabs 11/11/22 12/11/22 Rx atorvastatin 20 mg tablet (Lipitor) 40 mg PO BEDTIME #180 tabs 11/19/22 12/11/22 Rx tolterodine 4 mg capsule,extended See Rx Instructions .Route 12/11/22 12/11/22 Rx release 24 hr .COMPLEX #90 caps levetiracetam 500 mg tablet See Rx Instructions .Route 12/24/22 Rx .COMPLEX #135 tabs Allergies Allergy/AdvReac Type Severity Reaction Status Date / Time albuterol [ALBUTEROL] AdvReac Severe SHAKEY Verified 12/11/22 10:38 LEGS, JERKY allopurinol [ALLOPURINOL] AdvReac Severe NAUSEA AND Verified 12/11/22 10:38 GI UPSET Sulfa (Sulfonamide AdvReac Severe HEADACHES Verified 12/11/22 10:38 Antibiotics) [SULFA (SULFONAMIDE ANTIBIOTICS)] JESSICA Inhibitors AdvReac Mild COUGH Verified 12/11/22 10:38 [JESSICA INHIBITORS] Review of Systems Constitutional Comments: no fever or chills Eyes Comments: no recent vision changes ENT Comments: w/o prior dizziness or vertigo not congested Cardiovascular Comments: w/o palpitations or chest pain Respiratory Comments: w/o shortness of breath Gastrointestinal Comments: nausea, w/o abdominal pain Neurologic Comments: no breakthrough seizures, no headache dizziness and visual field deficits Exam Vital Signs (past 8 hours): - 01/19/23 00:23 01/19/23 00:24 01/19/23 00:29 Temperature 97.8 F Pulse Rate 69 70 Respiratory Rate 20 17 Blood Pressure 187/79 H 193/78 H Pulse Oximetry 96 96 Oxygen Delivery Method Room Air 01/19/23 00:29 01/19/23 00:30 01/19/23 01:17 Temperature Pulse Rate 75 70 72 Respiratory Rate 24 28 H Blood Pressure Pulse Oximetry 97 97 95 Oxygen Delivery Method 01/19/23 01:20 01/19/23 01:20 01/19/23 01:30 Temperature Pulse Rate 71 71 Respiratory Rate 19 13 Blood Pressure 169/67 H Pulse Oximetry 98 97 Oxygen Delivery Method 01/19/23 01:31 01/19/23 01:31 01/19/23 02:00 Temperature Pulse Rate 73 73 Respiratory Rate 13 14 Blood Pressure 169/67 H Pulse Oximetry 97 98 Oxygen Delivery Method 01/19/23 02:01 01/19/23 02:01 01/19/23 02:14 Temperature Pulse Rate 74 87 Respiratory Rate 18 20 Blood Pressure 149/66 H Pulse Oximetry 97 94 Oxygen Delivery Method 01/19/23 02:14 01/19/23 02:30 01/19/23 02:31 Temperature Pulse Rate 71 Respiratory Rate 12 Blood Pressure 154/77 H 136/63 Pulse Oximetry 96 Oxygen Delivery Method 01/19/23 02:31 01/19/23 03:00 01/19/23 03:00 Temperature Pulse Rate 70 73 Respiratory Rate 14 19 Blood Pressure 140/63 Pulse Oximetry 97 95 Oxygen Delivery Method 01/19/23 03:30 01/19/23 03:31 01/19/23 03:31 Temperature Pulse Rate 71 73 Respiratory Rate 29 H 24 Blood Pressure 117/55 L Pulse Oximetry Oxygen Delivery Method 01/19/23 04:00 01/19/23 04:00 01/19/23 04:30 Temperature Pulse Rate 69 66 Respiratory Rate 16 12 Blood Pressure 129/62 Pulse Oximetry Oxygen Delivery Method 01/19/23 04:31 01/19/23 04:31 01/19/23 05:00 Temperature Pulse Rate 67 68 Respiratory Rate 12 26 H Blood Pressure 120/56 L Pulse Oximetry Oxygen Delivery Method 01/19/23 05:02 01/19/23 05:09 01/19/23 05:09 Temperature Pulse Rate 66 66 Respiratory Rate 20 18 Blood Pressure 136/64 Pulse Oximetry Oxygen Delivery Method 01/19/23 05:41 Temperature Pulse Rate Respiratory Rate Blood Pressure Pulse Oximetry Oxygen Delivery Method Room Air Oxygen Delivery Method Room Air Const Other: in no distress, sitting in bed Eyes Other: eomi, reactive pupils Neck Other: supple Resp Other: CTA Cardio Other: RRR GI Other: not distended Skin Other: no rashes Neuro Other: left visual field cut Extrem Other: no swelling Psych Other: mood, insight appropriate anxious Objective Labs 01/19/23 00:22 01/19/23 00:22 Labs: Laboratory Results - last 24 hr 01/19/23 01/19/23 01/19/23 00:22 00:22 00:22 WBC 7.7 RBC 4.19 Hgb 13.3 Hct 38.3 MCV 91.4 MCH 31.9 MCHC 34.9 RDW 13.9 Plt Count 199 Neut % (Auto) 57.3 Lymph % (Auto) 25.5 [place] % (Auto) 12.7 Eos % (Auto) 3.7 Baso % (Auto) 0.8 Neut # (Auto) 4400 Lymph # (Auto) 2000 [place] # (Auto) 1000 H Eos # (Auto) 300 Baso # (Auto) 100 PT 12.6 INR 1.1 APTT 31 Sodium 135 L Potassium 3.8 Chloride 103 Carbon Dioxide 27 BUN 13 Creatinine 0.79 Estimated GFR > 60 BUN/Creatinine Ratio 16.5 Glucose 112 H Calcium 10.2 Total Bilirubin 0.7 AST 28 ALT 22 Alkaline Phosphatase 79 Total Creatine Kinase 30 Troponin I < 0.012 Total Protein 6.3 Albumin 3.8 Globulin 2.5 Albumin/Globulin Ratio 1.5 Urine Color Urine Appearance Urine pH Ur Specific [place] Urine Protein Urine Glucose (UA) Urine Ketones Urine Occult Blood Urine Nitrate Urine Bilirubin Urine Urobilinogen Ur Leukocyte Esterase Urine RBC Urine WBC Ur Squamous Epith Cells Ur Transition Epith Cell Urine Bacteria Hyaline Casts Ur Culture Indicated? U Opiates 300ng/mL cut Ur Oxycodone Screen Urine Methadone Screen Ur Barbiturates Screen U Tricyclic Antidepress Ur Phencyclidine Scrn Ur Amphetamines Screen U Methamphetamines Scrn Ur MDMA Scrn (Ecstasy) U Benzodiazepines Scrn Urine Cocaine Screen U Marijuana (THC) Screen Ethyl Alcohol < 10 SARS-CoV-2 (PCR) 01/19/23 01/19/23 01/19/23 01:05 02:12 02:12 WBC RBC Hgb Hct MCV MCH MCHC RDW Plt Count Neut % (Auto) Lymph % (Auto) [place] % (Auto) Eos % (Auto) Baso % (Auto) Neut # (Auto) Lymph # (Auto) [place] # (Auto) Eos # (Auto) Baso # (Auto) PT INR APTT Sodium Potassium Chloride Carbon Dioxide BUN Creatinine Estimated GFR BUN/Creatinine Ratio Glucose Calcium Total Bilirubin AST ALT Alkaline Phosphatase Total Creatine Kinase Troponin I Total Protein Albumin Globulin Albumin/Globulin Ratio Urine Color Yellow Urine Appearance Clear Urine pH 7.0 Ur Specific [place] 1.010 Urine Protein Negative Urine Glucose (UA) Negative Urine Ketones Negative Urine Occult Blood Negative Urine Nitrate Negative Urine Bilirubin Negative Urine Urobilinogen 0.2 Ur Leukocyte Esterase 1+ H Urine RBC 1-5/hpf Urine WBC 10-30/hpf H Ur Squamous Epith Cells 1-5 /hpf Ur Transition Epith Cell 1-5/hpf Urine Bacteria Few (2-10) H Hyaline Casts 5-10/lpf Ur Culture Indicated? Specimen cultured U Opiates 300ng/mL cut Negative Ur Oxycodone Screen Negative Urine Methadone Screen Negative Ur Barbiturates Screen Negative U Tricyclic Antidepress Negative Ur Phencyclidine Scrn Negative Ur Amphetamines Screen Negative U Methamphetamines Scrn Negative Ur MDMA Scrn (Ecstasy) Negative U Benzodiazepines Scrn Negative Urine Cocaine Screen Negative U Marijuana (THC) Screen Negative Ethyl Alcohol SARS-CoV-2 (PCR) Negative Assessment & Plan Assessment and plan (1) Hx of aneurysm: Status: Chronic Plan: s/p coiling, s/p BUFFING WHEEL RAKER shunt, current encephalomalatia - CT w/o acute findings (2) Chronic lymphocytic leukemia of B-cell type not having achieved remission: Status: Chronic Plan: stable (3) Major depression, chronic: Status: Acute Plan: appropriate mood (4) GERD (gastroesophageal reflux disease): Qualifiers: Esophagitis presence: esophagitis presence not specified Qualified Code(s): K21.9 - Gastro-esophageal reflux disease without esophagitis Status: Acute Plan: pepcid (5) Epilepsy: Status: Acute Plan: Keppra, no recent breakthrough seizures (6) Mixed hyperlipidemia: Status: Acute Plan: fish oil, statin (7) Dizziness: Status: Acute Plan: TIA or CVA in posterior circulation - MRI pending (8) Visual field cut: Status: Acute Plan: TIA or CVA in posterior circulation - MRI pending (9) Hypertension: Status: Acute Plan: Nifedipine, Coreg
[2023-01-19] MEDS: ASPIRIN EC 81 MG TABLET PO (09:58)
[2023-01-19] MEDS: FAMOTIDINE 20 MG TABLET PO (09:58)
[2023-01-19] MEDS: levETIRAcetam 250 MG TABLET 125 MG PO (09:59)
[2023-01-19] MEDS: NIFEdipine 30 MG TAB ER PO (10:00)
[2023-01-19] MEDS: carvediloL 3.125 MG TABLET PO (10:00)
[2023-01-19] MEDS: FISH OIL 1,000 MG CAPSULE 1000 MG PO (10:00)
--- NOTE | 2023-01-19 10:36 | OT.IP.EVAL ---
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 (01/19/23) Mixed hyperlipidemia (01/19/23) Dysthymic disorder (01/19/23) Epilepsy, unspecified, not intractable, without status epilepticus (01/19/23) Unspecified visual field defects (01/19/23) Benign paroxysmal vertigo, unspecified ear (01/19/23) Essential (primary) hypertension (01/19/23) Gastro-esophageal reflux disease without esophagitis (01/19/23) Dizziness and giddiness (01/19/23) Personal history of other diseases of the circulatory system (01/19/23) Past Medical History (Last Updated 01/19/23 @ 08:13 by Jack Alcazar MD) Arthritis (Unknown) Cataracts, bilateral (Unknown) Cervical somatic dysfunction Cervicothoracic somatic dysfunction Chronic low back pain Chronic nausea Chronic thoracic back pain CLL (chronic lymphocytic leukemia) (Unknown) Corns and callus Depression (Unknown) Epilepsy Excessive daytime sleepiness Fatigue Gallbladder disease (Unknown) GERD (gastroesophageal reflux disease) (Unknown) Hypertension (Unknown) Left-sided low back pain with left-sided sciatica Lightheadedness Lumbar region somatic dysfunction Mixed hyperlipidemia Physical deconditioning Pure hypercholesterolemia Segmental and somatic dysfunction of abdomen and other regions Segmental and somatic dysfunction of head region Segmental and somatic dysfunction of pelvic region Segmental and somatic dysfunction of sacral region Segmental and somatic dysfunction of thoracic region Seizure disorder (Unknown) Somatic dysfunction of abdominal region Somatic dysfunction of lower extremity Spinal stenosis (Unknown) Stiff neck Subarachnoid hemorrhage (2000) Toe pain, bilateral Visual hallucinations Surgical History (Last Reviewed 01/19/23 @ 07:57 by Jack Alcazar MD) History of bilateral cataract extraction (Unknown) History of ventriculoperitoneal shunting (12/2000) Hx of appendectomy (Unknown) Hx of cholecystectomy (Unknown) Hx of detached retina repair (Unknown) Occupational Therapy Inpatient Evaluation/Re-Eval M1 PT/OT-IP Prior Functional Status Start: 01/19/23 11:53 Freq: NEEDED Status: Active Protocol: Document 01/19/23 11:53 CGR (Rec: 01/19/23 12:12 CGR [id number]) Medical Review Prior Functional Status Medical History Reviewed Yes Communication Pt is an effective verbal communicator. Mobility and Gait Pt was IND in all mobility at baseline Activities of Daily Living and IADL's Pt was IND in all ADLs but her peforms all driving and pt states that she uses a shower chair and a walker in the shower. Social History Household Members spouse Living Arrangements House Number of Floors (Floors) Two Floors Number of Stairs To Enter/Railing? pt has 5 steps to the landing then 8 steps from there to the second floor. There is a bedroom and bathroom on the first floor. Home Environment Standard Height Toilet,Walk in Shower,Tub/Shower Home Equipment Front Wheel Walker,Straight Cane,Shower Seat with Backrest Employment Status Retired Additional Social History Comment Pts does all the driving. M2 OT-IP Current Condition Start: 01/19/23 11:53 Freq: Status: Active Protocol: Document 01/19/23 11:53 CGR (Rec: 01/19/23 12:12 CGR [id number]) Occupational Therapy Current Condition Current Condition Evaluation Date 01/19/23 Treatment Diagnosis dizziness Diagnosis Onset Date 01/19/23 M3 OT- IP Subjective and Pain Start: 01/19/23 11:53 Freq: Status: Active Protocol: Document 01/19/23 11:53 CGR (Rec: 01/19/23 12:12 CGR [id number]) OT- Subjective Occupational Therapy Visit Type Type Initial Evaluation Visit Start Time 09:05 Visit Stop Time 09:45 Total Visit Minutes 56 Notes returned [id number] OT Pain Assessment Pain When Pain Assessed At Rest Pain Present Pain Present Denied Pain M4 OT- IP ADL's Start: 01/19/23 11:53 Freq: Status: Active Protocol: Document 01/19/23 11:53 CGR (Rec: 01/19/23 12:12 CGR [id number]) OT [id number] Comments OT Self-Feeding Comments not meal time OT ADL-Grooming Comments OT Grooming Comments pt declined, states that she would like to rest OT ADL-Oral Care Comments Oral Care Comments pt declined, states that she would like to rest OT ADL-Dressing General Eval Lower Body Dressing Ability Independent Areas Needing Assistance Underpants/Brief,Pants/Shorts Comments OT Dressing Comments Pt was able to don underwear and pants with IND. OT ADL-Toileting General Evaluation Toileting Ability Minimal Assistance Comments OT Toileting Comments Pt needed assist with back pericare prior to treatment positioning. OT ADL-Bathing Comments OT Bathing Comments not performed M5 OT- IP IADL's Start: 01/19/23 11:53 Freq: Status: Active Protocol: Document 01/19/23 11:53 CGR (Rec: 01/19/23 12:12 CGR [id number]) OT-Instrumental Activities of Daily Living Deficits IADL Deficits Identified No Deficits Home Safety Awareness Awareness of Need for Assistance at Home Good Awareness Ability to Problem Solve Emergency Able to Problem Solve Situations Medication Management Medication Management No Deficits Identified Money Management Money Management No Deficits Identified Meal Preparation Meal Preparation No Deficits Identified Set Making Machine Operator Set Making Machine Operator No Deficits Identified Driving Driving Comments Pt does not drive at baseline. M6 OT- IP Functional Cognition Start: 01/19/23 11:53 Freq: Status: Active Protocol: Document 01/19/23 11:53 CGR (Rec: 01/19/23 12:12 CGR [id number]) Cognitive Factors Limiting Selfcare Function Cognitive Ability Level of Alertness Alert Patient Orientation Name,Age,Birthday,Month,Date, Year,Day of Week,Place, Situation Attention Span Ability Capable of Focused Attention, Capable of Sustained Attention Ability to Follow Commands Able to Follow One Step Commands with Increased Time, Able to Follow One Step Commands with Repetition OT- Vision and Hearing OT- Hearing Assessment OT- Hearing Assessment Hearing Impaired,Use of Hearing Aids OT- Vision Assessment Vision History Cataracts Visual Acuity Glasses All The Time Visual Attentiveness WFL Occular Pursuits WFL Visual Convergence WFL Vision Assessment Comments Pt wears bifocals and has had cataract sx M7 OT- IP Mobility and Balance Start: 01/19/23 11:53 Freq: Status: Active Protocol: Document 01/19/23 11:53 CGR (Rec: 01/19/23 12:12 CGR [id number]) OT- Bed Mobility Assessment Rolling Level of Assistance Standby Assistance Supine to Sit Supine to Sit Assist Standby Assistance Sit to Supine Sit to Supine Assist Standby Assistance OT-Transfer Assessment Sit to and From Stand Sit to and from Stand Standby Assistance Transfers Transfer Ability Standby Assistance Technique Transfer Destination Bed,Toilet Transfer Technique Stand Step Pivot Devices Transfer Assistive Devices Gait Belt,Front Wheeled Walker Comments Mobility Comments Pt initially needed min a for mobility while dizzy but then SBA for mobility once treatment positioning performed. OT- Balance Assessment Sitting Balance and Reactions Static Sitting Balance Ability Good Dynamic Sitting Balance Ability Good M8 OT- IP Objective Assessments Start: 01/19/23 11:53 Freq: Status: Active Protocol: Document 01/19/23 11:53 CGR (Rec: 01/19/23 12:12 CGR [id number]) OT Gross Range of Motion Upper Extremity Range of Motion Assessment Within Functional Limits OT Strength Upper Extremity Strength Assessment Within Functional Limits Comments Strength Comments 4+/5 OT- Coordination Assessment Upper Extremity Finger to Nose Test Within Functional Limits Finger Tapping Test Within Functional Limits OT-Muscle Tone Assessment Muscle Tone WNL Yes OT Sensation Assessment Edema Edema Absent M9 OT- IP Assessment and Plan Start: 01/19/23 11:53 Freq: Status: Active Protocol: Document 01/19/23 11:53 CGR (Rec: 01/19/23 12:12 CGR [id number]) OT Summary Assessment and Plan Potential Rehabilitation Potential Excellent Analytic Complexity at Evaluation Low Summary OT Impairments Balance,Functional Mobility, Shower Transfers,Activity Tolerance Progress Towards Goals Progressing Toward Goals Assessment Summary Pt presents with BPPV, assessed by P.T. and OT assisted with treatment positioning then performed Ot eval. Pt needed min a for mobility prior to treatment positioning and then needed SBA after. Session broken into two and pt was able to don underwear and pants seated in chair without dizziness in later session. Pt is likely to be close to her baseline but would benefit from further assessment tomorrow. Will see for 1-2 more sessions. Goals Self-Feeding Goal Independent Grooming Goal Independent Dressing Goal Independent Toileting Goal Independent Bathing Goal Independent Toilet Transfer Goal Independent Shower Transfer Goal Independent Days to Meet Goals 2 Frequency of Treatment Frequency Of Treatment Once a Day Treatment Plan OT Treatment Plan ADL Training,Functional Mobility,Patient/Family Education,Discharge Planning Other Treatment Recommendations and Next Showering, total body dressing Treatment Focus , home safety Discharge Recommendations OT Discharge Recommendations Home with Assistance Transportation Needs at Discharge Private Vehicle
--- NOTE | 2023-01-19 10:54 | PM.DS.1 ---
History of Present Illness History of Present Illness Date Patient Seen: 01/19/23 Time Patient Seen: 10:54 Chief complaint: Dizzy/Nausea Narrative: 87 y/o with PMH of aneurysmal coil for bleed, HUMAN RESOURCES COMPENSATION ANALYST shunt, encephalomalatia and epilepsy, felt sudden dizziness while laying in bed. That was followed by nausea and lastly visual field deficits. All of these were episodic. In the ED CT and CTA non-revealing as is the rest of workup. Discharge Providers Provider Date of admission: 01/19/23 04:29 Discharge Date: 01/19/23 Primary care physician: Timothy Gee DO Consults: 01/19/23 06:01 Consult to Dietitian, Adult Routine Comment: 192 lb to 175 lb Reason For Exam: pt has loss of appetite, pt states she went from 01/19/23 07:46 Consult to Occupational Therapy Evaluate & Treat Comment: Physician Instructions: Evaluate and treat Consult to Physical Therapy Evaluate & Treat Comment: Physician Instructions: Evaluate and Treat Discharge provider: Kennedy Langford DO Summary Hospital Course Discharge Diagnosis: 1. BPPV, R ear ? (2) Chronic lymphocytic leukemia of B-cell type not having achieved remission: (3) Major depression, chronic: ? (4) GERD (gastroesophageal reflux disease): (5) Epilepsy: ? ? (6) Mixed hyperlipidemia: ? (7) Hypertension: Hospital Course: This is an 87 year old female who presented with positional dizziness. There was question of a visual field cut but patient did not complain of this when discussing with this provider. She was seen by therapy, had maneuvers for BPPV with marked improvement in symptoms, highly consistent with BPPV. She was feeling well with no symptoms, and was discharged home with prescription for meclizine as needed and PT referral for outpatient vestibular therapy. She is already on asa and statin therapy chronically, and MRI would not management accountant at this time. No events were noted on telemetry during her admission. Time Spent with Patient Time spent: Greater than 30 minutes Exam Vital Signs (past 8 hours): - 01/19/23 03:00 01/19/23 03:00 01/19/23 03:30 Temperature Pulse Rate 73 71 Respiratory Rate 19 29 H Blood Pressure 140/63 Pulse Oximetry 95 Oxygen Delivery Method 01/19/23 03:31 01/19/23 03:31 01/19/23 04:00 Temperature Pulse Rate 73 Respiratory Rate 24 Blood Pressure 117/55 L 129/62 Pulse Oximetry Oxygen Delivery Method 01/19/23 04:00 01/19/23 04:30 01/19/23 04:31 Temperature Pulse Rate 69 66 67 Respiratory Rate 16 12 12 Blood Pressure Pulse Oximetry Oxygen Delivery Method 01/19/23 04:31 01/19/23 05:00 01/19/23 05:02 Temperature Pulse Rate 68 66 Respiratory Rate 26 H 20 Blood Pressure 120/56 L Pulse Oximetry Oxygen Delivery Method 01/19/23 05:09 01/19/23 05:09 01/19/23 05:41 Temperature Pulse Rate 66 Respiratory Rate 18 Blood Pressure 136/64 Pulse Oximetry Oxygen Delivery Method Room Air 01/19/23 08:00 01/19/23 10:00 Temperature 96 F L Pulse Rate 69 69 Respiratory Rate 16 Blood Pressure 149/60 H 131/57 L Pulse Oximetry 97 Oxygen Delivery Method Oxygen Delivery Method Room Air Narrative Exam Narrative: Gen: No acute distress, elderly female CV: RRR no m/r/g Pulm: CTA b/l Neuro: no visual field deficits, no nystagmus, strength +5/5 in all extremities, CN 2-12 grossly intact. Sensation intact to light touch in all extremities. Objective Labs 01/19/23 00:22 01/19/23 00:22 Labs: Laboratory Results - last 24 hr 01/19/23 01/19/23 01/19/23 00:22 00:22 00:22 WBC 7.7 RBC 4.19 Hgb 13.3 Hct 38.3 MCV 91.4 MCH 31.9 MCHC 34.9 RDW 13.9 Plt Count 199 Neut % (Auto) 57.3 Lymph % (Auto) 25.5 Turner % (Auto) 12.7 Eos % (Auto) 3.7 Baso % (Auto) 0.8 Neut # (Auto) 4400 Lymph # (Auto) 2000 Turner # (Auto) 1000 H Eos # (Auto) 300 Baso # (Auto) 100 PT 12.6 INR 1.1 APTT 31 Sodium 135 L Potassium 3.8 Chloride 103 Carbon Dioxide 27 BUN 13 Creatinine 0.79 Estimated GFR > 60 BUN/Creatinine Ratio 16.5 Glucose 112 H Calcium 10.2 Total Bilirubin 0.7 AST 28 ALT 22 Alkaline Phosphatase 79 Total Creatine Kinase 30 Troponin I < 0.012 Total Protein 6.3 Albumin 3.8 Globulin 2.5 Albumin/Globulin Ratio 1.5 Urine Color Urine Appearance Urine pH Ur Specific Starks Urine Protein Urine Glucose (UA) Urine Ketones Urine Occult Blood Urine Nitrate Urine Bilirubin Urine Urobilinogen Ur Leukocyte Esterase Urine RBC Urine WBC Ur Squamous Epith Cells Ur Transition Epith Cell Urine Bacteria Hyaline Casts Ur Culture Indicated? U Opiates 300ng/mL cut Ur Oxycodone Screen Urine Methadone Screen Ur Barbiturates Screen U Tricyclic Antidepress Ur Phencyclidine Scrn Ur Amphetamines Screen U Methamphetamines Scrn Ur MDMA Scrn (Ecstasy) U Benzodiazepines Scrn Urine Cocaine Screen U Marijuana (THC) Screen Ethyl Alcohol < 10 SARS-CoV-2 (PCR) 01/19/23 01/19/23 01/19/23 01:05 02:12 02:12 WBC RBC Hgb Hct MCV MCH MCHC RDW Plt Count Neut % (Auto) Lymph % (Auto) Turner % (Auto) Eos % (Auto) Baso % (Auto) Neut # (Auto) Lymph # (Auto) Turner # (Auto) Eos # (Auto) Baso # (Auto) PT INR APTT Sodium Potassium Chloride Carbon Dioxide BUN Creatinine Estimated GFR BUN/Creatinine Ratio Glucose Calcium Total Bilirubin AST ALT Alkaline Phosphatase Total Creatine Kinase Troponin I Total Protein Albumin Globulin Albumin/Globulin Ratio Urine Color Yellow Urine Appearance Clear Urine pH 7.0 Ur Specific Starks 1.010 Urine Protein Negative Urine Glucose (UA) Negative Urine Ketones Negative Urine Occult Blood Negative Urine Nitrate Negative Urine Bilirubin Negative Urine Urobilinogen 0.2 Ur Leukocyte Esterase 1+ H Urine RBC 1-5/hpf Urine WBC 10-30/hpf H Ur Squamous Epith Cells 1-5 /hpf Ur Transition Epith Cell 1-5/hpf Urine Bacteria Few (2-10) H Hyaline Casts 5-10/lpf Ur Culture Indicated? Specimen cultured U Opiates 300ng/mL cut Negative Ur Oxycodone Screen Negative Urine Methadone Screen Negative Ur Barbiturates Screen Negative U Tricyclic Antidepress Negative Ur Phencyclidine Scrn Negative Ur Amphetamines Screen Negative U Methamphetamines Scrn Negative Ur MDMA Scrn (Ecstasy) Negative U Benzodiazepines Scrn Negative Urine Cocaine Screen Negative U Marijuana (THC) Screen Negative Ethyl Alcohol SARS-CoV-2 (PCR) Negative [facility] Medical History (Updated 01/19/23 @ 08:13 by Jack Alcazar MD) Arthritis (Unknown) Cataracts, bilateral (Unknown) Cervical somatic dysfunction Cervicothoracic somatic dysfunction Chronic low back pain Chronic nausea Chronic thoracic back pain CLL (chronic lymphocytic leukemia) (Unknown) Corns and callus Depression (Unknown) Epilepsy Excessive daytime sleepiness Fatigue Gallbladder disease (Unknown) GERD (gastroesophageal reflux disease) (Unknown) Hypertension (Unknown) Left-sided low back pain with left-sided sciatica Lightheadedness Lumbar region somatic dysfunction Mixed hyperlipidemia Physical deconditioning Pure hypercholesterolemia Segmental and somatic dysfunction of abdomen and other regions Segmental and somatic dysfunction of head region Segmental and somatic dysfunction of pelvic region Segmental and somatic dysfunction of sacral region Segmental and somatic dysfunction of thoracic region Seizure disorder (Unknown) Somatic dysfunction of abdominal region Somatic dysfunction of lower extremity Spinal stenosis (Unknown) Stiff neck Subarachnoid hemorrhage (2000) Toe pain, bilateral Visual hallucinations Surgical History History of bilateral cataract extraction (Unknown) History of ventriculoperitoneal shunting (12/2000) Hx of appendectomy (Unknown) Hx of cholecystectomy (Unknown) Hx of detached retina repair (Unknown) Social History household members: spouse Smoking Status: Former smoker alcohol intake: current Discharge Plan Discharge Plan Patient Disposition: Home Provider Discharge Comment: You were admitted to the hospital with dizziness, this is most likely due to stones in your inner ear, a process called BPPV. Continue meclizine twice a day at home for 2-3 days, then take intermittently or as needed for symptoms. Outpatient follow up with PT recommended. Discharge orders & Medications Prescriptions: New meclizine 25 mg tablet 25 mg PO Q6HR PRN (Reason: Vertigo) 7 Days Qty: 20 0RF Continued (DME) Disabled Parking Permit Qty: 1 0RF Rx Instructions: As directed famotidine 20 mg tablet See Rx Instructions .ROUTE .COMPLEX Qty: 180 3RF Dose Instruction: TAKE 1 TABLET BY MOUTH TWICE DAILY Rx Instructions: TAKE 1 TABLET BY MOUTH TWICE DAILY carvedilol 3.125 mg tablet See Rx Instructions .ROUTE .COMPLEX Qty: 180 2RF Dose Instruction: TAKE 1 TABLET BY MOUTH TWICE DAILY Rx Instructions: TAKE 1 TABLET BY MOUTH TWICE DAILY aspirin 81 mg tablet,delayed release (DR/EC) See Rx Instructions .ROUTE .COMPLEX Qty: 90 2RF Dose Instruction: TAKE 1 TABLET BY MOUTH DAILY Rx Instructions: TAKE 1 TABLET BY MOUTH DAILY nifedipine 30 mg tablet extended release See Rx Instructions .ROUTE .COMPLEX Qty: 90 3RF Dose Instruction: TAKE 1 TABLET BY MOUTH EVERY DAY Rx Instructions: TAKE 1 TABLET BY MOUTH EVERY DAY atorvastatin [Lipitor] 20 mg tablet 40 mg PO BEDTIME Qty: 180 0RF levetiracetam 500 mg tablet See Rx Instructions .ROUTE .COMPLEX Qty: 135 1RF Dose Instruction: TAKE 1/2 TABLET BY MOUTH EVERY MORNING AND TAKE 1 TABLET BY MOUTH WITH SUPPER. NEED APPOINTMENT FOR FURTHER REFILLS. Rx Instructions: TAKE 1/2 TABLET BY MOUTH EVERY MORNING AND TAKE 1 TABLET BY MOUTH WITH SUPPER. ondansetron 4 mg tablet,disintegrating 4 mg PO Q8H PRN (Reason: nausea and vomiting) Qty: 90 3RF Rx Instructions: Start this medication only after stopping Citalopram tolterodine 4 mg capsule,extended release 24hr See Rx Instructions .ROUTE .COMPLEX Qty: 90 2RF Dose Instruction: TAKE 1 CAPSULE BY MOUTH EVERY EVENING Rx Instructions: TAKE 1 CAPSULE BY MOUTH EVERY EVENING cholecalciferol (vitamin D3) [Vitamin D3] 2,000 unit Capsule 2,000 unit PO DAILY omega 0-zpp-tug-fish oil [Fish Oil] 1,000 mg (120 mg-180 mg) capsule 1 cap PO BID Qty: 60 0RF ascorbic acid (vitamin C) 500 mg capsule 500 mg PO DAILY Qty: 60 0RF taffbwpx-lmt-TH-lycopen-lutein [CertaVite Senior] 1 tab PO DAILY Discontinued methocarbamol 500 mg tablet 500 mg PO BEDTIME Qty: 14 0RF Follow up/Referrals: Timothy Gee, [Primary Care Provider] - Other Ambulatory Orders: Referral to: (Schedule) Timeframe: 1 Week Location: Determined by Patient Ordered By: Kennedy Langford Diet/Activity/Treatments Diet: Diet as Tolerated and Regular Activity: Use BPPV precautions, slow to get up with avoidance of rapid head movements. Visit Report/Discharge Packet Instructions: Benign Paroxysmal Positional Vertigo, DI for Vertigo, Meclizine Stand Alone Forms: Patient Portal/API, Stroke Signs & Symptoms Discharge Data Primary Care Provider: Timothy Gee Attending Provider: Jack Alcazar Admit Date/Time: 01/19/23 04:29 Discharges patient from system. Discharge Date/Time: 01/19/23 12:38
--- NOTE | 2023-01-19 12:05 | CM.DANOTE ---
Patient is an 87 yo female who was admitted on 01/19/23 for Dizziness/Visual disturbances. Pt has [facility] for insurance and her PCP is Dr. Timothy Gee. EMR was reviewed. Per , pt with hx of epilepsy and had an MRI and normal and has hx of TIA in Mar 2021 and was able to d/c home. SW met briefly bedside with pt while working with PT/OT and she confirms she lives at home in [place] with her spouse and is active and independent at baseline and spouse mostly drives and pt does not typically use DME for ambulation. Pt denies any recent hx of HH or SNF and is hopeful to d/c home today and spouse can transport. Pt does not anticipate any needs at this time. Per PT/OT, recommending outpt Vestibular PT for positional vertigo. Per , pt is medically stable to d/c home later today, may work again with PT/OT prior to d/c. Plan: Patient to d/c home today via spouse POV and outpt PT for positional vertigo and no further d/c needs at this time. CARLOS Madsen Discharge Planning/Care Management CM Discharge Assessment Start: 01/19/23 11:54 Freq: Status: Active Protocol: Document 01/19/23 11:54 BF (Rec: 01/19/23 12:05 BF [id number]) Discharge Planning Assessment Assigned Cancer Genetics Assistant CARLOS Randle DPOA/Assigned Designee Name spouse Reji Contact Information [phone] Advance Directives? Yes Advance Directives on File No History Provided By Patient,Significant Other, Medical Record Has Patient been admitted in last 30 No days? Prior Living Arrangements House Comment two-story Household Members spouse Type of transporation used prior to Drives own vehicle admit Independent with ADL's Yes Is patient alert and oriented? Yes Caregiver for Another No Patient/Family Preference OP PT Therapy Comment Vestibular PT Barriers to Discharge No Discharge Plan Home Community Services Physical Therapy Transportation Arrangement Spouse Referrals Initiated None needed Whiteboard Updated in Patient Room with Yes name and ext. # of Cancer Genetics Assistant Review Status In Process Please Provide Date Initial DC 01/19/23 Assessment Was Performed Next Review Type Continued Stay Review
--- NOTE | 2023-01-19 12:17 | PT.IIE ---
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 (01/19/23) Mixed hyperlipidemia (01/19/23) Dysthymic disorder (01/19/23) Epilepsy, unspecified, not intractable, without status epilepticus (01/19/23) Unspecified visual field defects (01/19/23) Benign paroxysmal vertigo, unspecified ear (01/19/23) Essential (primary) hypertension (01/19/23) Gastro-esophageal reflux disease without esophagitis (01/19/23) Dizziness and giddiness (01/19/23) Personal history of other diseases of the circulatory system (01/19/23) Surgical History (Last Reviewed 01/19/23 @ 07:57 by Jack Alcazar MD) History of bilateral cataract extraction (Unknown) History of ventriculoperitoneal shunting (12/2000) Hx of appendectomy (Unknown) Hx of cholecystectomy (Unknown) Hx of detached retina repair (Unknown) Medical History (Last Updated 01/19/23 @ 08:13 by Jack Alcazar MD) Arthritis (Unknown) Cataracts, bilateral (Unknown) Cervical somatic dysfunction Cervicothoracic somatic dysfunction Chronic low back pain Chronic nausea Chronic thoracic back pain CLL (chronic lymphocytic leukemia) (Unknown) Corns and callus Depression (Unknown) Epilepsy Excessive daytime sleepiness Fatigue Gallbladder disease (Unknown) GERD (gastroesophageal reflux disease) (Unknown) Hypertension (Unknown) Left-sided low back pain with left-sided sciatica Lightheadedness Lumbar region somatic dysfunction Mixed hyperlipidemia Physical deconditioning Pure hypercholesterolemia Segmental and somatic dysfunction of abdomen and other regions Segmental and somatic dysfunction of head region Segmental and somatic dysfunction of pelvic region Segmental and somatic dysfunction of sacral region Segmental and somatic dysfunction of thoracic region Seizure disorder (Unknown) Somatic dysfunction of abdominal region Somatic dysfunction of lower extremity Spinal stenosis (Unknown) Stiff neck Subarachnoid hemorrhage (2000) Toe pain, bilateral Visual hallucinations Physical Therapy Inpatient Evaluation/Re-Eval M1 PT/OT-IP Prior Functional Status Start: 01/19/23 08:00 Freq: Status: Active Protocol: Document 01/19/23 09:45 MB (Rec: 01/19/23 12:15 MB [id number]) Medical Review Prior Functional Status Medical History Reviewed Yes Diet/Fluid Consistency Regular Communication WNLs Mobility and Gait I Activities of Daily Living and IADL's I, uses her RW in the shower for balance Social History Household Members spouse Living Arrangements House Number of Floors (Floors) Two Floors Number of Stairs To Enter/Railing? A few sets of several steps with rail Home Equipment Front Wheel Walker Employment Status Retired M1 PT/OT-IP Prior Functional Status Start: 01/19/23 11:53 Freq: NEEDED Status: Active Protocol: Document 01/19/23 11:53 CGR (Rec: 01/19/23 12:12 CGR [id number]) Medical Review Prior Functional Status Medical History Reviewed Yes Communication Pt is an effective verbal communicator. Mobility and Gait Pt was IND in all mobility at baseline Activities of Daily Living and IADL's Pt was IND in all ADLs but her peforms all driving and pt states that she uses a shower chair and a walker in the shower. Social History Household Members spouse Living Arrangements House Number of Floors (Floors) Two Floors Number of Stairs To Enter/Railing? pt has 5 steps to the landing then 8 steps from there to the second floor. There is a bedroom and bathroom on the first floor. Home Environment Standard Height Toilet,Walk in Shower,Tub/Shower Home Equipment Front Wheel Walker,Straight Cane,Shower Seat with Backrest Employment Status Retired Additional Social History Comment Pts does all the driving. M2 PT-IP Current Condition Start: 01/19/23 08:00 Freq: Status: Active Protocol: Document 01/19/23 09:45 MB (Rec: 01/19/23 12:15 MB [id number]) Physical Therapy Current Condition Current Condition Evaluation Date 01/19/23 Treatment Diagnosis Dizziness when lying on left side at home Onset Date About 24 hours M3 PT-IP Subjective Start: 01/19/23 08:00 Freq: Status: Active Protocol: Document 01/19/23 09:45 MB (Rec: 01/19/23 12:15 MB [id number]) Subjective Physical Therapy Visit Type Type Initial Evaluation Visit Start Time 08:37 Visit Stop Time 09:45 Total Visit Minutes 68 Number of [employer] PROJECT MANAGER Visits 0 Physical Therapy Visit Comments Patient Comments I'm okay when PT asks pt how she is feeling when she is sitting upright still in the bed Patient Goals To get better Therapy Pain Assessment Pain When Pain Assessed During Mobility Pain Present Pain Present Pain Reported Location Back Intensity 5 Scale Used Uriarte-Parker (Faces) Description Sharp Pain Behaviors Calling Out,Guarding Pain Management Techniques Re-positioning M4 PT-IP Mobility and Gait Start: 01/19/23 08:00 Freq: Status: Active Protocol: Document 01/19/23 09:45 MB (Rec: 01/19/23 12:15 [id number]) PT-Bed Mobility Assessment Supine to Sit Supine to Sit Standby Assistance Sit to Supine Sit to Supine Standby Assistance Scooting Scooting to Edge of Bed Standby Assistance PT-Transfer Assessment Sit to and From Stand Sit to and from Stand Standby Assistance,1 Person Assistance,Use of Upper Extremities Equipment Transfer Assistive Device Gait Belt,Front Wheeled Walker Orthotic/Prosthetic Devices or Brace: No Transfers Transfer Destination Toilet Transfer Technique Gait with RW Transfer Ability Level of Assist Standby Assistance,1 Person Assistance,Use of Upper Extremities Comments Mobility Comments Pt with shuffling gait initially and dizziness with looking down. Gait Assessment Gait Gait Assistance Required: Standby Assistance Distance (Feet) 20 Able to Maintain Weight Bearing Status Yes During Gait Assistive Devices Assistive Device Gait Belt,Front Wheeled Walker Orthotic/Prosthetic Devices or Brace: No Gait Deviations General Gait Pattern Decreased Stride Length, Decreased Feet Clearance Factors Limiting Gait Function Factors Limiting Gait Function Poor Balance Comments Gait Comments Pt with shuffling gait initially and dizziness with looking down. PT-Balance Assessment Sitting Balance and Reactions Static Sitting Balance Ability Fair Dynamic Sitting Balance Ability Fair Standing Balance and Reactions Static Standing Balance Ability Fair Dynamic Standing Balance Ability Fair M5 PT-IP Objective Assessments Start: 01/19/23 08:00 Freq: Status: Active Protocol: Document 01/19/23 09:45 MB (Rec: 01/19/23 12:15 [id number]) Orientation Orientation/Cognition Level of Alertness Alert Orientation Name,Age,Birthday,Month,Date, Year,Day of Week,Place, Situation Language Function Ability Hard of Hearing Safety Awareness Decreased Safety Awareness Memory Description No Deficits Noted Gross Range of Motion Lower Extremity ROM Assessment Within Functional Limits Strength Lower Extremity Strength Assessment Within Functional Limits Coordination Assessment Assessment Finger to Nose Test Minimal Impairment Sensation Assessment Sensation Gross Sensation WNL Other Assessments Other Other Assessments Eye ROM and tracking normal, no spontaneous nystagmus, no further visual changes, IBARRA or neck pain. Pt presents with ageotropic nystagmus that is torsional and horizontal with B Roll Test, less on the right and indicating horizontal cupulolithiasis on the right. Pt has negative Lancaster-Hallpike on the left and mild similar horizontal beat nystagmus on the the right and so treated for right horizontal cupulolithiasis with Casani, two person assistance. M6 PT-IP Treatment Start: 01/19/23 08:00 Freq: Status: Active Protocol: Document 01/19/23 09:45 MB (Rec: 01/19/23 12:15 MB [id number]) Physical Therapy Treatment Other Treatments Other Treatment Performed BPPV treatment and education to pt and M7 PT-IP Assessment and Plan Start: 01/19/23 08:00 Freq: Status: Active Protocol: Document 01/19/23 09:45 MB (Rec: 01/19/23 12:15 MB [id number]) PT Summary Assessment and Plan Potential Rehabilitation Potential Good Status of Condition at Evaluation Evolving Summary Impairments Pain,Balance,Bed Mobility, Transfers,Gait,Activity Tolerance Progress Towards Goals Progressing Toward Goals Assessment Summary Pt is a pleasant lady presenting with right horizontal cupulolithiasis BPPV and treated with Casani. She has imbalance and decreased I with gait given her dizziness. She appears better after treatment. She will benefit from OPPT at d/c, vestibular therapist. Goals Bed Mobility Goal Independent Transfer Goal Independent Gait Goal Standby Assistance,Front Wheel Walker Gait Distance 100 Other Goals Ascend and descend 3 steps with rail 2-3 times to demonstrate ability to manage her two sets of steps at home. Days to Meet Goals 5 Frequency of Treatment Frequency Of Treatment Once a Day Treatment Plan Physical Therapy Treatment Plan Bed Mobility Training,Transfer Training,Gait Training, Therapeutic Exercise,Balance Retraining,Discharge Planning Recommendations To Nursing Amount of Assist Needed Standby Assistance,1 Person Assist Discharge Recommendations PT Discharge Recommendations Home with 10/11 Assist Available,Outpatient PT Transportation Needs at Discharge Private Vehicle
== END 2023-01-19 12:38 | disposition home or self-care (01) ==
LOC: ED 03:30 → AC 04:30
PROVIDERS: Admitting Provider Internal Medicine; Emergency Provider Emergency Medicine; Family Provider Family Medicine; PCP Family Medicine; Referring Provider Emergency Medicine; Visit Provider Internal Medicine
DX: R42 Dizziness and giddiness (principal); K21.9 Gastro-esophageal reflux disease without esophagitis; E78.2 Mixed hyperlipidemia; Z86.79 Personal history of other diseases of the circulatory system; G40.909 Epilepsy, unspecified, not intractable, without status epilepticus; H53.40 Unspecified visual field defects; I10 Essential (primary) hypertension; Z86.73 Personal history of transient ischemic attack (TIA), and cerebral infarction without residual deficits; F32.A Depression, unspecified; R29.701 NIHSS score 1
CPT/HCPCS: 36415; 70450; 70496; 70498; 80053; 80305; 80320; 81001; 81003; 82550; 84484; 85025; 85610; 85730; 87086; 87635; 93005; 95992; 97162; 97165; 97535; 99285; C9803; G0378; A9270

== ENCOUNTER → 2023-02-09 12:03 | Outpatient (CLI) | payer OTHER, SELFPAY ==
[2023-01-19 06:47] VITALS: BMI 28.8
== END ==
PROVIDERS: Family Provider Family Medicine; PCP Family Medicine; Visit Provider Physician Assistant
DX: R30.0 Dysuria (principal)
CPT/HCPCS: 87077; 87086; 87186

== ENCOUNTER → 2023-07-30 11:33 | Outpatient (CLI) | payer OTHER, SELFPAY ==
[2023-01-19 06:47] VITALS: BMI 28.8
--- NOTE | 2023-07-30 11:34 | DI.RAD.S_ITS ---
PROCEDURE: XR LUMBAR SPINE 2-3V INDICATIONS: sharp shooting pain left side low back intermittent, chronic TECHNIQUE: 3 views of the lumbar spine were acquired. COMPARISON: [facility], , L-SPINE 2-3 VIEWS, 06/15/2017, 14:30. FINDINGS: Bones: 5 [id number] vertebrae are present. Grade 1 anterolisthesis of L4 on L5. Mild dextrocurvature of the lumbar spine. There is multilevel facet arthropathy, worse at L4-5 and L5-S1. Multilevel disc height loss with degenerative endplate changes and spurring is present. This is severe at L5-S1. No vertebral body compression fractures. No suspicious bony lesions. Soft tissues: Overlying bowel gas pattern is normal. No suspicious soft tissue calcifications. IMPRESSION: Multilevel degenerative changes of the lumbar spine, severe at L5-S1. If indicated, consider MRI for further evaluation. Dictated by: Rajan Eric M.D. on 07/30/2023 at 12:57 Approved by: Rajan Eric M.D. on 07/30/2023 at 12:59
== END ==
PROVIDERS: Family Provider Family Medicine; PCP Family Medicine; Referring Provider Physician Assistant; Visit Provider Physician Assistant
DX: M47.816 Spondylosis without myelopathy or radiculopathy, lumbar region (principal); M47.817 Spondylosis without myelopathy or radiculopathy, lumbosacral region; M54.40 Lumbago with sciatica, unspecified side
CPT/HCPCS: 72100

== ENCOUNTER 2023-08-14 11:13 | Emergency (ER) | payer OTHER, SELFPAY ==
[2023-01-19 06:47] VITALS: BMI 28.8
[2023-08-14] VITALS (9 sets, daily range): BP systolic 146–201; BP diastolic 65–106; PULSE 73–90; RESP 16; TEMP 36.3; O2SAT 94–99; BMI 29.9
--- NOTE | 2023-08-14 11:39 | ED.GENADULT ---
HPI - General Adult General Chief complaint: Abdominal Pain Stated complaint: severe abd pain t-2 Time Seen by Provider: 08/14/23 11:29 Source: patient and family Mode of arrival: Ambulatory History of Present Illness HPI narrative: 87-year-old female who is here for evaluation of abdominal pain that has been present for the past couple days. No change with urination. No change with bowel movements. She has not having constipation or diarrhea. Is having some episodes of nausea but states she is unable to vomit. Describes the pain is in the epigastric region and up to the center of her chest. To has had her gallbladder removed. Has had her appendix removed. Has not tried anything for symptoms prior to arrival. Related Data Home Medications Medication Instructions Recorded Confirmed cholecalciferol (vitamin D3) 50 2,000 unit PO DAILY 10/01/17 07/30/23 mcg (2,000 unit) capsule (Vitamin D3) [id number]-lycopen-lutein 1 tab PO DAILY 10/22/21 07/30/23 [CertaVite Senior] nifedipine 30 mg tablet,extended 30 mg PO DAILY 01/22/23 07/30/23 release Previous Rx's Medication Instructions Recorded Disabled Parking Permit #1 ea 01/24/20 ascorbic acid (vitamin C) 500 mg 500 mg PO DAILY #60 caps 04/07/21 capsule omega 6-kee-svz-fish oil 1,000 mg 1 cap PO BID #60 caps 04/07/21 (120 mg-180 mg) capsule (Fish Oil) ondansetron 4 mg disintegrating 4 mg PO Q8H PRN nausea and 09/17/22 tablet vomiting #90 tabs levetiracetam 500 mg tablet See Rx Instructions PO .COMPLEX 05/13/23 #135 tabs atorvastatin 40 mg tablet 40 mg PO ONCE PM #90 tabs 05/20/23 naproxen 500 mg tablet 500 mg PO BID #40 tabs 07/30/23 aspirin 81 mg tablet,delayed 81 mg PO DAILY #90 tabs 08/07/23 release carvedilol 3.125 mg tablet 3.125 mg PO BID #180 tabs 08/07/23 famotidine 20 mg tablet 20 mg PO BID #180 tabs 08/07/23 tolterodine 4 mg capsule,extended 4 mg PO QPM #90 caps 08/07/23 release 24 hr sucralfate 100 mg/mL oral 10 ml PO QACHS #420 mL 08/14/23 suspension (Carafate) Allergies Allergy/AdvReac Type Severity Reaction Status Date / Time albuterol [ALBUTEROL] AdvReac Severe SHAKEY Verified 08/14/23 11:25 LEGS, JERKY allopurinol [ALLOPURINOL] AdvReac Severe NAUSEA AND Verified 08/14/23 11:25 GI UPSET Sulfa (Sulfonamide AdvReac Severe HEADACHES Verified 08/14/23 11:25 Antibiotics) [SULFA (SULFONAMIDE ANTIBIOTICS)] JESSICA Inhibitors AdvReac Mild COUGH Verified 08/14/23 11:25 [JESSICA INHIBITORS] Review of Systems Review of Systems Narrative: See HPI Patient History Medical History Mixed hyperlipidemia Epilepsy Left-sided low back pain with left-sided sciatica Chronic nausea Excessive daytime sleepiness Pure hypercholesterolemia Physical deconditioning Somatic dysfunction of lower extremity Fatigue Corns and callus Toe pain, bilateral Lumbar region somatic dysfunction Chronic thoracic back pain Lightheadedness Visual hallucinations Cervical somatic dysfunction Segmental and somatic dysfunction of abdomen and other regions Segmental and somatic dysfunction of sacral region Somatic dysfunction of abdominal region Cervicothoracic somatic dysfunction Segmental and somatic dysfunction of thoracic region Segmental and somatic dysfunction of pelvic region Segmental and somatic dysfunction of head region Stiff neck Chronic low back pain Cataracts, bilateral (Unknown) Subarachnoid hemorrhage (2000) Seizure disorder (Unknown) Gallbladder disease (Unknown) Arthritis (Unknown) GERD (gastroesophageal reflux disease) (Unknown) Hypertension (Unknown) Spinal stenosis (Unknown) CLL (chronic lymphocytic leukemia) (Unknown) Depression (Unknown) Surgical History History of ventriculoperitoneal shunting (12/2000) Hx of detached retina repair (Unknown) History of bilateral cataract extraction (Unknown) Hx of cholecystectomy (Unknown) Hx of appendectomy (Unknown) Social History household members: spouse Smoking Status: Former smoker alcohol intake: current Smoking Status: Former smoker alcohol intake frequency: holidays/special occasions only Substance Use Type: does not use Exam Initial Vital Signs Initial Vital Signs: Vital Signs Temperature 97.4 F L 08/14/23 11:19 Pulse Rate 77 08/14/23 11:19 Respiratory Rate 16 08/14/23 11:19 Blood Pressure 162/106 H 08/14/23 11:19 Pulse Oximetry 99 08/14/23 11:19 Oxygen Delivery Method Room Air 08/14/23 11:19 Const General: cooperative and No ill appearing HENMT Head: normal to inspection and normocephalic Resp Effort & Inspection: normal respiratory effort Auscultation: clear to auscultation bilaterally Cardio Rate: regular rate Rhythm: regular rhythm GI Inspection: normal to inspection and non-distended Palpation: soft, No firm, No guarding and tender Back/Spine/Pelvis Back: No CVA tenderness Skin General: no rashes or lesions noted Neuro General: patient alert, patient awake and moves all extremities Extrem General: normal to inspection Course Orders Ordered: ED Orders 08/14/23 11:40 Urine Culture Stat Urine Microscopic Stat 08/14/23 12:08 Complete Blood Count AUTO DIFF Stat Comprehensive Metabolic Panel Stat Lipase Stat 08/14/23 12:46 CT abdomen pelvis w con Stat Discontinued Medications Al Hydrox/Mg Hydrox/Simethicone 20 ml/ Lidocaine HCl 15 ml 0 ml PO NOW ONE Stop: 08/14/23 11:40 Last Admin: 08/14/23 12:16 Dose: 45 ml Documented By: SOHAIL Ondansetron HCl (Ondansetron 4 Mg/2 Ml Inj) 4 mg IV NOW ONE Stop: 08/14/23 11:40 Last Admin: 08/14/23 12:10 Dose: 4 mg Documented By: SOHAIL Pantoprazole Sodium (Pantoprazole 40 Mg Vial) 40 mg IV NOW ONE Stop: 08/14/23 11:40 Last Admin: 08/14/23 12:16 Dose: 40 mg Documented By: SOHAIL Vital Signs Vital signs: Vital Signs - 8 hr 08/14/23 11:19 08/14/23 12:01 08/14/23 12:16 Temperature 97.4 F L Pulse Rate 77 77 Respiratory Rate 16 Blood Pressure 162/106 H 201/79 H Pulse Oximetry 99 98 Oxygen Delivery Method Room Air 08/14/23 12:16 Temperature Pulse Rate 77 Respiratory Rate Blood Pressure Pulse Oximetry 99 Oxygen Delivery Method Room Air Medical Decision Making Lab Data Lab results reviewed: Yes I reviewed the patient's lab results. 08/14/23 12:08 08/14/23 12:08 Labs: Lab Results 08/14/23 08/14/23 Range/Units 11:40 12:08 WBC 9.9 (4.5-11.0) X10^3/uL RBC 4.24 (4.0-5.2) X10^6/uL Hgb 13.4 (12.0-16.0) g/dL Hct 39.1 (36-46) % MCV 92.3 (80-100) fL MCH 31.7 (26-34) PG MCHC 34.3 (30-36) % RDW 14.4 (11.6-14.8) % Plt Count 200 (150-400) X10^3/uL Neut % (Auto) 70.8 (50-75) % Lymph % (Auto) 19.5 L (25-40) % Bland % (Auto) 7.5 (3-14) % Eos % (Auto) 1.6 L (2-4) % Baso % (Auto) 0.6 (0-2) % Neut # (Auto) 7000 (7209-4577) /uL Lymph # (Auto) 1900 (2569-8217) /uL Bland # (Auto) 700 (0-900) /uL Eos # (Auto) 200 (0-450) /uL Baso # (Auto) 100 (0-100) /uL Sodium 135 L (137-145) mmol/L Potassium 3.6 (3.4-5.1) mmol/L Chloride 103 (98-107) mmol/L Carbon Dioxide 27 (22-32) mmol/L BUN 19 H (7-17) mg/dL Creatinine 0.92 (0.52-1.04) mg/dL Estimated GFR > 60 (>60) mL/min BUN/Creatinine Ratio 20.7 (6-22) Glucose 139 H (80-110) mg/dL Calcium 10.2 (8.4-10.2) mg/dL Total Bilirubin 0.9 (0.2-1.3) mg/dL AST 27 (14-36) IU/L ALT 17 (<35) IU/L Alkaline Phosphatase 84 (38-126) U/L Total Protein 6.4 (6.3-8.2) g/dL Albumin 3.9 (3.5-5.0) g/dL Globulin 2.5 (1.7-4.1) g/dL Albumin/Globulin Ratio 1.6 (1.0-2.8) Lipase 46 (23-300) U/L Urine RBC None seen (0-5/HPF) Urine WBC 0-1/hpf (0-5/HPF) Ur Squamous Epith Cells 1-5 /hpf (0-5/HPF) Calcium Oxalate Crystal Few H Urine Bacteria None seen (None) Hyaline Casts 5-10/lpf (None) Ur Culture Indicated? Specimen cultured Vol Urine Centrifuged 10ml (spun) Urine Dip Bedside Urine Glucose Negative Bedside Urine Bilirubin - Negative Bedside Urine Ketone +/- 5 Urine Specific [place] 1.030 Bedside Urine Occult Blood - Negative Bedside Urine pH 6.0 Bedside Urine Protein - Negative Bedside Urine Urobilinogen - Negative Bedside Urine Nitrite - Negative Bedside Urine Leukocytes +/- 15 Esterase Point of care testing: Urine Dip Bedside Urine Glucose Negative Bedside Urine Bilirubin - Negative Bedside Urine Ketone +/- 5 Urine Specific [place] 1.030 Bedside Urine Occult Blood - Negative Bedside Urine pH 6.0 Bedside Urine Protein - Negative Bedside Urine Urobilinogen - Negative Bedside Urine Nitrite - Negative Bedside Urine Leukocytes +/- [address] scan - abdomen/pelvis: Radiologist's Impression: PROCEDURE: CT ABDOMEN PELVIS W CON INDICATIONS: generalized abd pain TECHNIQUE: After the administration of intravenous contrast, axial sections acquired from the lung bases to the pubic symphysis. Coronal and sagittal reformats were performed. For radiation dose reduction, the following was used: automated exposure control, adjustment of mA and/or kV according to patient size. COMPARISON: [facility], CT, CT ABDOMEN PELVIS W CON, 11/30/2022, 21:35. FINDINGS: Image quality: Diagnostic. Lower Chest: No significant findings. ABDOMEN: Liver: No solid mass. Unchanged 3.8 cm right hepatic lobe cyst. Steatosis is present. Gallbladder: Removed. Biliary ducts: Common bile duct measures 1.1 cm, unchanged likely related to post cholecystectomy sequela. Pancreas: No ductal dilation. Spleen: Size is within normal limits. Adrenal Glands: Unchanged right adrenal nodule. Kidneys and Ureters: No hydronephrosis. No solid mass. No complex renal cystic lesion which requires follow up. Stomach and Bowel: Normal colonic caliber, without significant wall thickening. Colonic diverticular present associated with inflammatory change. Prominent hiatal hernia. Peritoneum: Minimal dependent pelvic fluid. No free air. Ventral Wall: No significant ventral hernia. Abdominal Nodes: No retroperitoneal or mesenteric adenopathy by size criteria. Vessels: Aorta and inferior vena cava are normal in size. PELVIS: Pelvic Organs: Unremarkable. Bladder: No bladder wall thickening, accounting for underdistention. Pelvic Nodes: No enlarged lymph nodes. Miscellaneous: No inguinal hernias are seen. Bones: No aggressive osseous abnormality. Multilevel degenerative changes. IMPRESSION: Diverticulosis. No colonic inflammatory change. MDM Narrative Medical decision making narrative: Patient reports she had an almost complete resolution of all of her symptoms after the GI cocktail. Her labs and CT scan showed no acute pathology. I do feel that this is most likely GI related. Low suspicion for ACS. Will discharge home with a prescription for Carafate. No indication for emergent surgical consultation. She was given return precautions and follow-up instructions. She expressed understanding and agreement with plan. Discharge Plan Departure Patient Disposition: Home Clinical Impression: Abdominal pain, epigastric Instructions: DI for Gastroesophageal Reflux Disease (GERD), DI for Abdominal Pain-Adult Activity Restrictions/Additional Instructions: Continue to take all of your medications as directed. You can use the Carafate that you were given a prescription for today like we discussed. Contact your primary care doctor for a follow-up. Return to the emergency department for new or worsening symptoms. Prescriptions: New sucralfate [Carafate] 100 mg/mL suspension 10 ml PO QACHS Qty: 420 0RF No Action naproxen 500 mg tablet 500 mg PO BID Qty: 40 0RF (DME) Disabled Parking Permit Qty: 1 0RF Rx Instructions: As directed levetiracetam 500 mg tablet See Rx Instructions PO .COMPLEX Qty: 135 0RF Dose Instruction: TAKE 1/2 TABLET BY MOUTH EVERY MORNING AND TAKE 1 TABLET BY MOUTH WITH SUPPER. NEED APPOINTMENT FOR FURTHER REFILLS. Rx Instructions: TAKE 1/2 TABLET BY MOUTH EVERY MORNING AND TAKE 1 TABLET BY MOUTH WITH SUPPER. orally; atorvastatin 40 mg tablet 40 mg PO ONCE PM Qty: 90 3RF carvedilol 3.125 mg tablet 3.125 mg PO BID Qty: 180 0RF tolterodine 4 mg capsule,extended release 24hr 4 mg PO QPM Qty: 90 0RF famotidine 20 mg tablet 20 mg PO BID Qty: 180 0RF aspirin 81 mg tablet,delayed release (DR/EC) 81 mg PO DAILY Qty: 90 0RF nifedipine 30 mg tablet extended release 30 mg PO DAILY ondansetron 4 mg tablet,disintegrating 4 mg PO Q8H PRN (Reason: nausea and vomiting) Qty: 90 3RF Rx Instructions: Start this medication only after stopping Citalopram cholecalciferol (vitamin D3) [Vitamin D3] 2,000 unit Capsule 2,000 unit PO DAILY omega 7-[id number]-hhf-fish oil [Fish Oil] 1,000 mg (120 mg-180 mg) capsule 1 cap PO BID Qty: 60 0RF ascorbic acid (vitamin C) 500 mg capsule 500 mg PO DAILY Qty: 60 0RF prgnffts-[id number]-ZP-lycopen-lutein [CertaVite Senior] 1 tab PO DAILY Referrals: Timothy Gee DO [Primary Care Provider] - Stand Alone Forms: Patient Portal/API
[2023-08-14 12:08] LABS: RBC Urine None Seen (0-5/HPF); Urine Volume 10mL (spun)
[2023-08-14 12:09] LABS: Bacteria Urine None Seen; Calcium Oxalate Crystals Urine Few; Culture Indicated Urine Specimen Cultured; Hyaline Casts Urine 5-10/LPF; Squamous Epithelial Cell Urine 1-5 /HPF (0-5/HPF); WBC Urine 0-1/HPF (0-5/HPF)
[2023-08-14] MEDS: ONDANSETRON 4 MG/2 ML INJ IV (12:10)
[2023-08-14] MEDS: MAG HYDROX/ALUMINUM/SIMETH SUS 20 ML, LIDOCAINE VISCOUS 2% 15 ML PO (12:16)
[2023-08-14] MEDS: PANTOPRAZOLE 40 MG VIAL IV (12:16)
[2023-08-14 12:18] LABS: Add Manual Diff / Slide Review NO; Basophils Absolute Auto 100 /uL (0-100); Basophils Percent Auto 0.6 % (0-2); Eosinophils Absolute Auto 200 /uL (0-450); Eosinophils Percent Auto 1.6 % (2-4); Hematocrit 39.1 % (36-46); Hemoglobin 13.4 g/dL (12.0-16.0); Lymphocytes Absolute Auto 1900 /uL (1100-4500); Lymphocytes Percent Auto 19.5 % (25-40); Mean Corpuscular HGB Conc 34.3 % (30-36); Mean Corpuscular Hemoglobin 31.7 PG (26-34); Mean Corpuscular Volume 92.3 fL (80-100); Monocytes Absolute Auto 700 /uL (0-900); Monocytes Percent Auto 7.5 % (3-14); Neutrophils Absolute Auto 7000 /uL (1500-7000); Neutrophils Percent Auto 70.8 % (50-75); Platelet Count 200 X10^3/uL (150-400); Red Blood Cell Count 4.24 X10^6/uL (4.0-5.2); Red Cell Distribution Width 14.4 % (11.6-14.8); White Blood Cell Count 9.9 X10^3/uL (4.5-11.0)
[2023-08-14 12:32] LABS: Alanine Aminotransferase 17 IU/L (<35); Albumin 3.9 g/dL (3.5-5.0); Albumin Globulin Ratio 1.6 (1.0-2.8); Alkaline Phosphatase 84 U/L (38-126); Aspartate Aminotransferase 27 IU/L (14-36); BUN Creatinine Ratio 20.7 (6-22); Bilirubin Total 0.9 mg/dL (0.2-1.3); Blood Urea Nitrogen 19 mg/dL (7-17); Calcium 10.2 mg/dL (8.4-10.2); Carbon Dioxide 27 mmol/L (22-32); Chloride 103 mmol/L (98-107); Estimated Glomerular Filt Rate > 60 mL/min (>60); Globulin 2.5 g/dL (1.7-4.1); Glucose 139 mg/dL (80-110); HEMOLYSIS 19 (0-50); Lipase 46 U/L (23-300); Potassium 3.6 mmol/L (3.4-5.1); Sodium 135 mmol/L (137-145); Total Protein 6.4 g/dL (6.3-8.2)
--- NOTE | 2023-08-14 12:46 | DI.CT.S_ITS ---
PROCEDURE: CT ABDOMEN PELVIS W CON INDICATIONS: generalized abd pain TECHNIQUE: After the administration of intravenous contrast, axial sections acquired from the lung bases to the pubic symphysis. Coronal and sagittal reformats were performed. For radiation dose reduction, the following was used: automated exposure control, adjustment of mA and/or kV according to patient size. COMPARISON: [facility], CT, CT ABDOMEN PELVIS W CON, 11/30/2022, 21:35. FINDINGS: Image quality: Diagnostic. Lower Chest: No significant findings. ABDOMEN: Liver: No solid mass. Unchanged 3.8 cm right hepatic lobe cyst. Steatosis is present. Gallbladder: Removed. Biliary ducts: Common bile duct measures 1.1 cm, unchanged likely related to post cholecystectomy sequela. Pancreas: No ductal dilation. Spleen: Size is within normal limits. Adrenal Glands: Unchanged right adrenal nodule. Kidneys and Ureters: No hydronephrosis. No solid mass. No complex renal cystic lesion which requires follow up. Stomach and Bowel: Normal colonic caliber, without significant wall thickening. Colonic diverticular present associated with inflammatory change. Prominent hiatal hernia. Peritoneum: Minimal dependent pelvic fluid. No free air. Ventral Wall: No significant ventral hernia. Abdominal Nodes: No retroperitoneal or mesenteric adenopathy by size criteria. Vessels: Aorta and inferior vena cava are normal in size. PELVIS: Pelvic Organs: Unremarkable. Bladder: No bladder wall thickening, accounting for underdistention. Pelvic Nodes: No enlarged lymph nodes. Miscellaneous: No inguinal hernias are seen. Bones: No aggressive osseous abnormality. Multilevel degenerative changes. IMPRESSION: Diverticulosis. No colonic inflammatory change. Dictated by: Asuncion Nelson M.D. on 08/14/2023 at 13:54 Approved by: Asuncion Nelson M.D. on 08/14/2023 at 13:59
== END 2023-08-14 14:33 | disposition home or self-care (01) ==
PROVIDERS: Emergency Provider Emergency Medicine; Family Provider Family Medicine; PCP Family Medicine
DX: R10.13 Epigastric pain (principal); R11.0 Nausea
CPT/HCPCS: 36415; 74177; 80053; 81003; 81015; 83690; 85025; 87077; 87086; 87147; 96374; 96375; 99284; C9113; J2405; Q9967

== ENCOUNTER → 2023-09-01 15:15 | Outpatient (CLI) | payer OTHER, SELFPAY ==
[2023-01-19 06:47] VITALS: BMI 28.8
--- NOTE | 2023-09-01 15:17 | DI.RAD.S_ITS ---
PROCEDURE: XR KNEE RT 3V INDICATIONS: pain x 3 weeks TECHNIQUE: 3 views of the knee were acquired. COMPARISON: None. FINDINGS: Bones: No fractures or dislocations. Tricompartmental osteoarthritic changes with moderate joint space narrowing of the medial and lateral tibial femoral compartments. Osteophytosis is present. No suspicious bony lesions. Soft tissues: Small joint effusion. No suspicious soft tissue calcifications. IMPRESSION: No acute osseous abnormalities. Small joint effusion. 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 Dictated by: Rajan Eric M.D. on 09/01/2023 at 16:47 Approved by: Rajan Eric M.D. on 09/01/2023 at 16:48
== END ==
PROVIDERS: Family Provider Family Medicine; PCP Family Medicine; Referring Provider Physician Assistant; Visit Provider Physician Assistant
DX: M25.461 Effusion, right knee (principal); M25.561 Pain in right knee; M51.36 Other intervertebral disc degeneration, lumbar region; M43.16 Spondylolisthesis, lumbar region; M54.40 Lumbago with sciatica, unspecified side
CPT/HCPCS: 73562

== ENCOUNTER 2023-11-03 10:30 | Outpatient (RCR) | payer OTHER, SELFPAY ==
[2023-01-19 06:47] VITALS: BMI 28.8
--- NOTE | 2023-10-27 12:52 | PT.OIE ---
Current Diagnoses Other chronic pain (10/27/23) Osteoarthritis of knee, unspecified (10/27/23) Spondylolisthesis, lumbar region (10/27/23) Other intervertebral disc degeneration, lumbar region (10/27/23) Lumbago with sciatica, unspecified side (10/27/23) Pain in thoracic spine (10/27/23) History of falling (10/27/23) Past Medical History (Last Reviewed 08/14/23 @ 11:41 by Víctor Juan DO) Arthritis (Unknown) Cataracts, bilateral (Unknown) Cervical somatic dysfunction Cervicothoracic somatic dysfunction Chronic low back pain Chronic nausea Chronic thoracic back pain CLL (chronic lymphocytic leukemia) (Unknown) Corns and callus Depression (Unknown) Epilepsy Excessive daytime sleepiness Fatigue Gallbladder disease (Unknown) GERD (gastroesophageal reflux disease) (Unknown) Hypertension (Unknown) Left-sided low back pain with left-sided sciatica Lightheadedness Lumbar region somatic dysfunction Mixed hyperlipidemia Physical deconditioning Pure hypercholesterolemia Segmental and somatic dysfunction of abdomen and other regions Segmental and somatic dysfunction of head region Segmental and somatic dysfunction of pelvic region Segmental and somatic dysfunction of sacral region Segmental and somatic dysfunction of thoracic region Seizure disorder (Unknown) Somatic dysfunction of abdominal region Somatic dysfunction of lower extremity Spinal stenosis (Unknown) Stiff neck Subarachnoid hemorrhage (2000) Toe pain, bilateral Visual hallucinations Past Surgical History (Last Reviewed 01/22/23 @ 06:31 by Chris Chan MD) History of bilateral cataract extraction (Unknown) History of ventriculoperitoneal shunting (12/2000) Hx of appendectomy (Unknown) Hx of cholecystectomy (Unknown) Hx of detached retina repair (Unknown) Visit Care Team Role Provider Type Timothy Gee DO Primary Care Provider Physician Specialty: Family Practice Address: [address] [place] [address], [id number] Email: Yana Velásquez DO Family Provider Non-Staff Specialty: [facility] Practice Address: [address] [place] [address], [address], [place], [address] Email: [email or web address] Dana Eugene PA-C Attending Provider Advanced Coal Dumping Equipment Operator Referring Provider Specialty: Medical Wound Care Address: [address] [place] [address], [id number] Email: [email or web address] Physical Therapy Initial Evaluation PT-OP-A Visit Information Start: 10/26/23 08:43 Freq: Status: Active Protocol: Document 10/27/23 10:35 MB (Rec: 10/27/23 11:02 MB [id number]) Out-Patient Physical Therapy Visit Information Visit Information Visit Type Initial Evaluation Visit Note [employer] 05/08 before [facility] Progress note before 11/26 Pt arrives 5' past evaluation start time Visit Start Time 10:35 Visit Stop Time 11:15 Visit Number 1 Evaluation Information Evaluation Date 10/27/23 Precautions Precautions History of TIA, decreasing BP supine to stand on evaluation PT-OP-B Current Condition Start: 10/26/23 08:43 Freq: Status: Active Protocol: Document 10/27/23 10:35 MB (Rec: 10/27/23 11:02 MB [id number]) Current Condition History of Current Condition Onset Date 1 year Current Complaints Right knee pain worse with WB History of Current Condition Pt reports that her biggest concern is her right knee. She uses cane in the right hand because she feels more steady with it there and she is right handed. Pt has a RW at home and she uses it at home sometimes when she feels unsteady. Pt has steps at the house, including 13 to get to the BR. Partially, it has a left rail and partially, it has a right rail. She just uses the rail only to go up the steps. She does not use a cane or walker upstairs. Pt denies falls at home. Pt is worried about falls at home. Pt appears to have a poor memory. , Reji, is nearby, and does not provide extra information. Pt is sleeping well. She has stool in the shower. She and feel that they can make PT 2x/wk. Pt occ has dizziness getting up. Prior Treatments and Tests 09/11/23: Right knee x-ray: No acute osseous abnormalities . Small joint effusion. 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 Treatment Goals Patient/Caregiver Goals To improve walking and be able to walk to the mailbox PT-OP-C Subjective Start: 10/26/23 08:43 Freq: Status: Active Protocol: Document 10/27/23 10:35 MB (Rec: 10/27/23 12:46 MB [id number]) OP-PT Subjective Patient Comments Patient Comments See history of current condition PT-OP-G Mobility & Gait Start: 10/26/23 08:43 Freq: Status: Active Protocol: Document 10/27/23 10:35 MB (Rec: 10/27/23 12:46 MB [id number]) OP Gait Assessment Comments Gait Comments Pt arrives with SPC that is 2 too tall for pt and she uses in RUE. When asked why she carries in right hand, she states that she has not been trained how to use cane and she feels steadier with cane in right hand. Gait training today and pt has difficulty and is unsteady trying to use cane in left and she tends to take too long of steps. Pt has easier time advancing cane every step and with opposite foot when cane is in right hand. PT lowers cane 1.5 and she is okay about the height being this height. Overall, gait is unsteady/imbalanced with cane and encouraged pt to use her RW at home and to bring into next treatment. She is agreeable. Gait with cane requires CGA for 100'x2 today. PT-OP-K Range of Motion Start: 10/26/23 08:43 Freq: Status: Active Protocol: Document 10/27/23 10:35 MB (Rec: 10/27/23 12:46 MB [id number]) Knee Goniometric Range of Motion Knee Left Knee ROM WFL No Patient Position Supine Comments 7-107 deg Right Knee ROM WFL No Patient Position Supine Comments 5-110 deg Ankle range is functional B in supine. B knees do not touch mat in supine and PT feels this is d/t gluteal soft tissue, posterior tilt pelvis/ spinal changes, and tight hip flexors PT-OP-M Strength Start: 10/26/23 08:43 Freq: Status: Active Protocol: Document 10/27/23 10:35 MB (Rec: 10/27/23 12:46 MB [id number]) Hip Strength Hip Manual Muscle Testing Left Flexion (L2) 4+ Good+ Abduction 4+ Good+ Comments Performed in supine Right Flexion (L2) 4+ Good+ Abduction 4+ Good+ Comments Performed in supine Knee Strength Knee Manual Muscle Testing Bilateral Comments Pt does not tolerate B and she allows knees to give way out of fear of pain Ankle/Foot Strength Ankle and Foot Manual Muscle Testing Bilateral Dorsiflexion (L4) 4+ Good+ Toe Strength Toe Manual Muscle Testing Left Great Toe Extension 4 Good Right Great Toe Extension 4 Good PT-OP-Q Treatments Start: 10/26/23 08:43 Freq: Status: Active Protocol: Document 10/27/23 10:35 MB (Rec: 10/27/23 12:48 MB [id number]) Gait Training Gait Activity Gait training with SPC Comments Training notes put under gait comments today and PT spends at least 8' gait training with pt with SPC today PT-OP-T Assessment and Plan Start: 10/26/23 08:43 Freq: Status: Active Protocol: Document 10/27/23 10:35 MB (Rec: 10/27/23 11:02 MB [id number]) Physical Therapy Assessment Rehab Potential Rehabilitation Potential Fair Evaluation Complexity Number of Personal Factors/Comorbidities 1-2 Number of Body Systems Impaired 3 Clinical Presentation at Evaluation Evolving Impairments Impairments Activity Tolerance,Balance, Coordination,Edema,Functional Activities,Functional Mobility ,Gait,Pain,Posture,ROM,Soft Tissue Mobility,Strength, Transfers Goals 4 Impairment Lack of HEP Usp Goal (LTG) Pt will perform progressive HEP with I including postural, balance, flexibility, strengthening and gait activities to improve pain, strength and balance. LTG Duration 8 weeks 3 Impairment B LE knee weakness Usp Goal (LTG) Pt will present with at least 4/5 B knee flexor and extensor strength to improve functional strength and balance. LTG Duration 8 weeks 2 Impairment Goal [facility] and back Bilingual Account Manager Goal (LTG) Pt will gait train at least 1000 feet in 6 minutes with or without AD and with standing rest break only to reflect functional objective of increasing gait distance safely. LTG Duration 8 weeks 1 Impairment Pt reports concern for falling Bilingual Account Manager Goal (LTG) Pt will perform TUG with or without AD in no more than 10 sec to decrease fall risk. LTG Duration 8 weeks Assessment Summary Assessment Pt and arrive after evaluation start time and so paperwork not completed. Given pt reports, PT will use TUG and 6MWT as two objective functional balance and gait goals during PT course. Pt reports no more trouble with her LB and sciatica and reports most trouble with her right knee. She has impaired gait with cane in right hand and will benefit from further gait and AD training. Pt feels a little light-headed getting up in the morning. Orthostatic assessment with BP and HR in LUE: supine: 158/72 , 60; standing 142/73, 69; standing 1': 145/77, 65. Pt presents with range, strength, balance and gait impairments and will benefit from PT to address these. Pt and feel they can commit to 2x/wk treatment, especially T/Th and PT sets POC accordingly. Physical Therapy Plan Frequency and Duration Frequency of Treatment 2x/Week Duration of treatment (weeks) 8 Plan of Care Start Date 10/27/23 Plan of Care End Date 12/28/23 Therapeutic Interventions Therapeutic Interventions Balance Training,Canalithic Repositioning,Coordination Training,Gait Training,Home Exercise Program,Joint Mobilizations,Manual Therapy, Neuromuscular Re-education, Patient/Caregiver Education, Self-Care/Home Management,Soft Tissue Mobilization,Taping, Therapeutic Activities, Therapeutic Exercises, Vestibular Rehabilitation Modalities Cold Pack/Ice Massage,Hot Packs Next Visit Focus/Plan Next Note Type Treatment Note Next Visit Plan Ongoing LRAD training (cane vs RW vs rollator), consider NuStep, TUG and 6MWT when ready, initiate gentle LE strengthening, stretching and balance exercises for home
--- NOTE | 2023-10-27 12:52 | PT.OPPOC ---
Physical, Occupational & Speech Therapy At [facility] Current Diagnoses Other chronic pain (10/27/23) Osteoarthritis of knee, unspecified (10/27/23) Spondylolisthesis, lumbar region (10/27/23) Other intervertebral disc degeneration, lumbar region (10/27/23) Lumbago with sciatica, unspecified side (10/27/23) Pain in thoracic spine (10/27/23) History of falling (10/27/23) Visit Care Team Role Provider Type Timothy Gee DO Primary Care Provider Physician Specialty: [facility] Practice Address: [address] [place] [address], [address] Email: Yana Velásquez DO Family Provider Non-Staff Specialty: [facility] Practice Address: [address] [place] [address], [address], [address] Email: [email or web address] Dana Eugene PA-C Attending Provider Advanced Director [employer] Referring Provider Specialty: Medical Wound Care Address: [address] [place] [address], [id number] Email: [email or web address] Plan Of Care PT-OP-T Assessment and Plan Start: 10/26/23 08:43 Freq: Status: Active Protocol: Document 10/27/23 10:35 MB (Rec: 10/27/23 11:02 MB [id number]) Physical Therapy Assessment Rehab Potential Rehabilitation Potential Fair Evaluation Complexity Number of Personal Factors/Comorbidities 1-2 Number of Body Systems Impaired 3 Clinical Presentation at Evaluation Evolving Impairments Impairments Activity Tolerance,Balance, Coordination,Edema,Functional Activities,Functional Mobility ,Gait,Pain,Posture,ROM,Soft Tissue Mobility,Strength, Transfers Goals 4 Impairment Lack of HEP Intermediate Goal (LTG) Pt will perform progressive HEP with I including postural, balance, flexibility, strengthening and gait activities to improve pain, strength and balance. LTG Duration 8 weeks 3 Impairment B LE knee weakness Intermediate Goal (LTG) Pt will present with at least 4/5 B knee flexor and extensor strength to improve functional strength and balance. LTG Duration 8 weeks 2 Impairment Goal to be able to walk to mailbox 1/4 mile and back Pie Cutter Goal (LTG) Pt will gait train at least 1000 feet in 6 minutes with or without AD and with standing rest break only to reflect functional objective of increasing gait distance safely. LTG Duration 8 weeks 1 Impairment Pt reports concern for falling Pie Cutter Goal (LTG) Pt will perform TUG with or without AD in no more than 10 sec to decrease fall risk. LTG Duration 8 weeks Assessment Summary Assessment Pt and arrive after evaluation start time and so paperwork not completed. Given pt reports, PT will use TUG and 6MWT as two objective functional balance and gait goals during PT course. Pt reports no more trouble with her LB and sciatica and reports most trouble with her right knee. She has impaired gait with cane in right hand and will benefit from further gait and AD training. Pt feels a little light-headed getting up in the morning. Orthostatic assessment with BP and HR in LUE: supine: 158/72 , 60; standing 142/73, 69; standing 1': 145/77, 65. Pt presents with range, strength, balance and gait impairments and will benefit from PT to address these. Pt and feel they can commit to 2x/wk treatment, especially T/Th and PT sets POC accordingly. Physical Therapy Plan Frequency and Duration Frequency of Treatment 2x/Week Duration of treatment (weeks) 8 Plan of Care Start Date 10/27/23 Plan of Care End Date 12/28/23 Therapeutic Interventions Therapeutic Interventions Balance Training,Canalithic Repositioning,Coordination Training,Gait Training,Home Exercise Program,Joint Mobilizations,Manual Therapy, Neuromuscular Re-education, Patient/Caregiver Education, Self-Care/Home Management,Soft Tissue Mobilization,Taping, Therapeutic Activities, Therapeutic Exercises, Vestibular Rehabilitation Modalities Cold Pack/Ice Massage,Hot Packs Next Visit Focus/Plan Next Note Type Treatment Note Next Visit Plan Ongoing LRAD training (cane vs RW vs rollator), consider NuStep, TUG and 6MWT when ready, initiate gentle LE strengthening, stretching and balance exercises for home Plan of Care Dates Plan of Care Start Date 10/27/23 Plan of Care End Date 12/28/23 Electronically Signed by: Ana Shannon, PT 10/27/23 4714 If you are in agreement with this Plan of Care, please return a signed and dated copy. I have reviewed this Plan of Care and certify that the skilled therapy services above are required to meet the patient?s needs. Physician Signature Date Printed Name and Credentials Clinical Instructor Signature Printed Name and Credentials
--- NOTE | 2023-11-03 11:16 | PT.OTN ---
Current Diagnoses Other chronic pain (11/03/23) Osteoarthritis of knee, unspecified (11/03/23) Spondylolisthesis, lumbar region (11/03/23) Other intervertebral disc degeneration, lumbar region (11/03/23) Lumbago with sciatica, unspecified side (11/03/23) Pain in thoracic spine (11/03/23) History of falling (11/03/23) Physical Therapy Treatment Note PT-OP-A Visit Information Start: 10/26/23 08:43 Freq: Status: Active Protocol: Document 11/03/23 10:31 MB (Rec: 11/03/23 11:15 MB [id number]) Out-Patient Physical Therapy Visit Information Visit Information Visit Type Treatment Note Visit Note [facility] [employer] 05/08 before [facility] Progress note before 11/26 Visit Start Time 10:31 Visit Stop Time 11:11 Visit Number 2 Number of PATTERN DESIGNER Visits 0 Evaluation Information Evaluation Date 10/27/23 Precautions Precautions History of TIA, decreasing BP supine to stand on evaluation PT-OP-B Current Condition Start: 10/26/23 08:43 Freq: Status: Active Protocol: Document 10/27/23 10:35 MB (Rec: 10/27/23 11:02 MB [id number]) Current Condition History of Current Condition Onset Date 1 year Current Complaints Right knee pain worse with WB History of Current Condition Pt reports that her biggest concern is her right knee. She uses cane in the right hand because she feels more steady with it there and she is right handed. Pt has a RW at home and she uses it at home sometimes when she feels unsteady. Pt has steps at the house, including 13 to get to the BR. Partially, it has a left rail and partially, it has a right rail. She just uses the rail only to go up the steps. She does not use a cane or walker upstairs. Pt denies falls at home. Pt is worried about falls at home. Pt appears to have a poor memory. , Reji, is nearby, and does not provide extra information. Pt is sleeping well. She has stool in the shower. She and feel that they can make PT 2x/wk. Pt occ has dizziness getting up. Prior Treatments and Tests 09/11/23: Right knee x-ray: No acute osseous abnormalities . Small joint effusion. 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 Treatment Goals Patient/Caregiver Goals To improve walking and be able to walk to the mailbox PT-OP-C Subjective Start: 10/26/23 08:43 Freq: Status: Active Protocol: Document 11/03/23 10:31 MB (Rec: 11/03/23 11:15 MB [id number]) OP-PT Subjective Patient Comments Patient Comments Pt arrives with SPC and uses in right hand again. She states her right leg goes out. PT-OP-G Mobility & Gait Start: 10/26/23 08:43 Freq: Status: Active Protocol: Document 10/27/23 10:35 MB (Rec: 10/27/23 12:46 MB [id number]) OP Gait Assessment Comments Gait Comments Pt arrives with SPC that is 2 too tall for pt and she uses in RUE. When asked why she carries in right hand, she states that she has not been trained how to use cane and she feels steadier with cane in right hand. Gait training today and pt has difficulty and is unsteady trying to use cane in left and she tends to take too long of steps. Pt has easier time advancing cane every step and with opposite foot when cane is in right hand. PT lowers cane 1.5 and she is okay about the height being this height. Overall, gait is unsteady/imbalanced with cane and encouraged pt to use her RW at home and to bring into next treatment. She is agreeable. Gait with cane requires CGA for 100'x2 today. PT-OP-K Range of Motion Start: 10/26/23 08:43 Freq: Status: Active Protocol: Document 10/27/23 10:35 MB (Rec: 10/27/23 12:46 MB [id number]) Knee Goniometric Range of Motion Knee Left Knee ROM WFL No Patient Position Supine Comments 7-107 deg Right Knee ROM WFL No Patient Position Supine Comments 5-110 deg Ankle range is functional B in supine. B knees do not touch mat in supine and PT feels this is d/t gluteal soft tissue, posterior tilt pelvis/ spinal changes, and tight hip flexors PT-OP-M Strength Start: 10/26/23 08:43 Freq: Status: Active Protocol: Document 10/27/23 10:35 MB (Rec: 10/27/23 12:46 MB [id number]) Hip Strength Hip Manual Muscle Testing Left Flexion (L2) 4+ Good+ Abduction 4+ Good+ Comments Performed in supine Right Flexion (L2) 4+ Good+ Abduction 4+ Good+ Comments Performed in supine Knee Strength Knee Manual Muscle Testing Bilateral Comments Pt does not tolerate B and she allows knees to give way out of fear of pain Ankle/Foot Strength Ankle and Foot Manual Muscle Testing Bilateral Dorsiflexion (L4) 4+ Good+ Toe Strength Toe Manual Muscle Testing Left Great Toe Extension 4 Good Right Great Toe Extension 4 Good PT-OP-Q Treatments Start: 10/26/23 08:43 Freq: Status: Active Protocol: Document 11/03/23 10:31 MB (Rec: 11/03/23 11:15 MB [id number]) Cardio Equipment Recumbent Elliptical (Eyepic) Duration (Minutes) 10 Resistance 1-2 Gait Training Gait Activity Gait training with rollator Comments Most training on this today and gait on carpet on grace , backing up, STS, turning, demo with , how to tap breaks with gait and lock them for sitting Gait training with RW Comments Initiated today and pt performs much better gait as far as balance, step-through gait and speed but back legs drag some and turning is challenging Gait training with SPC Comments Tried with SPC again today because pt arrives with it but she cannot use effectively in left hand for right leg, has step-to gait and imbalance and gait with cane in right hand is very slow and right foot has increased Joann angle compared to the left Neuro Re-Education Treatment Balance Activities TUG Comments Used rollator: 54 sec and cone at end of squares may have slowed her down and cues about locking rollator. Second attempt: 44 sec and better job with rollator and reaching back. Third attempt: 37 sec. Fourth attempt: 37 sec. Fifth rep: 36 sec. 8' of training with education and rest breaks PT-OP-T Assessment and Plan Start: 10/26/23 08:43 Freq: Status: Active Protocol: Document 11/03/23 10:31 MB (Rec: 11/03/23 11:15 MB [id number]) Physical Therapy Assessment Rehab Potential Rehabilitation Potential Fair Evaluation Complexity Number of Personal Factors/Comorbidities 1-2 Number of Body Systems Impaired 3 Clinical Presentation at Evaluation Evolving Impairments Impairments Activity Tolerance,Balance, Coordination,Edema,Functional Activities,Functional Mobility ,Gait,Pain,Posture,ROM,Soft Tissue Mobility,Strength, Transfers Goals 4 Impairment Lack of HEP Aircraft Instrument Engineer Goal (LTG) Pt will perform progressive HEP with I including postural, balance, flexibility, strengthening and gait activities to improve pain, strength and balance. LTG Duration 8 weeks 3 Impairment B LE knee weakness Aircraft Instrument Engineer Goal (LTG) Pt will present with at least 4/5 B knee flexor and extensor strength to improve functional strength and balance. LTG Duration 8 weeks 2 Impairment Goal to be able to walk to mailbox 1/4 mile and back Longterm Goal (LTG) Pt will gait train at least 1000 feet in 6 minutes with or without AD and with standing rest break only to reflect functional objective of increasing gait distance safely. LTG Duration 8 weeks 1 Impairment Pt reports concern for falling Aircraft Instrument Engineer Goal (LTG) Pt will perform TUG with or without AD in no more than 10 sec to decrease fall risk. LTG Duration 8 weeks Assessment Summary Assessment Despite encouragement to bring in walker on eval, pt arrives with SPC in right hand again today. She c/o right leg symptoms but cannot demonstrate good use of cane in left hand. Recommend rollator for use to help balance and leg symptoms. PT asks and pt to go by [employer] today to look for a rollator to borrow. Memory and hearing challenges are barriers to PT as well. TUG is a great neuromuscular/balance activity as pt must practice transfers, locking and unlocking walker and backing up in a timed manner. She improves with reps today. Physical Therapy Plan Frequency and Duration Frequency of Treatment 2x/Week Duration of treatment (weeks) 8 Plan of Care Start Date 10/27/23 Plan of Care End Date 12/28/23 Therapeutic Interventions Therapeutic Interventions Balance Training,Canalithic Repositioning,Coordination Training,Gait Training,Home Exercise Program,Joint Mobilizations,Manual Therapy, Neuromuscular Re-education, Patient/Caregiver Education, Self-Care/Home Management,Soft Tissue Mobilization,Taping, Therapeutic Activities, Therapeutic Exercises, Vestibular Rehabilitation Modalities Cold Pack/Ice Massage,Hot Packs Next Visit Focus/Plan Next Note Type Treatment Note Next Visit Plan Biodex, ongoing gait and transfer training with rollator, 6MWT when ready, initiate gentle LE strengthening, stretching and balance exercises for home. Con't to test TUG to see if improvements. [place] type program may be a good way to work on strengthening and balance for pt.
--- NOTE | 2023-11-05 10:27 | PT-OP ANOTE ---
Patient into session with 4 wheeled walker. Patient reports she has an appointment with eye MD today, feels like there is a covering over the right eye. Patient comments this has been bothering for a few weeks, but has gotten worse over the past 3 days. Discussed with PT, Cate Engel and decision was made to cancel this appointment. Patient advised to make her eye doctor aware that she is attending physical therapy, and requested that patient phone clinic post eye appointment and update regarding her eye condition. Patient given phone number for this clinic.
--- NOTE | 2023-11-09 12:01 | PT.OPDS ---
Current Diagnoses Other chronic pain (11/03/23) Osteoarthritis of knee, unspecified (11/03/23) Spondylolisthesis, lumbar region (11/03/23) Other intervertebral disc degeneration, lumbar region (11/03/23) Lumbago with sciatica, unspecified side (11/03/23) Pain in thoracic spine (11/03/23) History of falling (11/03/23) Visit Care Team Role Provider Type Timothy Gee DO Primary Care Provider Physician Specialty: Family Practice Address: [address] [place] [address], [id number] Email: Yana Velásquez DO Family Provider Non-Staff Specialty: [facility] Address: [address] [place] [address], [address], [place], [address] Email: [email or web address] Dana Eugene PA-C Attending Provider Advanced Filter Screen Cleaner Referring Provider Specialty: Medical Wound Care Address: [address] [place] [address], [id number] Email: [email or web address] Visit Number Visit Number 3 Discharge Summary PT-OP-B Current Condition Start: 10/26/23 08:43 Freq: Status: Active Protocol: Document 10/27/23 10:35 MB (Rec: 10/27/23 11:02 MB [id number]) Current Condition History of Current Condition Onset Date 1 year Current Complaints Right knee pain worse with WB History of Current Condition Pt reports that her biggest concern is her right knee. She uses cane in the right hand because she feels more steady with it there and she is right handed. Pt has a RW at home and she uses it at home sometimes when she feels unsteady. Pt has steps at the house, including 13 to get to the BR. Partially, it has a left rail and partially, it has a right rail. She just uses the rail only to go up the steps. She does not use a cane or walker upstairs. Pt denies falls at home. Pt is worried about falls at home. Pt appears to have a poor memory. , Reji, is nearby, and does not provide extra information. Pt is sleeping well. She has stool in the shower. She and feel that they can make PT 2x/wk. Pt occ has dizziness getting up. Prior Treatments and Tests 09/11/23: Right knee x-ray: No acute osseous abnormalities . Small joint effusion. 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 Treatment Goals Patient/Caregiver Goals To improve walking and be able to walk to the mailbox PT-OP-C Subjective Start: 10/26/23 08:43 Freq: Status: Active Protocol: Document 11/05/23 10:09 AB (Rec: 11/05/23 10:27 AB [id number]) OP-PT Subjective Patient Comments Patient Comments Patient into session with 4 wheeled walker. Patient reports she has an appointment with eye MD today, feels like there is a covering over the right eye. Patient comments this has been bothering for a few weeks, but has gotten worse over the past 3 days. PT-OP-G Mobility & Gait Start: 10/26/23 08:43 Freq: Status: Active Protocol: Document 10/27/23 10:35 MB (Rec: 10/27/23 12:46 MB [id number]) OP Gait Assessment Comments Gait Comments Pt arrives with SPC that is 2 too tall for pt and she uses in RUE. When asked why she carries in right hand, she states that she has not been trained how to use cane and she feels steadier with cane in right hand. Gait training today and pt has difficulty and is unsteady trying to use cane in left and she tends to take too long of steps. Pt has easier time advancing cane every step and with opposite foot when cane is in right hand. PT lowers cane 1.5 and she is okay about the height being this height. Overall, gait is unsteady/imbalanced with cane and encouraged pt to use her RW at home and to bring into next treatment. She is agreeable. Gait with cane requires CGA for 100'x2 today. PT-OP-K Range of Motion Start: 10/26/23 08:43 Freq: Status: Active Protocol: Document 10/27/23 10:35 MB (Rec: 10/27/23 12:46 MB [id number]) Knee Goniometric Range of Motion Knee Left Knee ROM WFL No Patient Position Supine Comments 7-107 deg Right Knee ROM WFL No Patient Position Supine Comments 5-110 deg Ankle range is functional B in supine. B knees do not touch mat in supine and PT feels this is d/t gluteal soft tissue, posterior tilt pelvis/ spinal changes, and tight hip flexors PT-OP-M Strength Start: 10/26/23 08:43 Freq: Status: Active Protocol: Document 10/27/23 10:35 MB (Rec: 10/27/23 12:46 MB [id number]) Hip Strength Hip Manual Muscle Testing Left Flexion (L2) 4+ Good+ Abduction 4+ Good+ Comments Performed in supine Right Flexion (L2) 4+ Good+ Abduction 4+ Good+ Comments Performed in supine Knee Strength Knee Manual Muscle Testing Bilateral Comments Pt does not tolerate B and she allows knees to give way out of fear of pain Ankle/Foot Strength Ankle and Foot Manual Muscle Testing Bilateral Dorsiflexion (L4) 4+ Good+ Toe Strength Toe Manual Muscle Testing Left Great Toe Extension 4 Good Right Great Toe Extension 4 Good PT-OP-T Assessment and Plan Start: 10/26/23 08:43 Freq: Status: Active Protocol: Document 11/09/23 12:00 MB (Rec: 11/09/23 12:00 MB [id number]) Physical Therapy Assessment Assessment Summary Assessment Pt calls in to state that she has a detached retina and is cancelling all PT appointments . Will d/c PT.
--- NOTE | 2023-11-12 10:34 | PT-OP ANOTE ---
STAMPING DIE MAKER BENCH scheduled to see patient 11/12/23, per note in patient chart from PT Ana Shannon on 11/09/23 pt to d/c from PT. Pt reports detached retina, PT apts should have been canceled.
== END 2023-11-13 09:21 | disposition home or self-care (01) ==
LOC: PHYS 10:30
PROVIDERS: Family Provider Family Medicine; PCP Family Medicine; Referring Provider Physician Assistant; Visit Provider Physician Assistant
DX: M51.36 Other intervertebral disc degeneration, lumbar region (principal); M43.16 Spondylolisthesis, lumbar region; M54.40 Lumbago with sciatica, unspecified side; G89.29 Other chronic pain; M17.9 Osteoarthritis of knee, unspecified; Z91.81 History of falling
CPT/HCPCS: 97110; 97112; 97116; 97140; 97161

== ENCOUNTER → 2023-12-04 15:10 | Outpatient (CLI) | payer OTHER, SELFPAY ==
[2023-01-19 06:47] VITALS: BMI 28.8
--- NOTE | 2023-12-04 15:12 | DI.RAD.S_ITS ---
PROCEDURE: XR CHEST 2V INDICATIONS: Cough TECHNIQUE: 2 views of the chest were acquired. COMPARISON: None. FINDINGS: Surgical changes and devices: None. Lungs and pleura: There is hyperinflation and chronic interstitial changes without focal infiltrate, or pneumothorax. Blunting of the left costophrenic angle Mediastinum: Mediastinal contours are normal. Heart size is normal. Bones and chest wall: No suspicious bony abnormalities. Soft tissues appear unremarkable. IMPRESSION: Small left pleural effusion. Underlying hyperinflation and chronic interstitial changes Approved by: Brad Ro M.D. on 12/07/2023 at 18:36
== END ==
PROVIDERS: Family Provider Family Medicine; PCP Family Medicine; Referring Provider Nurse Practitioner Family; Visit Provider Nurse Practitioner Family
DX: J90 Pleural effusion, not elsewhere classified (principal); R05.9 Cough, unspecified
CPT/HCPCS: 71046

== ENCOUNTER 2024-01-23 14:57 | Emergency (ER) | payer OTHER, SELFPAY ==
[2024-01-12 16:00] VITALS: BMI 28.8
[2024-01-23] VITALS (9 sets, daily range): BP systolic 147–183; BP diastolic 65–93; PULSE 69–83; RESP 20; TEMP 36.4; O2SAT 95–98; BMI 26.6
--- NOTE | 2024-01-23 15:08 | DI.RAD.S_ITS ---
PROCEDURE: XR CHEST 2V INDICATIONS: cough TECHNIQUE: 2 views of the chest were acquired. COMPARISON: [facility], CR, XR CHEST 2V, 12/04/2023, 14:18. FINDINGS: Surgical changes and devices: None. Lungs and pleura: Lungs are clear. No pleural effusions or pneumothorax. Mediastinum: Mediastinal contours are normal. Heart size is normal. Bones and chest wall: No suspicious bony abnormalities. Soft tissues appear unremarkable. IMPRESSION: No acute cardiopulmonary abnormality is seen. Approved by: Brad Ro M.D. on 01/23/2024 at 15:15
[2024-01-23 16:02] LABS: Adenovirus Not Detected (Not Detect); B. parapertussis Not Detected (Not Detecte); Bordetella pertussis Not Detected (Not Detect); Chlamydophila pneumoniae Not Detected (Not Detect); Coronavirus 229E Not Detected (Not Detect); Coronavirus HKU1 Not Detected (Not Detect); Coronavirus NL 63 Not Detected (Not Detect); Coronavirus OC43 Not Detected (Not Detect); Human Metapneumovirus Not Detected (Not Detect); Human Rhinovirus/Enterovirus Detected (Not Detect); Influenza A Not Detected (Not Detect); Influenza B Not Detected (Not Detect); Mycoplasma pneumoniae Not Detected (Not Detect); Parainfluenza Virus 1 Not Detected (Not Detect); Parainfluenza Virus 2 Not Detected (Not Detect); Parainfluenza Virus 3 Not Detected (Not Detect); Parainfluenza Virus 4 Not Detected (Not Detect); Respiratory Syncytial Virus Not Detected (Not Detect); SARS- CoV-2 Not Detected (Not Detecte)
[2024-01-23] MEDS: ALBUTEROL 2.5 MG/3 ML NEB (ADULT) INH (16:33)
--- NOTE | 2024-01-23 16:59 | PC.NURSE ---
Patient tolerated albuterol treatment and shows improvement in breath sounds and oxygen saturation, now satting 98%
--- NOTE | 2024-01-23 18:41 | ED.GENADULT ---
HPI - General Adult General Chief complaint: Upper Respiratory Symptoms Stated complaint: WIC; low oxygen level Time Seen by Provider: 01/23/24 18:01 Source: patient Mode of arrival: Ambulatory Limitations: no limitations History of Present Illness HPI narrative: Patient is an 88-year-old female. No prior history of lung pathology to include COPD her emphysema who is here for evaluation from the walk-in clinic for evaluation of shortness of breath and cough and problems breathing. No chest pain. By the time I have evaluated the patient she would already received a nebulizer treatment and she states she was feeling much better. She has had URI like symptoms for the past 4 days.. Has been coughing. Did receive a COVID and flu shot earlier this week. Related Data Home Medications Medication Instructions Recorded Confirmed cholecalciferol (vitamin D3) 50 2,000 unit PO DAILY 10/01/17 01/12/24 mcg (2,000 unit) capsule (Vitamin D3) lziktdpr-dah-VW-lycopen-lutein 1 tab PO DAILY 10/22/21 01/12/24 [CertaVite Senior] Previous Rx's Medication Instructions Recorded Disabled Parking Permit #1 ea 01/24/20 ascorbic acid (vitamin C) 500 mg 500 mg PO DAILY #60 caps 04/07/21 capsule omega 8-jxz-uli-fish oil 1,000 mg 1 cap PO BID #60 caps 04/07/21 (120 mg-180 mg) capsule (Fish Oil) diclofenac sodium 1 % topical gel 4 g topical QID #100 grams 09/01/23 (Voltaren Arthritis Pain) levetiracetam 500 mg tablet See Rx Instructions PO .COMPLEX 09/29/23 #135 tabs aspirin 81 mg tablet,delayed 81 mg PO DAILY #90 tabs 10/28/23 release carvedilol 3.125 mg tablet 3.125 mg PO BID #180 tabs 10/28/23 famotidine 20 mg tablet 20 mg PO BID #180 tabs 11/23/23 nifedipine 30 mg tablet,extended 30 mg PO DAILY #90 tabs 11/23/23 release tolterodine 4 mg capsule,extended 4 mg PO QPM #90 caps 11/23/23 release 24 hr atorvastatin 40 mg tablet 40 mg PO QPM #90 tabs 12/30/23 Allergies Allergy/AdvReac Type Severity Reaction Status Date / Time albuterol [ALBUTEROL] AdvReac Severe SHAKEY Verified 01/23/24 15:00 LEGS, JERKY allopurinol [ALLOPURINOL] AdvReac Severe NAUSEA AND Verified 01/23/24 15:00 GI UPSET Sulfa (Sulfonamide AdvReac Severe HEADACHES Verified 01/23/24 15:00 Antibiotics) [SULFA (SULFONAMIDE ANTIBIOTICS)] JESSICA Inhibitors AdvReac Mild COUGH Verified 01/23/24 15:00 [JESSICA INHIBITORS] Review of Systems Review of Systems Narrative: See HPI Constitutional Constitutional: Reports system reviewed and no additional complaints, except as documented Patient History Medical History Dairy product intolerance Episodic lightheadedness Malaise and fatigue Mixed hyperlipidemia Epilepsy Left-sided low back pain with left-sided sciatica Chronic nausea Excessive daytime sleepiness Pure hypercholesterolemia Physical deconditioning Somatic dysfunction of lower extremity Fatigue Corns and callus Toe pain, bilateral Lumbar region somatic dysfunction Chronic thoracic back pain Lightheadedness Visual hallucinations Cervical somatic dysfunction Segmental and somatic dysfunction of abdomen and other regions Segmental and somatic dysfunction of sacral region Somatic dysfunction of abdominal region Cervicothoracic somatic dysfunction Segmental and somatic dysfunction of thoracic region Segmental and somatic dysfunction of pelvic region Segmental and somatic dysfunction of head region Stiff neck Chronic low back pain Cataracts, bilateral (Unknown) Subarachnoid hemorrhage (2000) Seizure disorder (Unknown) Gallbladder disease (Unknown) Arthritis (Unknown) GERD (gastroesophageal reflux disease) (Unknown) Hypertension (Unknown) Spinal stenosis (Unknown) CLL (chronic lymphocytic leukemia) (Unknown) Depression (Unknown) Surgical History History of ventriculoperitoneal shunting (12/2000) Hx of detached retina repair (Unknown) History of bilateral cataract extraction (Unknown) Hx of cholecystectomy (Unknown) Hx of appendectomy (Unknown) Social History household members: spouse Smoking Status: Former smoker alcohol intake: current Smoking Status: Former smoker alcohol intake frequency: holidays/special occasions only Substance Use Type: does not use Exam Initial Vital Signs Initial Vital Signs: Vital Signs Temperature 97.5 F L 01/23/24 15:00 Pulse Rate 74 01/23/24 15:00 Respiratory Rate 20 01/23/24 15:00 Blood Pressure 153/65 H 01/23/24 15:00 Pulse Oximetry 97 01/23/24 15:00 Oxygen Delivery Method Room Air 01/23/24 15:00 Const General: cooperative, comfortable and No ill appearing HENMT Head: normal to inspection and normocephalic Resp Effort & Inspection: normal respiratory effort Auscultation: clear to auscultation bilaterally Cardio Rate: regular rate Rhythm: regular rhythm GI Inspection: normal to inspection Skin General: no rashes or lesions noted Neuro General: patient alert, patient awake and moves all extremities Extrem General: capillary refill normal Scores GCS [place] coma scale eye opening: Spontaneous [place] coma scale verbal response: Orientated [place] coma scale motor response: Obey commands [place] coma scale total score: 15 Course Orders Ordered: Discontinued Medications Albuterol (Albuterol 2.5 Mg/3 Ml Neb (Adult)) 2.5 mg INH NOW ONE Stop: 01/23/24 16:28 Last Admin: 01/23/24 16:33 Dose: 2.5 mg Documented By: REBECCA Albuterol (Albuterol Hfa Prepack) 1 box MISC DIRECTED ONE Stop: 01/23/24 18:43 Last Admin: 01/23/24 18:52 Dose: 1 box Documented By: CARLI Vital Signs Vital signs: Vital Signs - 8 hr 01/23/24 17:00 01/23/24 17:00 01/23/24 18:06 Pulse Rate 75 77 Blood Pressure 147/66 H Pulse Oximetry 97 97 Oxygen Delivery Method Room Air 01/23/24 18:06 01/23/24 18:30 01/23/24 18:30 Pulse Rate 74 Blood Pressure 157/71 H 169/73 H Pulse Oximetry 97 Oxygen Delivery Method Room Air 01/23/24 18:40 01/23/24 19:01 Pulse Rate 83 Blood Pressure 178/93 H Pulse Oximetry 96 Oxygen Delivery Method Medical Decision Making Lab Data Lab results reviewed: Yes I reviewed the patient's lab results. Labs: Lab Results 01/23/24 Range/Units 15:10 Chlamy pneumoniae PCR Not detected (Not Detect) Adenovirus (PCR) Not detected (Not Detect) B. pertussis DNA (PCR) Not detected (Not Detect) B.parapertussis DNA PCR Not detected (Not Detecte) Coronavirus OC43 (PCR) Not detected (Not Detect) Coronavirus HKU1 (PCR) Not detected (Not Detect) Coronavirus 229E (PCR) Not detected (Not Detect) SARS-CoV-2 (PCR) Not detected (Not Detecte) Coronavirus NL63 (PCR) Not detected (Not Detect) Human Metapneumovir PCR Not detected (Not Detect) Influenza Type A (PCR) Not detected (Not Detect) Influenza Type B (PCR) Not detected (Not Detect) M. pneumoniae (PCR) Not detected (Not Detect) Parainfluenza 1 (PCR) Not detected (Not Detect) Parainfluenza 2 (PCR) Not detected (Not Detect) Parainfluenza 3 (PCR) Not detected (Not Detect) Parainfluenza 4 (PCR) Not detected (Not Detect) RSV (PCR) Not detected (Not Detect) Entero/Rhino (PCR) Detected H (Not Detect) Imaging Data Chest x-ray: Radiologist's Impression: PROCEDURE: XR CHEST 2V INDICATIONS: cough TECHNIQUE: 2 views of the chest were acquired. COMPARISON: [facility], , XR CHEST 2V, 12/04/2023, 14:18. FINDINGS: Surgical changes and devices: None. Lungs and pleura: Lungs are clear. No pleural effusions or pneumothorax. Mediastinum: Mediastinal contours are normal. Heart size is normal. Bones and chest wall: No suspicious bony abnormalities. Soft tissues appear unremarkable. IMPRESSION: No acute cardiopulmonary abnormality is seen. MDM Narrative Medical decision making narrative: When I had evaluated the patient for the 1st time she would already received a nebulizer treatment and states she was feeling much better. She was no longer short of breath. Was not hypoxic. Lungs are clear. Chest x-ray shows no signs of pneumonia. She was positive for rhino virus and I suspect that she was having a reactive airway response to this. Plan will be is to discharge home with an albuterol inhaler. There was no indication for antibiotics as this is a viral process. She was given return precautions and follow-up instructions. She expressed understanding and agreement. Discharge Plan Departure Patient Disposition: Home Clinical Impression: Rhinovirus infection Instructions: DI for Viral Upper Respiratory Infection -- Adult Activity Restrictions/Additional Instructions: Continue to take all of your medications as directed. I do recommend that you consider taking an qzoy-bav-baeskua antihistamine such as Claritin or Zyrtec. You can purchase these rpwk-uhg-jdlrsmg. The generic versions are appropriate. Use the albuterol inhaler with a spacer as needed. Contact your primary doctor for a follow-up. Return to the emergency department for new or worsening symptoms. Prescriptions: No Action (DME) Disabled Parking Permit Qty: 1 0RF Rx Instructions: As directed levetiracetam 500 mg tablet See Rx Instructions PO .COMPLEX Qty: 135 0RF Dose Instruction: TAKE 1/2 TABLET BY MOUTH EVERY MORNING AND TAKE 1 TABLET BY MOUTH WITH SUPPER. NEED APPOINTMENT FOR FURTHER REFILLS. Rx Instructions: TAKE 1/2 TABLET BY MOUTH EVERY MORNING AND TAKE 1 TABLET BY MOUTH WITH SUPPER. orally; carvedilol 3.125 mg tablet 3.125 mg PO BID Qty: 180 0RF aspirin 81 mg tablet,delayed release (DR/EC) 81 mg PO DAILY Qty: 90 0RF famotidine 20 mg tablet 20 mg PO BID Qty: 180 0RF nifedipine 30 mg tablet extended release 30 mg PO DAILY Qty: 90 0RF tolterodine 4 mg capsule,extended release 24hr 4 mg PO QPM Qty: 90 0RF atorvastatin 40 mg tablet 40 mg PO QPM Qty: 90 0RF diclofenac sodium [Voltaren Arthritis Pain] 1 % gel 4 g topical QID Qty: 100 1RF Rx Instructions: apply to single knee, ankle, foot; for foot includes sole/toes/top of foot cholecalciferol (vitamin D3) [Vitamin D3] 2,000 unit Capsule 2,000 unit PO DAILY omega 9-cqc-cew-fish oil [Fish Oil] 1,000 mg (120 mg-180 mg) capsule 1 cap PO BID Qty: 60 0RF ascorbic acid (vitamin C) 500 mg capsule 500 mg PO DAILY Qty: 60 0RF zbfviylp-mwz-GJ-lycopen-lutein [CertaVite Senior] 1 tab PO DAILY Referrals: Timothy Gee DO [Primary Care Provider] - Stand Alone Forms: Patient Portal/API
[2024-01-23] MEDS: ALBUTEROL HFA PREPACK 1 BOX MISC (18:52)
== END 2024-01-23 19:11 | disposition home or self-care (01) ==
PROVIDERS: Emergency Medicine; Emergency Provider Emergency Medicine; Family Provider Family Medicine; PCP Family Medicine
DX: B34.8 Other viral infections of unspecified site (principal); Z11.52 Encounter for screening for COVID-19
CPT/HCPCS: 71046; 87633; 99283; J7613